=== PATIENT | female | born 1995 | race Caucasian/White ===

== ENCOUNTER 2018-04-15 16:10 | Inpatient (IN) | payer OTHER ==
[2018-04-15] MEDS ORDERED: PROMETHAZINE 25 MG/ML VIAL IV PRN (16:47)
[2018-04-15] MEDS ORDERED: Ringers Lactate 1,000 ML IV PRN (16:47)
[2018-04-15] MEDS ORDERED: METHYLERGONOVINE 0.2MG/ML AMP IM PRN (16:47)
[2018-04-15] MEDS ORDERED: CARBOPROST TROME 250 MCG/ML IM PRN (16:47)
[2018-04-15] MEDS ORDERED: miSOPROStol 100 MCG TAB ONE (16:50)
[2018-04-15] MEDS ORDERED: BUTORPHANOL 1 MG/ML INJ IV ONE (16:51)
[2018-04-15] MEDS ORDERED: Ringers Lactate 1,000 ML IV SCH (17:00)
[2018-04-15] MEDS ORDERED: OXYTOCIN/LR 20 UNIT/1,000 ML BAG IV SCH (17:00)
[2018-04-15] MEDS ORDERED: miSOPROStol 100 MCG TAB VAG SCH (17:00)
[2018-04-15] MEDS ORDERED: NA CIT/CITRIC AC 30 ML ORAL UDC PO ONE (17:20)
[2018-04-15] MEDS ORDERED: hydrOXYzine HCl 25 MG TAB PO ONE (17:21)
[2018-04-15 17:22] LABS: RPR Titer ND
[2018-04-15 17:35] LABS: Absolute Lymphocytes (CBC) 1.6 K/uL (0.7-4.9); Absolute Monocytes 0.7 K/uL (0.1-1.3); Basophils % 0.4 % (0-1.3); Eosinophils % 0.7 % (0-4.4); Hematocrit 24.7 % (36.0-45.0); Lymphocytes % 15.4 % (15.3-44.8); MCH 29.9 pg (27.0-35.0); MPV 7.5 fL (7.6-11.3); Monocytes % 6.4 % (3.3-12.3); RBC Red Blood Cell Count 2.87 M/uL (3.86-4.86); Urine Appearance CLEAR; Urine Bilirubin NEGATIVE (NEG); Urine Blood NEGATIVE (NEG); Urine Color YELLOW; Urine Glucose NEGATIVE (NEG); Urine Protein NEGATIVE (NEG); Urine Urobilinogen 0.2 mg/dL (0.2-1.0)
[2018-04-15 17:41] LABS: Urine Microscopic Reflex ORDER UMIC
[2018-04-15 17:55] VITALS: BMI 36.0
[2018-04-15 17:57] LABS: Urine Bacteria <20 /HPF (<20); Urine Culture Reflex Order REFLEXED; Urine Mucus 1+ /HPF (NONE SEEN); Urine RBC <5 /HPF (NONE SEEN)
[2018-04-15] MEDS ORDERED: RANITIDINE 150 MG TABLET PO SCH (21:00)
[2018-04-15] MEDS ORDERED: INFLUENZA VACCINE (for 3y+) 0.5 ML DOSE IMVAC ONE (21:00)
--- NOTE | 2018-04-15 22:46 | PREOPHP ---
Date of Admission: 04/15/2018 History: Ms. Quiles is a 22-year-old single female, 1, para 0 , now at 41+ weeks gestation. She is admitted for medically indicated induction of labor secondary to prolonged . She has been followed by me during this without complications other than an anemia and Rh negative blood type. Past Medical History: Please see record. Family History: Please see record. Review of Systems: She reports no recent cough, cold, fever, or chills. No recent nausea or vomiting. She denies any breast lumps or breast knots. The has been very active. She denies any bladder or bowel issues or any significant vaginal bleeding. Physical Examination: General: Reveals female in no apparent distress. Neck: Supple without adenopathy or thyromegaly. Lungs: Clear. Cardiac: Regular rate and rhythm without murmurs. Breasts: Not examined. Abdomen: She has a 39 cm fundal height and estimated weight of 8+ to 9 pounds. Pelvic: Cervix noted to be fingertip to closed, 50% effaced, vertex at -1 to - 2 station. Extremities: Trace lower extremity edema. Impression: A 41+ week . Plan: The patient will be induced this evening by prostaglandin induction. She has signed an operative permit in my presence. JEFRY/ARLYN Voice ID: [id number] MTDD
[2018-04-15 23:27] LABS: RPR (Rapid Plasma Reagin) NON-REACT (NON-REACT)
--- NOTE | 2018-04-16 07:44 | P.PN ---
Date of Service: 04/16/18 Cx 1 cm 50%, vtx, minus 2 station. FSE applied with AROM, will begin low dose pitocin augmentation. Reactive fht's with no periodic decellerations.
[2018-04-16] MEDS ORDERED: FENTANYL CITR 100 MCG/2 ML IV ONE (10:32)
[2018-04-16] MEDS ORDERED: ROPIVACAINE HCL 100 ML IV PRN (10:32)
[2018-04-16] MEDS ORDERED: ROPIVACAINE HCL 0.2% 20ML AMP IV ONE (10:33)
[2018-04-16] MEDS ORDERED: NA CIT/CITRIC AC 30 ML ORAL UDC PO ONE (17:07)
--- NOTE | 2018-04-16 17:13 | P.PN ---
Vtx still above pelvic brim, cx same, 1+cm over 5 hours. Will proceed with c- section for FTP 2 to CPD
[2018-04-16] MEDS ORDERED: CEFAZOLIN/SWI 2gm 2 GM/20 ML SYR IVP SCH (17:15)
[2018-04-16] MEDS ORDERED: CARBOPROST TROME 250 MCG/ML IM ONE (17:23)
[2018-04-16] MEDS ORDERED: METHYLERGONOVINE 0.2MG/ML AMP IM ONE (17:23)
[2018-04-16] MEDS ORDERED: LIDOCAINE 1% MPF 5 ML VIAL ONE (17:35)
[2018-04-16] MEDS ORDERED: LIDOCAINE 2% W/EPI 1:200,000 MPF 20 ML VIAL IM ONE (17:36)
[2018-04-16] MEDS ORDERED: OXYTOCIN 10 UNIT/ML ML IV ONE (17:55)
[2018-04-16] MEDS ORDERED: FAMOTIDINE 20 MG/2 ML VIAL IV SCH (18:00)
[2018-04-16] MEDS ORDERED: METOCLOPRAMIDE 10 MG/2mL INJ IV SCH (18:00)
[2018-04-16] MEDS ORDERED: ONDANSETRON HCL 40 MG/20 ML VIAL ONE (18:01)
[2018-04-16] MEDS ORDERED: Phenylephrine HCl 10 MG/ML 1 ML VIAL ONE (18:02)
[2018-04-16] MEDS ORDERED: MORPHINE SULFATE/PF 1 MG/ML (10 ML AMP) ONE (18:10)
[2018-04-16] MEDS ORDERED: METHYLERGONOVINE 0.2MG/ML AMP IM PRN (18:51)
[2018-04-16] MEDS ORDERED: ONDANSETRON 4 MG (ODT) TAB PO PRN (18:51)
[2018-04-16] MEDS ORDERED: METHYLERGONOVINE 0.2 MG TAB PO PRN (18:51)
[2018-04-16] MEDS ORDERED: CARBOPROST TROME 250 MCG/ML IM PRN (18:51)
[2018-04-16] MEDS ORDERED: Rho(D) IG (HUMAN) 300 MCG SYR IM PRN (18:51)
--- NOTE | 2018-04-16 18:55 | P.BOP ---
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
[2018-04-16] MEDS ORDERED: OXYTOCIN/LR 20 UNIT/1,000 ML BAG IV SCH (19:00)
[2018-04-17] MEDS: KETOROLAC 30 MG/ML INJ IV PRN ×2 (01:45→09:35)
[2018-04-17 05:50] LABS: Absolute Lymphocytes (CBC) 1.9 K/uL (0.7-4.9); Absolute Monocytes 0.8 K/uL (0.1-1.3); Absolute Neutrophil 8.5 K/uL (1.8-8.0); Basophils % 0.7 % (0-1.3); Eosinophils % 0.2 % (0-4.4); Hematocrit 25.8 % (36.0-45.0); Lymphocytes % 16.7 % (15.3-44.8); MCH 29.1 pg (27.0-35.0); MCV 85.5 fL (80-100); MPV 7.7 fL (7.6-11.3); Monocytes % 7.4 % (3.3-12.3); RBC Red Blood Cell Count 3.02 M/uL (3.86-4.86)
[2018-04-17] MEDS ORDERED: FAMOTIDINE 20 MG/2 ML VIAL IV SCH (09:00)
[2018-04-17] MEDS: Oxycodone HCl/Acetaminophen 1 TAB TAB PO PRN ×3 (16:43→23:17)
[2018-04-18] MEDS: Oxycodone HCl/Acetaminophen 1 TAB TAB PO PRN ×3 (07:13→15:01)
--- NOTE | 2018-04-18 07:53 | P.PN ---
S-No complaints, ambulating O-Afeb, vs stable, anemic on admission, stable post op, pt. admits not being good about taking iron and vitamins A-Satisfactory, anemia P-Probably home in am
[2018-04-18] MEDS ORDERED: Tdap (Diph,Pertuss(Acell),Tet Vac) 0.5 ML SYR IMVAC ONE (08:21)
[2018-04-18] MEDS ORDERED: INFLUENZA VACCINE (for 3y+) 0.5 ML DOSE IMVAC ONE (09:40)
[2018-04-18 11:01] VITALS: BP 106/52; TEMP 98.6
[2018-04-19 03:50] LABS: HBsAG Nonreactive (Nonreactive)
--- NOTE | 2018-04-22 10:30 | OP ---
Surgeon: Philip Decker MD Anesthesiologist: Dr. Conrad Rodriguez. Preoperative Diagnoses: A 41+ week , failure to progress in labor secondary to cephalopelvi c disproportion. Procedure: section, delivery of viable male infant. Description Of Procedure: After satisfactory level of epidural anesthesia was obtained, the patient was prepped and draped in the usual fashion for abdominal surgery. She had received 2 g of Ancef for antibiotic prophylaxis and a Quevedo catheter in place. A low transverse abdominal incision was made, carried down to the fascia. The fascia incised with a combination of sharp and blunt dissection. T his was from the underlying rectus muscles. These were divided in the midline. The perito neum identified and incised. Vesicouterine peritoneum incised. The lower segment was extremely thin . A low-transverse incision was made. An 8 pounds 15 ounce male infant was delivered. The umbilica l cord was milked. Cord clamped, cut, and the placed in a warmer. Apgars were 8 and 9. The uterus was then exteriorized. Ring clamp was passed through the cervix and then off the table. The uterine incision was closed in 2 layers utilizing 0 Vicryl suture in a running nonlocking fashion, se cond layer used to imbricate the first. The vesicouterine peritoneum was reapproximated with running suture of 3-0 Vicryl. The uterus was returned to the peritoneal cavity, which was cleaned of amniot ic fluid, debris, and blood clot. The peritoneal cavity was closed by approximating the rectus muscl es with simple sutures of 0 Vicryl. The fascia closed with a running suture of #1 Vicryl for either margin to the middle. The skin was closed with subcutaneous sutures of 3-0 Vicryl, running suture of 3-0 Vicryl in the subdermal location, and subcuticular suture of 4-0 Monocryl. Estimated total bloo d loss was less than [address] Judge Surgeon: Dr. Morse. JEFRY/ARLYN Voice ID: [id number] Report ID: [id number]
== END 2018-04-18 16:45 | disposition home or self-care (01) | DRG 788 ==
LOC: 2ND-WC 16:10
PROVIDERS: ADMIT Specialist; ATTEND Specialist
PROC: 3E033VJ Introduction of Other Hormone into Peripheral Vein, Percutaneous Approach (ICD-10-PCS; 2018-04-16)
PROC: 10D00Z1 Extraction of Products of Conception, Low, Open Approach (ICD-10-PCS; principal; 2018-04-16 17:52)
DX: O48.0 Post-term pregnancy (principal); O65.4 Obstructed labor due to fetopelvic disproportion, unspecified; O99.02 Anemia complicating childbirth; D64.9 Anemia, unspecified; Z3A.41 41 weeks gestation of pregnancy; Z37.0 Single live birth
CPT/HCPCS: 36415; 81003; 81015; 85025; 85461; 86592; 86850; 86870; 86900; 86901; 87086; 87088; 87340; 88307; 90715; 99218; J0690; J2210; J2370; J2405; J2590; J2765; J2790; J2795; J3010; Q2035

== ENCOUNTER 2018-07-26 11:34 | Emergency (ER) | payer OTHER, SELFPAY ==
--- NOTE | 2018-07-26 13:08 | ER ---
Nurse's Notes [facility] Name: Nette Quiles Age: 23 yrs Sex: Female : 1995 Arrival Date: 07/26/2018 Time: 11:37 Bed 11 Private MD: Diagnosis: Dental caries Presentation: 07/26 11:52 Presenting complaint: Patient states: right upper tooth pain x 3 days. Transition of sv care: patient was not received from another setting of care. Onset of symptoms was July 23, 2018. Care prior to arrival: Medication(s) given: ASA, Oragel. 11:52 Method Of Arrival: Ambulatory sv 11:52 Acuity: ALEK 4 sv 12:00 Risk Assessment: Do you want to hurt yourself or someone else? Patient reports no iw desire to harm self or others. Initial Sepsis Screen: Does the patient meet any 2 criteria? No. Patient's initial sepsis screen is negative. Does the patient have a suspected source of infection? No. Patient's initial sepsis screen is negative. Triage Assessment: 13:00 EENT: Reports pain in right jaw and right cheek. iw 13:28 General: Appears in no apparent distress. Behavior is calm, cooperative. 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 - Social history:: Smoking status: Patient uses tobacco products, smokes one-half pack cigarettes per day. - Ebola Screening: : No symptoms or risks identified at this time. Screenin:00 Abuse screen: Denies threats or abuse. Denies injuries from another. Nutritional iw screening: No deficits noted. Tuberculosis screening: No symptoms or risk factors identified. Fall Risk None identified. Assessment: 12:50 General: Appears in no apparent distress. Behavior is calm, cooperative. Pain: iw Complains of pain in mouth. Neuro: Level of Consciousness is awake, alert, obeys commands. Cardiovascular: Patient's skin is warm and dry. Respiratory: Respiratory effort is even, unlabored, Respiratory pattern is regular. EENT: Reports pain in right cheek and right jaw. Derm: Skin is intact, is healthy with good turgor. Vital Signs: 11:54 BP 113 / 67; Pulse 69; Resp 16; Temp 98.3; Pulse Ox 98% ; Weight 81.65 kg; Height 5 ft. sv 4 in. (162.56 cm); Pain 7/10; 11:54 Body Mass Index 30.90 (81.65 kg, 162.56 cm) sv ED Course: 11:37 Patient arrived in ED. rg4 11:53 Triage completed. sv 11:54 Arm band placed on Patient placed in waiting room, Patient notified of wait time. sv 12:00 Patient has correct armband on for positive identification. iw 12:47 Nelida Davis, RN is Primary Nurse. iw 12:51 Rodney Keller PA is PHCP. [facility] 12:51 Otis Hallman MD is Attending Physician. [facility] 13:28 No provider procedures requiring assistance completed. Patient did not have IV access iw during this emergency room visit. Administered Medications: No medications were administered Outcome: 13:07 Discharge ordered by MD. [facility] 13:28 Discharged to home ambulatory, with family. iw 13:28 Condition: good 13:28 Discharge instructions given to patient, family, Instructed on discharge instructions, follow up and referral plans. medication usage, Demonstrated understanding of instructions, follow-up care, medications, Prescriptions given X 1. 13:29 Patient left the ED. iw Signatures: Luda Valverde, RN JAMEL Rodney Keller PA PA jmm Williams, Irene, RN Lexus Nieves rg4
--- NOTE | 2018-07-26 13:08 | EDPHYS ---
Physician Documentation [facility] Name: Nette Quiles Age: 23 yrs Sex: Female : 1995 Arrival Date: 07/26/2018 Time: 11:37 Bed 11 Private MD: ED Physician Otis Hallman HPI: 07/26 13:04 This 23 yrs old Female presents to ER via Ambulatory with complaints of jmm Toothache. 13:04 The patient presents with pain, swelling. Onset: The symptoms/episode began/occurred jmm gradually. Duration: The symptoms are continuous. Modifying factors: The symptoms are alleviated by nothing, the symptoms are aggravated by nothing. Associated signs and symptoms: Pertinent positives: swelling, Pertinent negatives: fever. This is a 23 year old female with a history of post depression that presents to the ED with right sided dental pain that has progressively worsened over the past 2 to 3 days according to the patient. Patient denies fever. . 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 - Social history:: Smoking status: Patient uses tobacco products, smokes one-half pack cigarettes per day. - Ebola Screening: : No symptoms or risks identified at this time. ROS: 13:04 Constitutional: Negative for fever, chills, and weight loss. jmm 13:04 ENT: Positive for dental pain. 13:04 All other systems are negative. Exam: 13:04 Constitutional: This is a well developed, well nourished patient who is awake, alert, jmm and in no acute distress. Head/Face: atraumatic. 13:04 Neck: Trachea midline, Supple Chest/axilla: Normal chest wall appearance and motion. Cardiovascular: Regular rate and rhythm. No edema appreciated Respiratory: Normal respirations, no respiratory distress appreciated Abdomen/GI: Non distended, soft Back: Normal ROM Skin: General appearance color normal MS/ Extremity: Moves all extremities, no obvious deformities appreciated, no edema noted to the lower extremities Neuro: Awake and alert, normal gait Psych: Behavior is normal, Mood is normal, Patient is cooperative and pleasant 13:04 ENT: Dental exam: dental caries, that is moderate, specifically in the upper right first molar (#3), upper right second bicuspid (#4), lower right second bicuspid (#29), lower right first molar (#30) and lower right second molar (#31). Vital Signs: 11:54 BP 113 / 67; Pulse 69; Resp 16; Temp 98.3; Pulse Ox 98% ; Weight 81.65 kg; Height 5 ft. sv 4 in. (162.56 cm); Pain 7/10; 11:54 Body Mass Index 30.90 (81.65 kg, 162.56 cm) sv MDM: 13:03 Patient medically screened. [facility] 13:04 Data reviewed: vital signs, nurses notes. Counseling: I had a detailed discussion with abbie the patient and/or guardian regarding: the historical points, exam findings, and any diagnostic results supporting the discharge/admit diagnosis, the need for outpatient follow up, to return to the emergency department if symptoms worsen or persist or if there are any questions or concerns that arise at home. ED course: No swelling appreicated, no fluctuant abscess appreciated. Patient is prescribed oral antibioptics and given s/s for return. Patient understood and agrees with the plan of care. . Administered Medications: No medications were administered Disposition: 14:32 Co-signature as Attending Physician, Otis Hallman MD. rn Disposition: 07/26/18 13:07 Discharged to Home. Impression: Dental caries. - Condition is Stable. - Discharge Instructions: Dental Pain. - Prescriptions for penicillin V potassium 500 mg Oral tablet - take 1 tablet by ORAL route every 6 hours; 40 tablet. Ultracet 37.5- 325 mg Oral Tablet - take 1 tablet by ORAL route every 6 hours - for up to 5 days; do not exceed 8 tablets per day.; 9 tablet. - Medication Reconciliation Form, Thank You Letter, Antibiotic Education, Prescription Opioid Use, Work release form, Family Work Release form. - Follow up: Private Physician; When: 2 - 3 days; Reason: Recheck today's complaints, Continuance of care, Re-evaluation by your physician. Signatures: Luda Valverde RN RN sv Mickail, Joel, PA PA jmm Williams, Irene, RN RN iw Nieto, Roman, MD MD learning and development intern: (The following items were deleted from the chart) 13:29 13:07 07/26/2018 13:07 Discharged to Home. Impression: Dental caries. Condition is iw Stable. Forms are Medication Reconciliation Form, Thank You Letter, Antibiotic Education, Prescription Opioid Use. Follow up: Private Physician; When: 2 - 3 days; Reason: Recheck today's complaints, Continuance of care, Re-evaluation by your physician. abbie
[2018-07-26 13:34] VITALS: BP 113/67; TEMP 98.3; O2SAT 98
== END 2018-07-26 13:29 | disposition home or self-care (01) ==
LOC: ER 11:34
DX: K02.9 Dental caries, unspecified (principal); F17.210 Nicotine dependence, cigarettes, uncomplicated

== ENCOUNTER 2018-09-29 12:55 | Emergency (ER) | payer SELFPAY ==
--- NOTE | 2018-09-29 14:15 | EDPHYS ---
Physician Documentation [facility] Name: Nette Quiles Age: 23 yrs Sex: Female : 1995 Arrival Date: 09/29/2018 Time: 12:58 Bed 27 Private MD: David Lowe T ED Physician Chalo Du HPI: 09/29 14:14 This 23 yrs old Female presents to ER via Ambulatory with complaints of kb Cough, Congestion. 14:14 The patient or guardian reports cough, that is intermittent, described as moderate, kb with no sputum, flu symptoms, low-grade fever, myalgias. Onset: The symptoms/episode began/occurred this morning. Severity of symptoms: At their worst the symptoms were moderate, in the emergency department the symptoms are unchanged. Modifying factors: The symptoms are alleviated by nothing, the symptoms are aggravated by nothing. Associated signs and symptoms: Pertinent positives: sore throat, Pertinent negatives: chest pain, diarrhea, ear ache, fever, nausea, rhinorrhea, vomiting. The patient has not experienced similar symptoms in the past. The patient has not recently seen a physician. 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 - Social history:: Smoking status: Patient uses tobacco products, Patient/guardian denies using alcohol. - Ebola Screening: : Patient negative for fever greater than or equal to 101.5 degrees Fahrenheit, and additional compatible Ebola Virus Disease symptoms Patient denies exposure to infectious person Patient denies travel to an Ebola-affected area in the 21 days before illness onset. ROS: 14:13 Neck: Negative for injury, pain, and swelling, Cardiovascular: Negative for chest pain, kb palpitations, and edema, Abdomen/GI: Negative for abdominal pain, nausea, vomiting, diarrhea, and constipation, Back: Negative for injury and pain, MS/Extremity: Negative for injury and deformity, Skin: Negative for injury, rash, and discoloration, Neuro: Negative for headache, weakness, numbness, tingling, and seizure. 14:13 Constitutional: Positive for fatigue, malaise. 14:13 Respiratory: Positive for cough. 14:13 ENT: Positive for sore throat. kb Exam: 14:12 Constitutional: This is a well developed, well nourished patient who is awake, alert, kb and in no acute distress. Head/Face: Normocephalic, atraumatic. Chest/axilla: Normal chest wall appearance and motion. Nontender with no deformity. No lesions are appreciated. Cardiovascular: Regular rate and rhythm with a normal S1 and S2. No gallops, murmurs, or rubs. Normal PMI, no JVD. No pulse deficits. Abdomen/GI: Soft, non-tender, with normal bowel sounds. No distension or tympany. No guarding or rebound. No evidence of tenderness throughout. Skin: Warm, dry with normal turgor. Normal color with no rashes, no lesions, and no evidence of cellulitis. MS/ Extremity: Pulses equal, no cyanosis. Neurovascular intact. Full, normal range of motion. Neuro: Awake and alert, GCS 15, oriented to person, place, time, and situation. Cranial nerves II-XII grossly intact. Motor strength 5/5 in all extremities. Sensory grossly intact. Cerebellar exam normal. Normal gait. 14:12 Respiratory: the patient does not display signs of respiratory distress, Respirations: normal, Breath sounds: wheezing: expiratory that is mild, is heard in the right posterior upper lobe, clears after cough. Vital Signs: 13:03 BP 123 / 68; Pulse 120; Resp 18; Temp 99.9(O); Pulse Ox 98% on R/A; Weight 77.11 kg; hj Height 5 ft. 4 in. (162.56 cm); Pain 3/10; 13:40 BP 127 / 70; Pulse 102; Resp 19; Pulse Ox 99% ; ca1 14:27 BP 113 / 66; Pulse 104; Resp 19; Pulse Ox 100% on R/A; ca1 13:03 Body Mass Index 29.18 (77.11 kg, 162.56 cm) MDM: 13:29 Patient medically screened. kb 14:12 Data reviewed: vital signs, nurses notes. Data interpreted: Pulse oximetry: on room air kb is 99 %. Interpretation: normal. Counseling: I had a detailed discussion with the patient and/or guardian regarding: the historical points, exam findings, and any diagnostic results supporting the discharge/admit diagnosis, lab results, the need for outpatient follow up, a family practitioner, to return to the emergency department if symptoms worsen or persist or if there are any questions or concerns that arise at home. 09/29 13:08 Order name: Flu; Complete Time: 14:03 kb 09/29 13:08 Order name: Strep; Complete Time: 13:41 kb 09/29 13:34 Order name: Throat Culture EDMS Administered Medications: No medications were administered Disposition: 09/30 07:35 Co-signature as Attending Physician, Chalo Du MD I agree with the assessment and [facility] plan of care. Disposition: 09/29/18 14:15 Discharged to Home. Impression: Bronchitis, not specified as acute or chronic. - Condition is Stable. - Discharge Instructions: Acute Bronchitis, [id number]. - Prescriptions for Zithromax Z- Guido 250 mg Oral Tablet - take 1 tablet by ORAL route as directed for 5 days Day 1 - take two (2) tablets one time. Day 2, 3, 4 , 5 take one (1) tablet once daily.; 6 tablet. Albuterol Sulfate 90 mcg/actuation - inhale 1-2 puff by INHALATION route every 4-6 hours; 1 Inhaler. - Medication Reconciliation Form, Thank You Letter, Antibiotic Education, Prescription Opioid Use form. - Follow up: Emergency Department; When: As needed; Reason: Worsening of condition. Follow up: Private Physician; When: 2 - 3 days; Reason: Recheck today's complaints, Continuance of care, Re-evaluation by your physician. Signatures: Dispatcher [employer] EDMS Inna Edge, CLAUDIO ABREU-Chalo Rand MD MD cha Attema, Lee RN RN la1 Elbert Wilder RN RN hj Corrections: (The following items were deleted from the chart) 09/29 14:14 14:13 ENT: Negative for injury, pain, and discharge, Neck: Negative for injury, pain, kb and swelling, Cardiovascular: Negative for chest pain, palpitations, and edema, Abdomen/GI: Negative for abdominal pain, nausea, vomiting, diarrhea, and constipation, Back: Negative for injury and pain, MS/Extremity: Negative for injury and deformity, Skin: Negative for injury, rash, and discoloration, Neuro: Negative for headache, weakness, numbness, tingling, and seizure, kb 14:39 14:15 09/29/2018 14:15 Discharged to Home. Impression: Bronchitis, not specified as la1 acute or chronic. Condition is Stable. Forms are Medication Reconciliation Form, Thank You Letter, Antibiotic Education, Prescription Opioid Use. Follow up: Emergency Department; When: As needed; Reason: Worsening of condition. Follow up: Private Physician; When: 2 - 3 days; Reason: Recheck today's complaints, Continuance of care, Re-evaluation by your physician. kb
--- NOTE | 2018-09-29 14:15 | ER ---
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 Transition of care: patient was not received from another setting of care. Resp Distress? No respiratory distress is noted at this time. Onset of symptoms was September 29, 2018. Risk Assessment: Do you want to hurt yourself or someone else? Patient reports no desire to harm self or others. Initial Sepsis Screen: Does the patient meet any 2 criteria? No. Patient's initial sepsis screen is negative. Does the patient have a suspected source of infection? No. Patient's initial sepsis screen is negative. Care prior to arrival: None. 13:00 Method Of Arrival: Ambulatory 13:00 Acuity: ALEK 4 hj Triage Assessment: 13:02 General: Appears in no apparent distress. uncomfortable, Behavior is calm, cooperative, hj appropriate for age. Pain: Complains of pain in throat Pain currently is 3 out of 10 on a pain scale. 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 - Social history:: Smoking status: Patient uses tobacco products, Patient/guardian denies using alcohol. - Ebola Screening: : Patient negative for fever greater than or equal to 101.5 degrees Fahrenheit, and additional compatible Ebola Virus Disease symptoms Patient denies exposure to infectious person Patient denies travel to an Ebola-affected area in the 21 days before illness onset. Screenin:02 Abuse screen: Denies threats or abuse. Denies injuries from another. Nutritional hj screening: No deficits noted. Tuberculosis screening: No symptoms or risk factors identified. Fall Risk None identified. Assessment: 13:02 Cardiovascular: Capillary refill Patient's skin is warm and dry. hj 13:40 General: Appears in no apparent distress. comfortable, Behavior is calm, cooperative, ca1 appropriate for age. Pain: Denies pain. Neuro: Level of Consciousness is awake, alert, obeys commands, Oriented to person, place, time, situation. Cardiovascular: Heart tones S1 S2 present Capillary refill < 3 seconds Patient's skin is warm and dry. Respiratory: Reports cough that is productive, Airway is patent Respiratory effort is even, unlabored, Respiratory pattern is regular, symmetrical, Breath sounds are clear bilaterally. Onset: The symptoms/episode began/occurred today. GI: No deficits noted. No signs and/or symptoms were reported involving the gastrointestinal system. : No deficits noted. No signs and/or symptoms were reported regarding the genitourinary system. EENT: No deficits noted. No signs and/or symptoms were reported regarding the EENT system. Derm: Skin is intact, is healthy with good turgor, Skin is pink, warm \T\ dry. Musculoskeletal: Circulation, motion, and sensation intact. Capillary refill < 3 seconds. 14:27 Reassessment: Patient appears in no apparent distress at this time. Patient is alert, ca1 oriented x 3, equal unlabored respirations, skin warm/dry/pink. Vital Signs: 13:03 BP 123 / 68; Pulse 120; Resp 18; Temp 99.9(O); Pulse Ox 98% on R/A; Weight 77.11 kg; hj Height 5 ft. 4 in. (162.56 cm); Pain 3/10; 13:40 BP 127 / 70; Pulse 102; Resp 19; Pulse Ox 99% ; ca1 14:27 BP 113 / 66; Pulse 104; Resp 19; Pulse Ox 100% on R/A; ca1 13:03 Body Mass Index 29.18 (77.11 kg, 162.56 cm) ED Course: 12:58 Patient arrived in ED. mr 12:58 David Lowe MD is Private Physician. mr 13:01 Triage completed. hj 13:02 Arm band placed on left wrist. hj 13:02 Patient has correct armband on for positive identification. Bed in low position. Call light in reach. Side rails up X 1. 13:08 Inna Edge FNP-C is PHCP. kb 13:08 Chalo Du MD is Attending Physician. kb 13:40 Pulse ox on. NIBP on. ca1 13:48 Lindsey Garcia, RN is Primary Nurse. ca1 14:28 No provider procedures requiring assistance completed. Patient did not have IV access ca1 during this emergency room visit. Administered Medications: No medications were administered Outcome: 14:15 Discharge ordered by . kb 14:29 Discharged to home ambulatory, with family. ca1 14:29 Condition: stable 14:29 Discharge instructions given to patient, Instructed on discharge instructions, follow up and referral plans. medication usage, Demonstrated understanding of instructions, follow-up care, medications, Prescriptions given X 2. 14:39 Patient left the ED. la1 Signatures: Inna Edge, CLAUDIO ABREU-Kandi BarnesKimberly Lee RN RN la1 Elbert Wilder, RN JAMEL Lindsey Garcia, JAMEL RN ca1 Corrections: (The following items were deleted from the chart) 13:05 13:03 Pulse 120bpm; Resp 18bpm; Pulse Ox 98% RA; Temp 99.9F Oral; 77.11 kg; Height 5 hj ft. 4 in.; BMI: 29.1; Pain 3/10; hj 13:59 13:40 BP 127 / 70; Pulse 102bpm; Resp 19bpm; Pulse Ox 99%; ca1 ca1
[2018-09-29 14:43] VITALS: TEMP 99.9
[2018-09-29 14:46] VITALS: BP 113/66; O2SAT 100
== END 2018-09-29 14:39 | disposition home or self-care (01) ==
LOC: ER 12:55
DX: J40 Bronchitis, not specified as acute or chronic (principal)
CPT/HCPCS: 87070; 87081; 87804; 99283

== ENCOUNTER 2018-11-17 12:45 | Emergency (ER) | payer SELFPAY ==
[2018-11-17 13:51] LABS: Absolute Lymphocytes (CBC) 1.5 K/uL (0.7-4.9); Absolute Monocytes 0.4 K/uL (0.1-1.3); Absolute Neutrophil 1.9 K/uL (1.8-8.0); Basophils % 0.9 % (0-1.3); Eosinophils % 3.3 % (0-4.4); Hematocrit 36.3 % (36.0-45.0); Lymphocytes % 38.4 % (15.3-44.8); MPV 8.3 fL (7.6-11.3); Monocytes % 9.6 % (3.3-12.3); RBC Red Blood Cell Count 4.69 M/uL (3.86-4.86)
[2018-11-17 14:16] LABS: Urine Blood TRACE (NEG); Urine Glucose NEGATIVE (NEG); Urine Protein NEGATIVE (NEG)
--- NOTE | 2018-11-17 14:24 | RAD REPORT ---
EXAM DESCRIPTION: US - Abdomen Exam Limited - 11/17/2018 2:07 pm CLINICAL HISTORY: Abdominal pain. COMPARISON: None. FINDINGS: The gallbladder wall is not thickened. A gallstone is not seen. The biliary tree is normal caliber. IMPRESSION: Unremarkable gallbladder ultrasound.
[2018-11-17 14:36] LABS: ALT/SGPT 14 U/L (12-78); AST/SGOT 9 U/L (15-37); Albumin 3.8 g/dL (3.4-5.0); Alkaline Phosphatase 72 U/L (45-117); BUN Blood Urea Nitrogen 13 mg/dL (7-18); Bicarbonate 26 mmol/L (21-32); Bilirubin Direct < 0.1 mg/dL (0-0.2); Bilirubin Total 0.3 mg/dL (0.2-1.0); Glucose Level 81 mg/dL (74-106); Lipase 217 U/L (73-393); Potassium 4.2 mmol/L (3.5-5.1); Protein, Total 6.7 g/dL (6.4-8.2); Sodium Level 142 mmol/L (136-145)
--- NOTE | 2018-11-17 14:43 | ER ---
Nurse's Notes [facility] Name: Nette Quiles Age: 23 yrs Sex: Female : 1995 Arrival Date: 11/17/2018 Time: 12:46 Bed 5 Private MD: David Lowe T Diagnosis: Generalized abdominal pain Presentation: 11/17 12:49 Presenting complaint: Patient states: Reports RUQ abdominal pain for 1 month that is aj worse at night with movement. Denies N/V. Transition of care: patient was not received from another setting of care. Onset of symptoms was October 18, 2018. Risk Assessment: Do you want to hurt yourself or someone else? Patient reports no desire to harm self or others. Initial Sepsis Screen: Does the patient meet any 2 criteria? No. Patient's initial sepsis screen is negative. Does the patient have a suspected source of infection? No. Patient's initial sepsis screen is negative. Care prior to arrival: None. 12:49 Method Of Arrival: Ambulatory 12:49 Acuity: ALEK 4 aj Triage Assessment: 12:50 General: Appears in no apparent distress. comfortable, Behavior is calm, cooperative, aj appropriate for age. Pain: Complains of pain in right upper quadrant. Neuro: Level of Consciousness is awake, alert, obeys commands, Oriented to person, place, time, situation, Appropriate for age. Respiratory: Airway is patent Respiratory effort is even, unlabored, Respiratory pattern is regular, symmetrical. GI: Reports upper abdominal pain. Derm: Skin is intact, is healthy with good turgor, Skin is pink, warm \T\ dry. normal. 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 - Social history:: Smoking status: Patient/guardian denies using tobacco. - Ebola Screening: : Patient negative for fever greater than or equal to 101.5 degrees Fahrenheit, and additional compatible Ebola Virus Disease symptoms Patient denies exposure to infectious person Patient denies travel to an Ebola-affected area in the 21 days before illness onset No symptoms or risks identified at this time. Screenin:27 Abuse screen: Denies threats or abuse. Denies injuries from another. Nutritional bp screening: No deficits noted. Tuberculosis screening: No symptoms or risk factors identified. Fall Risk None identified. Assessment: 13:00 General: Appears in no apparent distress. uncomfortable, Behavior is cooperative, bp appropriate for age, anxious. Pain: Complains of pain in right upper quadrant. Neuro: Level of Consciousness is awake, alert, obeys commands, Oriented to person, place, time, situation, Appropriate for age. Cardiovascular: No deficits noted. Respiratory: Airway is patent Respiratory effort is even, unlabored, Respiratory pattern is regular, symmetrical. GI: Bowel sounds present X 4 quads. Abd is soft X 4 quads Abdomen is tender to palpation in right upper quadrant. : No signs and/or symptoms were reported regarding the genitourinary system. EENT: No deficits noted. Derm: No deficits noted. Musculoskeletal: Circulation, motion, and sensation intact. Range of motion: intact in all extremities. 14:18 Reassessment: Patient and/or family updated on plan of care and expected duration. Pain hj level reassessed. Patient is alert, oriented x 3, equal unlabored respirations, skin warm/dry/pink. awaiting results and POC; and son in room;. Vital Signs: 12:50 BP 137 / 70; Pulse 98; Resp 20; Temp 98.4; Pulse Ox 97% on R/A; Weight 74.84 kg; Height aj 5 ft. 4 in. (162.56 cm); 13:27 BP 110 / 66; Pulse 94; Resp 16; Pulse Ox 99% ; bp 14:20 BP 105 / 68; Pulse 88; Resp 18; Pulse Ox 98% on R/A; hj 12:50 Body Mass Index 28.32 (74.84 kg, 162.56 cm) aj ED Course: 12:46 Patient arrived in ED. as 12:47 David Lowe MD is Private Physician. as 12:50 Triage completed. aj 12:50 Arm band placed on left wrist. Patient placed in an exam room. aj 12:52 Sabi Woodard FNP is PHCP. nh 12:52 Chalo Du MD is Attending Physician. nh 13:14 Elbert Wilder, JAMEL is Primary Nurse. hj 13:14 Primary Nurse role handed off by Elbert Wilder, RN bp 13:14 Tiago Alcantara, RN is Primary Nurse. bp 13:23 Urine collected: clean catch specimen, clear, dionne colored. jb1 13:27 Patient has correct armband on for positive identification. Bed in low position. Call bp light in reach. Side rails up X2. 13:30 Initial lab(s) drawn, by me, sent to lab. Inserted saline lock: 20 gauge in right hj antecubital area, using aseptic technique. Blood collected. 14:06 Ultrasound completed. Patient tolerated well. sg3 14:08 US Abdomen Limited In Process Unspecified. EDMS 14:50 No provider procedures requiring assistance completed. IV discontinued, intact, hj bleeding controlled, No redness/swelling at site. Pressure dressing applied. Administered Medications: No medications were administered Outcome: 14:43 Discharge ordered by MD. fl 14:50 Discharged to home ambulatory, with family. 14:50 Condition: stable 14:50 Discharge instructions given to patient, family, Instructed on discharge instructions, follow up and referral plans. Demonstrated understanding of instructions, follow-up care. 14:51 Patient left the ED. Signatures: Dispatcher [employer] EDMS Anjel Mullen jb1 Gail Nunez RN RN aj Cronk, Niki, REHEATER HELPER REHEATER HELPER Elham Goldberg as Elbert Wilder, RN RN Tiago Quintanilla, RN RN Meggan Chang sg3
--- NOTE | 2018-11-17 14:43 | EDPHYS ---
Physician Documentation [facility] Name: Nette Quiles Age: 23 yrs Sex: Female : 1995 Arrival Date: 11/17/2018 Time: 12:46 Bed 5 Private MD: David Lowe T ED Physician Chalo Du HPI: 11/17 14:41 This 23 yrs old Female presents to ER via Ambulatory with complaints of nh Abdominal Pain. 14:41 The patient presents with abdominal pain in the epigastric area. Onset: The nh symptoms/episode began/occurred 1 month(s) ago. The symptoms do not radiate. Associated signs and symptoms: none. The symptoms are described as crampy. Modifying factors: The symptoms are alleviated by nothing, the symptoms are aggravated by movement. Severity of pain: At its worst the pain was moderate just prior to arrival, in the emergency department the pain is unchanged. The patient has not experienced similar symptoms in the past. The patient has not recently seen a physician. 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 - Social history:: Smoking status: Patient/guardian denies using tobacco. - Ebola Screening: : Patient negative for fever greater than or equal to 101.5 degrees Fahrenheit, and additional compatible Ebola Virus Disease symptoms Patient denies exposure to infectious person Patient denies travel to an Ebola-affected area in the 21 days before illness onset No symptoms or risks identified at this time. ROS: 14:41 Constitutional: Negative for fever, chills, and weight loss, Eyes: Negative for injury, nh pain, redness, and discharge, ENT: Negative for injury, pain, and discharge, Neck: Negative for injury, pain, and swelling, Cardiovascular: Negative for chest pain, palpitations, and edema, Respiratory: Negative for shortness of breath, cough, wheezing, and pleuritic chest pain, Back: Negative for injury and pain, : Negative for injury, bleeding, discharge, and swelling, MS/Extremity: Negative for injury and deformity, Skin: Negative for injury, rash, and discoloration, Neuro: Negative for headache, weakness, numbness, tingling, and seizure, Psych: Negative for depression, anxiety, suicide ideation, homicidal ideation, and hallucinations, Allergy/Immunology: Negative for hives, rash, and allergies, Endocrine: Negative for neck swelling, polydipsia, polyuria, polyphagia, and marked weight changes, Hematologic/Lymphatic: Negative for swollen nodes, abnormal bleeding, and unusual bruising. 14:41 Abdomen/GI: Positive for abdominal pain. Exam: 14:41 Constitutional: This is a well developed, well nourished patient who is awake, alert, nh and in no acute distress. Head/Face: Normocephalic, atraumatic. Eyes: Pupils equal round and reactive to light, extra-ocular motions intact. Lids and lashes normal. Conjunctiva and sclera are non-icteric and not injected. Cornea within normal limits. Periorbital areas with no swelling, redness, or edema. ENT: Nares patent. No nasal discharge, no septal abnormalities noted. Tympanic membranes are normal and external auditory canals are clear. Oropharynx with no redness, swelling, or masses, exudates, or evidence of obstruction, uvula midline. Mucous membranes moist. Neck: Trachea midline, no thyromegaly or masses palpated, and no cervical lymphadenopathy. Supple, full range of motion without nuchal rigidity, or vertebral point tenderness. No Meningismus. Chest/axilla: Normal chest wall appearance and motion. Nontender with no deformity. No lesions are appreciated. Cardiovascular: Regular rate and rhythm with a normal S1 and S2. No gallops, murmurs, or rubs. Normal PMI, no JVD. No pulse deficits. Respiratory: Lungs have equal breath sounds bilaterally, clear to auscultation and percussion. No rales, rhonchi or wheezes noted. No increased work of breathing, no retractions or nasal flaring. Abdomen/GI: Soft, non-tender, with normal bowel sounds. No distension or tympany. No guarding or rebound. No evidence of tenderness throughout. Back: No spinal tenderness. No costovertebral tenderness. Full range of motion. Skin: Warm, dry with normal turgor. Normal color with no rashes, no lesions, and no evidence of cellulitis. MS/ Extremity: Pulses equal, no cyanosis. Neurovascular intact. Full, normal range of motion. Neuro: Awake and alert, GCS 15, oriented to person, place, time, and situation. Cranial nerves II-XII grossly intact. Motor strength 5/5 in all extremities. Sensory grossly intact. Cerebellar exam normal. Normal gait. Psych: Awake, alert, with orientation to person, place and time. Behavior, mood, and affect are within normal limits. Vital Signs: 12:50 BP 137 / 70; Pulse 98; Resp 20; Temp 98.4; Pulse Ox 97% on R/A; Weight 74.84 kg; Height aj 5 ft. 4 in. (162.56 cm); 13:27 BP 110 / 66; Pulse 94; Resp 16; Pulse Ox 99% ; bp 14:20 BP 105 / 68; Pulse 88; Resp 18; Pulse Ox 98% on R/A; hj 12:50 Body Mass Index 28.32 (74.84 kg, 162.56 cm) MDM: 12:52 Patient medically screened. wa 14:41 Data reviewed: vital signs, nurses notes, lab test result(s), radiologic studies, I nh have discussed the patient's presentation/case with the attending Emergency Department Physician; and as a result, I will discharge patient. Counseling: I had a detailed discussion with the patient and/or guardian regarding: the historical points, exam findings, and any diagnostic results supporting the discharge/admit diagnosis, lab results, radiology results, the need for outpatient follow up, to return to the emergency department if symptoms worsen or persist or if there are any questions or concerns that arise at home. 11/17 13:03 Order name: Basic Metabolic Panel wa 11/17 13:03 Order name: CBC with Diff; Complete Time: 14:25 wa 11/17 13:03 Order name: Creatinine for Radiology wa 11/17 13:03 Order name: Hepatic Function wa 11/17 13:03 Order name: Lipase wa 11/17 13:03 Order name: Test, Serum; Complete Time: 14:25 wa 11/17 13:03 Order name: IV Saline Lock; Complete Time: 13:43 wa 11/17 13:03 Order name: Labs collected and sent; Complete Time: 13:43 wa 11/17 13:03 Order name: Urine Dipstick-Ancillary (obtain specimen); Complete Time: 13:23 wa 11/17 13:03 Order name: US Abdomen Limited; Complete Time: 14:25 wa 11/17 13:24 Order name: Urine Dipstick--Ancillary (enter results) em1 11/17 13:24 Order name: Urine --Ancillary (enter results); Complete Time: 14:25 em1 11/17 13:25 Order name: Urine Dipstick-Ancillary; Complete Time: 14:25 EDMS Administered Medications: No medications were administered Disposition: 11/18 09:08 Co-signature as Attending Physician, Chalo Du MD I agree with the assessment and [facility] plan of care. Disposition: 11/17/18 14:43 Discharged to Home. Impression: Generalized abdominal pain. - Condition is Stable. - Discharge Instructions: Abdominal Pain, Adult. - Medication Reconciliation Form, Thank You Letter, Antibiotic Education, Prescription Opioid Use form. - Follow up: Private Physician; When: 2 - 3 days; Reason: Recheck today's complaints. - Problem is new. - Symptoms are unchanged. Signatures: Dispatcher [employer] EDGail Nichols, RN RN Chalo Molina MD MD cha Cronk, Niki, DAIRY FEED SALES CONSULTANT DAIRY FEED SALES CONSULTANT wa Elbert Wilder RN RN hj Corrections: (The following items were deleted from the chart) 11/17 14:51 14:43 11/17/2018 14:43 Discharged to Home. Impression: Generalized abdominal pain. hj Condition is Stable. Forms are Medication Reconciliation Form, Thank You Letter, Antibiotic Education, Prescription Opioid Use. Follow up: Private Physician; When: 2 - 3 days; Reason: Recheck today's complaints. Problem is new. Symptoms are unchanged. wa
[2018-11-17 15:00] VITALS: TEMP 98.4
[2018-11-17 15:03] VITALS: BP 105/68; O2SAT 98
== END 2018-11-17 14:51 | disposition home or self-care (01) ==
LOC: ER 12:45
DX: R10.84 Generalized abdominal pain (principal); F32.9 Major depressive disorder, single episode, unspecified
CPT/HCPCS: 36415; 76705; 80048; 80076; 81003; 81025; 83690; 84703; 85025; 99283

== ENCOUNTER 2019-05-20 10:03 | Emergency (ER) | payer OTHER, SELFPAY ==
--- NOTE | 2019-05-20 11:42 | ER ---
Nurse's Notes [facility] Name: Nette Quiles Age: 23 yrs Sex: Female : 1995 Arrival Date: 05/20/2019 Time: 10:06 Bed 11 Private MD: David Lowe T Diagnosis: Streptococcal pharyngitis Presentation: 05/20 10:40 Presenting complaint: Patient states: about 2 days ago pain in my throat when i tw2 swallow, yesterday i stared coughing, and i feel it down in my chest when i cough, i am having mucous but i swallow it it wont come out my nose though. Transition of care: patient was not received from another setting of care. Onset of symptoms was May 20, 2019. Risk Assessment: Do you want to hurt yourself or someone else? Patient reports no desire to harm self or others. Initial Sepsis Screen: Does the patient meet any 2 criteria? No. Patient's initial sepsis screen is negative. Does the patient have a suspected source of infection? No. Patient's initial sepsis screen is negative. Care prior to arrival: None. 10:40 Method Of Arrival: Ambulatory tw2 10:40 Acuity: ALEK 4 tw2 Triage Assessment: 10:42 General: Appears in no apparent distress. Behavior is calm, cooperative, appropriate tw2 for age. Pain: Complains of pain in uvula, left aspect of posterior pharynx and right aspect of posterior pharynx. EENT: Reports nasal congestion. 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 - Social history:: Smoking status: Patient uses tobacco products, smokes one pack cigarettes per day. - Ebola Screening: : Patient denies travel to an Ebola-affected area in the 21 days before illness onset. Screenin:50 Abuse screen: Denies threats or abuse. Nutritional screening: No deficits noted. tw2 Tuberculosis screening: No symptoms or risk factors identified. Fall Risk None identified. Assessment: 10:48 General: Appears in no apparent distress. Behavior is calm, cooperative, appropriate tw2 for age. Pain: Complains of pain in right aspect of posterior pharynx and left aspect of posterior pharynx and uvula. Cardiovascular: Patient's skin is warm and dry. Respiratory: Reports cough that is non-productive, Airway is patent Respiratory effort is even, unlabored, Respiratory pattern is regular, symmetrical, Breath sounds are clear bilaterally. GI: No signs and/or symptoms were reported involving the gastrointestinal system. : No signs and/or symptoms were reported regarding the genitourinary system. EENT: Throat is reddened. Derm: No signs and/or symptoms reported regarding the dermatologic system. Musculoskeletal: Range of motion: intact in all extremities. 11:48 Reassessment: Patient appears in no apparent distress at this time. No changes from tw2 previously documented assessment. Patient and/or family updated on plan of care and expected duration. Pain level reassessed. Patient is alert, oriented x 3, equal unlabored respirations, skin warm/dry/pink. Vital Signs: 10:41 BP 104 / 64; Pulse 104; Resp 18; Temp 98.5(TE); Pulse Ox 99% on R/A; Weight 63.5 kg; tw2 Height 5 ft. 4 in. (162.56 cm); Pain 8/10; 10:41 Body Mass Index 24.03 (63.50 kg, 162.56 cm) tw2 ED Course: 10:06 Patient arrived in ED. ag5 10:07 David Lowe MD is Private Physician. ag5 10:33 Inna Edge FNP-C is [facility]. kb 10:33 Otis Hallman MD is Attending Physician. kb 10:41 Triage completed. tw2 10:41 Arm band placed on. tw2 10:44 Smitha Gutierrez, JAMEL is Primary Nurse. tw2 10:44 Call light in reach. Adult w/ patient. tw2 11:03 Strep Sent. tw2 11:03 Flu Sent. tw2 11:48 No provider procedures requiring assistance completed. Patient did not have IV access tw2 during this emergency room visit. Administered Medications: 11:42 Drug: Tussionex Pennkinetic ER 5 ml Route: PO; tw2 11:49 Follow up: Response: No adverse reaction tw2 11:42 Drug: GI Cocktail without - (Maalox Suspension 30 ml, Lidocaine Liquid 2 % 15 tw2 ml) Route: PO; 11:49 Follow up: Response: No adverse reaction tw2 Outcome: 11:42 Discharge ordered by MD. guadarrama 11:48 Discharged to home ambulatory, with family. tw2 11:48 Condition: stable 11:48 Discharge instructions given to patient, family, Instructed on discharge instructions, follow up and referral plans. medication usage, Demonstrated understanding of instructions, follow-up care, medications, Prescriptions given X 1. 11:49 Patient left the ED. tw2 Signatures: Inna Edge, SUPERVISOR RIDE ASSEMBLY-C SUPERVISOR RIDE ASSEMBLY-Smitha Rodriguez, RN RN tw2 Tobias Robles ag5
--- NOTE | 2019-05-20 11:42 | EDPHYS ---
Physician Documentation [facility] Name: Nette Quiles Age: 23 yrs Sex: Female : 1995 Arrival Date: 05/20/2019 Time: 10:06 Bed 11 Private MD: David Lowe T ED Physician Otis Hallman HPI: 05/20 11:40 This 23 yrs old Female presents to ER via Ambulatory with complaints of kb Cough, Sore Throat. 11:40 The patient or guardian reports cough, that is intermittent, described as mild, with no kb sputum. Onset: The symptoms/episode began/occurred 2 day(s) ago. Severity of symptoms: At their worst the symptoms were moderate, in the emergency department the symptoms are unchanged. Modifying factors: The symptoms are alleviated by nothing, the symptoms are aggravated by nothing. Associated signs and symptoms: Pertinent positives: sore throat. The patient has not experienced similar symptoms in the past. The patient has not recently seen a physician. 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 - Social history:: Smoking status: Patient uses tobacco products, smokes one pack cigarettes per day. - Ebola Screening: : Patient denies travel to an Ebola-affected area in the 21 days before illness onset. ROS: 11:38 Constitutional: Negative for fever, chills, and weight loss, Neck: Negative for injury, kb pain, and swelling, Cardiovascular: Negative for chest pain, palpitations, and edema, Abdomen/GI: Negative for abdominal pain, nausea, vomiting, diarrhea, and constipation, Back: Negative for injury and pain, MS/Extremity: Negative for injury and deformity, Skin: Negative for injury, rash, and discoloration, Neuro: Negative for headache, weakness, numbness, tingling, and seizure. 11:38 ENT: Positive for sore throat, Negative for 11:38 Respiratory: Positive for cough, Negative for dyspnea on exertion, hemoptysis, orthopnea, pleurisy, shortness of breath, sputum production, wheezing. Exam: 11:39 Constitutional: This is a well developed, well nourished patient who is awake, alert, kb and in no acute distress. Head/Face: Normocephalic, atraumatic. Neck: Trachea midline, no thyromegaly or masses palpated, and no cervical lymphadenopathy. Supple, full range of motion without nuchal rigidity, or vertebral point tenderness. No Meningismus. Chest/axilla: Normal chest wall appearance and motion. Nontender with no deformity. No lesions are appreciated. Cardiovascular: Regular rate and rhythm with a normal S1 and S2. No gallops, murmurs, or rubs. Normal PMI, no JVD. No pulse deficits. Respiratory: Lungs have equal breath sounds bilaterally, clear to auscultation and percussion. No rales, rhonchi or wheezes noted. No increased work of breathing, no retractions or nasal flaring. Abdomen/GI: Soft, non-tender, with normal bowel sounds. No distension or tympany. No guarding or rebound. No evidence of tenderness throughout. Back: No spinal tenderness. No costovertebral tenderness. Full range of motion. Skin: Warm, dry with normal turgor. Normal color with no rashes, no lesions, and no evidence of cellulitis. MS/ Extremity: Pulses equal, no cyanosis. Neurovascular intact. Full, normal range of motion. Neuro: Awake and alert, GCS 15, oriented to person, place, time, and situation. Cranial nerves II-XII grossly intact. Motor strength 5/5 in all extremities. Sensory grossly intact. Cerebellar exam normal. Normal gait. 11:39 ENT: Nose: is normal, Mouth: is normal, Posterior pharynx: is normal, Airway: normal, Tonsils: bilaterally enlarged, with erythema, with exudate, Uvula: normal, midline, swelling, that is moderate, erythema, that is moderate, exudate, that is mild. Vital Signs: 10:41 BP 104 / 64; Pulse 104; Resp 18; Temp 98.5(TE); Pulse Ox 99% on R/A; Weight 63.5 kg; tw2 Height 5 ft. 4 in. (162.56 cm); Pain 8/10; 10:41 Body Mass Index 24.03 (63.50 kg, 162.56 cm) tw2 MDM: 10:46 Patient medically screened. kb 11:37 Data reviewed: vital signs, nurses notes. Data interpreted: Pulse oximetry: on room air kb is 99 %. Interpretation: normal. Counseling: I had a detailed discussion with the patient and/or guardian regarding: the historical points, exam findings, and any diagnostic results supporting the discharge/admit diagnosis, lab results, the need for outpatient follow up, a family practitioner, to return to the emergency department if symptoms worsen or persist or if there are any questions or concerns that arise at home. 05/20 10:33 Order name: Flu; Complete Time: 11:37 kb 11 10:33 Order name: Strep; Complete Time: 11:37 kb Administered Medications: 11:42 Drug: Tussionex Pennkinetic ER 5 ml Route: PO; tw2 11:49 Follow up: Response: No adverse reaction tw2 11:42 Drug: GI Cocktail without - (Maalox Suspension 30 ml, Lidocaine Liquid 2 % 15 tw2 ml) Route: PO; 11:49 Follow up: Response: No adverse reaction tw2 Disposition: 11:54 Co-signature as Attending Physician, Otis Hallman MD. rn Disposition: 05/20/19 11:42 Discharged to Home. Impression: Streptococcal pharyngitis. - Condition is Stable. - Discharge Instructions: Strep Throat, Bwaf-my-Twho. - Prescriptions for Augmentin 875- 125 mg Oral Tablet - take 1 tablet by ORAL route every 12 hours for 10 days; 20 tablet. - Medication Reconciliation Form, Thank You Letter, Antibiotic Education, Prescription Opioid Use form. - Follow up: Emergency Department; When: As needed; Reason: Worsening of condition. Follow up: Private Physician; When: 2 - 3 days; Reason: Recheck today's complaints, Continuance of care, Re-evaluation by your physician. Signatures: Dispatcher [employer] EDInna Dasilva, LOIS-C PAYROLL SUPERVISOR-Chuckb Otis Hallman MD MD rn Wise, Tara, RN RN tw2 Corrections: (The following items were deleted from the chart) 11:49 11:42 05/20/2019 11:42 Discharged to Home. Impression: Streptococcal pharyngitis. tw2 Condition is Stable. Forms are Medication Reconciliation Form, Thank You Letter, Antibiotic Education, Prescription Opioid Use. Follow up: Emergency Department; When: As needed; Reason: Worsening of condition. Follow up: Private Physician; When: 2 - 3 days; Reason: Recheck today's complaints, Continuance of care, Re-evaluation by your physician. kb
[2019-05-20] MEDS ORDERED: MAGNE/ALUM HYDROXD 30 ML UCUP ONE (11:43)
[2019-05-20] MEDS ORDERED: LIDOCAINE VISCOUS 2% SOLN 15 ML UDC ONE (11:44)
[2019-05-20] MEDS ORDERED: HYDROCODONE/CHLORPHEN 5 ML/OSYR ONE (11:44)
[2019-05-20 12:10] VITALS: BP 104/64; TEMP 98.5; O2SAT 99
== END 2019-05-20 11:49 | disposition home or self-care (01) ==
LOC: ER 10:03
DX: J02.0 Streptococcal pharyngitis (principal); F17.210 Nicotine dependence, cigarettes, uncomplicated
CPT/HCPCS: 87081; 87804; 99283

== ENCOUNTER 2020-05-26 11:57 | Observation (INO) | payer OTHER ==
--- OUTSIDE RECORDS SUMMARY | 2020-05-26 12:08 | XMS REPORT | Summary of Care ---
:1995 Author Organization [facility] - Health Address [address] [place] [address] Care Team Providers Name Role Phone Mynor Trevor Primary Care Provider Encounter Details Date Type Department Care Team Description 02/27/2020 Orders Only [facility] Doctor Unassigned, No [address] [facility] Name [place] [phone] [place] [address] Allergies Active Allergy Reactions Severity Noted Date Comments Citric Acid Other - See comments 01/09/2020 Headach es documented as of this encounter (statuses as of 02/27/2020) Medications Medication Sig Dispensed Refills Start Date End Date Status ibuprofen 600 mg Take 1 tablet by 30 tablet 0 08/22/2019 Active tabletIndications: mouth every 6 Dental abscess (six) hours as needed for Pain (scale 4-6). ibuprofen 800 mg Take 1 tablet by 40 tablet 0 01/09/2020 Active tabletIndications: mouth every 8 Right foot sprain, (eight) hours as initial encounter, needed for Pain Sprain of other (scale 4-6). ligament of right ankle, initial encounter documented as of this encounter (statuses as of 02/27/2020) Active Problems No known active problemsdocumented as of this encounter (statuses as of 02/27/2020) Social History Tobacco Use Types Packs/Day Years Used Date Never Assessed Sex Assigned at Date Recorded Not on file COVID-19 Exposure Response Date Recorded In the last month, have you been in contact with No / Unsure 02/27/2020 10:56 AM CDT someone who was confirmed or suspected to have Coronavirus / COVID-19? documented as of this encounter Last Filed Vital Signs Not on filedocumented in this encounter Plan of Treatment Health Maintenance Due Date Last Done Comments VARICELLA VACCINES (1 of 2 - 2-dose 1998 childhood series) MENINGOCOCCAL B VACCINES (1 of 2 - 2007 Risk Bexsero 2-dose series) HPV VACCINES (1 - 2-dose series) 2008 Depression Screening 2009 CHLAMYDIA SCREENING 2013 DTaP,Tdap,and Td Vaccines (1 - 2016 Tdap) PAP SMEAR 2018 INFLUENZA VACCINE (#1) 2020 MENINGOCOCCAL VACCINE Aged Out No longer eligible based on patient's age to complete this topic PNEUMOCOCCAL 0-64 YEARS COMBINED Aged Out No longer eligible based on SERIES patient's age to complete this topic documented as of this encounter Procedures Procedure Name Priority Date/Time Associated Diagnosis Comme nts ASSIGNMENT OF BENEFITS Routine 02/27/2020 10:57 AM CDT documented in this encounter Results Not on filedocumented in this encounter Insurance Payer Benefit Plan / Subscriber ID Effective Dates Phone Addre ss Type Group [facility] [id number] 2020-Present Medicaid COMM PLAN - MANAGED MEDICAID documented as of this encounter
--- OUTSIDE RECORDS SUMMARY | 2020-05-26 12:08 | XMS REPORT | Continuity of Care Document ---
:1995 Author Organization [facility] t Address [address] [place] [address] Care Team Providers Name Role Phone Cristi ABREU Attending Clinician Provider, Urgent Care Attending Clinician Unavailable Cabrera ARAGON, Santos Attending Clinician Problems This patient has no known problems. Allergies, Adverse Reactions, Alerts This patient has no known allergies or adverse reactions. Medications This patient has no known medications. Procedures This patient has no known procedures. Encounters Start End Encounter Admission Attending Care Care Encounter Source Date/Time Date/Time Type Type Clinicians Facility Department ID 2020-05-08 2020-05-08 [facility] [id number] 00:00:00 00:00:00 [facility] [id number] [place] [id number] Professio [phone] nal [facility] Office Building One 2020-05-08 2020-05-08 [facility] [id number] 00:00:00 00:00:00 [facility] [id number] [place] [id number] Professio [phone] nal [facility] Building 2020-05-04 2020-05-04 Urgent Provider, [facility] [id number] 17:45:31 18:05:31 Care [facility] [id number] Care [place] [id number] Professio [phone] nal 044 Office Building One 2020-03-05 2020-03-05 Office Eileen Rees [facility] [id number] 10:38:44 11:39:54 Visit Santos Moore [id number] [place] [id number] [place] [phone] [place] [address] Building Results This patient has no known results.
--- OUTSIDE RECORDS SUMMARY | 2020-05-26 12:08 | XMS REPORT | Summary of Care ---
:1995 Author Organization [facility] Address [address] [place] [id number] Care Team Providers Name Role Phone Mynor David Pop[place] Primary Care Provider Reason for Visit Reason Comments Procedure nexplanon insertion Encounter Details Date Type Department Care Team Description 03/05/2020 Office Visit [facility] Women's Rees, Eileen karimi MD Nexplanon insertion (Primary Dx); Healthcare- [address] place; [address] [place] [address] [address] female [address], [address] [place], [place] [phone] Allergies Active Allergy Reactions Severity Noted Date Comments Citric Acid Other - See comments 01/09/2020 Headach es documented as of this encounter (statuses as of 03/05/2020) Medications Medication Sig Dispensed Refills Start Date End Date Status QUEtiapine Take 400 mg 0 Active (SEROQUEL XR) by mouth 400 mg 24 hr daily. tablet ibuprofen 600 mg Take 1 30 tablet 0 08/22/2019 03/05/2020 D iscontinued tabletIndication tablet by (Manuel bird Reported) s: Dental mouth every abscess 6 (six) hours as needed for Pain (scale 4-6). ibuprofen 800 mg Take 1 40 tablet 0 01/09/2020 03/05/2020 D iscontinued tabletIndication tablet by (Manuel bird Reported) s: Right foot mouth every sprain, initial 8 (eight) encounter, hours as Sprain of other needed for ligament of Pain (scale right ankle, 4-6). initial encounter Hospital, Clinic, or Other Ordered Dose Route Frequency Start Date End Date Status Facility Administered Medication etonogestreL (NEXPLANON) 68 mg Sdrm ONCE NOW 03/05/202002/07 Ended implant 68 mg documented as of this encounter (statuses as of 03/05/2020) Active Problems Problem Noted Date Nexplanon in place 03/05/2020 documented as of this encounter (statuses as of 03/05/2020) Social History Tobacco Use Types Packs/Day Years Used Date Current Every Day Smoker Cigarettes Smokeless Tobacco: Never Used Alcohol Use Drinks/Week oz/Week Comments Not Currently Sex Assigned at Date Recorded Not on file COVID-19 Exposure Response Date Recorded In the last month, have you been in contact with No / Unsure 03/05/2020 11:23 AM CDT someone who was confirmed or suspected to have Coronavirus / COVID-19? documented as of this encounter Last Filed Vital Signs Vital Sign Reading Time Taken Comments Blood Pressure 114/69 03/05/2020 11:24 AM CDT Pulse 80 03/05/2020 11:24 AM CDT Temperature 36.9 C (98.5 F) 03/05/2020 11:24 AM CDT Respiratory Rate 18 03/05/2020 11:24 AM CDT Oxygen Saturation - - Inhaled Oxygen Concentration - - Weight 75.7 kg (166 lb 12.8 oz) 03/05/2020 11:24 AM CDT Height 162.6 cm (5' 4") 03/05/2020 11:24 AM CDT Body Mass Index 28.63 03/05/2020 11:24 AM CDT documented in this encounter Patient Instructions Patient InstructionsLeslie Mejía MA - 03/05/2020 10:45 AM CDT Patient Education Etonogestrel implant What is this medicine? ETONOGESTREL (et oh alexandre LIBAN trel) is a contraceptive ( control) device. It is used to prevent . It can be used for up to 3 years. How should I use this medicine? This device is inserted just under the skin on the inner side of your upper arm by a health long term care administrator. Talk to your fruit dumper regarding the use of this medicine in children. Special care may be needed. What side effects may I notice from receiving this medicine? Side effects that you should report to your doctor or health long term care administrator as soon as possible: allergic reactions like skin rash, itching or hives, swelling of the face, lips, or tongue breast lumps changes in emotions or moods depressed mood heavy or prolonged menstrual bleeding pain, irritation, swelling, or bruising at the insertion site scar at site of insertion signs of infection at the insertion site such as fever, and skin redness, pain or discharge signs of signs and symptoms of a blood clot such as breathing problems; changes in vision; chest pain; severe, sudden headache; pain, swelling, warmth in the leg; trouble speaking; sudden numbness or weakness of the face, arm or leg signs and symptoms of liver injury like dark yellow or brown urine; general ill feeling or flu-like symptoms; light-colored stools; loss of appetite; nausea; right upper belly pain; unusually weak or tired; yellowing of the eyes or skin unusual vaginal bleeding, discharge signs and symptoms of a stroke like changes in vision; confusion; trouble speaking or understanding; severe headaches; sudden numbness or weakness of the face, arm or leg; trouble walking; dizziness; loss of balance or coordination Side effects that usually do not require medical attention (report to your doctor or health long term care administrator if they continue or are bothersome): acne back pain breast pain changes in weight dizziness general ill feeling or flu-like symptoms headache irregular menstrual bleeding nausea sore throat vaginal irritation or inflammation What may interact with this medicine? Do not take this medicine with any of the following medications: amprenavir bosentan fosamprenavir This medicine may also interact with the following medications: barbiturate medicines for inducing sleep or treating seizures certain medicines for fungal infections like ketoconazole and itraconazole grapefruit juice griseofulvin medicines to treat seizures like carbamazepine, felbamate, oxcarbazepine, phenytoin, topiramate modafinil phenylbutazone rifampin rufinamide some medicines to treat HIV infection like atazanavir, indinavir, lopinavir, nelfinavir, tipranavir, ritonavir [place]'s wort What if I miss a dose? This does not apply. Where should I keep my medicine? This drug is given in a hospital or clinic and will not be stored at home. What should I tell my health care provider before I take this medicine? They need to know if you have any of these conditions: abnormal vaginal bleeding blood vessel disease or blood clots cancer of the breast, cervix, or liver depression diabetes gallbladder disease headaches heart disease or recent heart attack high blood pressure high cholesterol kidney disease liver disease renal disease seizures tobacco smoker an unusual or allergic reaction to etonogestrel, other hormones, anesthetics or antiseptics, medicines, foods, dyes, or preservatives or trying to get breast-feeding What should I watch for while using this medicine? This product does not protect you against HIV infection (AIDS) or other sexually transmitted diseases. You should be able to feel the implant by pressing your fingertips over the skin where it was inserted. Contact your doctor if you cannot feel the implant, and use a non-hormonal control method (such as condoms) until your doctor confirms that the implant is in place. If you feel that the implant may have broken or become bent while in your arm, contact your healthcare provider. NOTE:This sheet is a summary. It may not cover all possible information. If you have questions aboutthis medicine, talk to your doctor, pharmacist, or health care provider. Copyright 2018 Elsevier documented in this encounter Progress Notes Eileen Rees MD - 03/05/2020 10:45 AM CDTNexplanon PLACEMENT PROCEDURE NOTE Preoperative Diagnoses: Desires LARC The risks, benefits and alternatives were discussed. The patient voiced her understanding. She wished to proceed and an informed consent was obtained. Patient has been identified by name and and will be undergoing Nexplanon placement. Patient is right handed. Patient, procedure and site have been confirmed by the following clinicians: Dr. Rees. Timeout performed by Dr. Rees at 11:48 AM Procedure: The patient is placed on the exam table in a supine position. Her non-dominant arm is flexed at the elbow and externally rotated so her wrist is parallel to her ear and her hand is positioned next to her head. The inner aspect of the upper arm is marked at 8cm and 12cm superior to the medial epicondyle, in the mid-portion of the upper arm, parallel with the humerus. The surface was cleaned with alcohol swab x 2. The insertion area is injected subcutaneously with 5 ccs of lidocaine 1%without epinephrine along the planned insertion tunnel. The surface of the inner arm is then prepped with betadine x 3. The Nexplanon insertion needle is then inserted at 8cm superior to the medial epicondyle, using counter traction and lifting the skin to keep the needle in the subdermal connective tissue. The needle is advanced to 12 cm above the medial epicondyle. The cannula is then retracted and needle is removed. There is minimal bleeding from the insertion site. The Nexplanon capsule is easily palpable by myself and the patient. Sterile gauze and a pressure dressing is placed over the removal site. The patient tolerated the procedure well and there were no complications. Post-procedure instructions given. Patient verbalized understanding. Findings Successful placement of Nexplanon Assessment Successful placement of Nexplanon Plan Nexplanon insertion (primary encounter diagnosis) Comment: Reviewed counseling as below: I counseled the patient about Nexplanon. It is the most effective form of contraception. After insertion, there is a chance the patient may experience amenorrhea or infrequent, frequent, or prolongedbleeding. There is a >10% chance of having bleeding or spotting between menstrual cycles. Otherpossible side effects include GI issues, headache, acne, breast pain, vaginitis, and weight gain. Complications related to implant insertion occur in about 1% of patients and 1.7% of patients have complications associated with removal. Insertion complications include pain, slight bleeding, hematoma formation, infection, difficult insertion, migration of the implant (implants have been found within the vasculature or chest and need surgery for removal), and unrecognized insertion. Removal may be complicated by breakage of the implant and unable to palpate or locate the implant because of deep insertion requiring additional imaging and even surgery. Fertility returns rapidly after discontinuation of the implants. Patient expressed understanding of risks and desires to proceed. Negative UPT and no unprotected intercourse. Consents signed. Nexplanon inserted as above. Back up method of control recommended for 7 days. Wound care reviewed. Plan: POCT TEST, Etonogestrel (NEXPLANON) implant [address] Comment: as above Plan: Etonogestrel (NEXPLANON) implant 68 mg Encounter for female control Comment: as above Plan: Etonogestrel (NEXPLANON) implant 68 mg Return to clinic PRN problem or 1 year wwe. Discussed treatment options. Medications as ordered. Reviewed patient instructions and provided printed copy. nexplanon Lot #: [id number] Year removal date: 2022 Patient palpated implant: Yes Eileen Rees MD #[id number] 03/05/2020 11:48 AM documented in this encounter Plan of Treatment Date Type Specialty Care Team Description 04/09/2020 Office Visit Obstetrics & Gynecology Annabella Caban PA-C [address] [place] [address] [phone] Health Maintenance Due Date Last Done Comments VARICELLA VACCINES (1 of 2 - 2-dose 1998 childhood series) PNEUMOCOCCAL 0-64 YEARS COMBINED 2003 SERIES (1 of 1 - PPSV23) MENINGOCOCCAL B VACCINES (1 of 2 - 2007 Risk Bexsero 2-dose series) HPV VACCINES (1 - 2-dose series) 2008 Depression Screening 2009 CHLAMYDIA SCREENING 2013 DTaP,Tdap,and Td Vaccines (1 - 2016 Tdap) PAP SMEAR 2018 INFLUENZA VACCINE (#1) 2020 MENINGOCOCCAL VACCINE Aged Out No longer eligible based on patient's age to complete this topic documented as of this encounter Procedures Procedure Name Priority Date/Time Associated Diagnosis Comme nts POCT TEST Routine 03/05/2020 11:11 AM Nexplanon inse rtion Results for this CDT procedure are i n the results section. documented in this encounter Results POCT TEST (03/05/2020 11:11 AM CDT) Pathologist Sig nature POCT PREG Negative On board controls acceptable Yes with C Line POCT PREG LOT # POCT PREG TEST DATE Specimen Urine - URINE, CLEAN CATCH documented in this encounter Visit Diagnoses Diagnosis Nexplanon insertion - Primary Insertion of implantable subdermal contr aceptive Nexplanon in place Presence of subdermal contraceptive scott ce Encounter for female control Other specified contraceptive management documented in this encounter Administered Medications Medication Order MAR Action Action Date Dose Rate Site etonogestreL (NEXPLANON) Given 03/05/2020 11:49 AM CDT 68 mg Left Arm implant 68 mg 68 mg, Subdermal, ONCE NOW, 1 dose, Sun03/05/20 at 1300, Routine, Use approved by: PAPERHANGER AND PAINTER documented in this encounter Insurance Payer Benefit Plan / Subscriber ID Effective Dates Phone Addre ss Type Group [facility] [id number] 2020-Present Medicaid COMM PLAN - MANAGED MEDICAID documented as of this encounter
--- OUTSIDE RECORDS SUMMARY | 2020-05-26 12:08 | XMS REPORT | Summary of Care ---
:1995 Author Organization [facility] Address [address] [place] [id number] Care Team Providers Name Role Phone David Lowe Primary Care Provider Reason for Visit Reason Comments CONTROL Encounter Details Date Type Department Care Team Description 02/27/2020 Office Visit [facility] Women's Annabella Caban [facility] [place] [facility] counseling ([address], [address] [place] [id number] [place], [place] [phone] Allergies Active Allergy Reactions Severity Noted Date [...] Sign Reading Time Taken Comments Blood Pressure 108/69 02/27/2020 11:20 AM CDT Pulse 102 02/27/2020 11:20 AM CDT Temperature 37.1 C (98.8 F) 02/27/2020 11:20 AM CDT Respiratory Rate 18 02/27/2020 11:20 AM CDT Oxygen Saturation - - Inhaled Oxygen Concentration - - Weight 73 kg (161 lb) 02/27/2020 11:20 AM CDT Height 162.6 cm (5' 4") 02/27/2020 11:20 AM CDT Body Mass Index 27.64 02/27/2020 11:20 AM CDT documented in this encounter Progress Notes Annabella Caban PA-C - 02/27/2020 10:45 AM CDT Chief complaint: Chief Complaint Patient presents with CONTROL HPI Nette Quiles is a 24 year old female coming in wanting to discuss BC options. Patient reportsmenses is regular-monthly. Not too heavy. Patient reports no pain and has minimal cramps. Patient reports does not want to have any children at this time. Patient states has had depo before and gaineda lot of weight. Patient reports does not want ocps because cannot remember. Patient is interested in nexplanon or iud. Histories OB History Para Term AB Living 1 SAB TAB Ectopic Multiple Live Births # Outcome Date GA Lbr Ky/2nd Weight Sex Delivery Anes PTL Lv 1 , C Past Medical History: Diagnosis Date Insomnia Family History Problem Relation Age of Onset Liver Cancer Maternal Grandmother Family Status Relation Name Status Mo Alive Fa Alive MGMo (Not Specified) Past Surgical History: Procedure Laterality Date SECTION Social History Socioeconomic History Marital status: Single Spouse name: Not on file Number of children: Not on file Years of education: Not on file Highest education level: Not on file Occupational History Not on file Social Needs Financial resource strain: Not on file Food insecurity Worry: Not on file Inability: Not on file Transportation needs Medical: Not on file Non-medical: Not on file Tobacco Use Smoking status: Current Every Day Smoker Types: Cigarettes Smokeless tobacco: Never Used Substance and Sexual Activity Alcohol use: Not Currently Drug use: Never Sexual activity: Yes Partners: Male control/protection: Condom Lifestyle Physical activity Days per week: Not on file Minutes per session: Not on file Stress: Not on file Relationships Social connections Talks on phone: Not on file Gets together: Not on file Attends quaker service: Not on file Active member of club or organization: Not on file Attends meetings of clubs or organizations: Not on file Relationship status: Not on file Intimate partner violence Fear of current or ex partner: Not on file Emotionally abused: Not on file Physically abused: Not on file Forced sexual activity: Not on file Other Topics Concern Not on file Social History Narrative Patient feels safe at home, denies abuse. Mandaen preference: none Pets at home. Social History Substance and Sexual Activity Sexual Activity Yes Partners: Male control/protection: Condom Labs none Radiology none Allergies Nette is allergic to citric acid. Medications Nette has a current medication list which includes the following prescription(s): ibuprofen and ibuprofen. Review of Systems Constitutional: Negative for appetite change, fatigue and fever. HENT: Negative for rhinorrhea and sore throat. Eyes: Negative for pain and itching. Respiratory: Negative for cough, chest tightness and shortness of breath. Breasts: Negative for discharge, mass and pain. Cardiovascular: Negative for chest pain, palpitations and leg swelling. Gastrointestinal: Negative for abdominal pain, constipation, diarrhea and nausea. Genitourinary: Negative for bladder incontinence, dysuria, vaginal discharge, difficulty urinating, vaginal pain and pelvic pain. Musculoskeletal: Negative for gait problem and myalgias. Skin: Negative for rash. Neurological: Negative for dizziness and headaches. Psychiatric/Behavioral: Negative for suicidal ideas. The patient is not nervous/anxious. Endocrine: Negative for hair loss. BP 108/69 (BP Location: Left arm, Patient Position: Sitting, BP CUFF SIZE: Adult Medium) | Pulse 102 | Temp 37.1 C (98.8 F) (Oral) | Resp 18 | Ht 5' 4" (1.626 m) | Wt 161 lb (73 kg) | LMP 01/28/2020 (Within Days) | BMI 27.64 kg/m Pregravid BMI: Could not be calculated Physical Exam Vitals reviewed. Constitutional: She is oriented to person, place, and time. She appears well- developed and well-nourished. Neck: No mass. No thyromegaly palpated. No neck adenopathy. Cardiovascular: Regular rate and rhythm. Pulmonary/Chest: Normal inspiratory effort. Abdominal: Abdomen is soft. No tenderness present. No hernia palpated or inspected. Neuro/Psychiatric: She has a normal mood and affect. She is oriented to person, place, and time. Skin: Skin normal. Lymphadenopathy: No neck adenopathy present. No axillary adenopathy present. No inguinal adenopathy present. Assessment/Plan control counseling (primary encounter diagnosis) Also counseled the patient about her options for control. We discussed risks and benefits of condoms, diaphragms along with control pills, the control patch and the Nuva ring. I then discussed risks and benefits of the Depo Provera injection, the various IUDs (Татьяна, Mirena, Paraguard) and the Nexplanon implant. After counseling, the patient is most interested in nexplanon. Proper use was discussed and reviewed. I stressed the importance of using condoms regardless of her contraceptive method to assist in prevention of sexually transmitted infections. I discussed that no control method is 100% in preventing except abstinence. The patient expressed understanding. Return to clinic in wan WWE 1 wk for nexplanon insertion. Discussed treatment options. Reviewed patient instructions and provided printed copy. This visit did not involve counseling and coordination that comprised more than 50% of the visit time. Annabella Caban PA-C 02/27/2020 11:51 AM documented in this encounter Plan of Treatment Date Type Specialty Care Team Description 03/05/2020 Office Visit Obstetrics & Gynecology Félix Rees MD [address] [place] [address] [place] [address] [phone] 04/09/2020 Office Visit Obstetrics & Gynecology Annabella Caban PA-C [address] [place], [place] [phone] Health Maintenance Due Date Last Done [...] this topic documented as of this encounter Results Not on filedocumented in this encounter Visit Diagnoses Diagnosis control counseling - Primary General counseling for initiation of oth er contraceptive measures documented in this encounter Insurance Payer Benefit Plan / Subscriber ID Effective Dates Phone Addre ss Type Group [facility] [id number] 2020-Present Medicaid COMM PLAN - MANAGED MEDICAID (Home) [place] [address] documented as of this encounter
--- OUTSIDE RECORDS SUMMARY | 2020-05-26 12:08 | XMS REPORT | Summary of Care ---
:1995 Author Organization [facility] Address [address] [place] [address] Care Team Providers Name Role Phone David Lowe Primary Care Provider Reason for Visit Reason Comments Results Encounter Details Date Type Department Care Team Description 05/08/2020 Telephone [facility] Pediatric and Josefina Colin FNP Results Adult Primary Care- [place] [address] [facility] [address] [facility], [address] [place] [address] [place] [address] [phone] Allergies Active Allergy Reactions Severity Noted Date Comments Citric Acid Other - See comments 01/09/2020 Headach es documented as of this encounter (statuses as of 05/12/2020) Medications Medication Sig Dispensed Refills Start Date End Date Status QUEtiapine (SEROQUEL Take 400 mg by 0 Active XR) 400 mg 24 hr tablet mouth daily. metroNIDAZOLE 500 mg Take 1 tablet 14 tablet 0 05/08/202001/2020 Active tabletIndications: BV by mouth 2 (bacterial vaginosis) (two) times daily for 7 days. documented as of this encounter (statuses as of 05/12/2020) Active Problems Problem Noted Date Nexplanon in place 03/05/2020 documented as of this encounter (statuses as of 05/12/2020) Social History Tobacco Use Types Packs/Day Years Used Date Current Every Day Smoker Cigarettes Smokeless Tobacco: Never Used Alcohol Use Drinks/Week oz/Week Comments Not Currently Sex Assigned at Date Recorded Not on file documented as of this encounter Last Filed Vital Signs Not on filedocumented in this encounter Miscellaneous Notes Telephone Encounter - Cathi Davis, RN - 05/12/2020 12:13 PM CSTPt calling to reschedule wellness exam but issue has been taken care of. elephone Encounter - David Do - 05/08/2020 8:14 AM CDTCbenjamin Quiles is a 24 year old female Patient is returning missed call. Please call at [phone] (home) documented in this encounter Plan of Treatment Date Type Specialty Care Team Description 06/02/2020 Office Visit Obstetrics & Gynecology Annabella Caban PA-C [address] [place] [address] [phone] Health Maintenance Due Date Last Done Comments VARICELLA VACCINES (1 of 2 - 1998 2-dose childhood series) PNEUMOCOCCAL 0-64 YEARS COMBINED 2003 SERIES (1 of 1 - PPSV23) MENINGOCOCCAL B VACCINES (1 of 2 - 2007 Risk Bexsero 2-dose series) HPV VACCINES (1 - 2-dose series) 2008 Depression Screening 2009 DTaP,Tdap,and Td Vaccines (1 - 2016 Tdap) PAP SMEAR 2018 INFLUENZA VACCINE (#1) 2020 CHLAMYDIA SCREENING 05/04/2021 05/04/2020 MENINGOCOCCAL VACCINE Aged Out No longer eligible based on patient's age to complete this topic documented as of this encounter Results Not on filedocumented in this encounter Insurance Payer Benefit Plan / Subscriber ID Effective Dates Phone Addre ss Type Group [facility] [id number] 2020-Pres Medicaid COMM PLAN - t MANAGED MEDICAID documented as of this encounter
--- OUTSIDE RECORDS SUMMARY | 2020-05-26 12:08 | XMS REPORT | Summary of Care ---
:1995 Author Organization [facility] Address [address] [place] [id number] Care Team Providers Name Role Phone David Lowe Primary Care Provider Reason for Visit Reason Comments UTI 0 symptoms fould odor Encounter Details Date Type Department Care Team Description 05/04/2020 Urgent Care [facility] Josefina Ren FNP [address] [facility] [address] [place], [place] [address] Abnormal urine odor Medicine - [place] Provider [facility] (Primary Dx) [address] [place] [address] Allergies Active Allergy Reactions Severity Noted Date Comments Citric Acid Other - See comments 01/09/2020 Headach es documented as of this encounter (statuses as of 05/04/2020) Medications Medication Sig Dispensed Refills Start Date End Date Status QUEtiapine (SEROQUEL Take 400 mg by 0 Active XR) 400 mg 24 hr tablet mouth daily. documented as of this encounter (statuses as of 05/04/2020) Active Problems Problem Noted Date Nexplanon in place 03/05/2020 documented as of this encounter (statuses as of 05/04/2020) Social History Tobacco Use Types Packs/Day Years Used Date Current Every Day Smoker Cigarettes Smokeless Tobacco: Never Used Alcohol Use Drinks/Week oz/Week Comments Not Currently Sex Assigned at Date Recorded Not on file documented as of this encounter Last Filed Vital Signs Vital Sign Reading Time Taken Comments Blood Pressure 115/69 05/04/2020 5:56 PM CDT Pulse 108 05/04/2020 5:56 PM CDT Temperature 36.7 C (98.1 F) 05/04/2020 5:56 PM CDT Respiratory Rate 18 05/04/2020 5:56 PM CDT Oxygen Saturation 98% 05/04/2020 5:56 PM CDT Inhaled Oxygen Concentration - - Weight 77.1 kg (170 lb) 05/04/2020 5:56 PM CDT Height 162.6 cm (5' 4") 05/04/2020 5:56 PM CDT Body Mass Index 29.18 05/04/2020 5:56 PM CDT documented in this encounter Patient Instructions Patient InstructionsJosefina Colin FNP - 05/04/2020 7:20 PM CDT1. Abnormal urine odor - POCT URINALYSIS W SPECIFIC GRAVITY - no evidence of urinary infection; will send for micro ua. - GALV ONLY - VAGINAL PATHOGENS BY NUCLEIC ACID TESTING; Future - GC & CHLAMYDIA AMPLIFIED ASSAY; Future - URINALYSIS MICROSCOPIC - increase water intake. - Follow up with PCP, urgent care or ER in 2-3 days or sooner if symptoms do now improve or worsens.Patient/parent verbalized understanding and agreed with plan of care. Plan of care, desired health behaviors, goals, and medication discussed with patient. Education resources provided and reviewed with AVS. Patient/guardian/family verbalized understanding & agrees to plan of care. Urgent Care precautions and follow up : 1. Return to clinic if your symptoms should worsen or fail to improve within 72 hours. 2. The care provided in the urgent care was for acute problems only. 3. You should follow up with your primary care provider within 72 hours. 4. Make sure you are staying adequately hydrated. MAY FOLLOW-UP WITH A PROVIDER OF YOUR CHOICE, SUCH : 1. A PHYSICIAN OF YOUR CHOICE OR, IF YOU WISH TO FOLLOW-UP WITHIN THE [facility], MAY TRY THESE OPTIONS (CLINIC APPOINTMENTS AVAILABLE ON [id number] BASIS): 1. SCHEDULE AN APPOINTMENT ONLINE AT [facility] 2. OR CALL THE [facility] AT OR 3. OR CALL YOUR [facility] PHYSICIAN'S OFFICE DIRECTLY IF YOU ARE ALREADY AN ESTABLISHED [facility] PATIENT. After [facility] care nurse access center available by calling [phone] 24 hours 7 days per week. Josefina ABREU [facility] Patient Education Gonorrhea Gonorrhea is a bacterial infection that is transmitted sexually. Many women and some men who have gonorrhea don't have any signs or symptoms. If not treated,gonorrhea can cause a painful penile, vaginal, or rectal discharge. It can sometimes lead to swollen and painful joints or lifelong (permanent)damage to your reproductive organs. And in some cases it can make a man or woman unable to have children (infertile). If a woman has gonorrhea,she can infect her baby during childbirth. Gonorrhea is also called the clap or the drip. Symptoms In men: Pain or burning when urinating Watery,milky,or yellow discharge from the penis or anus In women: Yellow or white discharge from the vagina or anus Bleeding between periods Treatment Gonorrhea can be cured quickly with antibiotics. If you are being treated,your partner should alsobe checked by a healthcare provider. Dont have sex while you are being treated and for a week after. Prevention As with all sexually transmitted infections (STIs),knowing your partners sexual history is important. It's a love step in preventing gonorrhea. Also know the signs and symptoms of the infection. And use latex condoms to reduce your risk. Resources [place] [employer] STD Hotline, , www.[employer].org CDC, , www.cdc.gov/std [employer] last reviewed this educational content on 12/07/201819998350-4517 [employer]. All rights reserved. This information is not intended as a substitute for professional medical care. Always follow your healthcare professional's instructions. Patient Education Chlamydia Chlamydia is a very common sexually transmitted infection (STI). An STI is also called a sexually transmitted disease (STD). Most people don't have symptoms. Because of this, chlamydia may not be noticed until it's passed to someone else or it causes severe problems. Left untreated,this infection may make it hard or impossible for women and men to have children. Symptoms Many people with chlamydia have no symptoms. Women are more likely than men not to have symptoms. If symptoms show up in women, they include: Abnormal vaginal discharge Bleeding between periods Pain or burning during urination If symptoms show up in men, they include: Clear discharge (drip) from the penis Pain or burning during urination Rectal pain, discharge, or bleeding, especially in men who have sex with men These symptoms usually disappear after a few weeks, with or without treatment. But if you are not treated, the chlamydia will still be present. It can cause long-term problems. Potential problems If the infection is not treated, it can lead to more serious health problems. In women, this can be pelvic inflammatory disease (PID). PID can make it hard or even impossible for a women to have a baby. It can also cause an ectopic (tubal) . This type of can't be carried to term. Symptoms of PID include fever, pain during sex, and pain in the belly. In men, an untreated chlamydia infection can damage the testes. This can cause pain and scarring. This can possibly affect the ability to have children. Chlamydia of the rectal area can cause serious damage. This includes infection and holes (fistulas). Sexually active women and men should get checked for chlamydia regularly. This can help prevent PID. Treatment Chlamydia can be treated when found early. It can be cured with antibiotics. If you have it, tell your partner right away. Because people often dont have symptoms, those diagnosed with chlamydia should ask their partners to get tested. Prevention Know your partners history. Protect yourself by using a latex condom whenever you have sex. If you are ,take extra care to get correct treatment. women with untreated chlamydia can pass the infection on to the baby. This can cause eye,ear,or lung problems in the baby. There is also the risk of a premature delivery. Resources [place] [employer] 055-626-7530 www.ashasexualhealth.org/ CDC 813-428-3423 www.cdc.gov/std [employer] last reviewed this educational content on 06/08/201819994773-4921 [employer]. All rights reserved. This information is not intended as a substitute for professional medical care. Always follow your healthcare professional's instructions. Patient Education Bacterial Vaginosis You have a vaginal infection called bacterial vaginosis (BV). Both good and bad bacteria are presentin a healthy vagina. BV occurs when these bacteria get out of balance. The number of bad bacteria increase. And the number of good bacteria decrease. BV is linked with sexual activity, but it's not a sexually transmitted infection (STI). BV may or may not cause symptoms. If symptoms do occur, they can include: Thin, seth, milky-white, or sometimes green discharge Unpleasant odor or fishy smell Itching, burning, or pain in or around the vagina It is not known what causes BV, but certain factors can make the problem more likely. These can include: Douching Spermicides Use of antibiotics Change in hormone levels with , , or menopause Having sex with a new partner Having sex with more than one partner BV will sometimes go away on its own. But treatment is often advised. This is because untreated BV can raise the risk of more serious health problems such as: Pelvic inflammatory disease (PID) delivery (giving to a baby early if youre ) HIV and some other sexually transmitted infections (STIs) Infection after surgery on the reproductive organs Home care General care BV is most often treated with medicines called antibiotics. These may be given as pills or as a vaginal cream.If antibiotics are prescribed, be sure to use them exactly as directed. And complete all of the medicine, even if your symptoms go away. Don't douche or having sex during treatment. If you have sex with a female partner, ask your healthcare provider if she should also be treated. Prevention Don't douche. Don't have sex. If you do have sex, then take steps to lower your risk: ? Use condoms when having sex. ? Limit the number of sex partners you have. Follow-up care Follow up with your healthcare provider, or as advised. When to get medical advice Call your healthcare provider right away if: You have a fever of100.4F (38C)or higher, or as directed by your provider. Your symptoms get worse, or they dont go away within a few days of starting treatment. You have new pain in the lower bellyor pelvic region. You have side effects that bother you or a reaction to the pills or cream youre prescribed. You or any of your sex partners have new symptoms, such as a rash, joint pain, or sores. [employer] last reviewed this educational content on 12/08/201919997260-5247 [employer]. All rights reserved. This information is not intended as a substitute for professional medical care. Always follow your healthcare professional's instructions. Patient Education Trichomonas Vaginal Infection (Trichomoniasis) Trichomonasvaginal infection is often called trich. It is caused by a parasite that is passed during sex. This makes trich a sexually transmitted infection (STI). Both men and women can get trich, but it is more common in women. Most people who have trich dont have any symptoms at first. If symptoms do occur, they may take weeks or months to develop. Symptoms in women can include: Thin discharge from the vaginathat may smell bad and be clear, white, seth, green, or yellow incolor Itching,burning, redness, or soreness in or around the vagina Pain in the lower belly Frequent urination or pain and burning during urination Pain during sex Symptoms in men are not very common.Men may have trich and pass it to women during sex without knowing they were ever infected. Trich is most often treated with antibiotics. Without treatment, trich can increase the risk of moreserious health problems such as: Pelvic inflammatory disease (PID) delivery (giving to a baby early if youre ) HIV and certain other STIs Home care Take the antibiotics youre prescribed exactly as directed. Finish all of the medicine, even if your symptoms go away. Don't drink alcohol until youre done with your treatment. Tell any partners you have sex with that you have trich.They will need to be tested for trich and possibly treated as well. Don't have sex until 7 to 10 days after you and any partners you have sex with are confirmed to have been treated. Prevention The only way to prevent getting trich or any other STI is to not have sex. If you choose to have sex, then take steps to lower your health risks: Use condoms when having sex. Limit the number of partners you have sex with. Get tested regularly for STIs. Ask any partner you have sex with to do the same. Dont have sex with anyone who has symptoms that may be due to an STI. Follow-up care Follow up with your healthcare provider, or as advised.Testing will likely be done to ensure that the infection has cleared. When to get medical advice Call your healthcare provider right away if: You have a fever of100.4F (38C)or higher, or as directed by your provider. Your symptoms get worse, or they dont go away even after completing your treatment. You have new pain in the lower bellyor pelvic region. You have side effects that bother you or a reaction to the medicine youre taking. You or any partners you have sex with have new symptoms, such as jennifer, joint pain, or sores. [employer] last reviewed this educational content on 12/08/201919990415-0025 [employer]. All rights reserved. This information is not intended as a substitute for professional medical care. Always follow your healthcare professional's instructions. documented in this encounter Progress Notes Josefina Colin FNP - 05/04/2020 7:20 PM CDT Cc: Chief Complaint Patient presents with UTI 0 symptoms fould odor HPI Nette Quiles is a 24 year old female presents with concern for urine odor for about 3 days. She's in new relationship for about 3 weeks. She has nexplanon. Does not use condoms all the time. Denies any dysuria, flank pain, abdomen pain, nausea, fever, chills or body aches. Denies any vaginal discharge/pain or pelvic pain. Eating/drinking good. Allergies Nette is allergic to citric acid. Medications Outpatient Medications Prior to Visit Medication Sig Dispense Refill QUEtiapine (SEROQUEL XR) 400 mg 24 hr tablet Take 400 mg by mouth daily. No facility-administered medications prior to visit. Histories Past Medical History: Diagnosis Date Insomnia Past Surgical History: Procedure Laterality Date SECTION [...] file Gets together: Not on file Attends synagogue service: Not on file Active member of [...] Patient feels safe at home, denies abuse. Yarsani preference: none Pets at home. Family History Problem Relation Age of Onset Liver Cancer Maternal Grandmother Review of Systems Constitutional: Negative for activity change, appetite change, chills, fatigue and fever. HENT: Negative for sore throat. Respiratory: Negative for shortness of breath, wheezing and stridor. Gastrointestinal: Negative for abdominal pain, diarrhea, nausea and vomiting. Genitourinary: Negative for bladder incontinence, dysuria, urgency, frequency, hematuria, flank pain, decreased urine volume, vaginal bleeding, vaginal discharge, difficulty urinating, genital sores, vaginal pain, menstrual problem, pelvic pain and nocturia. Odorous urine Musculoskeletal: Negative for myalgias. Skin: Negative for rash. Neurological: Negative for dizziness, weakness and headaches. All other systems reviewed and are negative. Vital Signs BP 115/69 | Pulse 108 | Temp 36.7 C (98.1 F) (Oral) | Resp 18 | Ht 5' 4" (1.626 m) | Wt 170lb (77.1 kg) | SpO2 98% | BMI 29.18 kg/m Physical Exam Vitals signs and nursing note reviewed. Exam conducted with a travel agent present. Constitutional: Appearance: She is well-developed. HENT: Head: Normocephalic and atraumatic. Right Ear: External ear normal. Left Ear: External ear normal. Nose: Nose normal. Mouth/Throat: Lips: Evant. Mouth: Mucous membranes are moist. Pharynx: Oropharynx is clear. Eyes: Conjunctiva/sclera: Conjunctivae normal. Neck: Musculoskeletal: Normal range of motion and neck supple. Cardiovascular: Rate and Rhythm: Normal rate and regular rhythm. Heart sounds: Normal heart sounds. No murmur. No friction rub. No gallop. Pulmonary: Effort: Pulmonary effort is normal. No respiratory distress. Breath sounds: Normal breath sounds. No wheezing, rhonchi or rales. Abdominal: General: Bowel sounds are normal. There is no distension. Palpations: Abdomen is soft. Tenderness: There is no abdominal tenderness. There is no right CVA tenderness, left CVA tenderness, guarding or rebound. Negative signs include Buchanan's sign. Genitourinary: Exam position: Lithotomy position. Pubic Area: No rash. Labia: Right: No rash, tenderness, lesion or injury. Left: No rash, tenderness, lesion or injury. Vagina: No signs of injury. No vaginal discharge, erythema, tenderness or lesions. Musculoskeletal: Normal range of motion. Skin: General: Skin is warm and dry. Findings: No rash. Neurological: Mental Status: She is alert and oriented to person, place, and time. Psychiatric: Behavior: Behavior normal. Assessment/Plan Nette Quiles is a 24 year old female presents with concern for urine odor for about 3 days. 1. Abnormal urine odor - POCT URINALYSIS W SPECIFIC GRAVITY - no evidence of urinary infection; will send for micro ua. - GALV ONLY - VAGINAL PATHOGENS BY NUCLEIC ACID TESTING; Future - GC & CHLAMYDIA AMPLIFIED ASSAY; Future - URINALYSIS MICROSCOPIC - increase water intake. - Follow up with PCP, urgent care or ER in 2-3 days or sooner if symptoms do now improve or worsens.Patient/parent verbalized understanding and agreed with plan of care. Plan of care, desired health behaviors, goals, and medication discussed with patient. Education resources provided and reviewed with AVS. Patient/guardian/family verbalized understanding & agrees to plan of care. Urgent Care precautions and follow up : 1. Return to clinic if your symptoms should worsen or fail to improve within 72 hours. 2. The care provided in the urgent care was for acute problems only. 3. You should follow up with your primary care provider within 72 hours. 4. Make sure you are staying adequately hydrated. MAY FOLLOW-UP WITH A PROVIDER OF YOUR CHOICE, SUCH : 1. A PHYSICIAN OF YOUR CHOICE OR, IF YOU WISH TO FOLLOW-UP WITHIN THE [facility], MAY TRY THESE OPTIONS (CLINIC APPOINTMENTS AVAILABLE ON [id number] BASIS): 1. SCHEDULE AN APPOINTMENT ONLINE AT [facility] 2. OR CALL THE [facility] AT OR 3. OR CALL YOUR [facility] PHYSICIAN'S OFFICE DIRECTLY IF YOU ARE ALREADY AN ESTABLISHED [facility] PATIENT. After hours care nurse access center available by calling [phone] 24 hours 7 days per week. Josefina ABREU [facility] Theodora Rodriguez, MA - 05/04/2020 7:20 PM CDTPatient states " I don't like have any symptoms or anything there is just like a foul odor, and likemy mom just got over one last week I know it's not contagious or anything but like she didn't have any symptoms either." documented in this encounter Plan of Treatment Date Type Specialty Care Team Description 05/11/2020 Office Visit Obstetrics & Gynecology Annabella Caban PA-C [address] [place] [phone] Name Type Priority Associated Diagnoses Order S chedule GALV ONLY - VAGINAL LAB Routine Abnormal urine odor E xpected: 05/04/2020, PATHOGENS BY NUCLEIC ACID Ex darline: 05/04/2021 TESTING GC & CHLAMYDIA AMPLIFIED LAB Routine Abnormal urine o salvador Expected: 05/04/2020, ASSAY Expires: 2020 URINALYSIS MICROSCOPIC LAB Routine Abnormal urine odo r Ordered: 05/04/2020 Health Maintenance Due Date Last Done Comments [...] Priority Date/Time Associated Diagnosis Comme nts POCT URINALYSIS STAT 05/04/2020 6:02 PM Abnormal urine odo r Results for this CDT procedure are i n the results section. documented in this encounter Results POCT URINALYSIS W SPECIFIC GRAVITY (05/04/2020 6:02 PM CDT) Pathologist Sig nature POCT U SP GRAV 1.010 1.005 - 1.025 mg/dl POCT PH U 7 5 - 8 mg/dl POCT U LEUK EST NEG Negative - Negative POCT U NIT NEG Negative - Negative POCT U PROT NEG Negative - Negative POCT U GLU NEG Negative - Negative POCT U KETONE NEG Negative - Negative POCT U UROBILI NORM 0.2 - 1 mg/dl POCT U BILI NEG Negative - Negative POCT U BLD NEG Negative - Negative POCT U COLOR Pale Yellow POCT U APPEAR clear Specimen Urine - URINE, CLEAN CATCH documented in this encounter Visit Diagnoses Diagnosis Abnormal urine odor - Primary Other nonspecific finding on examination of urine documented in this encounter Insurance Payer Benefit Plan / Subscriber ID Effective Dates Phone Addre ss Type Group [facility] [place] [place] [id number] 2020-[place] Medicaid COMM PLAN - t MANAGED MEDICAID documented as of this encounter
--- OUTSIDE RECORDS SUMMARY | 2020-05-26 12:08 | XMS REPORT | Summary of Care ---
:1995 Author Organization [facility] Address [address] [place] [id number] Care Team Providers Name Role Phone David Lowe Primary Care Provider Reason for Visit Reason Comments Results Encounter Details Date Type Department Care Team Description 05/08/2020 Telephone [facility] Family Medicine Josefina Stephenson FNP Results - [place] [address] [place] [address] [place] [address] [phone] Allergies Active Allergy Reactions Severity Noted Date Comments Citric Acid Other - See comments 01/09/2020 Headach es documented as of this encounter (statuses as of 05/08/2020) Medications Medication Sig Dispensed Refills Start Date End Date Status QUEtiapine (SEROQUEL Take 400 mg by 0 Active XR) 400 mg 24 hr tablet mouth daily. metroNIDAZOLE 500 mg Take 1 tablet 14 tablet 0 05/08/2020 11/0 01/2020 Active tabletIndications: BV by mouth 2 (bacterial vaginosis) (two) times daily for 7 days. fluconazole (DIFLUCAN) Take 1 tablet 1 tablet 0 05/08/2020 Active 200 mg by mouth once tabletIndications: now for 1 dose. Vaginal tim documented as of this encounter (statuses as of 05/08/2020) Active Problems Problem Noted Date Nexplanon in place 03/05/2020 documented as of this encounter (statuses as of 05/08/2020) Social History Tobacco Use Types Packs/Day Years Used Date Current Every Day Smoker Cigarettes Smokeless Tobacco: Never Used Alcohol Use Drinks/Week oz/Week Comments Not Currently Sex Assigned at Date Recorded Not on file documented as of this encounter Last Filed Vital Signs Not on filedocumented in this encounter Plan of Treatment Date Type Specialty Care Team Description 05/11/2020 Office Visit Obstetrics & Gynecology Annabella Caban PA-C [address] [place] [address] [phone] Health Maintenance Due Date Last Done [...] filedocumented in this encounter Visit Diagnoses Diagnosis BV (bacterial vaginosis) - Primary Vaginitis and vulvovaginitis, unspecifie d Vaginal tim Candidiasis of vulva and vagina documented in this encounter Insurance Payer Benefit Plan / Subscriber ID Effective Dates Phone Addre ss Type Group [facility] [id number] 2020-[place] Medicaid COMM PLAN - t MANAGED MEDICAID documented as of this encounter
--- OUTSIDE RECORDS SUMMARY | 2020-05-26 12:08 | XMS REPORT | Summary of Care ---
:1995 Author Organization [facility] Address [address] [place] [address] Care Team Providers Name Role Phone David Lowe Primary Care Provider Reason for Visit Reason Comments CONTROL Encounter Details Date Type Department Care Team Description 02/27/2020 Office Visit [facility]'s Annabella Caban [facility]- [address] PAPatriciaC counseling ([address], [address] [place] [address] [place], [place] [phone] Allergies Active Allergy Reactions Severity Noted [...] file Gets together: Not on file Attends orthodox service: Not on file Active member of [...] Patient feels safe at home, denies abuse. Gnosticist preference: none Pets at home. Social History [...] patient expressed understanding. Return to clinic in men WWE 1 wk for nexplanon insertion. Discussed treatment options. Reviewed patient instructions and provided printed copy. This visit did not involve counseling and coordination that comprised more than 50% of the visit time. Annabella Caban PA-C 02/27/2020 11:51 AM documented in this encounter Plan of Treatment Date Type Specialty Care Team Description 03/05/2020 Office Visit Obstetrics & Gynecology Félix Rees MD [address] [place] [address] [place] [address] [phone] 04/09/2020 Office Visit Obstetrics & Gynecology Annabella Caban PA-C [address] [place], [place] [phone] Health Maintenance Due Date Last Done [...] Effective Dates Phone Addre ss Type Group [facility] [id number] 2020-Present Medicaid COMM PLAN - MANAGED MEDICAID (Home) [place] [address] documented as of this encounter
--- OUTSIDE RECORDS SUMMARY | 2020-05-26 12:08 | XMS REPORT | Summary of Care ---
:1995 Author Organization [facility] Address [address] [place] [address] Care Team Providers Name Role Phone Mynor David Popeton Primary Care Provider Reason for Visit Reason Comments Procedure nexplanon insertion Encounter Details Date Type Department Care Team Description 03/05/2020 Office Visit [facility] Women's Rees, Eileen karimi MD Nexplanon insertion (Primary Dx); Healthcare- [address] in place; [address] [place] [address] [address] female [address], [address] [place], [place] [phone] Allergies Active Allergy Reactions Severity Noted Date [...] of your upper arm by a health director of critical care. Talk to your heater engineer helper regarding the use of this medicine in children. Special care may be needed. What side effects may I notice from receiving this medicine? Side effects that you should report to your doctor or health director of critical care as soon as possible: allergic reactions like [...] attention (report to your doctor or health director of critical care if they continue or are bothersome): acne [...] like atazanavir, indinavir, lopinavir, nelfinavir, tipranavir, ritonavir [place]'s wort What if I miss a dose? [...] and provided printed copy. nexplanon Lot #: [id number] Year removal date: 2022 Patient palpated implant: Yes Eileen Rees MD #[id number] 03/05/2020 11:48 AM documented in this encounter Plan of Treatment Date Type Specialty Care Team Description 04/09/2020 Office Visit Obstetrics & Gynecology Annabella Caban PA-C [address] [place] [address] [phone] Health Maintenance Due Date Last Done [...] Sun03/05/20 at 1300, Routine, Use approved by: BREAD WRAPPER documented in this encounter Insurance Payer Benefit Plan / Subscriber ID Effective Dates Phone Addre ss Type Group [facility] [id number] 2020-Present Medicaid COMM PLAN - MANAGED MEDICAID documented as of this encounter
[2020-05-26] MEDS ORDERED: ONDANSETRON 4 MG/2 ML VIAL ONE (13:06)
[2020-05-26] MEDS ORDERED: NA CHLORIDE 0.9% 1,000 ML ONE ×2 (13:06→14:16)
--- NOTE | 2020-05-26 13:18 | RAD REPORT ---
EXAM DESCRIPTION: CT - Head Brain Wo Cont - 05/26/2020 12:56 pm CLINICAL HISTORY: Syncope COMPARISON: None. TECHNIQUE: Computed axial tomography of the head was obtained. IV contrast was not requested. All CT scans are performed using dose optimization technique as appropriate and may include automated exposure control or mA/KV adjustment according to patient size. FINDINGS: An intracranial bleed is not seen . The ventricles are normal in caliber. No extra-axial fluid collection is noted. Fluid within the sinuses/ mastoids is not seen. IMPRESSION: No acute intracranial abnormality is seen. If patient's symptoms persist MRI of the bra in would be recommended.
[2020-05-26 13:30] LABS: Absolute Lymphocytes (CBC) 0.7 K/uL (0.7-4.9); Basophils % 0.4 % (0-1.3); Hematocrit 43.3 % (36.0-45.0); MPV 7.6 fL (7.6-11.3); RBC Red Blood Cell Count 4.88 M/uL (3.86-4.86)
[2020-05-26 13:46] LABS: Potassium 3.7 mmol/L (3.5-5.1)
[2020-05-26 14:04] LABS: Urine Blood 2+ (NEG); Urine Glucose NEGATIVE (NEG); Urine Protein 2+ (NEG); Urine Specific Gravity >1.030 (1.005-1.030)
[2020-05-26 14:05] LABS: Blood Morphology Comment NOT SEEN (NOT SEEN); Platelet Estimate ADEQ; White Blood Cell Scan OK (OK)
[2020-05-26 14:38] LABS: Barbiturates NEGATIVE (NEGATIVE); Benzodiazepines NEGATIVE (NEGATIVE); Cocaine NEGATIVE (NEGATIVE); METHAMPHETAM NEGATIVE (NEGATIVE); Methadone NEGATIVE (NEGATIVE); Opiates NEGATIVE (NEGATIVE); Phencyclidine NEGATIVE (NEGATIVE); THC Cannibis POSITIVE (NEGATIVE)
--- NOTE | 2020-05-26 15:05 | ER ---
Nurse's Notes [facility] Name: Nette Quiles Age: 24 yrs Sex: Female : 1995 Arrival Date: 05/26/2020 Time: 12:01 Bed 20 Private MD: Diagnosis: Seizure - new onset Presentation: 05/26 12:01 Chief complaint: EMS states: "the pt went to visit her mom at work when her mom noticed jd3 her not acting right. the mother reports that she had a syncope episode with possible seizure activity that only last for a couple of seconds. the pt was initially a little confused with use, but the only complaint is her headache and confusion and they syncope.". Coronavirus screen: At this time, the client does not indicate any symptoms associated with coronavirus-19. Ebola Screen: Patient negative for fever greater than or equal to 101.5 degrees Fahrenheit, and additional compatible Ebola Virus Disease symptoms. Initial Sepsis Screen: Does the patient meet any 2 criteria? No. Patient's initial sepsis screen is negative. Does the patient have a suspected source of infection? No. Patient's initial sepsis screen is negative. Risk Assessment: Do you want to hurt yourself or someone else? Patient reports no desire to harm self or others. Onset of symptoms was May 26, 2020. 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 - Social history:: Smoking status: Patient denies any tobacco usage or history of. Screenin:08 Abuse screen: Denies threats or abuse. Nutritional screening: No deficits noted. jd3 Tuberculosis screening: No symptoms or risk factors identified. Fall Risk Fall in past 12 months (25 points). IV access (20 points). Ambulatory Aid- None/Bed Rest/Nurse Assist (0 pts). Gait- Normal/Bed Rest/Wheelchair (0 pts) Mental Status- Oriented to own ability (0 pts). Total Loaiza Fall Scale indicates High Risk Score (45 or more points). Fall prevention measures have been instituted. Side Rails Up X 2 Placed Close to Nursing Station Frequent Obs/Assessments Occuring. Assessment: 12:07 General: Appears in no apparent distress. uncomfortable, Behavior is calm, cooperative, jd3 appropriate for age. Pain: Complains of pain in head Quality of pain is described as aching, pressure. Neuro: Level of Consciousness is awake, alert, obeys commands, confused, Oriented to person, place, situation. Cardiovascular: Denies chest pain, Capillary refill < 3 seconds Patient's skin is warm and dry. Respiratory: Airway is patent Respiratory effort is even, unlabored, Respiratory pattern is regular, symmetrical, Denies cough, shortness of breath. GI: No signs and/or symptoms were reported involving the gastrointestinal system. Patient currently denies diarrhea, nausea, vomiting. : No signs and/or symptoms were reported regarding the genitourinary system. EENT: No signs and/or symptoms were reported regarding the EENT system. Derm: Skin is intact, Skin is dry, Skin is normal, Skin temperature is warm. Musculoskeletal: Circulation, motion, and sensation intact. Range of motion: intact in all extremities. 13:00 Reassessment: Patient appears in no apparent distress at this time. Patient and/or ca1 family updated on plan of care and expected duration. Pain level reassessed. Patient is alert, oriented x 3, equal unlabored respirations, skin warm/dry/pink. 14:00 Reassessment: Patient appears in no apparent distress at this time. Patient and/or ca1 family updated on plan of care and expected duration. Pain level reassessed. Patient is alert, oriented x 3, equal unlabored respirations, skin warm/dry/pink. 15:00 Reassessment: Patient appears in no apparent distress at this time. Patient and/or ca1 family updated on plan of care and expected duration. Pain level reassessed. Patient is alert, oriented x 3, equal unlabored respirations, skin warm/dry/pink. 16:00 Reassessment: Patient appears in no apparent distress at this time. Patient and/or ca1 family updated on plan of care and expected duration. Pain level reassessed. Patient is alert, oriented x 3, equal unlabored respirations, skin warm/dry/pink. 17:10 Reassessment: Patient appears in no apparent distress at this time. Patient and/or ca1 family updated on plan of care and expected duration. Pain level reassessed. Patient is alert, oriented x 3, equal unlabored respirations, skin warm/dry/pink. 18:10 Reassessment: Patient appears in no apparent distress at this time. Patient and/or ca1 family updated on plan of care and expected duration. Pain level reassessed. Patient is alert, oriented x 3, equal unlabored respirations, skin warm/dry/pink. 19:15 Reassessment: Patient appears in no apparent distress at this time. Patient and/or ca1 family updated on plan of care and expected duration. Pain level reassessed. Patient is alert, oriented x 3, equal unlabored respirations, skin warm/dry/pink. 20:11 Reassessment: Patient appears in no apparent distress at this time. awaiting a call sg back from Anahy MCCULLOUGH at this time for pt report for bed 406, pt updated on delay, stated understanding. 20:46 Reassessment: Patient appears in no apparent distress at this time. Patient and/or ca1 family updated on plan of care and expected duration. Pain level reassessed. Patient is alert, oriented x 3, equal unlabored respirations, skin warm/dry/pink. Vital Signs: 12:06 BP 110 / 70; Pulse 98; Resp 17 S; Temp 97.8(TE); Pulse Ox 97% on R/A; Weight 81.65 kg jd3 (R); Height 5 ft. 5 in. (165.10 cm) (R); Pain 8/10; 13:40 BP 98 / 53 Supine; Pulse 85; ca1 13:43 BP 114 / 74 Sitting; Pulse 81; ca1 13:46 BP 110 / 74 Standing; Pulse 78; ca1 14:45 BP 106 / 70; Pulse 81; Resp 18 S; Pulse Ox 97% on R/A; ca1 15:45 BP 101 / 58; Pulse 81; Resp 16 S; Pulse Ox 97% on R/A; ca1 16:45 BP 99 / 79; Pulse 66; Resp 18 S; Pulse Ox 100% on R/A; ca1 17:45 BP 98 / 59; Pulse 64; Resp 16 S; Pulse Ox 100% on R/A; ca1 18:45 BP 125 / 61; Pulse 62; Resp 15 S; Pulse Ox 100% on R/A; ca1 19:30 BP 104 / 56; Pulse 62; Resp 15 S; Pulse Ox 100% on R/A; ca1 20:30 BP 115 / 76; Pulse 61; Resp 16 S; Pulse Ox 99% on R/A; ca1 12:06 Body Mass Index 29.95 (81.65 kg, 165.10 cm) jd3 ED Course: 12:01 Patient arrived in ED. jd3 12:04 Triage completed. jd3 12:07 Arm band placed on. jd3 12:08 Patient has correct armband on for positive identification. Bed in low position. Call jd3 light in reach. Side rails up X2. Pulse ox on. NIBP on. 12:09 Gigi Flowers, RN is Primary Nurse. jd3 12:16 Inna Edge FNP-C is PHCP. kb 12:16 Otis Hallman MD is Attending Physician. kb 12:56 CT Head Brain wo Cont In Process Unspecified. EDMS 13:31 Maintain EMS IV. Dressing intact. Good blood return noted. Site clean \\T\\ dry. Gauge \\T\\ alberto 3 site: 20 G left AC. 15:03 Can Le is Hospitalizing Provider. kb 19:15 Lindsey Garcia, RN is Primary Nurse. ca1 20:47 No provider procedures requiring assistance completed. Patient admitted, IV remains in ca1 place. Administered Medications: 13:15 Drug: NS 0.9% 1000 ml Route: IV; Rate: 1000 ml; Site: left antecubital; ca1 14:05 Follow up: Response: No adverse reaction; IV Status: Completed infusion; IV Intake: ca1 1000ml 13:17 Drug: Zofran (Ondansetron) 4 mg Route: IVP; Site: left antecubital; ca1 14:00 Follow up: Response: No adverse reaction; Nausea is increased ca1 14:05 Drug: NS 0.9% 1000 ml Route: IV; Rate: 1000 ml; Site: left antecubital; ca1 15:10 Follow up: Response: No adverse reaction; IV Status: Completed infusion; IV Intake: ca1 1000ml Intake: 14:05 IV: 1000ml; Total: 1000ml. ca1 15:10 IV: 1000ml; Total: 2000ml. ca1 Outcome: 15:03 Decision to Hospitalize by Provider. kb 20:22 Admitted to [facility]/surg accompanied by tech, via wheelchair, room 406, with chart, Report sg called to Kaley MCCULLOUGH 20:22 Condition: stable 20:22 Instructed on the need for admit, safety practices, Demonstrated understanding of instructions, follow-up care. 20:47 Patient left the ED. ca1 Signatures: Dispatcher [employer] EDInna Dasilva, COOLER SERVICER-Bridgett ABREU-Homer Ward RN RN Gigi Foss RN RN jd3 Lindsey Garcia RN RN ca1
--- NOTE | 2020-05-26 15:05 | EDPHYS ---
Physician Documentation [facility] Name: Nette Quiles Age: 24 yrs Sex: Female : 1995 Arrival Date: 05/26/2020 Time: 12:01 Bed 20 Private MD: ED Physician Otis Hallman HPI: 05/26 15:05 This 24 yrs old Female presents to ER via EMS with complaints of seizure. kb 15:05 The patient has not experienced similar symptoms in the past. The patient has not kb recently seen a physician. 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 - Social history:: Smoking status: Patient denies any tobacco usage or history of. ROS: 14:52 Constitutional: Negative for fever, chills, and weight loss, Cardiovascular: Negative kb for chest pain, palpitations, and edema, Respiratory: Negative for shortness of breath, cough, wheezing, and pleuritic chest pain, Back: Negative for injury and pain, MS/Extremity: Negative for injury and deformity, Skin: Negative for injury, rash, and discoloration. 14:52 Abdomen/GI: Positive for nausea and vomiting, Negative for abdominal pain. 14:52 Neuro: Positive for headache, seizure activity. Exam: 14:01 Constitutional: This is a well developed, well nourished patient who is awake, alert, kb and in no acute distress. Head/Face: Normocephalic, atraumatic. Chest/axilla: Normal chest wall appearance and motion. Nontender with no deformity. No lesions are appreciated. Cardiovascular: Regular rate and rhythm with a normal S1 and S2. No gallops, murmurs, or rubs. Normal PMI, no JVD. No pulse deficits. Respiratory: Lungs have equal breath sounds bilaterally, clear to auscultation and percussion. No rales, rhonchi or wheezes noted. No increased work of breathing, no retractions or nasal flaring. Abdomen/GI: Soft, non-tender, with normal bowel sounds. No distension or tympany. No guarding or rebound. No evidence of tenderness throughout. Skin: Warm, dry with normal turgor. Normal color with no rashes, no lesions, and no evidence of cellulitis. MS/ Extremity: Pulses equal, no cyanosis. Neurovascular intact. Full, normal range of motion. Neuro: Awake and alert, GCS 15, oriented to person, place, time, and situation. Cranial nerves II-XII grossly intact. Motor strength 5/5 in all extremities. Sensory grossly intact. Cerebellar exam normal. Normal gait. 14:01 ECG was reviewed by the Attending Physician. Vital Signs: 12:06 BP 110 / 70; Pulse 98; Resp 17 S; Temp 97.8(TE); Pulse Ox 97% on R/A; Weight 81.65 kg jd3 (R); Height 5 ft. 5 in. (165.10 cm) (R); Pain 8/10; 13:40 BP 98 / 53 Supine; Pulse 85; ca1 13:43 BP 114 / 74 Sitting; Pulse 81; ca1 13:46 BP 110 / 74 Standing; Pulse 78; ca1 14:45 BP 106 / 70; Pulse 81; Resp 18 S; Pulse Ox 97% on R/A; ca1 15:45 BP 101 / 58; Pulse 81; Resp 16 S; Pulse Ox 97% on R/A; ca1 16:45 BP 99 / 79; Pulse 66; Resp 18 S; Pulse Ox 100% on R/A; ca1 17:45 BP 98 / 59; Pulse 64; Resp 16 S; Pulse Ox 100% on R/A; ca1 18:45 BP 125 / 61; Pulse 62; Resp 15 S; Pulse Ox 100% on R/A; ca1 19:30 BP 104 / 56; Pulse 62; Resp 15 S; Pulse Ox 100% on R/A; ca1 20:30 BP 115 / 76; Pulse 61; Resp 16 S; Pulse Ox 99% on R/A; ca1 12:06 Body Mass Index 29.95 (81.65 kg, 165.10 cm) jd3 MDM: 12:17 Patient medically screened. kb 14:30 Data reviewed: vital signs, nurses notes. Data interpreted: Pulse oximetry: on room air kb is 97 %. Interpretation: normal. Counseling: I had a detailed discussion with the patient and/or guardian regarding: the historical points, exam findings, and any diagnostic results supporting the discharge/admit diagnosis, lab results, radiology results, the need for further work-up and treatment in the hospital. Physician consultation: Jorden Bello MD was called at 14:15, regarding consult, patient's condition, awaiting callback. 14:54 Physician consultation: Jorden Bello MD was contacted at 14:54, regarding consult, kb patient's condition, and will see patient in inpatient room, would like further tests performed, MRI and EEG. 05/26 12:41 Order name: CBC with Diff; Complete Time: 14:06 kb 05/26 12:41 Order name: Basic Metabolic Panel; Complete Time: 13:52 kb 05/26 12:46 Order name: UDS; Complete Time: 15:08 kb 05/26 13:11 Order name: Urine Dipstick--Ancillary (enter results); Complete Time: 14:05 bd 05/26 13:11 Order name: Urine --Ancillary (enter results); Complete Time: 14:05 bd 05/26 14:06 Order name: CBC Smear Scan; Complete Time: 14:06 EDMS 05/26 12:41 Order name: CT Head Brain wo Cont; Complete Time: 13:21 kb 05/26 12:41 Order name: IV Start; Complete Time: 13:20 kb 05/26 12:41 Order name: EKG; Complete Time: 12:41 kb 05/26 12:41 Order name: EKG - Nurse/Tech; Complete Time: 13:56 kb 05/26 15:11 Order name: COVID-19 kb 05/26 12:41 Order name: Orthostatics; Complete Time: 13:20 kb 05/26 12:41 Order name: Urine Dipstick-Ancillary (obtain specimen); Complete Time: 13:20 kb EC:01 Rate is 61 beats/min. Rhythm is regular. QRS [place] is Normal. [place] interval is normal at kb 124 msec. QRS interval is normal at 76 msec. QT interval is normal at 408 msec. Administered Medications: 13:15 Drug: NS 0.9% 1000 ml Route: IV; Rate: 1000 ml; Site: left antecubital; ca1 14:05 Follow up: Response: No adverse reaction; IV Status: Completed infusion; IV Intake: ca1 1000ml 13:17 Drug: Zofran (Ondansetron) 4 mg Route: IVP; Site: left antecubital; ca1 14:00 Follow up: Response: No adverse reaction; Nausea is increased ca1 14:05 Drug: NS 0.9% 1000 ml Route: IV; Rate: 1000 ml; Site: left antecubital; ca1 15:10 Follow up: Response: No adverse reaction; IV Status: Completed infusion; IV Intake: ca1 1000ml Disposition: 05/26/20 15:03 Hospitalization ordered by Can Le for Observation. Preliminary diagnosis is Seizure - new onset. - Bed requested for Telemetry/MedSurg (observation). - Status is Observation. ca1 - Condition is Stable. - Problem is new. - Symptoms are unchanged. Addendum: 05/28/2020 07:15 Co-signature as Attending Physician, Otis Hallman MD. r n Signatures: Dispatcher [employer] EDMS Inna Edge, BELT MAKER HELPER-C BELT MAKER HELPER-Ckb Otis Hallman MD MD rn Lasagna, Tonya, RN RN tl1 Gigi Flowers RN RN jd3 Lindsey Garcia, RN RN ca1 Corrections: (The following items were deleted from the chart) 05/26 15:05 15:03 Hospitalization Ordered by Can Le for Observation. Preliminary diagnosis kb is Epilepsy and recurrent seizures. Bed requested for Telemetry/MedSurg (observation). Status is Observation. Condition is Stable. Problem is new. Symptoms are unchanged. kb 20:05 15:05 05/26/2020 15:03 Hospitalization Ordered by Can Le for Observation. tl1 Preliminary diagnosis is Seizure - new onset. Bed requested for Telemetry/MedSurg (observation). Status is Observation. Condition is Stable. Problem is new. Symptoms are unchanged. kb 20:47 20:05 05/26/2020 15:03 Hospitalization Ordered by Can Le for Observation. ca1 Preliminary diagnosis is Seizure - new onset. Bed requested for Telemetry/MedSurg (observation). Status is Observation. Condition is Stable. Problem is new. Symptoms are unchanged. tl1
--- NOTE | 2020-05-26 16:36 | P.HP ---
Certification for Inpatient Patient admitted to: Observation With expected LOS: <2 Midnights Practitioner: I am a practitioner with admitting privileges, knowledge of patient current condition, hospital course, and medical plan of care. Services: Services provided to patient in accordance with Admission requirements found in Title 42 Section 412.3 of the Code of Federal Regulations Patient History Date of Service: 05/26/20 Reason for admission: Nausea and vomiting and seizures History of Present Illness: 24-year-old woman with no known past medical history was brought to the emergency department after she had a seizure episode this afternoon. Patient for episodes of nausea and vomiting of about 3 days duration. She denied any abdominal pain or fever. She mentioned she is having her menses. She denied any dysuria or increased urinary frequency. She denied any cough or chest pain or shortness of breath. She stated her mother witnessed the tonic clonic seizure associated with brief loss of consciousness. The patient is not complaining of headache. UA does not suggest the presence of UTI. Head CT done in the ED is negative for acute disease. No chest x-ray done. CBC and BMP are unremarkable. Dr. Bello was contacted who recommended hospitalization for monitoring, and for MRI and EEG. Allergies No Known Drug Allergies Allergy (Verified 04/15/18 19:16) Unknown Home Medications: Quetiapine Fumarate [Seroquel] 400 mg PO BEDTIME PRN 04/15/18 Codeine/APAP [Tylenol W/Codeine #3 tab] 1 tab PO Q6HP PRN #15 tab 04/18/18 - Past Medical/Surgical History -: Anemia -: Acid Reflux -: Caesarean section - Family History Family History: Reviewed- Non-Contributory (No significant medical problem in any first-degree family member.) - Social History Smoking Status: Current some day smoker Alcohol use: No CD- Drugs: No Caffeine use: Yes Review of Systems Other: Except as documented, all other systems reviewed and negative. Physical Examination - Physical Exam General: Alert, In no apparent distress HEENT: Atraumatic, PERRLA, Mucous membr. moist/pink, EOMI, Sclerae nonicteric Neck: Supple, JVD not distended Respiratory: Clear to auscultation bilaterally, Normal air movement Cardiovascular: No edema, Regular rate/rhythm, Normal S1 S2, No murmurs Capillary refill: <2 Seconds Gastrointestinal: Normal bowel sounds, Soft and benign, Non-distended, No tenderness Musculoskeletal: No swelling, No tenderness Integumentary: No rashes, No erythema Neurological: Normal speech, Normal strength at 5/5 x4 extr, Cranial nerves 3-12 intact - Studies Laboratory Data (last 24 hrs) 05/26/20 13:16: Sodium 143, Potassium 3.7, BUN 11, Creatinine 1.06, Glucose 120 H 05/26/20 13:16: WBC 11.9 H, Hgb 14.9, Hct 43.3, Plt Count 364 Assessment and Plan - Problems (Diagnosis) (1) Seizures Current Visit: Yes Status: Acute (2) Intractable nausea and vomiting Current Visit: Yes Status: Acute - Plan Place patient under observation. Supportive measures with IV fluids-D5 normal saline, IV antiemetics. Trial of IV protonix. Ativan IV p.r.n. for seizures. Consult to neurology. MRI the of the brain and EEG ordered. Neurochecks. - Advance Directives Does patient have a Living Will: No Does patient have a Durable POA for Healthcare: No
[2020-05-26] MEDS ORDERED: LORazepam 2 MG/ML VIAL IV PRN (21:04)
[2020-05-26] MEDS ORDERED: ACETAMINOPHEN 500 MG TAB PO PRN (21:04)
[2020-05-26] MEDS ORDERED: ONDANSETRON 4 MG/2 ML VIAL IV PRN (21:04)
[2020-05-26] MEDS: D5 0.9 NS 1,000 ML IV SCH (21:04)
[2020-05-26] MEDS ORDERED: SODIUM CHLORIDE 0.9% 10ML INJ IV PRN (21:04)
[2020-05-26 21:22] VITALS: BMI 29.5
[2020-05-26] MEDS: PANTOPRAZOLE 40 MG INJ IVP SCH (22:46)
[2020-05-27 04:10] LABS: Absolute Lymphocytes (CBC) 2.3 K/uL (0.7-4.9); Basophils % 0.6 % (0-1.3); Hematocrit 35.2 % (36.0-45.0); Lymphocytes % 24.8 % (15.3-44.8); MPV 7.4 fL (7.6-11.3); RBC Red Blood Cell Count 3.96 M/uL (3.86-4.86)
[2020-05-27 04:35] LABS: ALT/SGPT 15 U/L (12-78); AST/SGOT 16 U/L (15-37); Albumin 3.4 g/dL (3.4-5.0); Alkaline Phosphatase 68 U/L (45-117); BUN Blood Urea Nitrogen 10 mg/dL (7-18); Bicarbonate 23 mmol/L (21-32); Bilirubin Total 0.6 mg/dL (0.2-1.0); Glucose Level 104 mg/dL (74-106); Magnesium 2.2 mg/dL (1.8-2.4); Phosphorus 2.8 mg/dL (2.5-4.9); Potassium 3.4 mmol/L (3.5-5.1); Protein, Total 6.1 g/dL (6.4-8.2); Sodium Level 145 mmol/L (136-145)
--- NOTE | 2020-05-27 06:05 | EKG ---
Test Date: 2020-05-26 Test Time: 13:54:13 Chairman President And Chief Executive Officer: EMERY MEASUREMENT RESULTS: Intervals: Rate: 61 NJ: 124 QRSD: 76 QT: 408 QTc: 410 Corinne: P: 64 NJ: 124 QRS: 70 T: 54 INTERPRETIVE STATEMENTS: Sinus rhythm with marked sinus arrhythmia Otherwise normal ECG Compared to ECG 02/18/2015 09:34:18 No significant changes Electronically Signed On 05-27-20 06:03:[address] [employer] by Ramesh Moss
[2020-05-27] MEDS ORDERED: POTASSIUM CL SA 10 MEQ TAB PO ONE (06:32)
[2020-05-27] MEDS: D5 0.9 NS 1,000 ML IV SCH (06:57)
[2020-05-27] MEDS: PANTOPRAZOLE 40 MG INJ IVP SCH (08:19)
[2020-05-27] MEDS ORDERED: ENOXAPARIN 40 MG/0.4 ML SQ SCH (09:00)
[2020-05-27 09:49] VITALS: O2SAT 98
--- NOTE | 2020-05-27 11:31 | P.DS ---
Admission Date: 05/26/20 Discharge Date: 05/27/20 Disposition: ROUTINE DISCHARGE Discharge Condition: FAIR Reason for Admission: Nausea and vomiting and seizures - Problems (1) Seizures Current Visit: Yes Status: Acute (2) Intractable nausea and vomiting Current Visit: Yes Status: Acute Brief History of Present Illness: 24-year-old woman with no known past medical history was brought to the emergency department after she had a seizure episode this afternoon. Patient for episodes of nausea and vomiting of about 3 days duration. She denied any abdominal pain or fever. She mentioned she is having her menses. She denied any dysuria or increased urinary frequency. She denied any cough or chest pain or shortness of breath. She stated her mother witnessed the tonic clonic seizure associated with brief loss of consciousness. The patient is not complaining of headache. UA does not suggest the presence of UTI. Head CT done in the ED is negative for acute disease. No chest x-ray done. CBC and BMP are unremarkable. Dr. Bello was contacted who recommended hospitalization for monitoring, and for MRI and EEG. Hospital Course: Patient placed under observation. She had no seizures during the hospital stay. Her nausea and vomiting resolved and she tolerated diet advancement. MRI of the brain on did not show any acute disease. EEG was performed, results to be reviewed by Dr. Bello. Patient is asymptomatic. She is deemed clinically stable for discharge per Dr. Bello. She will have follow-up with Dr. Bello next week. Vital Signs/Physical Exam: Temp Pulse Resp BP Pulse Ox 98.9 F 87 16 127/62 98 05/27/20 08:00 05/27/20 08:00 05/27/20 08:00 05/27/20 08:00 05/27/20 08:00 General: Alert, In no apparent distress, Oriented x3 HEENT: Mucous membr. moist/pink Neck: JVD not distended Respiratory: Clear to auscultation bilaterally, Normal air movement Cardiovascular: No edema, Regular rate/rhythm, Normal S1 S2 Gastrointestinal: Normal bowel sounds, Soft and benign, No tenderness Musculoskeletal: No swelling, No tenderness Integumentary: No rashes, No erythema Neurological: Normal speech, Normal strength at 5/5 x4 extr Laboratory Data at Discharge: WBC 9.5 K/uL (4.3-10.9) D 05/27/20 03:43 Hgb 12.5 g/dL (12.0-15.0) 05/27/20 03:43 Hct 35.2 % (36.0-45.0) L D 05/27/20 03:43 Plt Count 294 K/uL (152-406) 05/27/20 03:43 Sodium 145 mmol/L (136-145) 05/27/20 03:43 Potassium 3.4 mmol/L (3.5-5.1) L 05/27/20 03:43 BUN 10 mg/dL (7-18) 05/27/20 03:43 Creatinine 0.77 mg/dL (0.55-1.3) 05/27/20 03:43 Glucose 104 mg/dL (74-106) 05/27/20 03:43 Phosphorus 2.8 mg/dL (2.5-4.9) 05/27/20 03:43 Magnesium 2.2 mg/dL (1.8-2.4) 05/27/20 03:43 Total Bilirubin 0.6 mg/dL (0.2-1.0) 05/27/20 03:43 AST 16 U/L (15-37) 05/27/20 03:43 ALT 15 U/L (12-78) 05/27/20 03:43 Alkaline Phosphatase 68 U/L (45-117) 05/27/20 03:43 Home Medications: Quetiapine Fumarate [Seroquel] 400 mg PO BEDTIME PRN 04/15/18 Diet: Regular Activity: Ad nawaf Followup: Jorden Bello MD [ASSOCIATE-ACTIVE - CAN ADMIT] - (Please call Dr. Bello's office on Sunday05/31/2020 to schedule an appointment.) David Lowe MD [ACTIVE - CAN ADMIT] - 1-2 Weeks (Call for appointment. ) Unknown,U [Primary Care Provider] -
--- NOTE | 2020-05-27 13:49 | RAD REPORT ---
EXAM DESCRIPTION: MRI - Brain Wo Cont - 05/27/2020 1:31 pm CLINICAL HISTORY: New onset seizures Headache, drowsiness, new onset seizure. COMPARISON: Head Brain Wo Cont dated 05/26/2020 TECHNIQUE: Multi-sequence, multiplanar MR imaging of the brain was performed without contrast. FINDINGS: No intracranial hemorrhage, hydrocephalus or extra-axial fluid collections. No edema or sh ift of midline structures. No findings to suspect brain mass. DWI is negative for acute CVA. Midline structures are normally formed. Mastoid air cells and paranasal sinuses are clear. IMPRESSION: No acute or concerning intracranial abnormalities.
[2020-05-27 16:06] VITALS: BP 113/72; TEMP 98.8
== END 2020-05-27 16:31 | disposition home or self-care (01) ==
LOC: ER 11:57 → ERHOLD 16:20 → 4TH 20:19
PROVIDERS: ADMIT Internal Medicine; ATTEND Internal Medicine
DX: R56.9 Unspecified convulsions (principal); R11.2 Nausea with vomiting, unspecified; K21.9 Gastro-esophageal reflux disease without esophagitis; F17.200 Nicotine dependence, unspecified, uncomplicated; Z20.828 Contact with and (suspected) exposure to other viral communicable diseases
CPT/HCPCS: 96361; 95816; 93005; 85025 ×2; 80048; 36415; 83735; 81025; 84100; 80307 ×8; 84443; 81003; 80053; 70450; 70551; 96374; 99285; U0002; C9113 ×2; J1650; J7042 ×2; J7030 ×2; J2405 ×2

== ENCOUNTER 2022-06-15 17:18 | Emergency (ER) | payer OTHER ==
--- OUTSIDE RECORDS SUMMARY | 2022-06-15 17:22 | XMS REPORT | Continuity of Care Document ---
:1995 Author Organization [facility] t Address [address] [place] [address] Care Team Providers Name Role Phone SELMA SPRINGERURSTON Primary Care Physician Unavailable ANNABELLA NIELSEN Attending Clinician Unavailable Doctor Unassigned, [place] Attending Clinician Unavailable RUBY MCCULLOUGH Attending Clinician Unavailable Ruby Mccullough MD Attending Clinician Annabella Nielsen PA-C Attending Clinician Jarod Martin MD Attending Clinician JAROD MARTIN Attending Clinician Unavailable JAROD MARTIN Attending Clinician Unavailable Brenda Johnosn MD Attending Clinician BRENDA JOHNSON Attending Clinician Unavailable Only, Adc Test Attending Clinician Unavailable Yoli Anna NP Attending Clinician ED CONTRERAS Attending Clinician Unavailable Lab, Adc Fam Pob I Attending Clinician Unavailable Kesha Georges Attending Clinician KESHA ASHER Attending Clinician Unavailable Kaley Kimball RN Attending Clinician Unavailable Vikram Rios MD Attending Clinician Ebjame INSPECTOR BALANCE TRUINGNguyễn Attending Clinician NGUYỄN DAVID Attending Clinician Unavailable Green INSPECTOR BALANCE TRUING, Josefina Attending Clinician Provider, [facility] Attending Clinician Unavailable Taylor Chen Attending Clinician TAYLOR L[address] Attending Clinician Unavailable Jefferson Farley Attending Clinician Brenda Johnson MD Admitting Clinician NGUYỄN DAVID Admitting Clinician Unavailable Payers Payer Name Policy Type Policy Number Effective Date Expiration Date Lisa riec [facility] [id number] 2020 00:00:00 Problems Condition Condition Condition Status Onset Resolution Last Treating Co mments Source Name Details Category Date Date Treatment Clinician Date Seizure Seizure Disease Active Univers 9-20 ity of 00:00: [facility] Spells of Spells of Disease Active Uni vers decreased decreased 9-20 [place] [facility] Obesity Obesity Disease Active Univers (BMI (BMI 4-28 ity of 30-39.9) 30-39.9) 00:00: [facility] Branch Nexplanon Nexplanon Disease Active Uni vers in place in place 8-28 ity of 00:00: [facility] Allergies, Adverse Reactions, Alerts Allergy Allergy Status Severity Reaction(s) Onset Inactive Treating Comm ents Source Name Type Date Date Clinician CITRIC DRUG Active Other-Cmnt Univer s ACID INGREDI 7-03 ity of 00:00: [facility] Citric Propensi Active Other - See Headaches Univers Acid ty to comments 7-03 ity of adverse 00:00: [place] reaction [facility] [place] Social History Social Habit Start Date Stop Date Quantity Comments Source History of tobacco Cigarette Smoker University of use [facility] Exposure to 2021-12-23 2022-01-02 Not sure [facility] SARS-CoV-2 (event) 00:00:00 10:38:00 [facility] Alcohol intake 2022-01-02 2022-01-02 Ex-drinker [facility] 00:00:00 00:00:00 (finding) [facility] Cigarettes smoked 2021-03-07 2021-03-07 Univers ity of current (pack per 00:00:00 00:00:00 ) - Reported Branch Tobacco use and 2021-03-07 2021-03-07 Smokeless Universit y of exposure 00:00:00 00:00:00 tobacco non-user [facility] Sex Assigned At [birth year] Universit y of 00:00:00 00:00:00 [facility] Smoking Status Start Date Stop Date Source Smokes tobacco daily 2021-03-07 00:00:00 Univers ity of [facility] Medications Ordered Filled Start Stop Current Ordering Indication Dosage Frequency Signature Comments Components Source Medication Medication Date Date Medication? Clinician (SIG) Name Name etonogestre 2021- No [id number] 68mg Univers L 01-02 ity of (NEXPLANON) 18:45: 17:40 [place] implant 68 00 :00 [facility] etonogestre 2021- No [id number] 68mg 68 mg, Univers L 01-02 Subdermal, ity of (NEXPLANON) 18:45: 17:40 ONCE NOW, [place] implant 68 00 :00 1 dose, On Med ical mg Mon [place] 01/02/22 at 1345, Routine
Use approved by: FIELD SUPPORT SPECIALIST metroNIDAZO Yes [id number] 500mg Take 1 Univers LE 500 mg 6-17 tablet by ity o f tablet 00:00: mouth [place] 00 every 12 Medical (twelve) Branch hours. fluconazole Yes [id number] 150mg Take 1 Univers (DIFLUCAN) 6-17 tablet by ity of 150 mg 00:00: mouth [place] tablet 00 every 72 Medical (seventy-t Branch wo) hours. metroNIDAZO Yes [id number] 500mg Take 1 Univers LE 500 mg 6-17 tablet by ity o f tablet 00:00: mouth [place] 00 every 12 Medical (twelve) Branch hours. fluconazole Yes [id number] 150mg Take 1 Univers (DIFLUCAN) 6-17 tablet by ity of 150 mg 00:00: mouth [place] tablet 00 every 72 Medical (seventy-t Branch wo) hours. metroNIDAZO Yes [id number] 500mg Take 1 Univers LE 500 mg 6-17 tablet by ity o f tablet 00:00: mouth [place] 00 every 12 Medical (twelve) Branch hours. fluconazole 2021-0 Yes [id number] 150mg Take 1 Univers (DIFLUCAN) 6-17 tablet by ity of 150 mg 00:00: mouth [place] tablet 00 every 72 Medical (seventy-t Branch wo) hours. NORTRIPTYLI 2021-0 Yes [id number] TAKE TWO Univers NE 25 mg 3-31 CAPSULES ity of capsule 00:00: BY MOUTH [place] 00 DAILY Medical Branch NORTRIPTYLI 2021-0 Yes [id number] TAKE TWO Univers NE 25 mg 3-31 CAPSULES ity of capsule 00:00: BY MOUTH [place] 00 DAILY Medical Branch NORTRIPTYLI 2021-0 Yes [id number] TAKE TWO Univers NE 25 mg 3-31 CAPSULES ity of capsule 00:00: BY MOUTH [place] 00 DAILY Medical Branch QUEtiapine 0 Yes 400mg Take 400 Un jonathan (SEROQUEL 9-20 mg by ity of XR) 400 mg 21:07: mouth [place] 24 hr 23 daily. Medical tablet Branch QUEtiapine 0 Yes 400mg Take 400 Un jonathan (SEROQUEL 9-20 mg by ity of XR) 400 mg 21:07: mouth [place] 24 hr 23 daily. Medical tablet Branch QUEtiapine 0 Yes 400mg Take 400 Un jonathan (SEROQUEL 9-20 mg by ity of XR) 400 mg 21:07: mouth [place] 24 hr 23 daily. Medical tablet Branch Immunizations Ordered Immunization Filled Immunization Date Status Commen ts Source Name Name Influenza Virus 2017-07-06 Completed Universit y of Vaccine Quad IM, 00:00:00 [facility] dical Preserv and ABX Free Bran ch 6 MO-64 YRS Influenza Virus 2017-07-06 Completed Universit y of Vaccine Quad IM, 00:00:00 [place] Me dical Preserv and ABX Free Bran ch 6 MO-64 YRS Influenza Virus 2017-07-06 Completed Universit y of Vaccine Quad IM, 00:00:00 [place] Me dical Preserv and ABX Free Bran ch 6 MO-64 YRS Influenza Virus 2012-07-25 Completed Universit y of Vaccine Quad IM, 00:00:00 [place] Me dical Preserv and ABX Free Bran ch 6 MO-64 YRS Influenza Virus 2012-07-25 Completed Universit y of Vaccine Quad IM, 00:00:00 [facility] dical Preserv and ABX Free Bran ch 6 MO-64 YRS Influenza Virus 2012-07-25 Completed Universit y of Vaccine Quad IM, 00:00:00 [facility] dical Preserv and ABX Free Bran 6 MO-64 YRS HEPATITIS A 2010-02-22 Completed University of 00:00:00 [facility] Meningococcal 2010-02-22 Completed University of Polysaccharide 00:00:00 [place] Medi sarah (groups A, C, Y and Branc h W-135) conjugate vaccine (MCV4P) Varicella 2010-02-22 Completed University of (varivax)(chicken 00:00:00 [place] M edical pox) Branch HEPATITIS A 2010-02-22 Completed University of 00:00:00 [facility] Meningococcal 2010-02-22 Completed University of Polysaccharide 00:00:00 [place] Med[facility] sarah (groups A, C, Y and Branc h W-135) conjugate vaccine (MCV4P) Varicella 2010-02-22 Completed University of (varivax)(chicken 00:00:00 [place] M edical pox) Branch HEPATITIS A 2010-02-22 Completed University of 00:00:00 [facility] Meningococcal 2010-02-22 Completed University of Polysaccharide 00:00:00 [facility] sarah (groups A, C, Y and Branc h W-135) conjugate vaccine (MCV4P) Varicella 2010-02-22 Completed University of (varivax)(chicken 00:00:00 [place] M edical pox) Branch HIB 4 Dose Schedule 1995 Completed Unive rsity of 00:00:00 [facility] Pediarix (dtap/hep 1995 Completed Univer sity of B/ipv) 00:00:00 [facility] Polio (IPV/OPV) 1995 Completed Universit y of 00:00:00 [facility] HIB 4 Dose Schedule 1997 Completed Unive rsity of 00:00:00 [facility] Pediarix (dtap/hep 1995 Completed Univer sity of B/ipv) 00:00:00 [facility] Polio (IPV/OPV) 1995 Completed Universit y of 00:00:00 [facility] HIB 4 Dose Schedule 1995 Completed Unive rsity of 00:00:00 [facility] Pediarix (dtap/hep 1995 Completed Univer sity of B/ipv) 00:00:00 [facility] Branch Polio (IPV/OPV) 1995 Completed Universit y of 00:00:00 [facility] Branch HIB 4 Dose Schedule 1995 Completed Unive rsity of 00:00:00 [place] [facility] Pediarix (dtap/hep 1997 Completed Univer sity of B/ipv) 00:00:00 [facility] Polio (IPV/OPV) 1995 Completed Universit y of 00:00:00 [facility] HIB 4 Dose Schedule 1995 Completed Unive rsity of 00:00:00 [place] [facility] Pediarix (dtap/hep 1997 Completed Univer sity of B/ipv) 00:00:00 [facility] Polio (IPV/OPV) 1995 Completed Universit y of 00:00:00 [facility] HIB 4 Dose Schedule 1995 Completed Unive rsity of 00:00:00 [place] [facility] Pediarix (dtap/hep 1997 Completed Univer sity of B/ipv) 00:00:00 [facility] Branch Polio (IPV/OPV) 1995 Completed Universit y of 00:00:00 [facility] Hep B, Adol or Pedi 1995 Completed Unive rsity of Dosage 00:00:00 [facility] Hep B, Adol or Pedi 1995 Completed Unive rsity of Dosage 00:00:00 [facility] Hep B, Adol or Pedi 1995 Completed Unive rsity of Dosage 00:00:00 [facility] Vital Signs Vital Name Observation Time Observation Value Comments Source Systolic blood 2022-01-02 16:02:00 118 mm[Hg] Univer sity of pressure [facility] Diastolic blood 2022-01-02 16:02:00 74 mm[Hg] Unive rsity of pressure [facility] Heart rate 2022-01-02 16:02:00 102 /min [facility] Body temperature 2022-01-02 16:02:00 36.72 Ashly Univ ersity [facility] [place] [place] Body height 2022-01-02 16:02:00 160 cm [facility] Body weight 2022-01-02 16:02:00 100.971 kg [facility] BMI 2022-01-02 16:02:00 39.43 kg/m2 [facility] Procedures Procedure Date / Time Performing Clinician Source Performed VACCINATIONS - CONSENTS, 2022-02-13 05:01:00 Doctor Bonniessfrederic, No [facility] ELIGIBILITY, HISTORY Name [facility] CONSENT FOR 2022-01-02 05:01:00 Doctor Unassigned, No [facility] CONTRACEPTION Name [facility] POCT TEST 2022-01-02 00:00:00 Ruby Mccullough [facility] Encounters Start End Encounter Admission Attending Care Care Encounter Source Date/Time Date/Time Type Type Clinicians Facility Department ID 2021-05-09 Emergency [facility] [id number] Univers 18:08:[address] [facility] [place] [place] 2021-05-08 Emergency [facility] [id number] Univers 18:31:[address] [facility] [place] 2022-02-13 2022-02-13 Orders Doctor JONES [id number] Univers 00:00:00 00:00:00 Only Unassigned, [place] [id number] ity [facility] [id number] Armin as [phone] [address] 2022-01-02 2022-01-02 Outpatient R RUBY MCCULLOUGH [facility] [id number] Univers 10:45:00 11:23:[address] [facility] [place] 2022-01-02 2022-01-02 Office Ruby Mccullough [facility] [id number] Univers 10:45:00 11:23:09 Visit Santos MARQUEZ [id number] i ty [facility] [id number] [phone] Ri dical [address] 2022-01-02 2022-01-02 Outpatient R RUBY MCCULLOUGH [facility] [id number] Univers 10:45:00 10:45:[address] [facility] [place] 2022-01-02 2022-01-02 Orders Doctor JONES [id number] Univers 00:00:00 00:00:00 Only Unassigned, [place] [id number] ity of [place] [facility] 4.2.7.2.[phone] [facility] 009 Branch 2021-12-26 2021-12-26 Telephone PACO Nielsen [id number] Univers 00:00:00 00:00:00 Annabella MARQUEZ [id number] i ty of [place] [id number] [phone] Ri dical NAL 134 [facility] 2021-12-26 2021-12-26 Telephone Gia [facility] [id number] Univers 00:00:00 00:00:00 Annabella MARQUEZ [id number] i ty of [place] [id number] [place] [phone] Ri dical NAL 134 [facility] 2021-12-24 2021-12-24 Telephone Gia [facility] [id number] Univers 00:00:00 00:00:00 Annabella MARQUEZ [id number] i ty [place] [id number] [place] [phone] Ri dical NAL 044 [facility] 2021-12-23 2021-12-23 Case SIRISHA Nielsen [id number] Univers 00:00:00 00:00:00 Management Annabella PEDIATRIC [id number] ity of [id number] [address] [phone] [facility] PRIMARY 370 Branch CARE CLINIC 2021-12-22 2021-12-22 Case PACO Nielsen [id number] Univers 00:00:00 00:00:00 Management Annabella MARQUEZ [id number] ity [facility] [id number] [phone] Ri dical NAL 134 [facility] 2021-12-21 2021-12-21 Office PACO Nielsen [id number] Univers 15:00:00 15:37:44 Visit Annabella JIMMY [id number] i ty of [place] 4.2.7.2.686 [place] [phone] [address] 2021-12-21 2021-12-21 Outpatient R GIA [facility] [id number] Univers 15:00:00 15:37:44 ANNABELLA [facility] 2021-12-21 2021-12-21 Outpatient R GIA [facility] [id number] Univers 15:00:00 15:00:00 [facility] 2021-12-21 2021-12-21 Outpatient R GIA [facility] [id number] Univers 15:00:00 15:00:00 [facility] 2021-10-26 2021-10-26 Outpatient R RUBY MCCULLOUGH [facility] [id number] Univers 13:30:00 13:30:[address] [facility] [place] 2021-10-26 2021-10-26 Office [facility] [id number] Univers 13:30:00 13:30:09 Visit Santos MARQUEZ [id number] i ty [place] 4.2.7.2.[place] [phone] [address] 2021-10-26 2021-10-26 Orders Doctor JONES 1.2.840.114 [id number] Univers 00:00:00 00:00:00 Only Unassigned, [place] [id number] ity of [place] [facility] 4.2.7.2.686 Armin as [phone] [address] 2021-10-06 2021-10-06 Milagros Martin [facility] 1.2.840.114 [id number] Univers 00:00:00 00:00:00 [facility] [id number] ity of [place] 4.2.7.2.686 Armin as NEGRITO?BLEA [phone] [address] OFFICE [facility] 2021-05-23 2021-05-23 Outpatient R RUBY MCCULLOUGH [facility] [id number] Univers 15:00:00 15:00:00 ity of [facility] 2021-04-18 2021-04-18 Telephone Veronica [facility] 1.2.840.114 [id number] Univers 00:00:00 00:00:00 [facility] [id number] ity of [place] [id number] Armin as Negrito?Blea [phone] [address] Office [facility] 2021-04-12 2021-04-12 Office Veronica [facility] 1.2.840.114 [id number] Univers 10:45:35 11:35:[address] [facility] [id number] ity of [place] [id number] Arm[place] as Negrito?Blea [phone] [address] Office [facility] 2021-04-12 2021-04-12 Outpatient R JAROD MARTIN [facility] [id number] Univers 11:00:00 11:00:00 [facility] [place] [facility] 2021-03-28 2021-03-28 Hospital Brenda Johnson 1.2.840.114 [id number] Univers 08:03:00 20:45:00 Encounter S Harper [id number] ity of [facility] 4.2.7.2.[phone] [facility] [address] [place] 2021-03-28 2021-03-28 Outpatient R BRENDA JOHNSON [facility] [id number] Univers 08:30:00 08:30:00 ity of [facility] 2021-03-25 2021-03-25 Laboratory Only, Adc Test [facility] 1.2.840. 114 [id number] Univers 15:17:12 15:32:12 Only Brenda Johnson [id number] ity of [place].2.[place] [phone] [facility] [address] [place] 2021-03-25 2021-03-25 Outpatient R BRENDA JOHNSON [facility] [id number] Univers 14:30:00 14:30:00 ity of [facility] 2021-03-16 2021-03-16 Telephone Veronica [facility] 1.2.840.114 [id number] Univers 00:00:00 00:00:[address] [facility] [id number] ity of [place] 4.2.7.2.686 Armin as Negrito?Blea [phone] [address] Medical Office Building 2021-03-07 2021-03-07 [facility] 1.2.840.114 [id number] Univers 15:13:45 16:24:[address] [facility] [id number] ity of [place] 4.2.7.2.686 Armin as Negrito?Blea [phone] [address] Office [facility] 2021-03-07 2021-03-07 Outpatient R JAROD MARTIN [facility] [id number] Univers 15:00:00 15:00:00 JAROD MARTIN darnell [facility] [place] 2021-03-02 2021-03-02 Emergency [facility] 1.2.128.113 [id number] Univers 16:45:00 20:11:00 Yoli [place] 350.1.13.10 ity of [place] 4[place]2.7.2.[place] [id number] [address] 2021-03-02 2021-03-02 Emergency [facility] 1.2.413.792 [id number] Univers 16:45:00 20:11:00 Yoli G [place] 350.1.13.10 ity of [place] 4.2.7.2.[place] [phone] [address] 2021-03-01 2021-03-01 Outpatient R DIANE [facility] [id number] Univers 15:00:00 15:00:00 ED [facility] 2021-02-17 2021-02-17 Outpatient R [facility] [id number] Univers 13:40:00 13:40:00 ity of [place] [facility] 2021-02-16 2021-02-16 Laboratory Lab, Adc Fam Pob I [facility] 1.2. [id number] [id number] Univers 19:40:52 20:00:52 Only Kesha Asher 350.1.13.10 ity of [place] 4.2.7.2.686 Armin as Professio [phone] Ri dical [facility] [address] [place] Office Building One 2021-02-16 2021-02-16 Outpatient R [facility] [id number] Univers 20:00:00 20:00:00 KESHA itdarnell o f [facility] 2021-02-08 2021-02-08 Outpatient R [facility] [id number] Univers 14:30:00 14:30:[address] [facility] [place] 2021-02-08 2021-02-08 Case [facility] [id number] Univers 00:00:00 00:00:00 Management Annabella Marquez [id number] ity of [place] [id number] Profess[place] [phone] Ri dical nal [address] [place] [address] 2021-02-04 2021-02-04 Outpatient R [facility] [id number] Univers 10:30:00 10:30:[address] [facility] [place] 2021-01-06 2021-01-06 Telephone Rehana Mckeon 1.2.840.114 [id number] Univers 00:00:00 00:00:00 , Kaley Rowell 350.1.13.10 ity of [place] 4.2.7.2.686 [place] [id number] [address] 2020-12-13 2020-12-13 Telephone [facility] 1.2.840.114 [id number] Univers 00:00:00 00:00:00 Annabella Marquez 350.1.13.10 i ty of [place] [id number] [phone] Ri dical nal [facility] 2020-11-17 2020-11-17 Office [facility] [id number] Univers 15:24:29 16:11:59 Visit Annabella Jimmy 350.1.13.10 i ty of [place] 4.2.7.2.[place] Profess[place] [phone] Ri dical nal [address] [place] [address] 2020-11-17 2020-11-17 Outpatient [facility] [id number] Univers 15:30:00 15:30:[address] [facility] [place] 2020-11-16 2020-11-16 Emergency [facility] [id number] Univers 18:36:00 20:44:00 Vikram Jimmy 350.1.13.10 i ty of [place] 4.2.7.2.[place] [phone] [address] 2020-11-08 2020-11-08 Case [facility] [id number] Univers 00:00:00 00:00:00 Management Annabella [place] 350.1.13.10 ity of [place] [id number] Profess[place] [phone] Ri dical nal [address] [place] [address] 2020-11-04 2020-11-04 Case [facility] [id number] Univers 00:00:00 00:00:00 Management Annabella [place] 350.1.13.10 ity of [place] 4.2.7.2.[place] Profess[place] [phone] Ri dical nal [address] [place] [address] 2020-11-03 2020-11-03 Office [facility] [id number] Univers 13:56:31 14:26:31 Visit Annabella Jimmy 350.1.13.10 i ty of [place] 4.2.7.2.[place] Profess[place] [phone] Ri dical nal [address] [place] [address] 2020-11-03 2020-11-03 Outpatient [facility] [id number] Univers 14:00:00 14:00:00 [facility] 2020-07-20 2020-07-20 [facility] 1.2.840.114 [id number] Univers 12:55:00 16:20:00 Nguyễn Marquez 350.1.13.10 i ty of [place] 4.2.7.2.686 [facility] [phone] [place] [address] Branch 2020-07-20 2020-07-20 Emergency X JOANN, [facility] ERT [id number] Univers 12:55:00 16:20:00 NGUYỄN [facility] 2020-06-02 2020-06-02 Outpatient [facility] [id number] Univers 14:45:00 14:45:00 [facility] 2020-05-11 2020-05-11 Outpatient [facility] [id number] Univers 09:00:00 09:00:00 [facility] 2020-05-08 2020-05-08 [facility] [id number] 00:00:00 00:00:00 [facility] 350.1.13.10 [place] 4.2.7.2.686 Professio [phone] [address] 2020-05-08 2020-05-08 [facility] [id number] 00:00:00 00:00:00 Josefina [place] 350.1.13.10 [place] 4.2.7.2.686 Professio [phone] [address] 2020-05-08 2020-05-08 [facility] [id number] Univers 00:00:00 00:00:00 Josefina Health 350.1.13.10 it y of [place] 4.2.7.2.686 Armin Professio [phone] [address] 2020-05-08 2020-05-08 [place] [facility] [id number] Univers 00:00:00 00:00:00 Josefina [place] 350.1.13.10 i ty of [place] 4[place]2.7.2.[place] Profess[place] [phone] Ri dical [address] 2020-05-04 2020-05-04 Outpatient R [facility] [id number] Univers 19:20:00 19:20:00 [facility] [place] [facility] 2020-05-04 2020-05-04 Urgent Provider, [facility] [id number] 17:45:31 18:05:31 Care [facility] 350.1.13.10 Care [place] 4.2.7.2.686 Professio [phone] [address] One 2020-05-04 2020-05-04 Urgent Provider, [facility] 1.2.840.114 [id number] Univers 17:45:31 18:05:31 Care [place] 350.1.13.10 ity of [place] 4.2.7.2.686 Armin as Professio [phone] [address] 2020-04-19 2020-04-19 Outpatient R GIA [facility] [id number] Univers 14:00:00 14:00:00 [facility] 2020-04-09 2020-04-09 Outpatient R GIA [facility] [id number] Univers 10:00:00 10:00:00 [facility] 2020-03-12 2020-03-12 Outpatient R JAMLE RUBY [facility] [id number] Univers 14:00:00 14:00:00 [facility] 2020-03-05 2020-03-05 Office Ruby Mccullough [facility] [id number] 10:38:44 11:39:54 Visit [place] [id number] [place] [id number] Professio [phone] [address] 2020-03-05 2020-03-05 Office Jamel Ruby [facility] [id number] Univers 10:38:44 11:39:54 Visit [place] [id number] i [id number] [phone] Ri [address] 2020-03-05 2020-03-05 Outpatient R RUBY MCCULLOUGH [facility] [id number] Univers 10:45:00 10:45:00 ity of [facility] 2020-03-05 2020-03-05 Outpatient R RBUY MCCULLOUGH [facility] [id number] Univers 10:00:00 10:00:00 ity of [facility] 2020-02-27 2020-02-27 Office [facility] [id number] Univers 10:58:54 11:48:44 Visit Annabella Marquez [id number] i [place] of [id number] Prof[place] [phone] [address] 2020-02-27 2020-02-27 Outpatient R CHEKOGLORIABLANCA [facility] [id number] Univers 10:45:00 10:45:[address] [facility] [place] [place] 2020-02-27 2020-02-27 Orders Doctor ROBERT [id number] Univers 00:00:00 00:00:00 Only Unassigned, HARPER [id number] ity of [place] [facility] [phone] [facility] [address] 2020-01-09 2020-01-09 Emergency [facility] [id number] Univers 18:56:10 20:39:00 Taylor Marquez [id number] i [id number] [phone] [address] 2020-01-09 2020-01-09 Emergency X [facility] ERT [id number] Univers 18:56:10 18:56:[address] [facility] [place] [place] 2019-08-22 2019-08-22 Emergency Jefferson Lynch [facility] [id number] Univers 13:59:27 15:30:00 Kendra Marquez [id number] i ty [id number] [phone] Medi sarah 084 Branch Results Test Description Test Time Test Comments Results Result Comments Source POCT TEST 2022-01-02 16:05:00 Test Item Value Reference Range Interpretation Comme nts POCT PREG (test code = 1605) Negative On board controls acceptable with C Line (test code = 3574) Yes POCT PREG LOT # (test code = 3575) POCT PREG TEST DATE (test code = 3576) [facility]
[2022-06-15] MEDS ORDERED: NA CHLORIDE 0.9% 1,000 ML ONE (17:51)
[2022-06-15 17:57] LABS: Absolute Lymphocytes (CBC) 1.3 K/uL (0.7-4.9); Hematocrit 42.6 % (36.0-45.0); Lymphocytes % 12.9 % (15.3-44.8); MCV 89.4 fL (80-100); MPV 6.9 fL (7.6-11.3); RBC Red Blood Cell Count 4.77 M/uL (3.86-4.86)
[2022-06-15] MEDS ORDERED: ONDANSETRON 4 MG/2 ML VIAL ONE (17:59)
[2022-06-15 18:13] LABS: Potassium 3.8 mmol/L (3.5-5.1)
[2022-06-15 18:36] LABS: Urine Blood Trace-intact (Negative); Urine Glucose Negative (Negative); Urine Protein 1+ (Negative); Urine Specific Gravity >=1.030 (1.005-1.030)
--- NOTE | 2022-06-15 18:40 | ER ---
Nurse's Notes [facility] Name: Nette Quiles Age: 26 yrs Sex: Female : 1995 Arrival Date: 06/15/2022 Time: 17:19 Bed 5 Private MD: Diagnosis: Epileptic seizures related to external causes, not intractable, without status epilepticus;Dehydration Presentation: 06/15 17:19 Chief complaint: EMS states: Mother called 911 for witnessed seizure. Hx of seizures, hb not medicated. VS WNL. 20g L hand. Coronavirus screen: At this time, the client does not indicate any symptoms associated with coronavirus-19. Ebola Screen: No symptoms or risks identified at this time. Initial Sepsis Screen: Does the patient meet any 2 criteria? No. Patient's initial sepsis screen is negative. Does the patient have a suspected source of infection? No. Patient's initial sepsis screen is negative. Risk Assessment: Do you want to hurt yourself or someone else? Patient reports no desire to harm self or others. Onset of symptoms was June 15, 2022. 17:19 Method Of Arrival: EMS: [facility] hb 17:19 Acuity: ALEK 3 hb Historical: - Allergies: 17:59 No Known Drug Allergies; hb - Home Meds: 17:59 Seroquel Oral [Active]; hb - PMHx: 17:59 Bronchitis; Depression; Seizure; hb - Immunization history:: Adult Immunizations up to date. - Social history:: Smoking status: Patient/guardian denies using tobacco. - Family history:: not pertinent. - Hospitalizations: : No recent hospitalization is reported. Screenin:00 Abuse screen: Denies threats or abuse. Denies injuries from another. Nutritional hb screening: No deficits noted. Tuberculosis screening: No symptoms or risk factors identified. Fall Risk Total Loaiza Fall Scale indicates Low Risk Score (25-44 pts). Fall prevention measures have been instituted. Side Rails Up X 2 Frequent Obs/Assesments occuring As available Patient and Family Educated on Fall Prevention Program and strategies. Assessment: 18:02 General: Appears in no apparent distress. Behavior is calm, cooperative. Pain: Pain jl7 currently is 2 out of 10 on a pain scale. Neuro: Level of Consciousness is awake, alert, obeys commands, Oriented to person, place, time, situation. Cardiovascular: Patient's skin is warm and dry. Respiratory: Respiratory effort is even, unlabored, Respiratory pattern is regular, symmetrical. GI: No signs and/or symptoms were reported involving the gastrointestinal system. : No signs and/or symptoms were reported regarding the genitourinary system. EENT: No signs and/or symptoms were reported regarding the EENT system. Derm: Skin is pink, warm \T\ dry. Musculoskeletal: No signs and/or symptoms reported regarding the musculoskeletal system. Vital Signs: 17:19 BP 94 / 54; Pulse 109; Resp 16; Temp 98.1; Pulse Ox 100% on R/A; Weight 91.17 kg; hb Height 5 ft. 7 in. (170.18 cm); Pain 2/10; 18:02 BP 106 / 79; Pulse 89; Resp 16; Pulse Ox 99% on R/A; Pain 0/10; jl7 18:40 BP 107 / 64; rn 17:19 Body Mass Index 31.48 (91.17 kg, 170.18 cm) hb ED Course: 17:19 Patient arrived in ED. hb 17:20 Otis Hallman MD is Attending Physician. rn 17:23 Triage completed. hb 17:45 Maintain EMS IV. Dressing intact. Good blood return noted. Site clean \T\ dry. Gauge \T\ hb site: 20g LEFT HAND. 17:59 Arm band placed on. hb 18:00 Patient has correct armband on for positive identification. hb 18:02 Kayy Peralta, RN is Primary Nurse. hb 18:02 Patient has correct armband on for positive identification. jl7 18:40 Jorden Bello MD is Referral Physician. rn 19:18 No provider procedures requiring assistance completed. IV discontinued, intact, hb bleeding controlled, No redness/swelling at site. Administered Medications: 18:02 Drug: NS 0.9% 1000 ml Route: IV; Rate: 1000 ml; Site: left hand; hb 18:04 Drug: Zofran (Ondansetron) 4 mg Route: IVP; Site: left hand; hb 19:18 Drug: Keppra (levETIRAcetam) 500 mg Route: PO; hb Medication: 18:02 VIS not applicable for this client. jl7 Outcome: 18:40 Discharge ordered by . rn 19:18 Discharged to home ambulatory. hb 19:18 Condition: stable 19:18 Discharge instructions given to patient, Instructed on discharge instructions, follow up and referral plans. medication usage, Demonstrated understanding of instructions, follow-up care, medications, Prescriptions given X 1. 19:18 Patient left the ED. Signatures: Otis Hallman MD MD rn Baxter, Heather, RN RN hb Leal, Jahala, RN RN jl7
--- NOTE | 2022-06-15 18:41 | EDPHYS ---
Physician Documentation [facility] Name: Nette Quiles Age: 26 yrs Sex: Female : 1995 Arrival Date: 06/15/2022 Time: 17:19 Bed 5 Private MD: ED Physician Otis Hallman HPI: 06/15 17:23 This 26 yrs old Female presents to ER via EMS with complaints of Seizure. rn 17:23 The patient presents after having a single isolated seizure. Seizure onset: just prior rn to arrival. Seizure Hx: Original onset: 4 year(s) ago. Associated injury: The patient did not suffer any apparent associated injury. Current symptoms: headache. The patient has experienced similar episodes in the past. The patient has not recently seen a physician. EMS reports seizure, single seizure, has hx of seizures, does not take medication for seizures. Seizures are about 1 year apart. NO injury. Lasted approx 3 min. No recent illness. No fever. No cough/chest pain/sob/abd pain/vomiting/diarrhea. . Historical: - Allergies: 17:59 No Known Drug Allergies; hb - Home Meds: 17:59 Seroquel Oral [Active]; hb - PMHx: 17:59 Bronchitis; Depression; Seizure; hb - Immunization history:: Adult Immunizations up to date. - Social history:: Smoking status: Patient/guardian denies using tobacco. - Family history:: not pertinent. - Hospitalizations: : No recent hospitalization is reported. ROS: 17:23 Constitutional: Negative for fever, chills, and weight loss, Eyes: Negative for injury, rn pain, redness, and discharge, Neck: Negative for injury, pain, and swelling, Cardiovascular: Negative for chest pain, palpitations, and edema, Respiratory: Negative for shortness of breath, cough, wheezing, and pleuritic chest pain, Abdomen/GI: Negative for abdominal pain, nausea, vomiting, diarrhea, and constipation, Back: Negative for injury and pain, : Negative for injury, bleeding, discharge, and swelling, MS/Extremity: Negative for injury and deformity, Skin: Negative for injury, rash, and discoloration, Neuro: Negative for weakness, numbness, tingling Exam: 17:23 Constitutional: This is a well developed, well nourished patient who is awake, alert, rn and in no acute distress. Head/Face: Normocephalic, atraumatic. Eyes: Periorbital areas with no swelling, redness, or edema. ENT: No oral trauma, dry MM Neck: Trachea midline, no thyromegaly or masses palpated, and no cervical lymphadenopathy. Supple, full range of motion without nuchal rigidity, or vertebral point tenderness. No Meningismus. Cardiovascular: Tachycardic, regular. No pulse deficits. Respiratory: No increased work of breathing, no retractions or nasal flaring. Abdomen/GI: Soft, non-tender Skin: Warm, dry MS/ Extremity: Pulses equal, no cyanosis. Neuro: Awake and alert, GCS 15, oriented to person, place, time, and situation. Cranial nerves II-XII grossly intact. Motor strength 5/5 in all extremities. Sensory grossly intact. 18:13 ECG was reviewed by the Attending Physician. rn Vital Signs: 17:19 BP 94 / 54; Pulse 109; Resp 16; Temp 98.1; Pulse Ox 100% on R/A; Weight 91.17 kg; hb Height 5 ft. 7 in. (170.18 cm); Pain 2/10; 18:02 BP 106 / 79; Pulse 89; Resp 16; Pulse Ox 99% on R/A; Pain 0/10; jl7 18:40 BP 107 / 64; rn 17:19 Body Mass Index 31.48 (91.17 kg, 170.18 cm) hb MDM: 17:20 Patient medically screened. rn 18:39 Differential diagnosis: cardiac arrhythmia, seizure. Data reviewed: vital signs, nurses rn notes, old medical records, lab test result(s), EKG, and as a result, I will discharge patient. Counseling: I had a detailed discussion with the patient and/or guardian regarding: the historical points, exam findings, and any diagnostic results supporting the discharge/admit diagnosis, lab results, radiology results, the need for further work-up and treatment in the hospital. Response to treatment: the patient's symptoms have resolved after treatment, the patient's condition has returned to base line, the patient is now symptom free, and as a result, I will discharge patient. Special discussion: I discussed with the patient/guardian in detail that at this point there is no indication for admission to the hospital. It is understood, however, that if the symptoms persist or worsen the patient needs to return immediately for re-evaluation. Based on the history and exam findings, there is no indication for further emergent testing or inpatient evaluation. I discussed with the patient/guardian the need to see the neurologist for further evaluation of the symptoms. 06/15 17:22 Order name: CBC with Diff; Complete Time: 18:31 rn 06/15 17:22 Order name: Basic Metabolic Panel; Complete Time: 18:31 rn 06/15 17:22 Order name: Urine Drug Screen rn 06/15 17:22 Order name: Urine Microscopic Only rn 06/15 18:36 Order name: Urine Dipstick-Ancillary; Complete Time: 18:39 EDMS 06/15 18:40 Order name: Urine --Ancillary (enter results) kj1 06/15 17:22 Order name: IV Start; Complete Time: 18:03 rn 06/15 17:22 Order name: Urine Dipstick-Ancillary (obtain specimen); Complete Time: 18:40 rn 06/15 17:22 Order name: Urine Test (obtain specimen); Complete Time: 18:40 rn 06/15 17:22 Order name: Cardiac monitoring; Complete Time: 18:03 rn 06/15 17:22 Order name: EKG; Complete Time: 17:23 rn 06/15 17:22 Order name: O2 Sat Monitoring; Complete Time: 18:03 rn 06/15 17:22 Order name: EKG - Nurse/Tech; Complete Time: 18:02 rn EC:13 Rate is 65 beats/min. Rhythm is regular. QRS Prim is Normal. IA interval is normal. QRS rn interval is normal. QT interval is normal. No Q waves. T waves are Normal. No ST changes noted. Clinical impression: NSR w/ Non-specific ST/T Changes. Interpreted by me. Reviewed by me. Administered Medications: 18:02 Drug: NS 0.9% 1000 ml Route: IV; Rate: 1000 ml; Site: left hand; hb 18:04 Drug: Zofran (Ondansetron) 4 mg Route: IVP; Site: left hand; hb 19:18 Drug: Keppra (levETIRAcetam) 500 mg Route: PO; hb Disposition Summary: 06/15/22 18:40 Discharge Ordered Location: Home rn Problem: an ongoing problem rn Symptoms: have improved rn Condition: Stable rn Diagnosis - Epileptic seizures related to external causes, not intractable, without status rn epilepticus - Dehydration rn Followup: rn - With: Jorden Bello MD - When: As needed - Reason: Recheck today's complaints, Re-evaluation by your physician Discharge Instructions: - Discharge Summary Sheet rn - Epilepsy rn - Seizure, Adult rn Forms: - Medication Reconciliation Form rn - Thank You Letter rn - Antibiotic promotions intern - Prescription Opioid Use rn Prescriptions: - Keppra 500 mg Oral Tablet - take 1 tablet by ORAL route every 12 hours; 60 tablet; Refills: 0, Product rn Selection Permitted Signatures: Dispatcher [employer] EDOtis Carson MD MD rn Baxter, Heather, RN RN hb
[2022-06-15 18:42] LABS: Urine Specific Gravity/Preg >1.030 (1.005-1.030)
[2022-06-15 18:49] LABS: Urine Bacteria <20 /HPF (<20); Urine Mucus 1+ /HPF (None Seen); Urine RBC <5 /HPF (None Seen)
[2022-06-15 18:56] LABS: Barbiturates NEGATIVE (NEGATIVE); Benzodiazepines POSITIVE (NEGATIVE); Cocaine NEGATIVE (NEGATIVE); METHAMPHETAM NEGATIVE (NEGATIVE); Methadone NEGATIVE (NEGATIVE); Opiates NEGATIVE (NEGATIVE); Phencyclidine NEGATIVE (NEGATIVE); THC Cannibis POSITIVE (NEGATIVE)
[2022-06-15] MEDS ORDERED: levETIRAcetam 500 MG TAB ONE (19:15)
[2022-06-15 20:28] VITALS: TEMP 98.1
[2022-06-15 20:31] VITALS: O2SAT 99
[2022-06-15 20:32] VITALS: BP 107/64
--- NOTE | 2022-06-16 17:38 | EKG ---
Test Date: 2022-06-15 Test Time: 17:53:54 [place] [employer] Professor: HB MEASUREMENT RESULTS: Intervals: Rate: 65 NV: 118 QRSD: 90 QT: 388 QTc: 403 [place]: P: 11 NV: 118 QRS: -3 T: 13 INTERPRETIVE STATEMENTS: Sinus rhythm with marked sinus arrhythmia Moderate voltage criteria for LVH, may be normal variant Borderline ECG Compared to ECG 05/26/2020 13:54:13 Left ventricular hypertrophy now present Electronically Signed On 06-16-22 17:37:13 FEATHER WASHER by Oz Dye
== END 2022-06-15 19:18 | disposition home or self-care (01) ==
LOC: ER 17:18
DX: G40.509 Epileptic seizures related to external causes, not intractable, without status epilepticus (principal); E86.0 Dehydration
CPT/HCPCS: 93005; 85025; 80048; 36415; 81025; 80307; 96374; 99283; J7030; J2405; 81003; 81015

== ENCOUNTER 2022-12-09 19:11 | Emergency (ER) | payer OTHER, SELFPAY ==
--- OUTSIDE RECORDS SUMMARY | 2022-12-09 19:16 | XMS REPORT | Continuity of Care Document ---
:1995 Author Organization [facility] t Address [address] [place] [place] [address] Care Team Providers Name Role Phone SELMA SPRINGER Primary Care Physician Unavailable RUBY MCCULLOUGH Attending Clinician Unavailable ANNABELLA NIELSEN Attending Clinician Unavailable Ruby Mccullough MD Attending Clinician Doctor Unassigned, [place] Attending Clinician Unavailable Annabella Nielsen PA-C Attending Clinician Jarod Martin MD Attending Clinician JAROD MARTIN Attending Clinician Unavailable JAROD MARTIN Attending Clinician Unavailable Brenda Johnson MD Attending Clinician BRENDA JOHNSON Attending Clinician Unavailable Only, Adc Test Attending Clinician Unavailable Yoli Anna NP Attending Clinician ED CONTRERAS Attending Clinician Unavailable Lab, Adc Fam Pob I Attending Clinician Unavailable Kesha Georges Attending Clinician KESHA ASHER Attending Clinician Unavailable Kaley Kimball RN Attending Clinician Unavailable Vikram Rios MD Attending Clinician EbNguyễn Valdovinos Attending Clinician NGUYỄN DAVID Attending Clinician Unavailable Green ASSOCIATE JUVENILE [employer] JUDGEJosefina Muller Attending Clinician Provider, [facility] Attending Clinician Unavailable Taylor Chen Attending Clinician TAYLOR L[address] Attending Clinician Unavailable Jefferson Farley Attending Clinician Brenda Johnson MD Admitting Clinician NGUYỄN DAVID Admitting Clinician Unavailable Payers Payer Name Policy Type Policy Number Effective Date Expiration Date Lisa rice [facility] [id number] 2020 00:00:00 Problems Condition Condition Condition Status Onset Resolution Last Treating Co mments Source Name Details Category Date Date Treatment Clinician Date Seizure Seizure Disease Active Univers 9-20 ity of 00:00: [facility] Spells of Spells of Disease Active Uni vers decreased decreased 9-20 ity [place] [facility] Obesity Obesity Disease Active Univers (BMI (BMI 4-28 ity of 30-39.9) 30-39.9) 00:00: [facility] Nexplanon Nexplanon Disease Active Uni vers in place in place 8-28 ity of 00:00: [facility] Allergies, Adverse Reactions, Alerts Allergy Allergy Status Severity Reaction(s) Onset Inactive Treating Comm ents Source Name Type Date Date Clinician CITRIC DRUG Active Other-Cmnt Univer s ACID INGREDI 7-03 ity of 00:00: [facility] Citric Propensi Active Other - See Headaches Univers Acid ty to comments 7 ity of adverse 00:00: [place] reaction [facility] Social History Social Habit Start Date Stop Date Quantity Comments Source History of tobacco Cigarette Smoker University of use [facility] Exposure to 2022-11-06 2022-11-16 Not sure [facility] SARS-CoV-2 (event) 00:00:00 10:19:00 [facility] Alcohol intake 2022-11-16 2022-11-16 Ex-drinker [facility] 00:00:00 00:00:00 (finding) [facility] Cigarettes smoked 2021-03-07 2021-03-07 Univers ity of current (pack per 00:00:00 00:00:00 ) - Reported Branch Tobacco use and 2021-03-07 2021-03-07 Smokeless Universit y of exposure 00:00:00 00:00:00 tobacco non-user [facility] Sex Assigned At [birth year] Universit y of 00:00:00 00:00:00 [facility] Smoking Status Start Date Stop Date Source Smokes tobacco daily 2021-03-07 00:00:00 Univers ity of [facility] Medications Ordered Filled Start Stop Current Ordering Indication Dosage Frequency Signature Comments Components Source Medication Medication Date Date Medication? Clinician (SIG) Name Name etonogestre 2022- No [id number] 68mg Univers L 08-30 ity of (NEXPLANON) 15:45: 15:28 [place] implant 68 00 :00 Medical mg [place] etonogestre 2022- No [id number] 68mg 68 mg, Univers L 08-30 Subdermal, ity of (NEXPLANON) 15:45: 15:28 ONCE NOW, [place] implant 68 00 :00 1 dose, On Med ical mg [facility] 08/30/22 at 0945, Routine
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 fluconazole Yes [id number] 150mg Take 1 Univers (DIFLUCAN) 6-17 tablet by ity of 150 mg 00:00: mouth [place] tablet 00 every 72 Medical (seventy-t Branch wo) hours. metroNIDAZO Yes [id number] 500mg Take 1 Univers LE 500 mg 6-17 tablet by ity o f tablet 00:00: mouth [place] 00 every 12 Medical (twelve) Branch hours. fluconazole Yes [id number] 150mg Take 1 Univers (DIFLUCAN) 6-17 tablet by ity of 150 mg 00:00: mouth [place] tablet 00 every 72 Medical (seventy-t Branch wo) hours. metroNIDAZO Yes [id number] 500mg Take 1 Univers LE 500 mg 6-17 tablet by ity o f tablet 00:00: mouth [place] 00 every 12 Medical (twelve) Branch hours. fluconazole 0 Yes [id number] 150mg Take 1 Univers (DIFLUCAN) 6-17 tablet by ity of 150 mg 00:00: mouth [place] tablet 00 every 72 Medical (seventy-t Branch wo) hours. metroNIDAZO Yes [id number] 500mg Take 1 Univers LE 500 mg 6-17 tablet by ity o f tablet 00:00: mouth [place] 00 every 12 Medical (twelve) Branch hours. fluconazole Yes [id number] 150mg Take 1 Univers (DIFLUCAN) 6-17 tablet by ity of 150 mg 00:00: mouth [place] tablet 00 every 72 Medical (seventy-t Branch wo) hours. metroNIDAZO 2021- No [id number] 500mg Take 1 Univers LE 500 mg 6-17 12-15 tablet by ity of tablet 00:00: 00:00 mouth [place] 00 :00 every 12 Medical (twelve) Branch hours. fluconazole 2021-0 2021- No [id number] 150mg Take 1 Univers (DIFLUCAN) 6-17 12-15 tablet by ity of 150 mg 00:00: 00:00 mouth [place] tablet 00 :00 every 72 Medical (seventy-t Branch wo) hours. metroNIDAZO 2021- No [id number] 500mg Take 1 Univers LE 500 mg 6-17 12-15 tablet by ity of tablet 00:00: 00:00 mouth [place] 00 :00 every 12 Medical (twelve) Branch hours. fluconazole 2021- No [id number] 150mg Take 1 Univers (DIFLUCAN) 6-17 12-15 tablet by ity of 150 mg 00:00: 00:00 mouth [place] tablet 00 :00 every 72 Medical (seventy-t Branch wo) hours. NORTRIPTYLI Yes [id number] TAKE TWO Univers NE 25 mg 3-31 CAPSULES ity of capsule 00:00: BY MOUTH [place] DAILY Medical Branch NORTRIPTYLI Yes [id number] TAKE TWO Univers NE 25 mg 3-31 CAPSULES ity of capsule 00:00: BY MOUTH [place] DAILY Medical Branch NORTRIPTYLI Yes [id number] TAKE TWO Univers NE 25 mg 3-31 CAPSULES ity of capsule 00:00: BY MOUTH [place] DAILY Medical Branch NORTRIPTYLI Yes [id number] TAKE TWO Univers NE 25 mg 3-31 CAPSULES ity of capsule 00:00: BY MOUTH [place] DAILY Medical Branch NORTRIPTYLI Yes [id number] TAKE TWO Univers NE 25 mg 3-31 CAPSULES ity of capsule 00:00: BY [facility] DAILY Medical Branch NORTRIPTYLI Yes [id number] TAKE TWO Univers NE 25 mg 3-31 CAPSULES ity of capsule 00:00: BY MOUTH [place] DAILY Medical Branch NORTRIPTYLI Yes [id number] TAKE TWO Univers NE 25 mg 3-31 CAPSULES ity of capsule 00:00: BY MOUTH [place] DAILY Medical Branch NORTRIPTYLI 2021- Yes [id number] TAKE TWO Univers NE 25 mg 3-31 CAPSULES ity of capsule 00:00: BY MOUTH [place] DAILY Medical Branch NORTRIPTYLI Yes [id number] TAKE TWO Univers NE 25 mg 3-31 CAPSULES ity of capsule 00:00: BY MOUTH [place] DAILY Medical Branch NORTRIPTYLI 2022-0 Yes [id number] TAKE TWO Univers NE 25 mg 3-31 CAPSULES ity of capsule 00:00: BY MOUTH [place] 00 DAILY Medical Branch NORTRIPTYLI 2021-0 Yes [id number] TAKE TWO Univers NE 25 mg 3-31 CAPSULES ity of capsule 00:00: BY MOUTH [place] 00 DAILY Medical Branch NORTRIPTYLI 2021-0 Yes [id number] TAKE TWO Univers NE 25 mg 3-31 CAPSULES ity of capsule 00:00: BY MOUTH [place] 00 DAILY Medical Branch NORTRIPTYLI 2021-0 Yes [id number] TAKE TWO Univers NE 25 mg 3-31 CAPSULES ity of capsule 00:00: BY MOUTH [place] 00 DAILY Medical Branch NORTRIPTYLI 2-0 Yes [id number] TAKE TWO Univers NE 25 mg 3-31 CAPSULES ity of capsule 00:00: BY MOUTH [place] 00 DAILY Medical Branch QUEtiapine 2020-0 Yes 400mg Take 400 Un jonathan (SEROQUEL 9-20 mg by ity of XR) 400 mg 21:07: mouth [place] 24 hr 23 daily. Medical tablet Branch QUEtiapine 2020-0 Yes 400mg Take 400 Un jonathan (SEROQUEL 9-20 mg by ity of XR) 400 mg 21:07: mouth [place] 24 hr 23 daily. Medical tablet Branch QUEtiapine 2020-0 Yes 400mg Take 400 Un jonathan (SEROQUEL 9-20 mg by ity of XR) 400 mg 21:07: mouth [place] 24 hr 23 daily. Medical tablet Branch QUEtiapine 2020-0 Yes 400mg Take 400 Un jonathan (SEROQUEL 9-20 mg by ity of XR) 400 mg 21:07: mouth [place] 24 hr 23 daily. Medical tablet Branch QUEtiapine 2020-0 Yes 400mg Take 400 Un jonathan (SEROQUEL 9-20 mg by ity of XR) 400 mg 21:07: mouth [place] 24 hr 23 daily. Medical tablet Branch QUEtiapine 2020-0 Yes 400mg Take 400 Un jonathan (SEROQUEL 9-20 mg by ity of XR) 400 mg 21:07: mouth [place] 24 hr 23 daily. Medical tablet Branch QUEtiapine 2020-0 Yes 400mg Take 400 Un jonathan (SEROQUEL 9-20 mg by ity of XR) 400 mg 21:07: mouth [place] 24 hr 23 daily. Medical tablet Branch QUEtiapine 1-0 Yes 400mg Take 400 Un jonathan (SEROQUEL 9-20 mg by ity of XR) 400 mg 21:07: mouth [place] 24 hr 23 daily. Medical tablet Branch QUEtiapine 2020-0 Yes 400mg Take 400 Un jonathan (SEROQUEL 9-20 mg by ity of XR) 400 mg 21:07: mouth [place] 24 hr 23 daily. Medical tablet Branch QUEtiapine 2020-0 Yes 400mg Take 400 Un jonathan (SEROQUEL 9-20 mg by ity of XR) 400 mg 21:07: mouth [place] 24 hr 23 daily. Medical tablet Branch QUEtiapine 2020-0 Yes 400mg Take 400 Un jonathan (SEROQUEL 9-20 mg by ity of XR) 400 mg 21:07: mouth [place] 24 hr 23 daily. Medical tablet Branch QUEtiapine 2020-0 Yes 400mg Take 400 Un jonathan (SEROQUEL 9-20 mg by ity of XR) 400 mg 21:07: mouth [place] 24 hr 23 daily. Medical tablet Branch QUEtiapine 2020-0 Yes 400mg Take 400 Un jonathan (SEROQUEL 9-20 mg by ity of XR) 400 mg 21:07: mouth [place] 24 hr 23 daily. Medical tablet Branch QUEtiapine 1-0 Yes 400mg Take 400 Un jonathan (SEROQUEL 9-20 mg by ity of XR) 400 mg 21:07: mouth [place] 24 hr 23 daily. Medical tablet Branch Immunizations Ordered Immunization Filled Immunization Date Status Commen ts Source Name Name Influenza Virus 2017-07-06 Completed Universit y of Vaccine Quad IM, 00:00:00 [place] Me dical Preserv and ABX Free Bran ch 6 MO-64 YRS Influenza Virus 2017-07-06 Completed Universit y of Vaccine [facility] IM, 00:00:00 [place] Me dical Preserv and ABX Free Bran ch 6 MO-64 YRS Influenza Virus 2017-07-06 Completed Universit y of Vaccine Quad IM, 00:00:00 [place] Me dical Preserv and ABX Free Bran ch 6 MO-64 YRS Influenza Virus 2017-07-06 Completed Universit y of Vaccine Quad IM, 00:00:00 [facility] dical Preserv and ABX Free Bran ch 6 MO-64 YRS Influenza Virus 2017-07-06 Completed Universit y of Vaccine Quad IM, 00:00:00 [place] Me dical Preserv and ABX Free Bran ch 6 MO-64 YRS Influenza Virus 2017-07-06 Completed Universit y of Vaccine Quad IM, 00:00:00 [place] Me dical Preserv and ABX Free Bran ch 6 MO-64 YRS Influenza Virus 2017-07-06 Completed Universit y of Vaccine Quad IM, 00:00:00 [place] Me dical Preserv and ABX Free Bran ch 6 MO-64 YRS Influenza Virus 2017-07-06 Completed Universit y of Vaccine Quad IM, 00:00:00 [place] Me dical Preserv and ABX Free Bran ch 6 MO-64 YRS Influenza Virus 2017-07-06 Completed Universit y of Vaccine Quad IM, 00:00:00 [place] Me dical Preserv and ABX Free Bran ch 6 MO-64 YRS Influenza Virus 2017-07-06 Completed Universit y of Vaccine Quad IM, 00:00:00 [place] Me dical Preserv and ABX Free Bran ch 6 MO-64 YRS Influenza Virus 2017-07-06 Completed Universit y of Vaccine Quad IM, 00:00:00 [place] Me dical Preserv and ABX Free Bran ch 6 MO-64 YRS Influenza Virus 2017-07-06 Completed Universit y of Vaccine Quad IM, 00:00:00 [place] Me dical Preserv and ABX Free Bran ch 6 MO-64 YRS Influenza Virus 2017-07-06 Completed Universit y of Vaccine Quad IM, 00:00:00 [place] Me dical Preserv and ABX Free Bran ch 6 MO-64 YRS Influenza Virus 2017-07-06 Completed Universit y of Vaccine Quad IM, 00:00:00 [place] Me dical Preserv and ABX Free Bran ch 6 MO-64 YRS Influenza Virus 2012-07-25 Completed Universit y of Vaccine Quad IM, 00:00:00 [place] Me dical Preserv and ABX Free Bran ch 6 MO-64 YRS Influenza Virus 2012-07-25 Completed Universit y of Vaccine Quad IM, 00:00:00 [place] Me dical Preserv and ABX Free Bran ch 6 MO-64 YRS Influenza Virus 2012-07-25 Completed Universit y of Vaccine Quad IM, 00:00:00 [place] Me dical Preserv and ABX Free Bran ch 6 MO-64 YRS Influenza Virus 2012-07-25 Completed Universit y of Vaccine Quad IM, 00:00:00 [place] Me dical Preserv and ABX Free Bran ch 6 MO-64 YRS Influenza Virus 2012-07-25 Completed Universit y of Vaccine Quad IM, 00:00:00 [place] Me dical Preserv and ABX Free Bran ch 6 MO-64 YRS Influenza Virus 2012-07-25 Completed Universit y of Vaccine Quad IM, 00:00:00 [place] Me dical Preserv and ABX Free Bran ch 6 MO-64 YRS Influenza Virus 2012-07-25 Completed Universit y of Vaccine Quad IM, 00:00:00 [place] Me dical Preserv and ABX Free Bran ch 6 MO-64 YRS Influenza Virus 2012-07-25 Completed Universit y of Vaccine Quad IM, 00:00:00 [place] Me dical Preserv and ABX Free Bran ch 6 MO-64 YRS Influenza Virus 2012-07-25 Completed Universit y of Vaccine Quad IM, 00:00:00 [place] Me dical Preserv and ABX Free Bran ch 6 MO-64 YRS Influenza Virus 2012-07-25 Completed Universit y of Vaccine Quad IM, 00:00:00 [place] Me dical Preserv and ABX Free Bran ch 6 MO-64 YRS Influenza Virus 2012-07-25 Completed Universit y of Vaccine Quad IM, 00:00:00 [place] Me dical Preserv and ABX Free Bran ch 6 MO-64 YRS Influenza Virus 2012-07-25 Completed Universit y of Vaccine Quad IM, 00:00:00 [place] Me dical Preserv and ABX Free Bran ch 6 MO-64 YRS Influenza Virus 2012-07-25 Completed Universit y of Vaccine Quad IM, 00:00:00 [place] Me dical Preserv and ABX Free Bran ch 6 MO-64 YRS Influenza Virus 2012-07-25 Completed Universit y of Vaccine Quad IM, 00:00:00 [place] Me dical Preserv and ABX Free Bran ch 6 MO-64 YRS HEPATITIS A 2010-02-22 Completed University of 00:00:00 [facility] Meningococcal 2010-02-22 Completed University Polysaccharide 00:00:00 [facility] sarah (groups A, C, Y and Branc h W-135) conjugate vaccine (MCV4P) Varicella 2010-02-22 Completed University (varivax)(chicken 00:00:00 [place] M [facility] pox) Branch HEPATITIS A 2010-02-22 Completed University of 00:00:00 [facility] Meningococcal 2010-02-22 Completed University of Polysaccharide 00:00:00 [place] Medi sarah (groups A, C, Y and Branc h W-135) conjugate vaccine (MCV4P) Varicella 2010-02-22 Completed University of (varivax)(chicken 00:00:00 [place] M edical pox) Branch HEPATITIS A 2010-02-22 Completed University of 00:00:00 [facility] Meningococcal 2010-02-22 Completed University of Polysaccharide 00:00:00 [place] Medi sarah (groups A, C, Y and Branc h W-135) conjugate vaccine (MCV4P) Varicella 2010-02-22 Completed University of (varivax)(chicken 00:00:00 [place] M edical pox) Branch HEPATITIS A 2010-02-22 Completed University of 00:00:00 [facility] Meningococcal 2010-02-22 Completed University of Polysaccharide 00:00:00 [place] Medi sarah (groups A, C, Y and Branc h W-135) conjugate vaccine (MCV4P) Varicella 2010-02-22 Completed University of (varivax)(chicken 00:00:00 [place] M edical pox) Branch HEPATITIS A 2010-02-22 Completed University of 00:00:00 [facility] Meningococcal 2010-02-22 Completed University of Polysaccharide 00:00:00 [place] Medi sarah (groups A, C, Y and Branc h W-135) conjugate vaccine (MCV4P) Varicella 2010-02-22 Completed University of (varivax)(chicken 00:00:00 [place] M edical pox) Branch HEPATITIS A 2010-02-22 Completed University of 00:00:00 [facility] Meningococcal 2010-02-22 Completed University of Polysaccharide 00:00:00 [place] Medi sarah (groups A, C, Y and Branc h W-135) conjugate vaccine (MCV4P) Varicella 2010-02-22 Completed University of (varivax)(chicken 00:00:00 [place] M edical pox) Branch HEPATITIS A 2010-02-22 Completed University of 00:00:00 [facility] Meningococcal 2010-02-22 Completed University of Polysaccharide 00:00:00 [place] Medi sarah (groups A, C, Y and Branc h W-135) conjugate vaccine (MCV4P) Varicella 2010-02-22 Completed University of (varivax)(chicken 00:00:00 [place] M edical pox) Branch HEPATITIS A 2010-02-22 Completed University of 00:00:00 [facility] Meningococcal 2010-02-22 Completed University of Polysaccharide 00:00:00 [place] Medi sarah (groups A, C, Y and Branc h W-135) conjugate vaccine (MCV4P) Varicella 2010-02-22 Completed University of (varivax)(chicken 00:00:00 [place] M edical pox) Branch HEPATITIS A 2010-02-22 Completed University of 00:00:00 [facility] Meningococcal 2010-02-22 Completed University of Polysaccharide 00:00:00 [place] Medi sarah (groups A, C, Y and Branc h W-135) conjugate vaccine (MCV4P) Varicella 2010-02-22 Completed University of (varivax)(chicken 00:00:00 [place] M edical pox) Branch HEPATITIS A 2010-02-22 Completed University of 00:00:00 [facility] Meningococcal 2010-02-22 Completed University of Polysaccharide 00:00:00 [place] Medi sarah (groups A, C, Y and Branc h W-135) conjugate vaccine (MCV4P) Varicella 2010-02-22 Completed University of (varivax)(chicken 00:00:00 [place] M edical pox) Branch HEPATITIS A 2010-02-22 Completed University of 00:00:00 [facility] Meningococcal 2010-02-22 Completed University of Polysaccharide 00:00:00 [place] Medi sarah (groups A, C, Y and Branc h W-135) conjugate vaccine (MCV4P) Varicella 2010-02-22 Completed University of (varivax)(chicken 00:00:00 [place] M edical pox) Branch HEPATITIS A 2010-02-22 Completed University of 00:00:00 [facility] Meningococcal 2010-02-22 Completed University of Polysaccharide 00:00:00 [place] Medi sarah (groups A, C, Y and Branc h W-135) conjugate vaccine (MCV4P) Varicella 2010-02-22 Completed University of (varivax)(chicken 00:00:00 [place] M edical pox) Branch HEPATITIS A 2010-02-22 Completed University of 00:00:00 [facility] Meningococcal 2010-02-22 Completed University of Polysaccharide 00:00:00 [place] Medi sarah (groups A, C, Y and Branc h W-135) conjugate vaccine (MCV4P) Varicella 2010-02-22 Completed University of (varivax)(chicken 00:00:00 [place] M edical pox) Branch HEPATITIS A 2010-02-22 Completed University of 00:00:00 [facility] Meningococcal 2010-02-22 Completed University of Polysaccharide 00:00:00 [facility] sarah (groups A, C, Y and Branc h W-135) conjugate vaccine (MCV4P) Varicella 2010-02-22 Completed University of (varivax)(chicken 00:00:00 [place] M ed[facility] pox) Branch HIB 4 Dose Schedule 1997 Completed Unive rsity of 00:00:00 [facility] Pediarix (dtap/hep 1997 Completed Univer sity of B/ipv) 00:00:00 [facility] Polio (IPV/OPV) 1995 Completed Universit y of 00:00:00 [facility] HIB 4 Dose Schedule 1997 Completed Unive rsity of 00:00:00 [facility] Pediarix (dtap/hep 1997 Completed Univer sity of B/ipv) 00:00:00 [facility] Polio (IPV/OPV) 1997 Completed Universit y of 00:00:00 [facility] HIB 4 Dose Schedule 1997 Completed Unive rsity of 00:00:00 [facility] Pediarix (dtap/hep 1997 Completed Univer sity of B/ipv) 00:00:00 [facility] Polio (IPV/OPV) 1997 Completed Universit y of 00:00:00 [facility] HIB 4 Dose Schedule 1997 Completed Unive rsity of 00:00:00 [facility] Pediarix (dtap/hep 1997 Completed Univer sity of B/ipv) 00:00:00 [facility] Polio (IPV/OPV) 1997 Completed Universit y of 00:00:00 [facility] HIB 4 Dose Schedule 1997 Completed Unive rsity of 00:00:00 [facility] Pediarix (dtap/hep 1997 Completed Univer sity of B/ipv) 00:00:00 [facility] Polio (IPV/OPV) 1997 Completed Universit y of 00:00:00 [place] [facility] HIB 4 Dose Schedule 1997 Completed Unive rsity of 00:00:00 [place] [facility] Pediarix (dtap/hep 1997 Completed Univer sity of B/ipv) 00:00:00 [place] [facility] Polio (IPV/OPV) 1997 Completed Universit y of 00:00:00 [facility] [place] [facility] Branch HIB 4 Dose Schedule 1997 Completed Unive rsity of 00:00:00 [place] [facility] Pediarix (dtap/hep 1997 Completed Univer sity of B/ipv) 00:00:00 [facility] [place] [facility] Branch Polio (IPV/OPV) 1997 Completed Universit y of 00:00:00 [facility] [place] [facility] Branch HIB 4 Dose Schedule 1997 Completed Unive rsity of 00:00:00 [place] [facility] Pediarix (dtap/hep 1997 Completed Univer sity of B/ipv) 00:00:00 [facility] [place] [facility] Branch Polio (IPV/OPV) 1997 Completed Universit y of 00:00:00 [facility] [place] [facility] Branch HIB 4 Dose Schedule 1997 Completed Unive rsity of 00:00:00 [place] [facility] Pediarix (dtap/hep 1997 Completed Univer sity of B/ipv) 00:00:00 [facility] [place] [facility] Branch Polio (IPV/OPV) 1997 Completed Universit y of 00:00:00 [facility] [place] [facility] HIB 4 Dose Schedule 1997 Completed Unive rsity of 00:00:00 [place] [facility] Pediarix (dtap/hep 1997 Completed Univer sity of B/ipv) 00:00:00 [facility] [place] [facility] Polio (IPV/OPV) 1997 Completed Universit y of 00:00:00 [place] [facility] HIB 4 Dose Schedule 1997 Completed Unive rsity of 00:00:00 [place] [facility] Pediarix (dtap/hep 1997 Completed Univer sity of B/ipv) 00:00:00 [facility] [place] [facility] Branch Polio (IPV/OPV) 1997 Completed Universit y of 00:00:00 [place] [facility] HIB 4 Dose Schedule 1997 Completed Unive rsity of 00:00:00 [place] [facility] Pediarix (dtap/hep 1997 Completed Univer sity of B/ipv) 00:00:00 [place] [facility] Polio (IPV/OPV) 1997 Completed Universit y of 00:00:00 [place] [facility] HIB 4 Dose Schedule 1997 Completed Unive rsity of 00:00:00 [place] [facility] Pediarix (dtap/hep 1997 Completed Univer sity of B/ipv) 00:00:00 [place] [facility] Polio (IPV/OPV) 1997 Completed Universit y of 00:00:00 [place] [facility] HIB 4 Dose Schedule 1997 Completed Unive rsity of 00:00:00 [place] [facility] Pediarix (dtap/hep 1997 Completed Univer sity of B/ipv) 00:00:00 [place] [facility] Polio (IPV/OPV) 1997 Completed Universit y of 00:00:00 [place] [facility] HIB 4 Dose Schedule 1997 Completed Unive rsity of 00:00:00 [place] [facility] Pediarix (dtap/hep 1997 Completed Univer sity of B/ipv) 00:00:00 [place] [facility] Polio (IPV/OPV) 1997 Completed Universit y of 00:00:00 [place] [facility] HIB 4 Dose Schedule 1997 Completed Unive rsity of 00:00:00 [place] [facility] Pediarix (dtap/hep 1997 Completed Univer sity of B/ipv) 00:00:00 [place] [facility] Polio (IPV/OPV) 1997 Completed Universit y of 00:00:00 [place] [facility] HIB 4 Dose Schedule 1997 Completed Unive rsity of 00:00:00 [place] [facility] Pediarix (dtap/hep 1997 Completed Univer sity of B/ipv) 00:00:00 [place] [facility] Polio (IPV/OPV) 1997 Completed Universit y of 00:00:00 [place] [facility] HIB 4 Dose Schedule 1997 Completed Unive rsity of 00:00:00 [place] [facility] Pediarix (dtap/hep 1997 Completed Univer sity of B/ipv) 00:00:00 [place] [facility] Polio (IPV/OPV) 1997 Completed Universit y of 00:00:00 [place] [facility] HIB 4 Dose Schedule 1997 Completed Unive rsity of 00:00:00 [place] [facility] Pediarix (dtap/hep 1997 Completed Univer sity of B/ipv) 00:00:00 [facility] Polio (IPV/OPV) 1997 Completed Univers[facility] of 00:00:00 [facility] HIB 4 Dose Schedule 1997 Completed Unive rsity of 00:00:00 [facility] Pediarix (dtap/hep 1997 Completed Univer sity of B/ipv) 00:00:00 [facility] Polio (IPV/OPV) 1997 Completed Universit y of 00:00:00 [facility] HIB 4 Dose Schedule 1997 Completed Unive rsity of 00:00:00 [facility] Pediarix (dtap/hep 1997 Completed Univer sity of B/ipv) 00:00:00 [facility] Polio (IPV/OPV) 1997 Completed Universit y of 00:00:00 [facility] HIB 4 Dose Schedule 1997 Completed Unive rsity of 00:00:00 [facility] Pediarix (dtap/hep 1997 Completed Univer sity of B/ipv) 00:00:00 [facility] Polio (IPV/OPV) 1997 Completed Universit y of 00:00:00 [facility] HIB 4 Dose Schedule 1997 Completed Unive rsity of 00:00:00 [facility] Pediarix (dtap/hep 1997 Completed Univer sity of B/ipv) 00:00:00 [facility] Polio (IPV/OPV) 1997 Completed Universit y of 00:00:00 [facility] HIB 4 Dose Schedule 1997 Completed Unive rsity of 00:00:00 [facility] Pediarix (dtap/hep 1997 Completed Univer sity of B/ipv) 00:00:00 [facility] Polio (IPV/OPV) 1997 Completed Universit y of 00:00:00 [facility] HIB 4 Dose Schedule 1997 Completed Unive rsity of 00:00:00 [facility] Pediarix (dtap/hep 1997 Completed Univer sity of B/ipv) 00:00:00 [facility] Polio (IPV/OPV) 1997 Completed Universit y of 00:00:00 [facility] HIB 4 Dose Schedule 1997 Completed Unive rsity of 00:00:00 [facility] Pediarix (dtap/hep 1997 Completed Univer sity of B/ipv) 00:00:00 [facility] Polio (IPV/OPV) 1997 Completed Universit y of 00:00:00 [facility] HIB 4 Dose Schedule 1997 Completed Unive rsity of 00:00:00 [facility] Pediarix (dtap/hep 1997 Completed Univer sity of B/ipv) 00:00:00 [facility] Polio (IPV/OPV) 1997 Completed Universit y of 00:00:00 [facility] HIB 4 Dose Schedule 1997 Completed Unive rsity of 00:00:00 [facility] Pediarix (dtap/hep 1997 Completed Univer sity of B/ipv) 00:00:00 [facility] Polio (IPV/OPV) 1997 Completed Universit y of 00:00:00 [facility] Hep B, Adol or Pedi 1997 Completed Unive rsity of Dosage 00:00:00 [facility] Hep B, Adol or Pedi 1997 Completed Unive rsity of Dosage 00:00:00 [facility] Hep B, Adol or Pedi 1997 Completed Unive rsity of Dosage 00:00:00 [facility] Hep B, Adol or Pedi 1997 Completed Unive rsity of Dosage 00:00:00 [facility] Hep B, Adol or Pedi 1997 Completed Unive rsity of Dosage 00:00:00 [facility] Hep B, Adol or Pedi 1997 Completed Unive rsity of Dosage 00:00:00 [facility] Hep B, Adol or Pedi 1997 Completed Unive rsity of Dosage 00:00:00 [facility] Hep B, Adol or Pedi 1997 Completed Unive rsity of Dosage 00:00:00 [facility] Hep B, Adol or Pedi 1997 Completed Unive rsity of Dosage 00:00:00 [facility] Hep B, Adol or Pedi 1997 Completed Unive rsity of Dosage 00:00:00 [facility] Hep B, Adol or Pedi 1997 Completed Unive rsity of Dosage 00:00:00 [facility] Hep B, Adol or Pedi 1997 Completed Unive rsity of Dosage 00:00:00 [facility] Hep B, Adol or Pedi 1997 Completed Unive rsity of Dosage 00:00:00 [facility] Hep B, Adol or Pedi 1997 Completed Unive rsity of Dosage 00:00:00 [facility] Vital Signs Vital Name Observation Time Observation Value Comments Source Systolic blood 2022-11-16 15:46:00 135 mm[Hg] Univer sity of pressure [facility] Diastolic blood 2022-11-16 15:46:00 87 mm[Hg] Unive rsity of pressure [facility] Heart rate 2022-11-16 15:46:00 98 /min [facility] Body temperature 2022-11-16 15:46:00 36.89 Ashly [facility] Respiratory rate 2022-11-16 15:46:00 18 /min [facility] Body height 2022-11-16 15:46:00 160 cm [facility] Body weight 2022-11-16 15:46:00 102.059 kg [facility] BMI 2022-11-16 15:46:00 39.86 kg/m2 [facility] Systolic blood 2022-08-30 15:08:00 108 mm[Hg] Univer sity of pressure [facility] Diastolic blood 2022-08-30 15:08:00 70 mm[Hg] Unive rsity of pressure [facility] Heart rate 2022-08-30 15:08:00 106 /min Universi ty of [facility] Body temperature 2022-08-30 15:08:00 36.67 Ashly Univ ersity of [facility] Body height 2022-08-30 15:08:00 160 cm Universi ty of [facility] Body weight 2022-08-30 15:08:00 97.614 kg Universi ty of [facility] BMI 2022-08-30 15:08:00 38.12 kg/m2 Universi ty of [facility] Systolic blood 2022-06-22 14:43:00 128 mm[Hg] Univer sity of pressure [facility] Diastolic blood 2022-06-22 14:43:00 83 mm[Hg] Unive rsity of pressure [facility] Heart rate 2022-06-22 14:43:00 72 /min Universi ty of [facility] Body temperature 2022-06-22 14:43:00 36.78 Ashly Univ ersity of [facility] Body height 2022-06-22 14:43:00 160 cm Universi ty of [facility] Body weight 2022-06-22 14:43:00 94.076 kg [facility] BMI 2022-06-22 14:43:00 36.74 kg/m2 Universi ty of [facility] Systolic blood 2022-01-02 16:02:00 118 mm[Hg] Univer sity of pressure [facility] Diastolic blood 2022-01-02 16:02:00 74 mm[Hg] Unive rsity of pressure [facility] Heart rate 2022-01-02 16:02:00 102 /min Universi ty of [facility] Body temperature 2022-01-02 16:02:00 36.72 Ashly Univ ersity of [facility] Body height 2022-01-02 16:02:00 160 cm [facility]i ty of [facility] Body weight 2022-01-02 16:02:00 100.971 kg Universi ty of [facility] BMI 2022-01-02 16:02:00 39.43 kg/m2 Universi ty of [facility] Procedures Procedure Date / Time Performing Clinician Source Performed [facility] PATIENT FINANCIAL 2022-11-16 15:21:31 Doctor Unassigned, No University [facility] POLICY Name Medical Branch POCT TEST 2022-11-16 00:00:00 Ruby Mccullough [facility] CONSENT FOR 2022-08-30 06:01:00 Doctor Unassigned, [facility] POCT TEST 2022-08-30 00:00:00 Ruby Mccullough [facility] ASSIGNMENT OF BENEFITS 2022-06-22 13:52:27 Doctor Unassigned, No [facility] VACCINATIONS - CONSENTS, 2022-02-13 05:01:00 Doctor Unassigned, No [facility] ELIGIBILITY, HISTORY Name [facility] CONSENT FOR 2022-01-02 05:01:00 Doctor Unassigned, No Univer sity [facility] CONTRACEPTION [facility] POCT TEST 2022-01-02 00:00:00 Ruby Mccullough [facility] Encounters Start End Encounter Admission Attending Care Care Encounter Source Date/Time Date/Time Type Type Clinicians Facility Department ID 2021-05-09 Emergency [facility] [id number] Univers 18:08:31 [facility] 2021-05-08 Emergency [facility] [id number] Univers 18:31:57 ity [facility] 2022-11-16 2022-11-16 Outpatient R RUBY MCCULLOUGH [facility] [id number] Univers 10:30:00 [facility] 2022-11-16 2022-11-16 Office Ruby Mccullough [facility] [id number] Univers 10:30:00 11:48:37 Visit Santos MARQUEZ 350.1.13.10 i ty of [place] [phone] Mi dical [facility] [address] BUILDING 2022-11-16 2022-11-16 Orders Doctor JONES 1.2.840.114 [id number] Univers 00:00:00 00:00:00 Only Unassigned, [place] 350.1.13.[address] [facility] 4.2.7.2.686 Arm[place] as [phone] [address] 2022-11-14 2022-11-14 Telephone Ruby Mccullough [place] 1.2.840.114 [id number] Univers 00:00:00 00:00:00 Cam [place] 350.1.13.10 i ty [place] [id number] [address] 2022-08-30 2022-08-30 Outpatient R RUBY MCCULLOUGH [facility] [id number] Univers 09:00:00 09:28:13 ity of [facility] 2022-08-30 2022-08-30 Office Ruby Mccullough [facility] 1.2.008.894 [id number] Univers 09:00:00 09:28:13 Visit Santos MARQUEZ 350.1.13.10 i ty [place] [id number] [address] 2022-08-30 2022-08-30 Orders Doctor ROBERT 1.2.840.114 [id number] Univers 00:00:00 00:00:00 Only Unassigned, [place] 350.1.13.10 ity of [place] [facility] 4.2.7.2.686 Armin as [phone] [address] 2022-07-05 2022-07-05 Outpatient R GIA [facility] [id number] Univers 16:00:00 16:00:00 ANNABELLA ity [facility] 2022-06-28 2022-06-28 Telephone Ruby Mccullough [facility] 1.2.840.114 [id number] Univers 00:00:00 00:00:00 Santos [place] 350.1.13.10 i ty [place] [id number] [address] 2022-06-22 2022-06-22 Outpatient R RUBY MCCULLOUGH [facility] [id number] Univers 08:00:00 08:55:01 ity [facility] 2022-06-22 2022-06-22 Office Ruby Mccullough [facility] [id number] Univers 08:00:00 08:55:01 Visit Santos MARQUEZ 350.1.13.10 i ty [place] [phone] Mi dic[address] 2022-06-22 2022-06-22 Orders Doctor ROBERT 1.2.840.114 [id number] Univers 00:00:00 00:00:00 Only Unassigned, [place] 350.1.13.10 ity of [place] [facility] 4.2.7.2.686 Armin as [phone] [address] 2022-02-13 2022-02-13 Orders Doctor ROBERT 1.2.840.114 [id number] Univers 00:00:00 00:00:00 Only Unassigned, [place] 350.1.13.10 ity of [place] [facility] 4.2.7.2.686 Armin as [id number] [address] 2022-01-02 2022-01-02 Outpatient R RUBY MCCULLOUGH [facility] [id number] Univers 10:45:00 11:23:09 ity of [facility] 2022-01-02 2022-01-02 Office [facility] [id number] Univers 10:45:00 11:23:09 Visit Santos MARQUEZ 350.1.13.10 i ty [place] [phone] [address] 2022-01-02 2022-01-02 Outpatient R RUBY MCCULLOUGH [facility] [id number] Univers 10:45:00 10:45:00 ity of [facility] 2022-01-02 2022-01-02 Orders Doctor ROBERT 1.2.840.114 [id number] Univers 00:00:00 00:00:00 Only Unassigned, [place] 350.1.13.10 ity of [place] [facility] 4.2.7.2.686 Armin as [phone] [address] 2021-12-26 2021-12-26 Telephone [facility] 1.2.840.114 [id number] Univers 00:00:00 00:00:00 Annabella MARQUEZ 350.1.13.10 i ty of [place] [phone] Mi dical NAL [address] [facility] 2021-12-26 2021-12-26 Telephone Gia [place] 1.2.840.114 [id number] Univers 00:00:00 00:00:00 Annabella MARQUEZ 350.1.13.10 i ty of [place].2.[place] [phone] Mi dical NAL 134 [facility] 2021-12-24 2021-12-24 Telephone Gia [facility] 1.2.840.114 [id number] Univers 00:00:00 00:00:00 Annabella MARQUEZ 350.1.13.10 i ty [place] [phone] Mi dical NAL 044 [facility] 2021-12-23 2021-12-23 Case SIRISHA Nielsen 1.2.156.968 [id number] Univers 00:00:00 00:00:00 Management Annabella PEDIATRIC 350.1.13.10 [place].2.[place] [phone] [place] [address] Branch [facility] 2021-12-22 2021-12-22 Case Gia [facility] 1.2.590.008 [id number] Univers 00:00:00 00:00:00 Management Annabella MARQUEZ 350.1.13.10 ity of [place] [phone] Mi dical NAL 134 [facility] 2021-12-21 2021-12-21 Office Gia [place] 1.2.707.163 [id number] Univers 15:00:00 15:37:44 Visit Annabella MARQUEZ 350.1.13.10 i ty of [place] 4.2.[place].2.[place] [phone] Mi dical NAL [address] [place] [address] 2021-12-21 2021-12-21 Outpatient R GIA [facility] [id number] Univers 15:00:00 15:37:44 ANNABELLA [facility] 2021-12-21 2021-12-21 Outpatient R GIA [facility] [id number] Univers 15:00:00 15:00:00 ANNABELLA [facility] 2021-12-21 2021-12-21 Outpatient R GIA [facility] [id number] Univers 15:00:00 15:00:00 ANNABELLA [facility] 2021-10-26 2021-10-26 Outpatient R RUBY MCCULLOUGH [facility] [id number] Univers 13:30:00 13:30:09 ity of [facility] 2021-10-26 2021-10-26 Office Jamel Ruby [facility] 1.2.597.513 [id number] Univers 13:30:00 13:30:09 Visit Cam JIMMY 350.1.13.10 i ty of [place] [phone] Mi dical NAL [address] Branch [facility] 2021-10-26 2021-10-26 Orders Doctor ROBERT 1.2.840.114 [id number] Univers 00:00:00 00:00:00 Only Unassigned, [place] 350.1.13.10 ity of [place] [facility] 4.2.7.2.686 Armin as [phone] [address] 2021-10-06 2021-10-06 Refill [facility] 1.2.840.114 [id number] Univers 00:00:00 00:00:00 [facility] 350.1.13.10 ity of [place] 4.2.7.2.686 Armin as NEGRITO?BLEA [phone] Mi dical KNEY [address] MEDICAL OFFICE BUILDING 2021-05-23 2021-05-23 Outpatient R RUBY MCCULLOUGH [facility] [id number] Univers 15:00:00 15:00:00 ity of [facility] 2021-04-18 2021-04-18 [facility] 1.2.840.114 [id number] Univers 00:00:00 00:00:00 [facility] 350.1.13.10 ity of [place] 4.2.7.2.686 Armin as Negrito?Blea [phone] [address] Medical Office [facility] 2021-04-12 2021-04-12 Office Veronica, [facility] 1.2.840.114 [id number] Univers 10:45:35 11:35:06 Visit [facility] 350.1.13.10 ity of [place] 4.2.7.2.686 Armin as Negrito?Blea [phone] [address] Medical Office [facility] 2021-04-12 2021-04-12 Outpatient R JAROD MARTIN [facility] [id number] Univers 11:00:00 11:00:00 JAROD MARTIN it[facility] 2021-03-28 2021-03-28 [facility] Brenda Johnson 1.2.840.114 [id number] Univers 08:03:00 20:45:00 Encounter [place] 350.1.13.10 ity [facility] 4.2.7.2.686 Armin as [phone] [facility] [address] 2021-03-28 2021-03-28 Outpatient R BRENDA JOHNSON [facility] [id number] Univers 08:30:00 08:30:00 ity of [facility] 2021-03-25 2021-03-25 Laboratory Only, [facility] Test [facility] 1.2.840. 114 [id number] Univers 15:17:12 15:32:12 Only Brenda Johnson [place] 350.1.13.10 ity of [place]2.7.2.686 [place] [facility] [id number] [facility] [address] 2021-03-25 2021-03-25 Outpatient R BRENDA JOHNSON [facility] [id number] Univers 14:30:00 14:30:00 ity of [facility] 2021-03-16 2021-03-16 Telephone Veronica [facility] 1.2.840.114 [id number] Univers 00:00:00 00:00:00 [facility] 350.1.13.10 ity of [place] 4.2.7.2.686 Armin as Negrito?Blea [phone] Mi dicted lamas [address] Medical Office Building 2021-03-07 2021-03-07 Office Veronica [facility] 1.2.840.114 [id number] Univers 15:13:45 16:24:38 Visit Jarod [facility] 350.1.13.10 ity of [place] 4.2.7.2.686 Armin as Negrito?Blea [phone] Mi dicted lamas [address] Medical Office Building 2021-03-07 2021-03-07 Outpatient R JAROD MARTIN [facility] [id number] Univers 15:00:00 15:00:00 [facility] 2021-03-02 2021-03-02 Emergency [facility] 1.2.064.681 [id number] Univers 16:45:00 20:11:00 Yoli Marquez 350.1.13.10 ity of [place] 4.2.7.2.686 [facility] [phone] [address] 2021-03-02 2021-03-02 Emergency [facility] 1.2.573.464 [id number] Univers 16:45:00 20:11:00 Yoli Marquez 350.1.13.10 ity of [place] 4.2.7.2.686 [facility] [phone] [address] 2021-03-01 2021-03-01 Outpatient R DIANE, [facility] [id number] Univers 15:00:00 15:00:00 ED ity of [facility] 2021-02-17 2021-02-17 Outpatient R [facility] [id number] Univers 13:40:00 13:40:00 ity [facility] 2021-02-16 2021-02-16 Laboratory Lab, Adc Fam Pob I [facility] 1.2. 840.114 [id number] Univers 19:40:52 20:00:52 Only [place], [facility] 350.1.13.10 ity of [place] 4.2.7.2.686 Armin as Professio [phone] Mi [address] Office Building [facility] 2021-02-16 2021-02-16 Outpatient [facility] [id number] Univers 20:00:00 20:00:00 KESHA pacheco o f [facility] 2021-02-08 2021-02-08 Outpatient R [facility] [id number] Univers 14:30:00 14:30:00 ity of [facility] 2021-02-08 2021-02-08 Case [facility] 1.2.436.295 [id number] Univers 00:00:00 00:00:00 Management Annabella Marquez 350.1.13.10 ity of [place] [phone] Mi dic[address] 2021-02-04 2021-02-04 Outpatient R [facility] [id number] Univers 10:30:00 10:30:00 ity of [facility] 2021-01-06 2021-01-06 Telephone Rehana Mckeon 1.2.840.114 [id number] Univers 00:00:00 00:00:00 , Kaley Rowell 350.1.13.10 ity of [place]2.7.2.686 [place] [phone] [address] 2020-12-13 2020-12-13 Telephone [facility] 1.2.840.114 [id number] Univers 00:00:00 00:00:00 Annabella Marquez 350.1.13.10 i ty of [place]2.[place] [phone] Mi dical [address] 2020-11-17 2020-11-17 Office [facility]anca[facility] 1.2.992.383 [id number] Univers 15:24:29 16:11:59 Visit Annabella Marquez 350.1.13.10 i ty of [place].2.[place] [phone] [address] 2020-11-17 2020-11-17 Outpatient R [facility] [id number] Univers 15:30:00 15:30:00 ANNABELLA gut[facility]rezdarnell [facility] 2020-11-16 2020-11-16 Emergency [facility]UN[facility] 1.2.200.751 [id number] Univers 18:36:00 20:44:00 Vikram Jimmy 350.1.13.10 i ty of [place]2.7.2.686 [place] [phone] [address] 2020-11-08 2020-11-08 Case [facility] 1.2.554.786 [id number] Univers 00:00:00 00:00:00 Management Annabella Marquez 350.1.13.10 it[place] [phone] Mi dical nal [address] [place] [address] 2020-11-04 2020-11-04 Case [facility] 1.2.466.104 [id number] Univers 00:00:00 00:00:00 Management Annabella [place] 350.1.13.10 ity of [place] [phone] Mi dical nal [address] [place] [address] 2020-11-03 2020-11-03 Office Gia [facility] 1.2.320.235 [id number] Univers 13:56:31 14:26:31 Visit Annabella ال[place] 350.1.13.10 i ty of [place] 4[place]2.7.2.[place] [id number] Mi dical nal [address] [place] [address] 2020-11-03 2020-11-03 Outpatient R GIA [facility] [id number] Univers 14:00:00 14:00:00 ANNABELLA pacheco [facility] 2020-07-20 2020-07-20 Emergency MiguelUNIV[facility] 1.2.840.114 [id number] Univers 12:55:00 16:20:00 Jaketorrey Jimmy 350.1.13.10 i ty of [place] 4[place]2.7.2.686 [place] [phone] [address] 2020-07-20 2020-07-20 Emergency X MIGUEL, [facility] ERT [id number] Univers 12:55:00 16:20:00 NGUYỄN [facility] 2020-06-02 2020-06-02 Outpatient R [facility]UN[facility] [id number] Univers 14:45:00 14:45:00 ANNABELLA [facility] 2020-05-11 2020-05-11 Outpatient R LEODANBLANCAUNIV[facility] [id number] Univers 09:00:00 09:00:00 ANNABELLA [facility] 2020-05-08 2020-05-08 Telephone [facility]UN[facility] 1.2.323.425 [id number] 00:00:00 00:00:00 [facility] 350.1.13.10 [place] 4.2.7.2.686 Professio [phone] [address] 2020-05-08 2020-05-08 Telephone Crist[facility]UN[facility] 1.2.557.901 [id number] 00:00:00 00:00:00 Josefina [place] 350.1.13.10 [place] 4.2.7.2.686 Professio [phone] [address] 2020-05-08 2020-05-08 Telephone [facility]UN[facility] 1.2.152.445 [id number] Univers 00:00:00 00:00:00 [facility] 350.1.13.10 it y of [place] 4.2.7.2.686 Armin as Professio [phone] [address] Office [facility] 2020-05-08 2020-05-08 Telephone [facility]UN[facility] 1.2.242.219 [id number] Univers 00:00:00 00:00:00 Josefina [place] 350.1.13.10 i ty of [place] [phone] [address] 2020-05-04 2020-05-04 Outpatient R [facility] [id number] Univers 19:20:00 19:20:00 [facility] 2020-05-04 2020-05-04 Urgent Provider, [facility] [id number] [id number] 17:45:31 18:05:31 Care [facility] 350.1.13.10 Care [place] 4.2.7.2.686 Professio [phone] [address] 2020-05-04 2020-05-04 Urgent Provider, [facility] 1.2.840.114 [id number] Univers 17:45:31 18:05:31 Care Green Josefina [facility] 350.1.13.10 ity [facility] 4.2.7.2.686 Armin as Professio [id number] [address] 2020-04-19 2020-04-19 Outpatient R GIA [facility] [id number] Univers 14:00:00 14:00:00 [facility] 2020-04-09 2020-04-09 Outpatient R GIA [facility] [id number] Univers 10:00:00 10:00:00 [facility] 2020-03-12 2020-03-12 Outpatient R RUBY MCCULLOUGH [facility] [id number] Univers 14:00:00 14:00:00 [facility] 2020-03-05 2020-03-05 Office [facility] 1.2.235.372 [id number] 10:38:44 11:39:54 Visit Cam [place] 350.1.13.10 [place] 4.2.7.2.686 Professio [id number] [address] 2020-03-05 2020-03-05 Office [facility] 1.2.376.255 [id number] Univers 10:38:44 11:39:54 Visit Cam [place] 350.1.13.10 i ty [place]2.[place].2.[place] [phone] Mi dical [address] 2020-03-05 2020-03-05 Outpatient R [facility] [id number] Univers 10:45:00 [facility] 2020-03-05 Outpatient R [facility] [id number] Univers 10:00:00 10:00:00 [facility] 2020-02-27 2020-02-27 [facility] [id number] [id number] Univers 10:58:54 11:48:44 Visit Annabella Marquez [id number] i ty [place] [id number] [place] [facility] [phone] Mi dical [address] 2020-02-27 2020-02-27 [facility] [id number] Univers 10:45:00 10:45:00 ANNABELLA [facility] 2020-02-27 2020-02-27 Orders Doctor ROBERT [id number] Univers 00:00:00 00:00:00 Only Unassigned, HARPER [id number] [facility] [id number] Arm[place] [id number] [address] 2020-01-09 2020-01-09 Emergency [facility] [id number] Univers 18:56:10 20:39:00 Taylor Marquez [id number] [id number] [id number] [address] 2020-01-09 2020-01-09 Emergency X [facility] ERT [id number] Univers 18:56:10 18:56:10 TAYLOR [facility] 2019-08-22 2019-08-22 Emergency Cris, K [facility] [id number] Univers 13:59:27 15:30:00 Kendra Marquez [id number] [id number] [id number] [address] Results Test Description Test Time Test Comments Results Result Comments Source POCT TEST 2022-11-16 18:39:00 Test Item Value Reference Range Interpretation Comme nts POCT PREG (test code = 1605) Negative On board controls acceptable with C Line (test code = 3574) Yes POCT PREG LOT # (test code = 3575) POCT PREG TEST DATE (test code = 3576) [id number] 18:39:00 Test Item Value Reference Range Interpretation Comments POCT PREG (test code = 1605) Negative On board controls acceptable with C Yes Line (test code = 3574) POCT PREG LOT # (test code = 3575) POCT PREG TEST DATE (test code = 3576) [facility] [id number] 15:15:00 Test Item Value Reference Range Interpretation Comments POCT PREG (test code = 1605) Negative On board controls acceptable with C Yes Line (test code = 3574) POCT PREG LOT # (test code = 3575) POCT PREG TEST DATE (test code = 3576) [facility] [id number] 15:15:00 Test Item Value Reference Range Interpretation Comments POCT PREG (test code = 1605) Negative On board controls acceptable with C Yes Line (test code = 3574) POCT PREG LOT # (test code = 3575) POCT PREG TEST DATE (test code = 3576) [facility] [id number] 16:05:00 Test Item Value Reference Range Interpretation Comments POCT PREG (test code = 1605) Negative On board controls acceptable with C Yes Line (test code = 3574) POCT PREG LOT # (test code = 3575) POCT PREG TEST DATE (test code = 3576) [facility]
[2022-12-09 21:10] LABS: Potassium 4.2 mEq/L (3.5-5.1); Troponin High Sensitivity 3.2 pg/mL (<58.9)
[2022-12-09 21:14] LABS: Hematocrit 45.3 % (36.0-45.0); Lymphocytes % 18.8 % (15.3-44.8); MCV 82.9 fL (80-100); RBC Red Blood Cell Count 5.46 M/uL (3.86-4.86)
[2022-12-09 21:16] LABS: SARS-CoV-2 Antigen Rapid Res Negative (Negative)
[2022-12-09] MEDS ORDERED: WATER FOR INJ,STERILE 10 ML ONE (21:27)
[2022-12-09] MEDS ORDERED: LEVALBUTEROL 1.25 MG/3 ML NEB ONE (21:27)
--- NOTE | 2022-12-09 21:39 | RAD REPORT ---
EXAM DESCRIPTION: RAD - Chest Single View - 12/09/2022 9:28 pm CLINICAL HISTORY: SOB COMPARISON: CHEST PA AND LAT 2 VIEW dated 03/20/2014 FINDINGS: Lines: None. Lungs: No evidence of edema or pneumonia. Pleural: No significant pleural effusions or pneumothorax. Cardiac: The heart size is within normal limits. Mediastinum: Within normal limits. Bones: No acute fractures. Other: None IMPRESSION: No acute cardiopulmonary disease.
[2022-12-09] MEDS ORDERED: dexAMETHasone 10 MG/ML VIAL ONE (23:06)
[2022-12-09] MEDS ORDERED: HYDROCODONE/CHLORPHEN 5 ML/OSYR ONE (23:06)
[2022-12-09] MEDS ORDERED: KETOROLAC 30 MG/ML INJ ONE (23:06)
--- NOTE | 2022-12-09 23:09 | ER ---
Nurse's Notes [facility] Name: Nette Quiles Age: 27 yrs Sex: Female : 1995 Arrival Date: 12/09/2022 Time: 19:11 Bed 12 Private MD: Diagnosis: Cough Presentation: 12/09 19:34 Chief complaint: Patient states: for the past two days I have been having SOB, chest ha1 pain and vomiting. Coronavirus screen: Vaccine status: Patient reports being unvaccinated. Ebola Screen: No symptoms or risks identified at this time. Initial Sepsis Screen: Does the patient meet any 2 criteria? No. Patient's initial sepsis screen is negative. Does the patient have a suspected source of infection? No. Patient's initial sepsis screen is negative. Risk Assessment: Do you want to hurt yourself or someone else? Patient reports no desire to harm self or others. Onset of symptoms was December 07, 2022. 19:34 Method Of Arrival: Ambulatory ha1 19:34 Acuity: ALEK 3 ha1 Triage Assessment: 19:38 General: Appears uncomfortable, Behavior is calm, cooperative. Pain: Complains of pain ha1 in chest. Neuro: Level of Consciousness is awake, alert, obeys commands. Cardiovascular: Reports chest pain, Patient's skin is warm and dry. Respiratory: Reports shortness of breath Airway is patent Respiratory effort is even, unlabored, Respiratory pattern is regular, symmetrical. Musculoskeletal: Circulation, motion, and sensation intact. Range of motion: intact in all extremities. Historical: - Allergies: 19:38 No Known Allergies; ha1 - Home Meds: 19:38 Seroquel Oral [Active]; levetiracetam oral [Active]; ha1 - PMHx: 19:38 Bronchitis; Depression; Seizure; ha1 - PSHx: 19:38 None; ha1 - Immunization history:: Adult Immunizations up to date. - Social history:: Smoking status: Patient reports the use of cigarette tobacco products, denies chronic smoking, but will smoke occasionally. Screenin:04 [facility] ED Fall Risk Assessment (Adult) History of falling in the last 3 months, kd3 including since admission No falls in past 3 months (0 pts) Confusion or Disorientation No (0 pts) Intoxicated or Sedated No (0 pts) Impaired Gait No (0 pts) Mobility Assist Device Used No (0 pt) Altered Elimination No (0 pt) Score/Fall Risk Level 0 - 2 = Low Risk Maintained a safe environment. Abuse screen: Denies threats or abuse. Denies injuries from another. Nutritional screening: No deficits noted. Tuberculosis screening: No symptoms or risk factors identified. Assessment: 21:26 Pain: Complains of pain in chest Pain does not radiate. Pain began gradually. Neuro: kd3 Level of Consciousness is awake, alert, obeys commands, Oriented to person, place, time, situation. Respiratory: Airway is patent Trachea midline Respiratory effort is even, unlabored, Respiratory pattern is regular, symmetrical. 23:28 Reassessment: Patient and/or family updated on plan of care and expected duration. Pain ha1 level reassessed. Patient is alert, oriented x 3, equal unlabored respirations, skin warm/dry/pink. Patient states feeling better. Patient states symptoms have improved. Vital Signs: 19:34 BP 131 / 82; Pulse 114; Resp 21; Temp 98.2; Pulse Ox 94% on R/A; Weight 104.33 kg; ha1 Height 5 ft. 4 in. ; Pain 8/10; 21:26 BP 111 / 69; Pulse 97; Resp 19; Pulse Ox 94% on R/A; kd3 23:03 BP 126 / 62; Pulse 92; Resp 12; Pulse Ox 94% on R/A; kd3 19:34 Body Mass Index 39.48 (104.33 kg, 162.56 cm) ha1 19:34 Pain Scale: Adult ha1 ED Course: 19:13 Patient arrived in ED. ja2 19:38 Triage completed. ha1 19:59 Rodney Keller PA is PHCP. [facility] 19:59 Heriberto Duarte MD is Attending Physician. jmm 21:18 Influenza Screen (a \T\ B) Sent. kd3 21:26 Bianka Minor, JAMEL is Primary Nurse. kd3 21:29 XRAY Chest (1 view) In Process Unspecified. EDMS 22:00 Patient has correct armband on for positive identification. Placed in gown. Bed in low ha1 position. Call light in reach. Side rails up X 1. Side rails up X2. 22:00 Client placed on continuous cardiac and pulse oximetry monitoring. NIBP monitoring ha1 applied. 23:04 No provider procedures requiring assistance completed. Patient maintains SpO2 kd3 saturation greater than 95% on room air. 23:04 Arm band placed on right wrist. kd3 23:29 IV discontinued, intact, bleeding controlled, No redness/swelling at site. Pressure ha1 dressing applied. Administered Medications: 20:07 CANCELLED (Duplicate Order): Levalbuterol Inhalation 1.25 mg Inhalation once melissa 21:26 Drug: Levalbuterol Inhalation 1.25 mg Route: Inhalation; kd3 23:03 Drug: Ketorolac IVP 30 mg Route: IVP; Site: right hand; kd3 23:03 Drug: Decadron - Dexamethasone IVP 10 mg Route: IVP; Site: right hand; kd3 23:03 Drug: Tussionex Pennkinetic ER PO Suspension 5 ml Route: PO; kd3 Medication: 23:29 VIS not applicable for this client. ha1 Outcome: 23:08 Discharge ordered by . abbie 23:28 Discharged to home ambulatory, with family. ha1 23:28 Condition: stable 23:28 Discharge instructions given to patient, family, Instructed on discharge instructions, follow up and referral plans. medication usage, Demonstrated understanding of instructions, follow-up care, medications, Prescriptions given X 4. 23:30 Patient left the ED. ha1 Signatures: Dispatcher [employer] EDMS Rodney Keller PA PA jmm Alexander, Jessica ja2 Doucette, Kyli, RN RN kd3 Lindy Foy RN RN ha1
--- NOTE | 2022-12-09 23:09 | EDPHYS ---
Physician Documentation [facility] Name: Nette Quiles Age: 27 yrs Sex: Female : 1995 Arrival Date: 12/09/2022 Time: 19:11 Bed 12 Private MD: ED Physician Heriberto Duarte HPI: 12/09 20:00 This 27 yrs old Female presents to ER via Ambulatory with complaints of Chest Pain, jmm Shortness Of Breath. 20:00 The patient has shortness of breath at rest. Onset: The symptoms/episode began/occurred jmm gradually, 1 week(s) ago. Is a 27-year-old female with history of epilepsy, depression the presents emerged part with complaints of cough, shortness of breath and chest pain beginning approximately a week ago. Patient states having difficulty sleeping due to her shortness of breath. Denies fever.. Historical: - Allergies: 19:38 No Known Allergies; ha1 - Home Meds: 19:38 Seroquel Oral [Active]; levetiracetam oral [Active]; ha1 - PMHx: 19:38 Bronchitis; Depression; Seizure; ha1 - PSHx: 19:38 None; ha1 - Immunization history:: Adult Immunizations up to date. - Social history:: Smoking status: Patient reports the use of cigarette tobacco products, denies chronic smoking, but will smoke occasionally. ROS: 20:00 Constitutional: Positive for body aches. jmm 20:00 Cardiovascular: Positive for chest pain. 20:00 Respiratory: Positive for cough, wheezing. 20:00 All other systems are negative. Exam: 20:00 Constitutional: This is a well developed, well nourished patient who is awake, alert, jmm and in no acute distress. Head/Face: atraumatic. Eyes: EOMI, no conjunctival erythema appreciated ENT: Moist Mucus Membranes Neck: Trachea midline, Supple Chest/axilla: Normal chest wall appearance and motion. Cardiovascular: Regular rate and rhythm. No edema appreciated 20:00 Respiratory: Normal respirations, no respiratory distress appreciated Abdomen/GI: Non distended Skin: General appearance color normal MS/ Extremity: Moves all extremities, no obvious deformities appreciated, no edema noted to the lower extremities Neuro: Awake and alert Psych: Behavior is normal, Mood is normal, Patient is cooperative and pleasant 20:00 Respiratory: mild respiratory distress is noted, Respirations: labored breathing, that is mild, Breath sounds: wheezing: that is moderate, is heard diffusely. Vital Signs: 19:34 BP 131 / 82; Pulse 114; Resp 21; Temp 98.2; Pulse Ox 94% on R/A; Weight 104.33 kg; ha1 Height 5 ft. 4 in. ; Pain 8/10; 21:26 BP 111 / 69; Pulse 97; Resp 19; Pulse Ox 94% on R/A; kd3 23:03 BP 126 / 62; Pulse 92; Resp 12; Pulse Ox 94% on R/A; kd3 19:34 Body Mass Index 39.48 (104.33 kg, 162.56 cm) ha1 19:34 Pain Scale: Adult ha1 MDM: 20:02 Patient medically screened. [facility] 12/10 00:36 Differential diagnosis: asthma, pneumonia, reactive airway disease. Data reviewed: [facility] vital signs, nurses notes, lab test result(s), EKG, radiologic studies, plain films. I considered the following discharge prescriptions or medication management in the emergency department Medications were administered in the Emergency Department. See MAR. Counseling: I had a detailed discussion with the patient and/or guardian regarding: the historical points, exam findings, and any diagnostic results supporting the discharge/admit diagnosis, lab results, radiology results, the need for outpatient follow up, to return to the emergency department if symptoms worsen or persist or if there are any questions or concerns that arise at home, smoking cessation. Response to treatment: the patient's symptoms have markedly improved after treatment, and as a result, I will discharge patient. 12/09 20:03 Order name: Basic Metabolic Panel; Complete Time: 21:14 [facility] 12/09 20:03 Order name: CBC with Diff; Complete Time: 21:22 [facility] 12/09 20:03 Order name: Troponin HS; Complete Time: 21:14 [facility] 12/09 20:03 Order name: D-Dimer; Complete Time: 21:07 [facility] 12/09 20:07 Order name: Influenza Screen (a \T\ B); Complete Time: 21:27 [facility] 12/09 20:07 Order name: SARS RAPID; Complete Time: 21:22 [facility] 12/09 20:03 Order name: XRAY Chest (1 view); Complete Time: 21:51 [facility] 12/09 20:03 Order name: EKG; Complete Time: 20:04 [facility] 12/09 20:00 Order name: EKG - Nurse/Tech; Complete Time: 20:00 ha 12/09 20:03 Order name: Cardiac monitoring; Complete Time: 21:26 [facility] 12/09 20:03 Order name: EKG - Nurse/Tech; Complete Time: 20:28 [facility] 12/09 20:03 Order name: IV Saline Lock; Complete Time: 20:48 [facility] 12/09 20:03 Order name: Labs collected and sent; Complete Time: 20:48 [facility] 12/09 20:03 Order name: O2 Per Protocol; Complete Time: 20:48 [facility] 12/09 20:03 Order name: O2 Sat Monitoring; Complete Time: 21:26 [facility] Administered Medications: 12/09 20:07 CANCELLED (Duplicate Order): Levalbuterol Inhalation 1.25 mg Inhalation once [facility] 21:26 Drug: Levalbuterol Inhalation 1.25 mg Route: Inhalation; kd3 23:03 Drug: Ketorolac IVP 30 mg Route: IVP; Site: right hand; kd3 23:03 Drug: Decadron - Dexamethasone IVP 10 mg Route: IVP; Site: right hand; kd3 23:03 Drug: Tussionex Pennkinetic ER PO Suspension 5 ml Route: PO; kd3 Disposition: 12/10 04:45 Co-signature as Attending Physician, Heriberto Duarte MD I agree with the assessment and kdr plan of care. Disposition Summary: 12/09/22 23:08 Discharge Ordered Location: Home [facility] Condition: Stable [facility] Diagnosis - Cough [facility] Followup: [facility] - With: Private Physician - When: 2 - 3 days - Reason: Recheck today's complaints, Continuance of care, Re-evaluation by your physician Discharge Instructions: - Discharge Summary Sheet [facility] - Cough, Adult [facility] Forms: - Medication Reconciliation Form [facility] - Thank You Letter [facility] - Antibiotic Education [facility] - Prescription Opioid Use [facility] Prescriptions: - albuterol sulfate 90 mcg/actuation Inhalation HFA Aerosol Inhaler - inhale 1 inhalation by INHALATION route every 4 hours As needed administer via [facility] ventilator; 1 unit; Refills: 0, Product Selection Permitted - promethazine-DM 6.25-15 mg/5 mL Oral syrup - administer 10 milliliter by ORAL route every 6 hours As needed as needed for jmm cough; 200 milliliter; Refills: 0, Product Selection Permitted - Prednisone 20 mg Oral Tablet - take 3 tablets by ORAL route once daily for 5 days; 15 tablet; Refills: 0, jmm Product Selection Permitted - Zithromax Z-Guido 250 mg Oral Tablet - take 1 tablet by ORAL route as directed for 5 days Day 1 - take two (2) tablets jmm one time. Day 2, 3, 4 , 5 take one (1) tablet once daily.; 6 tablet; Refills: 0, Product Selection Permitted Signatures: Dispatcher [employer] EDMS Heriberto Duarte MD MD kdr Mickail, Joel, PA PA jmm Doucette, Kyli, RN RN kd3 Lindy Foy RN RN ha1 Corrections: (The following items were deleted from the chart) 12/09 20:07 20:03 Levalbuterol Inhalation 1.25 mg Inhalation once ordered. abbie leiva
[2022-12-10 01:39] VITALS: TEMP 98.2; O2SAT 94
[2022-12-10 01:42] VITALS: BP 126/62
--- NOTE | 2022-12-10 14:17 | EKG ---
Test Date: 2022-12-09 Test Time: 19:49:00 [employer] Driver: ROSALIND MEASUREMENT RESULTS: Intervals: Rate: 102 VA: 116 QRSD: 72 QT: 306 QTc: 398 [place]: P: 73 VA: 116 QRS: 83 T: 56 INTERPRETIVE STATEMENTS: Sinus tachycardia Otherwise normal ECG Compared to ECG 06/15/2022 17:53:54 Sinus rhythm no longer present Sinus arrhythmia no longer present Left ventricular hypertrophy no longer present Electronically Signed On 12-10-22 14:16:38 CDT by Oz Dye
== END 2022-12-09 23:30 | disposition home or self-care (01) ==
LOC: ER 19:11
DX: R05.9 Cough, unspecified (principal)
CPT/HCPCS: 36415; 71045; 80048; 84484; 85025; 85379; 87804; 87811; 93005; 96374; 96375; 99285; J1100; J7614

== ENCOUNTER 2023-05-18 23:32 | Emergency (ER) | payer SELFPAY ==
--- OUTSIDE RECORDS SUMMARY | 2023-05-18 23:43 | XMS REPORT | Continuity of Care Document ---
:1995 Author Organization [facility] [place] t Address [address] [place] [address] Care Team Providers Name Role Phone Mynor David Murray Primary Care Physician RUBY MCCULLOUGH Attending Clinician Unavailable ANNABELLA NIELSEN Attending Clinician Unavailable Ruby Mccullough MD Attending Clinician Doctor Unassigned, [place] Attending Clinician Unavailable Annabella Nielsen PA-C Attending Clinician Jarod Martin MD Attending Clinician JAROD MARTIN Attending Clinician Unavailable JAROD MARTIN Attending Clinician Unavailable Brenda Johnson MD Attending Clinician BRENDA JOHNSON Attending Clinician Unavailable Only, Adc Test Attending Clinician Unavailable Shoshana LEMUS, Yoli Brown Attending Clinician ED CONTRERAS Attending Clinician Unavailable Lab, Adc Fam Pob I Attending Clinician Unavailable Kesha Georges Attending Clinician KESHA ASHER Attending Clinician Unavailable Rehana MCCULLOUGH, Kaley Cooney Attending Clinician Unavailable Vikram Rios MD Attending Clinician Nguyễn Lowry Attending Clinician NGUYỄN DAVID Attending Clinician Unavailable Josefina Mejía Attending Clinician Provider, [facility] Attending Clinician Unavailable Taylor Chen Attending Clinician TAYLOR LANE Attending Clinician Unavailable Jefferson Farley Attending Clinician Brenda Johnson MD Admitting Clinician NGUYỄN DAVID Admitting Clinician Unavailable Payers Payer Name Policy Type Policy Number Effective Date Expiration Date Lisa rice [facility] [id number] 2020 00:00:00 Problems Condition Condition Condition Status Onset Resolution Last Treating Co mments Source Name Details Category Date Date Treatment Clinician Date Seizure Seizure Disease Active Univers 9-20 ity of 00:00: [place] [facility] Spells of Spells of Disease Active Uni vers decreased decreased 9-20 [place] [facility] Obesity Obesity Disease Active Univers (BMI (BMI 4-28 ity of 30-39.9) 30-39.9) 00:00: [place] [facility] Nexplanon Nexplanon Disease Active Uni vers in place in place 8-28 ity of 00:00: [place] [facility] Allergies, Adverse Reactions, Alerts Allergy Allergy Status Severity Reaction(s) Onset Inactive Treating Comm ents Source Name Type Date Date Clinician CITRIC DRUG Active Other-Cmnt Univer s ACID INGREDI 7- ity of 00:00: [address] Citric Propensi Active Other - See Headaches Univers Acid ty to comments 7 ity of adverse 00:00: [place] reaction [facility] [place] Social History Social Habit Start Date Stop Date Quantity Comments Source Sexual orientation Univer sity of [facility] History of tobacco Cigarette Smoker University of use [facility] Exposure to 2022-11-06 2022-11-16 Not sure University SARS-CoV-2 (event) 00:00:00 10:19:00 [facility] History of Social 2022-11-16 2022-11-16 Univers ity of function 00:00:00 00:00:00 [facility] Alcohol intake 2021-12-21 2021-12-21 Ex-drinker [facility] 00:00:00 00:00:00 (finding) [facility] Cigarettes smoked 2021-03-07 2021-03-07 Univers ity of current (pack per 00:00:00 00:00:00 ) - Reported Branch Tobacco use and 2021-03-07 2021-03-07 Smokeless Universit y of exposure 00:00:00 00:00:[address] tobacco non-user [facility] Sex Assigned At [birth year] Universit y of 00:00:00 00:00:00 [facility] Smoking Status Start Date Stop Date Source Smokes tobacco daily 2021-03-07 00:00:00 Univers ity of [facility] Medications Ordered Filled Start Stop Current Ordering Indication Dosage Frequency Signature Comments Components Source Medication Medication Date Date Medication? Clinician (SIG) Name Name etonogestre 2022- No [id number] 68mg Univers L 08-30 ity of (NEXPLANON) 15:45: 15:28 [place] implant 68 00 :00 Medical mg Branch etonogestre 2022- No [id number] 68mg 68 mg, Univers L 08-30 Subdermal, ity of (NEXPLANON) 15:45: 15:28 ONCE NOW, [place] implant 68 00 :00 1 dose, On Med ical mg [facility] 08/30/22 at 0945, Routine
Use approved by: [employer] etonogestre 2022- No [id number] 68mg Univers L 08-30 ity of (NEXPLANON) 15:45: 15:28 [place] implant 68 00 :00 Medical mg Branch etonogestre 2022- No [id number] 68mg 68 mg, Univers L 08-30 Subdermal, ity of (NEXPLANON) 15:45: 15:28 ONCE NOW, [place] implant 68 00 :00 1 dose, On Med ical mg [facility] 08/30/22 at 0945, Routine
Use approved by: [employer] etonogestre 2021- No [id number] 68mg Univers L 01-02- ity of (NEXPLANON) 18:45: 17:40 [place] implant 68 00 :00 Medical mg Branch etonogestre 2021- No [id number] 68mg 68 mg, Univers L 01-02 Subdermal, ity of (NEXPLANON) 18:45: 17:40 ONCE NOW, [place] implant 68 00 :00 1 dose, On Med ical mg Mon Branch 01/02/22 at 1345, Routine
Use approved by: [employer] metroNIDAZO Yes [id number] 500mg Take 1 Univers LE 500 mg 6-17 tablet by ity o f tablet 00:00: mouth [place] 00 every 12 Medical (twelve) Branch hours. fluconazole Yes [id number] 150mg Take 1 Univers (DIFLUCAN) 6-17 tablet by ity of 150 mg 00:00: mouth [place] tablet 00 every 72 Medical (seventy-t Branch wo) hours. metroNIDAZO Yes [id number] 500mg Take 1 Univers LE 500 mg 6-17 tablet by ity o f tablet 00:00: mouth [place] 00 every 12 Medical (twelve) Branch hours. fluconazole Yes [id number] 150mg Take 1 Univers (DIFLUCAN) 6-17 tablet by ity of 150 mg 00:00: mouth [place] tablet 00 every 72 Medical (seventy-t Branch wo) hours. metroNIDAZO Yes [id number] 500mg Take 1 Univers LE 500 mg 6-17 tablet by ity o f tablet 00:00: mouth [place] 00 every 12 Medical (twelve) Branch hours. fluconazole Yes [id number] 150mg Take 1 Univers (DIFLUCAN) 6-17 tablet by ity of 150 mg 00:00: mouth [place] tablet 00 every 72 Medical (seventy-t Branch wo) hours. metroNIDAZO Yes [id number] 500mg Take 1 Univers LE 500 mg 6-17 tablet by ity o f tablet 00:00: mouth [place] 00 every 12 Medical (twelve) Branch hours. fluconazole Yes [id number] 150mg Take 1 Univers (DIFLUCAN) 6-17 tablet by ity of 150 mg 00:00: mouth [place] tablet 00 every 72 Medical (seventy-t Branch wo) hours. metroNIDAZO 2021- No [id number] 500mg Take 1 Univers LE 500 mg 6-17 12-15 tablet by ity of tablet 00:00: 00:00 mouth [place] 00 :00 every 12 Medical (twelve) Branch hours. fluconazole 2021- No [id number] 150mg Take 1 Univers (DIFLUCAN) 6-17 12-15 tablet by ity of 150 mg 00:00: 00:00 mouth [place] tablet 00 :00 every 72 Medical (seventy-t Branch wo) hours. metroNIDAZO 2021- No [id number] 500mg Take 1 Univers LE 500 mg 6-17 12-15 tablet by ity of tablet 00:00: 00:00 mouth [place] 00 :00 every 12 Medical (twelve) Branch hours. fluconazole 2021- No [id number] 150mg Take 1 Univers (DIFLUCAN) 6-17 12-15 tablet by ity of 150 mg 00:00: 00:00 mouth [place] tablet 00 :00 every 72 Medical (seventy-t Branch wo) hours. NORTRIPTYLI Yes [id number] TAKE TWO Univers NE 25 mg 3-31 CAPSULES ity of capsule 00:00: BY MOUTH [place] DAILY Medical Branch NORTRIPTYLI 0 Yes [id number] TAKE TWO Univers NE 25 mg 3-31 CAPSULES ity of capsule 00:00: BY [facility] DAILY Medical Branch NORTRIPTYLI 2021-0 Yes [id number] TAKE TWO Univers NE 25 mg 3-31 CAPSULES ity of capsule 00:00: BY [facility] DAILY Medical Branch NORTRIPTYLI 2021-0 Yes [id number] TAKE TWO Univers NE 25 mg 3-31 CAPSULES ity of capsule 00:00: BY [facility] DAILY Medical Branch NORTRIPTYLI 2021-0 Yes [id number] TAKE TWO Univers NE 25 mg 3-31 CAPSULES ity of capsule 00:00: BY [facility] DAILY Medical Branch NORTRIPTYLI 2021-0 Yes [id number] TAKE TWO Univers NE 25 mg 3-31 CAPSULES ity of capsule 00:00: BY [facility] DAILY Medical Branch NORTRIPTYLI 2021-0 Yes [id number] TAKE TWO Univers NE 25 mg 3-31 CAPSULES ity of capsule 00:00: BY [facility] DAILY Medical Branch NORTRIPTYLI 2021-0 Yes [id number] TAKE TWO Univers NE 25 mg 3-31 CAPSULES ity of capsule 00:00: BY [facility] 00 DAILY Medical Branch NORTRIPTYLI 2021-0 Yes [id number] TAKE TWO Univers NE 25 mg 3-31 CAPSULES ity of capsule 00:00: BY MOUTH [place] DAILY Medical Branch NORTRIPTYLI 2021-0 Yes [id number] TAKE TWO Univers NE 25 mg 3-31 CAPSULES ity of capsule 00:00: BY MOUTH [place] DAILY Medical Branch NORTRIPTYLI 2021-0 Yes [id number] TAKE TWO Univers NE 25 mg 3-31 CAPSULES ity of capsule 00:00: BY MOUTH [place] DAILY Medical Branch NORTRIPTYLI 2021-0 Yes [id number] TAKE TWO Univers NE 25 mg 3-31 CAPSULES ity of capsule 00:00: BY MOUTH [place] DAILY Medical Branch NORTRIPTYLI 2021-0 Yes [id number] TAKE TWO Univers NE 25 mg 3-31 CAPSULES ity of capsule 00:00: BY MOUTH [place] DAILY Medical Branch NORTRIPTYLI 2021-0 Yes [id number] TAKE TWO Univers NE 25 mg 3-31 CAPSULES ity of capsule 00:00: BY MOUTH [place] DAILY Medical Branch NORTRIPTYLI 2021-0 Yes [id number] TAKE TWO Univers NE 25 mg 3-31 CAPSULES ity of capsule 00:00: BY MOUTH [place] DAILY Medical Branch QUEtiapine 2020-0 Yes 400mg [...] Medical tablet Branch Immunizations Ordered Immunization Filled Date Status Comments Sour ce Name Immunization Name Influenza Virus 2017-07-06 Completed Universit y [...] Universit y of Vaccine Quad IM, 00:00:00 [facility] dical Preserv and ABX Free Bran ch 6 MO-64 YRS HEPATITIS A 2010-02-22 Completed University of 00:00:00 [facility] Meningococcal 2010-02-22 Completed University of Polysaccharide 00:00:00 [place] Medi sarah (groups A, C, Y and Branc h W-135) conjugate vaccine (MCV4P) Varicella 2010-02-22 Completed University of (varivax)(chicken 00:00:00 [place] M edical pox) Branch HEPATITIS A 2010-02-22 Completed University of 00:00:00 [facility] Meningococcal 2010-02-22 Completed University of Polysaccharide 00:00:00 [place] Med[facility] sarah (groups A, C, Y and Branc h W-135) conjugate vaccine (MCV4P) Varicella 2010-02-22 Completed University of (varivax)(chicken 00:00:00 [place] M edical pox) Branch HEPATITIS A 2010-02-22 Completed University of 00:00:00 [facility] Meningococcal 2010-02-22 Completed University of Polysaccharide 00:00:00 [place] Medi sarah (groups A, C, Y and Branc h W-135) conjugate vaccine (MCV4P) Varicella 2010-02-22 Completed University of (varivax)(chicken 00:00:00 [place] M edical pox) Branch HEPATITIS A 2010-02-22 Completed University of 00:00:00 [facility] Meningococcal 2010-02-22 Completed University of Polysaccharide 00:00:00 [place] Med[facility] sarah (groups A, C, Y and Branc h W-135) conjugate vaccine (MCV4P) Varicella 2010-02-22 Completed University of (varivax)(chicken 00:00:00 [place] M edical pox) Branch HEPATITIS A 2010-02-22 Completed University of 00:00:00 [facility] Meningococcal 2010-02-22 Completed University of Polysaccharide 00:00:00 [place] [facility] sarah (groups A, C, Y and Branc h W-135) conjugate vaccine (MCV4P) Varicella 2010-02-22 Completed University of (varivax)(chicken 00:00:00 [place] M edical pox) Branch HEPATITIS A 2010-02-22 Completed University of 00:00:00 [facility] Meningococcal 2010-02-22 Completed University of Polysaccharide 00:00:00 [place] Medi sarah (groups A, C, Y and Branc h W-135) conjugate vaccine (MCV4P) Varicella 2010-02-22 Completed University of (varivax)(chicken 00:00:00 [place] M edical pox) Branch HEPATITIS A 2010-02-22 Completed University of 00:00:00 [facility] Meningococcal 2010-02-22 Completed University of Polysaccharide 00:00:00 [place] [facility] sarah (groups A, C, Y and Branc h W-135) conjugate vaccine (MCV4P) Varicella 2010-02-22 Completed University of (varivax)(chicken 00:00:00 [place] M edical pox) Branch HEPATITIS A 2010-02-22 Completed University of 00:00:00 [facility] Meningococcal 2010-02-22 Completed University of Polysaccharide 00:00:00 [place] Medi sarah (groups A, C, Y and Branc h W-135) conjugate vaccine (MCV4P) Varicella 2010-02-22 Completed University of (varivax)(chicken 00:00:00 [place] M edical pox) Branch HEPATITIS A 2010-02-22 Completed University of 00:00:00 [facility] Meningococcal 2010-02-22 Completed University of Polysaccharide 00:00:00 [facility] sarah (groups A, C, Y and Branc h W-135) conjugate vaccine (MCV4P) Varicella 2010-02-22 Completed University of (varivax)(chicken 00:00:00 [place] M edical pox) Branch HEPATITIS A 2010-02-22 Completed University of 00:00:00 [facility] Meningococcal 2010-02-22 Completed University of Polysaccharide 00:00:00 [place] [facility] sarah (groups A, C, Y and Branc h W-135) conjugate vaccine (MCV4P) Varicella 2010-02-22 Completed University of (varivax)(chicken 00:00:00 [place] M edical pox) Branch HEPATITIS A 2010-02-22 Completed University of 00:00:00 [facility] Meningococcal 2010-02-22 Completed University of Polysaccharide 00:00:00 [place] [facility] sarah (groups A, C, Y and Branc h W-135) conjugate vaccine (MCV4P) Varicella 2010-02-22 Completed University of (varivax)(chicken 00:00:00 [place] M edical pox) Branch HEPATITIS A 2010-02-22 Completed University of 00:00:00 [facility] Meningococcal 2010-02-22 Completed University of Polysaccharide 00:00:00 [place] [facility] sar[facility] (groups A, C, Y and Branc h W-135) conjugate vaccine (MCV4P) Varicella 2010-02-22 Completed University of (varivax)(chicken 00:00:00 [place] M edical pox) Branch HEPATITIS A 2010-02-22 Completed University of 00:00:00 [facility] Meningococcal 2010-02-22 Completed University of Polysaccharide 00:00:00 [place] [facility] sarah (groups A, C, Y and Branc h W-135) conjugate vaccine (MCV4P) Varicella 2010-02-22 Completed University of (varivax)(chicken 00:00:00 [place] M edical pox) Branch HEPATITIS A 2010-02-22 Completed University of 00:00:00 [facility] Meningococcal 2010-02-22 Completed University of Polysaccharide 00:00:00 [place] Med[facility] sarah (groups A, C, Y and Branc h W-135) conjugate vaccine (MCV4P) Varicella 2010-02-22 Completed University of (varivax)(chicken 00:00:00 [place] M edical pox) Branch HIB 4 Dose Schedule 1997 Completed Unive rsity of 00:00:00 [facility] Pediarix (dtap/hep 1997 Completed Univer sity of B/ipv) 00:00:00 [facility] Polio (IPV/OPV) 1997 Completed Universit y of 00:00:00 [facility] HIB 4 Dose Schedule 1997 Completed Unive rsity of 00:00:00 [facility] Pediarix (dtap/hep 1997 Completed Univer sity of B/ipv) 00:00:00 [facility] Polio (IPV/OPV) 1997 Completed Universit y of 00:00:00 [facility] HIB 4 Dose Schedule 1997 Completed Unive rsity of 00:00:00 [facility] Pediarix (dtap/hep 1997 Completed Univer sity of B/ipv) 00:00:00 [facility] Polio (IPV/OPV) 1997 Completed Universit y of 00:00:00 [facility] HIB 4 Dose Schedule 1997 Completed Unive rsity of 00:00:00 [place] [facility] Pediarix (dtap/hep 1997 Completed Univer sity of B/ipv) 00:00:00 [place] [facility] Polio (IPV/OPV) 1997 Completed Universit y of 00:00:00 [place] [facility] HIB 4 Dose Schedule 1997 Completed Unive rsity of 00:00:00 [place] [facility] Pediarix (dtap/hep 1997 Completed Univer sity of B/ipv) 00:00:00 [place] [facility] Polio (IPV/OPV) 1997 Completed Universit y of 00:00:00 [place] [facility] HIB 4 Dose Schedule 1997 Completed Unive rsity of 00:00:00 [place] [facility] Pediarix (dtap/hep 1997 Completed Univer sity of B/ipv) 00:00:00 [facility] Polio (IPV/OPV) 1997 Completed Universit y of 00:00:00 [facility] HIB 4 Dose Schedule 1997 Completed Unive rsity of 00:00:00 [place] [facility] Pediarix (dtap/hep 1997 Completed Univer sity of B/ipv) 00:00:00 [facility] Polio (IPV/OPV) 1997 Completed Universit y of 00:00:00 [place] [facility] HIB 4 Dose Schedule 1997 Completed Unive rsity of 00:00:00 [place] [facility] Pediarix (dtap/hep 1997 Completed Univer sity of B/ipv) 00:00:00 [facility] Polio (IPV/OPV) 1997 Completed Universit y of 00:00:00 [place] [facility] HIB 4 Dose Schedule 1997 Completed Unive rsity of 00:00:00 [place] [facility] Pediarix (dtap/hep 1997 Completed Univer sity of B/ipv) 00:00:00 [place] [facility] Polio (IPV/OPV) 1997 Completed Universit y of 00:00:00 [place] [facility] HIB 4 Dose Schedule 1997 Completed Unive rsity of 00:00:00 [place] [facility] Pediarix (dtap/hep 1997 Completed Univer sity of B/ipv) 00:00:00 [place] [facility] Polio (IPV/OPV) 1997 Completed Universit y of 00:00:00 [place] [facility] HIB 4 Dose Schedule 1997 Completed Unive rsity of 00:00:00 [place] [facility] Pediarix (dtap/hep 1997 Completed Univer sity of B/ipv) 00:00:00 [place] [facility] Polio (IPV/OPV) 1997 Completed Universit y of 00:00:00 [place] [facility] HIB 4 Dose Schedule 1997 Completed Unive rsity of 00:00:00 [place] [facility] Pediarix (dtap/hep 1997 Completed Univer sity of B/ipv) 00:00:00 [place] [facility] Polio (IPV/OPV) 1997 Completed Universit y of 00:00:00 [facility] HIB 4 Dose Schedule 1997 Completed Unive rsity of 00:00:00 [place] [facility] Pediarix (dtap/hep 1997 Completed Univer sity of B/ipv) 00:00:00 [place] [facility] Polio (IPV/OPV) 1997 Completed Universit y of 00:00:00 [place] [facility] HIB 4 Dose Schedule 1997 Completed Unive rsity of 00:00:00 [place] [facility] Pediarix (dtap/hep 1997 Completed Univer sity of B/ipv) 00:00:00 [facility] Polio (IPV/OPV) 1997 Completed Universit y of 00:00:00 [place] [facility] HIB 4 Dose Schedule 1997 Completed Unive rsity of 00:00:00 [place] [facility] Pediarix (dtap/hep 1997 Completed Univer sity of B/ipv) 00:00:00 [place] [facility] Polio (IPV/OPV) 1997 Completed Universit y of 00:00:00 [place] [facility] HIB 4 Dose Schedule 1997 Completed Unive rsity of 00:00:00 [place] [facility] Pediarix (dtap/hep 1997 Completed Univer sity of B/ipv) 00:00:00 [place] [facility] Polio (IPV/OPV) 1997 Completed Universit y of 00:00:00 [place] [facility] HIB 4 Dose Schedule 1997 Completed Unive rsity of 00:00:00 [place] [facility] Pediarix (dtap/hep 1997 Completed Univer sity of B/ipv) 00:00:00 [place] [facility] Polio (IPV/OPV) 1997 Completed Universit y of 00:00:00 [place] [facility] HIB 4 Dose Schedule 1997 Completed Unive rsity of 00:00:00 [place] [facility] Pediarix (dtap/hep 1997 Completed Univer sity of B/ipv) 00:00:00 [place] [facility] Polio (IPV/OPV) 1997 Completed Universit y of 00:00:00 [place] [facility] HIB 4 Dose Schedule 1997 Completed Unive rsity of 00:00:00 [place] [facility] Pediarix (dtap/hep 1997 Completed Univer sity of B/ipv) 00:00:00 [place] [facility] Polio (IPV/OPV) 1997 Completed Universit y of 00:00:00 [place] [facility] HIB 4 Dose Schedule 1997 Completed Unive rsity of 00:00:00 [place] [facility] Pediarix (dtap/hep 1997 Completed Univer sity of B/ipv) 00:00:00 [place] [facility] Polio (IPV/OPV) 1997 Completed Universit y of 00:00:00 [place] [facility] HIB 4 Dose Schedule 1997 Completed Unive rsity of 00:00:00 [place] [facility] Pediarix (dtap/hep 1997 Completed Univer sity of B/ipv) 00:00:00 [place] [facility] Polio (IPV/OPV) 1997 Completed Universit y of 00:00:00 [place] [facility] HIB 4 Dose Schedule 1997 Completed Unive rsity of 00:00:00 [place] [facility] Pediarix (dtap/hep 1997 Completed Univer sity of B/ipv) 00:00:00 [place] [facility] Polio (IPV/OPV) 1997 Completed Universit y of 00:00:00 [place] [facility] HIB 4 Dose Schedule 1997 Completed Unive rsity of 00:00:00 [place] [facility] Pediarix (dtap/hep 1997 Completed Univer sity of B/ipv) 00:00:00 [place] [facility] Polio (IPV/OPV) 1997 Completed Universit y of 00:00:00 [place] [facility] HIB 4 Dose Schedule 1997 Completed Unive rsity of 00:00:00 [place] [facility] Pediarix (dtap/hep 1997 Completed Univer sity of B/ipv) 00:00:00 [place] [facility] Polio (IPV/OPV) 1997 Completed Universit y of 00:00:00 [place] [facility] HIB 4 Dose Schedule 1997 Completed Unive rsity of 00:00:00 [place] [facility] Pediarix (dtap/hep 1997 Completed Univer sity of B/ipv) 00:00:00 [facility] Polio (IPV/OPV) 1997 Completed Universit y of 00:00:00 [place] [facility] HIB 4 Dose Schedule 1997 Completed Unive rsity of 00:00:00 [place] [facility] Pediarix (dtap/hep 1997 Completed Univer sity of B/ipv) 00:00:00 [facility] Polio (IPV/OPV) 1997 Completed Universit y of 00:00:00 [facility] HIB 4 Dose Schedule 1997 Completed Unive rsity of 00:00:00 [place] [facility] Pediarix (dtap/hep 1997 Completed Univer sity of B/ipv) 00:00:00 [facility] Polio (IPV/OPV) 1997 Completed Universit y of 00:00:00 [place] [facility] HIB 4 Dose Schedule 1997 Completed Unive rsity of 00:00:00 [place] [facility] Pediarix (dtap/hep 1997 Completed Univer sity of B/ipv) 00:00:00 [facility] Polio (IPV/OPV) 1997 Completed Universit y of 00:00:00 [facility] Hep B, Adol or Pedi 1997 Completed Unive rsity of Dosage 00:00:00 [facility] Hep B, Adol or Pedi 1997 Completed Unive rsity of Dosage 00:00:00 [facility] Hep B, Adol or Pedi 1997 Completed Unive rsity of Dosage 00:00:00 [facility] Hep B, Adol or Pedi 1997 Completed Unive rsity of Dosage 00:00:00 [facility] Hep B, Adol or Pedi 1997 Completed Unive rsity of Dosage 00:00:00 [facility] Hep B, Adol or Pedi 1997 Completed Unive rsity of Dosage 00:00:00 [facility] Hep B, Adol or Pedi 1997 Completed Unive rsity of Dosage 00:00:00 [facility] Hep B, Adol or Pedi 1997 Completed Unive rsity of Dosage 00:00:00 [facility] Hep B, Adol or Pedi 1997 Completed Unive rsity of Dosage 00:00:00 [facility] Hep B, Adol or Pedi 1997 Completed Unive rsity of Dosage 00:00:00 [facility] Hep B, Adol or Pedi 1997 Completed Unive rsity of Dosage 00:00:00 [facility] Hep B, Adol or Pedi 1997 Completed Unive rsity of Dosage 00:00:00 [facility] Hep B, Adol or Pedi 1997 Completed Unive rsity of Dosage 00:00:00 [facility] Hep B, Adol or Pedi 1997 Completed Unive rsity of Dosage 00:00:00 [facility] HIB 4 Dose Schedule Unknown Completed Unive rsity of [facility] HIB 4 Dose Schedule Unknown Completed Unive rsity of [facility] HEPATITIS A Unknown Completed [facility] Hep B, Adol or Pedi Unknown Completed Unive rsity of Dosage [facility] Meningococcal Unknown Completed [facility] (groups A, C, Y and Branc h W-135) conjugate vaccine (MCV4P) [facility] (dtap/hep Unknown Completed Univer sity of B/ipv) [facility] Pediarix (dtap/hep Unknown Completed Univer sity of B/ipv) [facility] Influenza Virus Unknown Completed Universit y of Vaccine Quad IM, [facility] dical Preserv and ABX Free Bran ch 6 MO-64 YRS (FLUCELVAX) Influenza Virus Unknown Completed Universit y of Vaccine Quad IM, [facility] dical Preserv and ABX Free Bran ch 6 MO-64 YRS (FLUCELVAX) Polio (IPV/OPV) Unknown Completed [facility] Polio (IPV/OPV) Unknown Completed [facility] Varicella Unknown Completed University (varivax)(chicken [place] M edical pox) Branch Vital Signs Vital Name Observation Time Observation Value Comments Source Systolic blood 2022-11-16 15:46:00 135 mm[Hg] Univer sity of [facility] Diastolic blood 2022-11-16 15:46:00 [facility]22-11-16 15:46:00 98 /min Universi ty [facility] Body temperature 2022-11-16 15:46:00 36.89 Ashly [facility] Respiratory rate 2022-11-16 15:46:00 18 /min [facility] Body height 2022-11-16 15:46:00 160 cm Universi ty of [facility] Body weight 2022-11-16 15:46:00 102.059 kg Universi ty [facility] BMI 2022-11-16 15:46:00 39.86 kg/m2 Universi ty [facility] Systolic blood 2022-08-30 15:08:00 108 mm[Hg] Univer sity [facility] Diastolic blood 2022-08-30 15:08:00 70 mm[Hg] Unive rsity [facility] Heart rate 2022-08-30 15:08:00 106 /min Universi ty of [facility] Body temperature 2022-08-30 15:08:00 36.67 Ashly [facility] Body height 2022-08-30 15:08:00 160 cm Universi ty of [facility] Body weight 2022-08-30 15:08:00 97.614 kg Universi ty of [facility] BMI 2022-08-30 15:08:00 38.12 kg/m2 Universi ty [facility] Systolic blood 2022-06-22 14:43:00 128 mm[Hg] Univer sity of pressure [facility] Diastolic blood 2022-06-22 14:43:00 83 mm[Hg] Unive rsity of pressure [facility] Heart rate 2022-06-22 14:43:00 72 /min Universi ty of [facility] Body temperature 2022-06-22 14:43:00 36.78 Ashly Univ ersity of [facility] Body height 2022-06-22 14:43:00 160 cm Universi ty [facility] Body weight 2022-06-22 14:43:00 94.076 kg Universi ty of [facility] BMI 2022-06-22 14:43:00 36.74 kg/m2 Universi ty of [facility] Systolic blood 2022-01-02 16:02:00 118 mm[Hg] Univer sity of pressure [facility] Diastolic blood 2022-01-02 16:02:00 74 mm[Hg] Unive rsity of [facility] Heart rate 2022-01-02 16:02:00 102 /min Universi ty [facility] Body temperature 2022-01-02 16:02:00 36.72 Ashly Univ ersity of [facility] Body height 2022-01-02 16:02:00 160 cm [facility]i ty [facility] Body weight 2022-01-02 16:02:00 100.971 kg Universi ty of [facility] BMI 2022-01-02 16:02:00 39.43 kg/m2 Universi ty of [facility] Procedures Procedure Date / Time Performing Clinician Source Performed [facility] PATIENT FINANCIAL 2022-11-16 15:21:31 Doctor Unassigned, No [facility] POLICY [facility] POCT TEST 2022-11-16 00:00:00 Ruby Mccullough [facility] CONSENT FOR 2022-08-30 06:01:00 Doctor Unassigned, No [facility] POCT TEST 2022-08-30 00:00:00 Ruby Mccullough [facility] ASSIGNMENT OF BENEFITS 2022-06-22 13:52:27 Doctor Unassigned, No [facility] VACCINATIONS - CONSENTS, 2022-02-13 05:01:00 Doctor Unassigned, No [facility] ELIGIBILITY, HISTORY Name Medical [facility] CONSENT FOR 2022-01-02 05:01:00 Doctor Unassigned, No Maxine sosa [facility] CONTRACEPTION [facility] POCT TEST 2022-01-02 00:00:00 Ruby Mccullough [facility] ty of [facility] Encounters Start End Encounter Admission Attending Care Care Encounter Source Date/Time Date/Time Type Type Clinicians Facility Department ID 2021-05-09 Emergency [facility] [id number] Univers 18:08:31 ity of [facility] 2021-05-08 Emergency [facility] [id number] Univers 18:31:57 ity [facility] 2023-01-23 2023-01-23 Outpatient RUBY MONIQUE [facility] [id number] Univers 14:00:00 14:00:00 ity of [facility] 2022-11-16 2022-11-16 Outpatient R RUBY MCCULLOUGH [facility] [id number] Univers 10:30:00 11:48:37 ity of [facility] 2022-11-16 2022-11-16 Office Ruby Mccullough [facility] 1.2.276.207 [id number] Univers 10:30:00 11:48:37 Visit Santos MARQUEZ 350.1.13.10 i ty of [place] [phone] Pa dical NAL [address] [place] [address] 2022-11-16 2022-11-16 Orders Doctor JONES 1.2.840.114 [id number] Univers 00:00:00 00:00:00 Only Unassigned, HAR[place] 350.1.13.10 [facility] 4.2.7.2.686 Armin as [phone] [address] 2022-11-14 2022-11-14 Telephone Ruby Mccullough [place] 1.2.840.114 [id number] Univers 00:00:00 00:00:00 Santos MARQUEZ 350.1.13.10 i ty [place] [phone] [address] 2022-08-30 2022-08-30 Outpatient R RUBY MCCULLOUGH [facility] [id number] Univers 09:00:00 09:28:13 ity of [facility] 2022-08-30 2022-08-30 Office Ruby Mccullough [facility] [id number] Univers 09:00:00 09:28:13 Visit Santos MARQUEZ 350.1.13.10 i ty [place] [phone] [address] 2022-08-30 2022-08-30 Orders Doctor ROBRET 1.2.840.114 [id number] Univers 00:00:00 00:00:00 Only Unassigned, HAR[place] 350.1.13.10 [facility] 4.2.7.2.686 Armin as [phone] [address] 2022-07-05 2022-07-05 Outpatient R GIA [facility] [id number] Univers 16:00:00 16:00:00 ANNABELLA ity [facility] 2022-06-28 2022-06-28 Telephone Mccullough [facility] 1.2.840.114 [id number] Univers 00:00:00 00:00:00 Santos MARQUEZ 350.1.13.10 i ty [place] [phone] [address] 2022-06-22 2022-06-22 Outpatient R RUBY MCCULLOUGH [facility] [id number] Univers 08:00:00 08:55:01 ity of [facility] 2022-06-22 2022-06-22 Office Jamel [facility] 1.2.483.782 [id number] Univers 08:00:00 08:55:01 Visit Santos MARQUEZ 350.1.13.10 i ty [place] [phone] [address] 2022-06-22 2022-06-22 Orders Doctor JONES 1.2.840.114 [id number] Univers 00:00:00 00:00:00 Only Unassigned, HAR[place] 350.1.13.10 ity [facility] [place] [facility] 4.2.7.2.686 Armin as [phone] [address] 2022-02-13 2022-02-13 Orders Doctor ROBERT 1.2.840.114 [id number] Univers 00:00:00 00:00:00 Only Unassigned, HAR[place] 350.1.13.10 ity of [place] [facility] 4.2.7.2.686 Armin as [phone] [address] 2022-01-02 2022-01-02 Outpatient R JAMEL [facility] [id number] Univers 10:45:00 11:23:09 ity of [facility] 2022-01-02 2022-01-02 [facility] 1.2.072.260 [id number] Univers 10:45:00 11:23:09 Visit Santos MARQUEZ 350.1.13.10 i ty [place] [id number] [address] 2022-01-02 2022-01-02 Outpatient R JAMEL [facility] [id number] Univers 10:45:00 10:45:00 ity of [facility] 2022-01-02 2022-01-02 Orders Doctor ROBERT 1.2.840.114 [id number] Univers 00:00:00 00:00:00 Only Unassigned, [place] 350.1.13.10 ity of [place] [facility] 4.2.7.2.686 Armin as [phone] [address] 2021-12-26 2021-12-26 Telephone [facility] 1.2.840.114 [id number] Univers 00:00:00 00:00:00 Annabella MARQUEZ 350.1.13.10 i [place] [id number] [address] 2021-12-26 2021-12-26 Telephone [facility] 1.2.840.114 [id number] Univers 00:00:00 00:00:00 Annabella MARQUEZ 350.1.13.10 i ty of [place] [phone] Pa dical NAL 134 [facility] 2021-12-24 2021-12-24 Telephone PACO Nielsen 1.2.840.114 [id number] Univers 00:00:00 00:00:00 Annabella JIMMY 350.1.13.10 i ty [place] [phone] Pa dical NAL 044 [facility] 2021-12-23 2021-12-23 Case SIRISHA Nielsen 1.2.194.044 [id number] Univers 00:00:00 00:00:00 Management Annabella PEDIATRIC 350.1.13.10 [place] [phone] [place] [address] [address] [facility] 2021-12-22 2021-12-[address] [facility] 1.2.840.114 [id number] Univers 00:00:00 00:00:00 Secure Msg Unassigned, JIMMY 350.1.13.10 ity [place] [phone] Pa dical NAL 134 [facility] 2021-12-22 2021-12-22 Case PACO Nielsen 1.2.962.486 [id number] Univers 00:00:00 00:00:00 Management Annabella MARQUEZ 350.1.13.10 ity of [place] [phone] Pa dical NAL 134 [facility] 2021-12-21 2021-12-21 Office PACO Nielsen 1.2.015.043 [id number] Univers 15:00:00 15:37:44 Visit Annabella MARQUEZ 350.1.13.10 i ty of [place] 4.[place].2.[place] [phone] Pa dical NAL 134 [facility] 2021-12-21 2021-12-21 Outpatient R GIA [facility] [id number] Univers 15:00:00 [facility]:37:44 [facility] 2021-12-21 2021-12-21 Outpatient R IGA [facility] [id number] Univers 15:00:00 15:00:00 ANNABELLA darnell [facility] 2021-12-21 2021-12-21 Outpatient R GIA [facility] [id number] Univers 15:00:00 15:00:00 ANNABELLA darnell [facility] 2021-10-26 2021-10-26 Outpatient R RUBY MCCULLOUGH [facility] [id number] Univers 13:30:00 13:30:09 ity [facility] 2021-10-26 2021-10-26 Office Jaeml [facility] 1.2.763.291 [id number] Univers 13:30:00 13:30:09 Visit Cam [place] 350.1.13.10 i ty of [place] [phone] Pa dicted NAL [address] [facility] 2021-10-26 2021-10-26 Orders Doctor ROBERT 1.2.840.114 [id number] Univers 00:00:00 00:00:00 Only Unassigned, HAR[place] 350.1.13.10 ity of [place] [facility] 4.2.7.2.686 Armin as [phone] [address] 2021-10-06 2021-10-06 [facility] 1.2.840.114 [id number] Univers 00:00:00 00:00:00 [facility] 350.1.13.10 ity of [place] 4.2.7.2.686 Armin as NEGRITO?BLEA [phone] Pa dicted [address] [facility] 2021-05-23 2021-05-23 Outpatient R RUBY MCCULLOUGH [facility] [id number] Univers 15:00:00 15:00:00 ity [facility] 2021-04-18 2021-04-[address] [facility] 1.2.840.114 [id number] Univers 00:00:00 00:00:00 Jarod [facility] 350.1.13.10 ity of [place] 4.2.7.2.686 Armin as Negrito?Blea [phone] [address] Medical Office Building 2021-04-12 2021-04-[address] [facility] 1.2.840.114 [id number] Univers 10:45:35 11:35:06 Visit Jarod [facility] 350.1.13.10 ity of [place] 4.2.7.2.686 Armin as Negrito?Blea [phone] [address] Office [facility] 2021-04-12 2021-04-12 Outpatient R JAROD MARTIN [facility] [id number] Univers 11:00:00 11:00:00 JAROD MARTIN ity [facility] 2021-03-28 2021-03-28 Hospital Brenda Johnson .2.840.114 [id number] Univers 08:03:00 20:45:00 Encounter S [place] 350.1.13.10 ity [facility] 4.2.7.2.686 Armin as [phone] [place] [address] [place] 2021-03-28 2021-03-28 Outpatient R BRENDA JOHNSON [facility] [id number] Univers 08:30:00 08:30:00 ity of [facility] 2021-03-25 2021-03-25 Laboratory Only, Adc Test [facility] 1.2.840. 114 [id number] Univers 15:17:12 15:32:12 Only Brenda [place] 350.1.13.10 ity [facility] 4[place]2.7.2.[place] [phone] [address] 2021-03-25 2021-03-25 Outpatient R BRENDA JOHNSON [facility] [id number] Univers 14:30:00 14:30:00 ity of [facility] 2021-03-16 2021-03-[address] [facility] 1.2.840.114 [id number] Univers 00:00:00 00:00:00 Jarod [facility] 350.1.13.10 ity of [place] 4.2.7.2.686 Armin as Negrito?Blea [phone] [address] Medical Office Building 2021-03-07 2021-03-[address] [facility] 1.2.840.114 [id number] Univers 15:13:45 16:24:38 Visit Jarod [facility] 350.1.13.10 ity of [place] 4.2.7.2.686 Armin as Negrito?Blea [phone] [address] Medical Office Building 2021-03-07 2021-03-07 Outpatient R JAROD MARTIN [facility] [id number] Univers 15:00:00 15:00:00 JAROD MARTIN [facility] 2021-03-02 2021-03-02 Emergency [facility] 1.2.091.126 [id number] Univers 16:45:00 20:11:00 Yoli Brown [place] 350.1.13.10 ity of [place] 4.2.7.2.686 [facility] [phone] [address] 2021-03-02 2021-03-02 Emergency [facility] 1.2.047.260 [id number] Univers 16:45:00 20:11:00 Yoli Marquez 350.1.13.10 ity of [place] 4.2.7.2.686 [facility] [phone] [address] 2021-03-01 2021-03-01 Outpatient R DIANE [facility] [id number] Univers 15:00:00 15:00:00 ED ity [facility] 2021-02-17 2021-02-17 Outpatient R [facility] [id number] Univers 13:40:00 13:40:00 ity [facility] 2021-02-16 2021-02-16 Laboratory Lab, Adc Fam Pob I [facility] 1.2. 840.114 [id number] Univers 19:40:52 20:00:52 Only Kesha Asher [facility] 350.1.13.10 ity of [place] 4.2.7.2.686 Armin as Professio [phone] Pa dic[address] Office Building One 2021-02-16 2021-02-16 Outpatient R LAKESHIA [facility] [id number] Univers 20:00:00 20:00:00 KESHA pacheco o f [facility] 2021-02-08 2021-02-08 Outpatient R [facility] [id number] Univers 14:30:00 14:30:00 ity of [facility] 2021-02-08 2021-02-08 Case [facility] 1.2.082.476 [id number] Univers 00:00:00 00:00:00 Management Annabella Marquez 350.1.13.10 it[place] [phone] Pa dical nal [address] [place] [address] 2021-02-04 2021-02-04 Outpatient R [facility] [id number] Univers 10:30:00 10:30:00 ity of [facility] 2021-01-06 2021-01-06 Telephone Rehana Mckeon 1.2.840.114 [id number] Univers 00:00:00 00:00:00 , Kaley Rowell 350.1.13.10 ity of [place]2.7.2.[place] [phone] [address] 2020-12-13 2020-12-13 Telephone [facility] 1.2.840.114 [id number] Univers 00:00:00 00:00:00 Annabella Marquez 350.1.13.10 i ty of [place] [phone] Pa dical nal [address] [place] [address] 2020-11-17 2020-11-17 Office [facility] 1.2.869.641 [id number] Univers 15:24:29 16:11:59 Visit Annabella Marquez 350.1.13.10 i ty of [place].2.[place] [phone] Pa dical nal [address] [place] [address] 2020-11-17 2020-11-17 Outpatient R GIA, [facility] [id number] Univers 15:30:00 15:30:00 ANNABELLA pacheco [facility] 2020-11-16 2020-11-16 Emergency [facility] 1.2.465.233 [id number] Univers 18:36:00 20:44:00 Vikram العراقيton 350.1.13.10 i ty of [place].2.[place] [phone] [address] 2020-11-08 2020-11-08 Case [facility] 1.2.773.632 [id number] Univers 00:00:00 00:00:00 Management Annabella Jimmy 350.1.13.10 ity of [place] [phone] Pa dical nal [address] [place] [address] 2020-11-04 2020-11-04 Case [facility] 1.2.430.469 [id number] Univers 00:00:00 00:00:00 Management Annabella العرا[place] 350.1.13.10 ity of [place] [phone] Pa dic[address] 2020-11-03 2020-11-03 Office [facility] 1.2.871.126 [id number] Univers 13:56:31 14:26:31 Visit Annabella Marquez 350.1.13.10 i ty of [place] [phone] Pa dic[address] 2020-11-03 2020-11-03 Outpatient R GIA [facility] [id number] Univers 14:00:00 14:00:00 ANNABELLA pacheco [facility] 2020-07-20 2020-07-20 Emergency [facility] 1.2.840.114 [id number] Univers 12:55:00 16:20:00 Jaketorrey Jimmy 350.1.13.10 i ty of [place] 4[place]2.7.2.[place] [phone] [place] [address] [address] 2020-07-20 2020-07-20 Emergency X MIGUEL, [facility] ERT [id number] Univers 12:55:00 16:20:00 NGUYỄN [facility] 2020-06-02 2020-06-02 [facility] [id number] Univers 14:45:00 14:45:00 ANNABELLA [facility] 2020-05-11 2020-05-11 [facility] [id number] Univers 09:00:00 09:00:00 ANNABELLA [facility] 2020-05-08 2020-05-08 Telephone Green, [facility] 1.2.129.603 [id number] 00:00:00 00:00:00 [facility] 350.1.13.10 [place] 4.2.7.2.686 Professio [phone] [address] 2020-05-08 2020-05-08 [facility] 1.2.335.374 [id number] 00:00:00 00:00:00 Josefina [place] 350.1.13.10 [place] 4.2.7.2.686 Professio [phone] [address] 2020-05-08 2020-05-08 Telephone Green, [facility] 1.2.587.184 [id number] Univers 00:00:00 00:00:00 Josefina [facility] 350.1.13.10 it y of [place] 4.2.7.2.686 Armin as Professio [phone] [address] 2020-05-08 2020-05-08 Telephone [place], [facility] 1.2.917.882 [id number] Univers 00:00:00 00:00:00 Josefina [place] 350.1.13.10 i ty [place] [phone] [address] 2020-05-04 2020-05-04 Outpatient R [facility] [id number] Univers 19:20:00 19:20:00 [facility] 2020-05-04 2020-05-04 Urgent Provider, [facility] 1.2.970.981 [id number] 17:45:31 18:05:31 Care [facility] 350.1.13.10 Care [place] 4.2.7.2.686 Professio [phone] [address] 2020-05-04 2020-05-04 Urgent Provider, [facility] 1.2.840.114 [id number] Univers 17:45:31 18:05:31 Care Green, [facility] 350.1.13.10 ity of [place] 4.2.7.2.686 Armin as Professio [phone] Pa dical [address] 2020-04-19 2020-04-19 Outpatient R GIA [facility] [id number] Univers 14:00:00 14:00:00 [facility] 2020-04-09 2020-04-09 Outpatient R GIA [facility] [id number] Univers 10:00:00 10:00:00 [facility] 2020-03-12 2020-03-12 Outpatient R JAMEL [facility] [id number] Univers 14:00:00 14:00:00 [facility] 2020-03-05 2020-03-05 Office Jamel [facility] 1.2.658.128 [id number] 10:38:44 11:39:54 Visit Cam [place] 350.1.13.10 [place] 4.2.7.2.686 Professio [phone] [address] 2020-03-05 2020-03-05 Office [facility] 1.2.449.682 [id number] Univers 10:38:44 11:39:54 Visit Cam [place] 350.1.13.10 i ty [place]2.[place] [phone] Pa dical [address] 2020-03-05 2020-03-05 Outpatient R MCCULLOUGH [facility] [id number] Univers 10:45:00 10:45:00 [facility] 2020-03-05 2020-03-05 Outpatient R JAMEL [facility] [id number] Univers 10:00:00 10:00:00 ity of [facility] 2020-02-27 2020-02-27 Office [facility] 1.2.920.516 [id number] Univers 10:58:54 11:48:44 Visit Annabella Jimmy 350.1.13.10 i ty of [place] 4[place]2.[place].2.[place] [facility] [phone] Pa dical [address] 2020-02-27 2020-02-27 [facility] [id number] Univers 10:45:00 10:45:00 ANNABELLA pacheco [facility] 2020-02-27 2020-02-27 Orders Doctor ROBERT 1.2.840.114 [id number] Univers 00:00:00 00:00:00 Only Unassigned, [place] 350.1.13.10 ity of [place] [facility] 4.2.7.2.686 Armin as [phone] [address] 2020-01-09 2020-01-09 Emergency [facility] 1.2.887.353 [id number] Univers 18:56:10 20:39:00 Taylor Shaw Jimmy 350.1.13.10 i ty [place] [phone] [address] 2020-01-09 2020-01-09 Emergency X [facility] ERT [id number] Univers 18:56:10 18:56:10 TAYLOR [facility] 2019-08-22 2019-08-22 Emergency Jefferson Lynch [facility] 1.2.840.114 [id number] Univers 13:59:27 15:30:00 Kendra Marquez 350.1.13.10 i ty of [place] 4[place]2.[place].2.[place] [phone] [address] Results Test Description Test Time Test Comments Results Result Comments Source POCT TEST 2022-11-16 18:39:00 Test Item Value Reference Range Interpretation Comme nts POCT PREG (test code = 1605) Negative On board controls acceptable with C Line (test code = 3574) Yes POCT PREG LOT # (test code = 3575) POCT PREG TEST DATE (test code = 3576) [id number] 18:39:00 Test Item Value Reference Range Interpretation Comments POCT PREG (test code = 1605) Negative On board controls acceptable with C Yes Line (test code = 3574) POCT PREG LOT # (test code = 3575) POCT PREG TEST DATE (test code = 3576) [facility] [id number] 15:15:00 Test Item Value Reference Range Interpretation Comments POCT PREG (test code = 1605) Negative On board controls acceptable with C Yes Line (test code = 3574) POCT PREG LOT # (test code = 3575) POCT PREG TEST DATE (test code = 3576) [facility] [id number] 15:15:00 Test Item Value Reference Range Interpretation Comments POCT PREG (test code = 1605) Negative On board controls acceptable with C Yes Line (test code = 3574) POCT PREG LOT # (test code = 3575) POCT PREG TEST DATE (test code = 3576) [facility] [id number] 16:05:00 Test Item Value Reference Range Interpretation Comments POCT PREG (test code = 1605) Negative On board controls acceptable with C Yes Line (test code = 3574) POCT PREG LOT # (test code = 3575) POCT PREG TEST DATE (test code = 3576) [facility]
[2023-05-19 02:18] LABS: Absolute Lymphocytes (CBC) 2.5 K/uL (0.7-4.9); Hematocrit 38.4 % (36.0-45.0); Lymphocytes % 24.6 % (15.3-44.8); MCV 84.3 fL (80-100); MPV 6.5 fL (7.6-11.3); Platelets 306 thou/uL (152-406); RBC Red Blood Cell Count 4.56 M/uL (3.86-4.86)
[2023-05-19] MEDS ORDERED: NA CHLORIDE 0.9% 1,000 ML ONE (02:25)
[2023-05-19] MEDS ORDERED: LORAZEPAM 1 MG TABLET ONE (02:25)
[2023-05-19 02:37] LABS: Troponin High Sensitivity 4.2 pg/mL (<58.9)
[2023-05-19] MEDS ORDERED: ALBUTEROL 2.5 MG/3 ML NEB SOL ONE (04:32)
--- NOTE | 2023-05-19 04:54 | ER ---
Nurse's Notes [facility] Name: Nette Quiles Age: 27 yrs Sex: Female : 1995 Arrival Date: 05/18/2023 Time: 23:32 Bed 17 Private MD: David Lowe T Diagnosis: Chest pain, unspecified;Anxiety disorder, unspecified Presentation: 05/19 00:27 Chief complaint: Patient states: today I feel like I am going to pass out and have a vc1 seizure, my chest gets heavy and I get weak. Coronavirus screen: Vaccine status: Patient reports being unvaccinated. Client denies travel out of the [place] in the last 14 days. At this time, the client does not indicate any symptoms associated with coronavirus-19. Ebola Screen: Patient negative for fever greater than or equal to 101.5 degrees Fahrenheit, and additional compatible Ebola Virus Disease symptoms Patient denies exposure to infectious person. Patient denies travel to an Ebola-affected area in the 21 days before illness onset. No symptoms or risks identified at this time. Initial Sepsis Screen: Does the patient meet any 2 criteria? No. Patient's initial sepsis screen is negative. Does the patient have a suspected source of infection? No. Patient's initial sepsis screen is negative. Risk Assessment: Do you want to hurt yourself or someone else? Patient reports no desire to harm self or others. Onset of symptoms was May 18, 2023 at 12:00. 00:27 Method Of Arrival: Ambulatory vc1 00:27 Acuity: ALEK 3 vc1 Triage Assessment: 00:30 General: Appears in no apparent distress. uncomfortable, Behavior is calm, cooperative, vc1 appropriate for age. Pain: Denies pain. Neuro: Reports weakness. Cardiovascular: Rhythm is sinus tachycardia. Respiratory: Airway is patent Respiratory effort is even, unlabored, Respiratory pattern is regular, symmetrical. GI: No deficits noted. No signs and/or symptoms were reported involving the gastrointestinal system. : No deficits noted. No signs and/or symptoms were reported regarding the genitourinary system. Derm: No deficits noted. No signs and/or symptoms reported regarding the dermatologic system. Musculoskeletal: No deficits noted. No signs and/or symptoms reported regarding the musculoskeletal system. 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 - Social history:: Smoking status: Patient reports the use of cigarette tobacco products, smokes one pack cigarettes per day. Screenin:31 [facility] ED Fall Risk Assessment (Adult) History of falling in the last 3 months, ha1 including since admission No falls in past 3 months (0 pts) Confusion or Disorientation No (0 pts) Intoxicated or Sedated Yes (3 pts) Impaired Gait No (0 pts) Mobility Assist Device Used No (0 pt) Altered Elimination No (0 pt) Score/Fall Risk Level 0 - 2 = Low Risk Oriented to surroundings, Hourly rounding (assess needs \T\ fall precautionary measures) done. Abuse screen: Denies threats or abuse. Denies injuries from another. Nutritional screening: No deficits noted. Tuberculosis screening: No symptoms or risk factors identified. Assessment: 03:00 Reassessment: Patient and/or family updated on plan of care and expected duration. Pain ha1 level reassessed. Patient is alert, oriented x 3, equal unlabored respirations, skin warm/dry/pink. Vital Signs: 00:27 BP 145 / 78; Pulse 131; Resp 18; Temp 98.8; Pulse Ox 96% on R/A; Weight 95.25 kg; vc1 Height 5 ft. 4 in. ; Pain 0/10; 01:15 BP 127 / 72; Pulse 109; Resp 20 S; Pulse Ox 100% on R/A; ha1 02:19 BP 113 / 74; Pulse 112; Resp 20 S; Pulse Ox 100% on R/A; ha1 03:35 BP 132 / 92; Pulse 103; Resp 18 S; Pulse Ox 97% on R/A; ha1 04:30 BP 124 / 74; Pulse 100; Resp 18 S; Pulse Ox 100% on R/A; ha1 00:27 Body Mass Index 36.05 (95.25 kg, 162.56 cm) vc1 00:27 Pain Scale: Adult vc1 ED Course: 11/10 23:34 Patient arrived in ED. es 23:34 David Lwoe MD is Private Physician. es 11 00:29 Triage completed. vc1 00:30 Arm band placed on right wrist. vc1 00:31 Patient has correct armband on for positive identification. Bed in low position. Call ha1 light in reach. Side rails up X 1. Adult w/ patient. 00:32 Herminia Smith is Attending Physician. ci 00:50 Lindy Foy, JAMEL is Primary Nurse. ha1 01:00 Client placed on continuous cardiac and pulse oximetry monitoring. NIBP monitoring ha1 applied. 01:00 Patient maintains SpO2 saturation greater than 95% on room air. ha1 01:25 XRAY Chest (1 view) In Process Unspecified. EDMS 02:00 Inserted saline lock: 20 gauge in right forearm, using aseptic technique. ha1 04:52 David Lowe MD is Referral Physician. ci 05:00 IV discontinued, intact, bleeding controlled, No redness/swelling at site. Pressure ha1 dressing applied. 05:00 No provider procedures requiring assistance completed. ha1 Administered Medications: 01:15 Drug: LORazepam PO 1 mg PO once Route: PO; ha1 01:50 Drug: NS 0.9% IV 1000 ml IV at 1000 ml once Route: IV; Rate: 1000 ml; Site: right ha1 forearm; 04:19 Drug: Albuterol Inhalation 2.5 mg Inhalation once Route: Inhalation; ha1 Medication: 05:00 VIS not applicable for this client. ha1 Outcome: 04:53 Discharge ordered by MD. ci 05:00 Discharged to home ambulatory, ha1 05:00 Condition: stable 05:00 Discharge instructions given to patient, family, Instructed on discharge instructions, follow up and referral plans. medication usage, Demonstrated understanding of instructions, follow-up care, medications, Prescriptions given X 1, 05:13 Patient left the ED. ha1 Signatures: Dispatcher [employer] EDMT Brionna Zepeda Vanessa, RN RN vc1 Lindy Foy, JAMEL RN ha1 Herminia Smith ci Corrections: (The following items were deleted from the chart) 00:30 00:29 PSHx: None; vc1 vc1
--- NOTE | 2023-05-19 04:54 | EDPHYS ---
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 - Social history:: Smoking status: Patient reports the use of cigarette tobacco products, smokes one pack cigarettes per day. Vital Signs: 00:27 BP 145 / 78; Pulse 131; Resp 18; Temp 98.8; Pulse Ox 96% on R/A; Weight 95.25 kg; vc1 Height 5 ft. 4 in. ; Pain 0/10; 01:15 BP 127 / 72; Pulse 109; Resp 20 S; Pulse Ox 100% on R/A; ha1 02:19 BP 113 / 74; Pulse 112; Resp 20 S; Pulse Ox 100% on R/A; ha1 03:35 BP 132 / 92; Pulse 103; Resp 18 S; Pulse Ox 97% on R/A; ha1 04:30 BP 124 / 74; Pulse 100; Resp 18 S; Pulse Ox 100% on R/A; ha1 00:27 Body Mass Index 36.05 (95.25 kg, 162.56 cm) vc1 00:27 Pain Scale: Adult vc1 MDM: 00:32 Patient medically screened. ci 04:02 ED course: Tachycardia improved, blood work grossly unremarkable.. ci 04:50 Differential diagnosis: cardiac arrhythmia, hyperventilation, Pneumonia, asthma, panic ci attack. Counseling: I had a detailed discussion with the patient and/or guardian regarding lab results, radiology results, the need for outpatient follow up, to return to the emergency department if symptoms worsen or persist or if there are any questions or concerns that arise at home, smoking cessation. Medication response: albuterol nebulizer treatment(s) relieved the patient's symptoms. The patient is no longer wheezing. Response to treatment: the patient's symptoms have resolved after treatment, the patient's blood pressure is in an acceptable range, the patient is not short of breath, the patient is not tachycardic. Special discussion: I discussed with the patient/guardian in detail that at this point there is no indication for admission to the hospital. It is understood, however, that if the symptoms persist or worsen the patient needs to return immediately for re-evaluation. 05/19 00:48 Order name: Basic Metabolic Panel; Complete Time: 04:00 ci 05/19 00:48 Order name: CBC with Diff; Complete Time: 02:29 ci 05/19 00:48 Order name: D-Dimer; Complete Time: 02:29 ci 05/19 00:48 Order name: Troponin HS; Complete Time: 04:00 ci 05/19 00:48 Order name: XRAY Chest (1 view) ci 05/19 00:48 Order name: EKG; Complete Time: 00:49 ci 05/19 00:48 Order name: Cardiac monitoring; Complete Time: 03:13 ci 05/19 00:48 Order name: EKG - Nurse/Tech; Complete Time: 00:50 ci 05/19 00:48 Order name: IV Saline Lock; Complete Time: 03:13 ci 05/19 00:48 Order name: Labs collected and sent; Complete Time: 03:13 ci 05/19 00:48 Order name: O2 Per Protocol; Complete Time: 03:13 ci 05/19 00:48 Order name: O2 Sat Monitoring; Complete Time: 03:13 ci Administered Medications: 01:15 Drug: LORazepam PO 1 mg PO once Route: PO; ha1 01:50 Drug: NS 0.9% IV 1000 ml IV at 1000 ml once Route: IV; Rate: 1000 ml; Site: right ha1 forearm; 04:19 Drug: Albuterol Inhalation 2.5 mg Inhalation once Route: Inhalation; ha1 Disposition Summary: 05/19/23 04:53 Discharge Ordered Notes: Location: Home ci Condition: Stable ci Diagnosis - Chest pain, unspecified ci - Anxiety disorder, unspecified ci Followup: ci - With: David Lowe MD - When: 2 - 3 days - Reason: Re-evaluation by your physician Discharge Instructions: - Discharge Summary Sheet ci - Nonspecific Chest Pain, Adult, [id number] ci - Panic Attack, [id number] ci Forms: - Work release form ci - Medication Reconciliation Form ci - Thank You Letter ci - Antibiotic Education ci - Prescription Opioid Use ci - Patient Portal Instructions ci - Leadership Thank You Letter ci Prescriptions: - Vistaril 25 mg Oral capsule - take 2 capsule ORAL route every 8 hours; 20 capsule; Refills: 0, Product ci Selection Permitted Signatures: Dispatcher [employer] Teresa Stoddard RN RN vc1 Lindy Foy RN RN ha1 Herminia Smith ci Corrections: (The following items were deleted from the chart) 00:30 00:29 PSHx: None; 1 vc1
[2023-05-19 05:18] VITALS: TEMP 98.8
[2023-05-19 05:23] VITALS: BP 132/92; O2SAT 97
--- NOTE | 2023-05-19 14:06 | EKG ---
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
--- NOTE | 2023-05-19 17:08 | RAD REPORT ---
EXAM DESCRIPTION: RAD - Chest Single View - 05/19/2023 1:23 am CLINICAL HISTORY: 27 years Female, CHEST PAIN COMPARISON: Chest x-ray report from 12/09/2022. The image was not available for review. TECHNIQUE: Single portable x-ray view of the chest performed on 05/19/2023 at 1:19 AM FINDINGS: The lungs are well expanded and are clear. There is no evidence of a pneumothorax. The cardiac silhouette is normal in size and configuration. The mediastinal contours are normal. No acute osseous abnormality is identified. No focal soft tissue abnormalities are seen. Lines and tubes: None. IMPRESSION: No evidence of acute intrathoracic disease. Electronically signed by: Felisa Tinsley DO 05/19/2023 02:05 AM CONDUCTOR PULLMAN Due to temporary technical issues with the PACS/Fluency reporting system, reports are being signed by the in house radiologists without review as a courtesy to insure prompt reporting. The interpreting radiologist is fully responsible for the content of the report.
== END 2023-05-19 05:13 | disposition home or self-care (01) ==
LOC: ER 23:32
DX: R07.9 Chest pain, unspecified (principal); F41.9 Anxiety disorder, unspecified; Z72.0 Tobacco use
CPT/HCPCS: 36415; 71045; 80048; 84484; 85025; 85379; 93005; 99285; J7030; J7613

== ENCOUNTER 2023-05-20 06:11 | Emergency (ER) | payer SELFPAY ==
--- OUTSIDE RECORDS SUMMARY | 2023-05-20 06:16 | XMS REPORT | Continuity of Care Document ---
:1995 Author Organization [facility] t Address [address] [place] [address] Care Team Providers Name Role Phone Mynor David Murray Primary Care Physician RUBY MCCULLOUGH Attending Clinician Unavailable ANNABELLA NIELSEN Attending Clinician Unavailable Ruby Mccullough MD Attending Clinician Doctor Unassigned, [place] Attending Clinician Unavailable Annabella Nielsen PA-C Attending [...] Number Effective Date Expiration Date Lisa rice [facility] [id number] 2020 00:00:00 Problems Condition Condition Condition Status Onset Resolution Last Treating Co mments Source Name Details Category Date Date Treatment Clinician Date Seizure Seizure Disease Active Univers 9-20 ity of 00:00: [place] [facility] Spells of Spells of Disease Active Uni vers decreased decreased 9-20 ity [place] [facility] Obesity Obesity Disease Active Univers (BMI (BMI 4-28 ity of 30-39.9) 30-39.9) 00:00: [place] [facility] Nexplanon Nexplanon Disease Active Uni vers in place in place 8-28 ity of 00:00: [place] [facility] Allergies, Adverse Reactions, Alerts Allergy Allergy Status Severity Reaction(s) Onset Inactive Treating Comm ents Source Name Type Date Date Clinician CITRIC DRUG Active Other-Cmnt Univer s ACID INGREDI 7- ity of 00:00: [address] Citric Propensi Active Other - See Headaches Univers Acid ty to comments 7 ity of adverse 00:00: [place] reaction [facility] [place] Social History Social Habit Start Date Stop Date Quantity Comments Source Sexual orientation Univer sity of [facility] History of tobacco Cigarette Smoker University of use [facility] Exposure to 2022-11-06 2022-11-16 Not sure University SARS-CoV-2 (event) 00:00:00 10:19:00 [facility] History of Social 2022-11-16 2022-11-16 Univers ity of function 00:00:00 00:00:00 [facility] Alcohol intake 2021-12-21 2021-12-21 Ex-drinker [facility] 00:00:00 00:00:00 (finding) [facility] Cigarettes smoked 2021-03-07 2021-03-07 Univers ity of current (pack per 00:00:00 00:00:00 ) - Reported Branch Tobacco use and 2021-03-07 2021-03-07 Smokeless Universit y of exposure 00:00:00 00:00:00 tobacco non-user [facility] Sex Assigned At [birth year] Universit y of 00:00:00 00:00:00 [facility] Smoking Status Start Date Stop Date Source Smokes tobacco daily 2021-03-07 00:00:00 Univers ity of [facility] Medications Ordered Filled Start Stop Current Ordering Indication Dosage Frequency Signature Comments Components Source Medication Medication Date Date Medication? Clinician (SIG) Name Name etonogestre 2022- No [id number] 68mg Univers L 08-30 ity of (NEXPLANON) 15:45: 15:28 [place] implant 68 00 :00 Medical mg Branch etonogestre 2022- No [id number] 68mg 68 mg, Univers L 08-30 Subdermal, ity of (NEXPLANON) 15:45: 15:28 ONCE NOW, [place] implant 68 00 :00 1 dose, On Med ical mg [facility] 08/30/22 at 0945, Routine
Use approved by: PERFORMANCE REPORTER etonogestre 2022- No [id number] 68mg Univers L 08-30 ity of (NEXPLANON) 15:45: 15:28 [place] implant 68 00 :00 Medical mg Branch etonogestre 2022- No [id number] 68mg 68 mg, Univers L 08-30 Subdermal, ity of (NEXPLANON) 15:45: 15:28 ONCE NOW, [place] implant 68 00 :00 1 dose, On Med ical mg [facility] 08/30/22 at 0945, Routine
Use approved by: PERFORMANCE REPORTER etonogestre 2021- No [id number] 68mg Univers L 01-02- ity of (NEXPLANON) 18:45: 17:40 [place] implant 68 00 :00 Medical mg Branch etonogestre 2021- No [id number] 68mg 68 mg, Univers L 01-02 Subdermal, ity of (NEXPLANON) 18:45: 17:40 ONCE NOW, [place] implant 68 00 :00 1 dose, On Med ical mg Mon Branch 01/02/22 at 1345, Routine
Use approved by: PERFORMANCE REPORTER metroNIDAZO Yes [id number] 500mg Take 1 Univers LE 500 mg 6-17 tablet by ity o f tablet 00:00: mouth [place] 00 every 12 Medical (twelve) Branch hours. fluconazole Yes [id number] 150mg Take 1 Univers (DIFLUCAN) 6-17 tablet by ity of 150 mg 00:00: mouth [place] tablet 00 every 72 Medical (seventy-t Branch wo) hours. metroNIDAZO Yes [id number] 500mg Take 1 Univers LE 500 mg 6-17 tablet by ity o f tablet 00:00: mouth [place] 00 every 12 Medical (twelve) Branch hours. fluconazole Yes [id number] 150mg Take 1 Univers (DIFLUCAN) 6-17 tablet by ity of 150 mg 00:00: mouth [place] tablet 00 every 72 Medical (seventy-t Branch wo) hours. metroNIDAZO Yes [id number] 500mg Take 1 Univers LE 500 mg 6-17 tablet by ity o f tablet 00:00: mouth [place] 00 every 12 Medical (twelve) Branch hours. fluconazole Yes [id number] 150mg Take 1 Univers (DIFLUCAN) 6-17 tablet by ity of 150 mg 00:00: mouth [place] tablet 00 every 72 Medical (seventy-t Branch wo) hours. metroNIDAZO Yes [id number] 500mg Take 1 Univers LE 500 mg 6-17 tablet by ity o f tablet 00:00: mouth [place] 00 every 12 Medical (twelve) Branch hours. fluconazole Yes [id number] 150mg Take 1 Univers (DIFLUCAN) 6-17 tablet by ity of 150 mg 00:00: mouth [place] tablet 00 every 72 Medical (seventy-t Branch wo) hours. metroNIDAZO 2021- No [id number] 500mg Take 1 Univers LE 500 mg 6-17 12-15 tablet by ity of tablet 00:00: 00:00 mouth [place] 00 :00 every 12 Medical (twelve) Branch hours. fluconazole 2021- No [id number] 150mg Take 1 Univers (DIFLUCAN) 6-17 12-15 tablet by ity of 150 mg 00:00: 00:00 mouth [place] tablet 00 :00 every 72 Medical (seventy-t Branch wo) hours. metroNIDAZO 2021- No [id number] 500mg Take 1 Univers LE 500 mg 6-17 12-15 tablet by ity of tablet 00:00: 00:00 mouth [place] 00 :00 every 12 Medical (twelve) Branch hours. fluconazole 2021- No [id number] 150mg Take 1 Univers (DIFLUCAN) 6-17 12-15 tablet by ity of 150 mg 00:00: 00:00 mouth [place] tablet 00 :00 every 72 Medical (seventy-t Branch wo) hours. NORTRIPTYLI Yes [id number] TAKE TWO Univers NE 25 mg 3-31 CAPSULES ity of capsule 00:00: BY MOUTH [place] DAILY Medical Branch NORTRIPTYLI 0 Yes [id number] TAKE TWO Univers NE 25 mg 3-31 CAPSULES ity of capsule 00:00: BY [facility] DAILY Medical Branch NORTRIPTYLI 2021-0 Yes [id number] TAKE TWO Univers NE 25 mg 3-31 CAPSULES ity of capsule 00:00: BY [facility] DAILY Medical Branch NORTRIPTYLI 2021-0 Yes [id number] TAKE TWO Univers NE 25 mg 3-31 CAPSULES ity of capsule 00:00: BY [facility] DAILY Medical Branch NORTRIPTYLI 2021-0 Yes [id number] TAKE TWO Univers NE 25 mg 3-31 CAPSULES ity of capsule 00:00: BY [facility] DAILY Medical Branch NORTRIPTYLI 2021-0 Yes [id number] TAKE TWO Univers NE 25 mg 3-31 CAPSULES ity of capsule 00:00: BY [facility] DAILY Medical Branch NORTRIPTYLI 2021-0 Yes [id number] TAKE TWO Univers NE 25 mg 3-31 CAPSULES ity of capsule 00:00: BY [facility] DAILY Medical Branch NORTRIPTYLI 2021-0 Yes [id number] TAKE TWO Univers NE 25 mg 3-31 CAPSULES ity of capsule 00:00: BY [facility] 00 DAILY Medical Branch NORTRIPTYLI 2021-0 Yes [id number] TAKE TWO Univers NE 25 mg 3-31 CAPSULES ity of capsule 00:00: BY MOUTH [place] DAILY Medical Branch NORTRIPTYLI 2021-0 Yes [id number] TAKE TWO Univers NE 25 mg 3-31 CAPSULES ity of capsule 00:00: BY MOUTH [place] DAILY Medical Branch NORTRIPTYLI 2021-0 Yes [id number] TAKE TWO Univers NE 25 mg 3-31 CAPSULES ity of capsule 00:00: BY MOUTH [place] DAILY Medical Branch NORTRIPTYLI 2021-0 Yes [id number] TAKE TWO Univers NE 25 mg 3-31 CAPSULES ity of capsule 00:00: BY MOUTH [place] DAILY Medical Branch NORTRIPTYLI 2021-0 Yes [id number] TAKE TWO Univers NE 25 mg 3-31 CAPSULES ity of capsule 00:00: BY MOUTH [place] DAILY Medical Branch NORTRIPTYLI 2021-0 Yes [id number] TAKE TWO Univers NE 25 mg 3-31 CAPSULES ity of capsule 00:00: BY MOUTH [place] DAILY Medical Branch NORTRIPTYLI 2021-0 Yes [id number] TAKE TWO Univers NE 25 mg 3-31 CAPSULES ity of capsule 00:00: BY MOUTH [place] DAILY Medical Branch QUEtiapine 2020-0 Yes 400mg [...] Universit y of Vaccine Quad IM, 00:00:00 [facility] dical Preserv and ABX Free Bran ch 6 MO-64 YRS HEPATITIS A 2010-02-22 Completed University of 00:00:00 [facility] Meningococcal 2010-02-22 Completed University of Polysaccharide 00:00:00 [place] Medi sarah (groups A, C, Y and Branc h W-135) conjugate vaccine (MCV4P) Varicella 2010-02-22 Completed University of (varivax)(chicken 00:00:00 [place] M edical pox) Branch HEPATITIS A 2010-02-22 Completed University of 00:00:00 [facility] Meningococcal 2010-02-22 Completed University of Polysaccharide 00:00:00 [place] Medi sarah (groups A, C, Y and Branc h W-135) conjugate vaccine (MCV4P) Varicella 2010-02-22 Completed University of (varivax)(chicken 00:00:00 [place] M edical pox) Branch HEPATITIS A 2010-02-22 Completed University of 00:00:00 [facility] Meningococcal 2010-02-22 Completed University of Polysaccharide 00:00:00 [place] Medi sarah (groups A, C, Y and Branc h W-135) conjugate vaccine (MCV4P) Varicella 2010-02-22 Completed University of (varivax)(chicken 00:00:00 [place] M edical pox) Branch HEPATITIS A 2010-02-22 Completed University of 00:00:00 [facility] Meningococcal 2010-02-22 Completed University of Polysaccharide 00:00:00 [place] Medi sarah (groups A, C, Y and Branc h W-135) conjugate vaccine (MCV4P) Varicella 2010-02-22 Completed University of (varivax)(chicken 00:00:00 [place] M [facility]ical pox) Branch HEPATITIS A 2010-02-22 Completed University of 00:00:00 [facility] Meningococcal 2010-02-22 Completed University of Polysaccharide 00:00:00 [place] Medi sarah (groups A, C, Y and Branc h W-135) conjugate vaccine (MCV4P) Varicella 2010-02-22 Completed University of (varivax)(chicken 00:00:00 [place] M edical pox) Branch HEPATITIS A 2010-02-22 Completed University of 00:00:00 [facility] Meningococcal 2010-02-22 Completed University of Polysaccharide 00:00:00 [place] Medi sarah (groups A, C, Y and Branc h W-135) conjugate vaccine (MCV4P) Varicella 2010-02-22 Completed University of (varivax)(chicken 00:00:00 [place] M edical pox) Branch HEPATITIS A 2010-02-22 Completed University of 00:00:00 [facility] Meningococcal 2010-02-22 Completed University of Polysaccharide 00:00:00 [place] Medi sarah (groups A, C, Y and Branc h W-135) conjugate vaccine (MCV4P) Varicella 2010-02-22 Completed University of (varivax)(chicken 00:00:00 [place] M edical pox) Branch HEPATITIS A 2010-02-22 Completed University of 00:00:00 [facility] Meningococcal 2010-02-22 Completed University of Polysaccharide 00:00:00 [place] Med[facility] sarah (groups A, C, Y and Branc h W-135) conjugate vaccine (MCV4P) Varicella 2010-02-22 Completed University of (varivax)(chicken 00:00:00 [place] M edical pox) Branch HEPATITIS A 2010-02-22 Completed University of 00:00:00 [facility] Meningococcal 2010-02-22 Completed University of Polysaccharide 00:00:00 [facility] sarah (groups A, C, Y and Branc h W-135) conjugate vaccine (MCV4P) Varicella 2010-02-22 Completed University of (varivax)(chicken 00:00:00 [place] M edical pox) Branch HEPATITIS A 2010-02-22 Completed University of 00:00:00 [facility] Meningococcal 2010-02-22 Completed University of Polysaccharide 00:00:00 [place] Med[facility] sarah (groups A, C, Y and Branc h W-135) conjugate vaccine (MCV4P) Varicella 2010-02-22 Completed University of (varivax)(chicken 00:00:00 [place] M edical pox) Branch HEPATITIS A 2010-02-22 Completed University of 00:00:00 [facility] Meningococcal 2010-02-22 Completed University of Polysaccharide 00:00:00 [place] [facility] (groups A, C, Y and Branc h W-135) conjugate vaccine (MCV4P) Varicella 2010-02-22 Completed University of (varivax)(chicken 00:00:00 [place] M edical pox) Branch HEPATITIS A 2010-02-22 Completed University of 00:00:00 [facility] Meningococcal 2010-02-22 Completed University of Polysaccharide 00:00:00 [place] [facility] (groups A, C, Y and Branc h W-135) conjugate vaccine (MCV4P) Varicella 2010-02-22 Completed University of (varivax)(chicken 00:00:00 [place] M edical pox) Branch HEPATITIS A 2010-02-22 Completed University of 00:00:00 [facility] Meningococcal 2010-02-22 Completed University of Polysaccharide 00:00:00 [place] [facility] (groups A, C, Y and Branc h W-135) conjugate vaccine (MCV4P) Varicella 2010-02-22 Completed University of (varivax)(chicken 00:00:00 [place] M edical pox) Branch HEPATITIS A 2010-02-22 Completed University of 00:00:00 [facility] Meningococcal 2010-02-22 Completed University of Polysaccharide 00:00:00 [place] Med[facility] sarah (groups A, C, Y and Branc h W-135) conjugate vaccine (MCV4P) Varicella 2010-02-22 Completed University of (varivax)(chicken 00:00:00 [place] M edical pox) Branch HIB 4 Dose Schedule 1997 Completed Unive rsity of 00:00:00 [facility] Pediarix (dtap/hep 1997 Completed Univer sity of B/ipv) 00:00:00 [facility] Polio (IPV/OPV) 1997 Completed Universit y of 00:00:00 [facility] HIB 4 Dose Schedule 1997 Completed Unive rsity of 00:00:00 [facility] Pediarix (dtap/hep 1997 Completed Univer sity of B/ipv) 00:00:00 [facility] Polio (IPV/OPV) 1997 Completed Universit y of 00:00:00 [facility] HIB 4 Dose Schedule 1997 Completed Unive rsity of 00:00:00 [facility] Pediarix (dtap/hep 1997 Completed Univer sity of B/ipv) 00:00:00 [facility] Polio (IPV/OPV) 1997 Completed Universit y of 00:00:00 [facility] HIB 4 Dose Schedule 1997 Completed Unive rsity of 00:00:00 [place] [facility] Pediarix (dtap/hep 1997 Completed Univer sity of B/ipv) 00:00:00 [place] [facility] Polio (IPV/OPV) 1997 Completed Universit y of 00:00:00 [place] [facility] HIB 4 Dose Schedule 1997 Completed Unive rsity of 00:00:00 [place] [facility] Pediarix (dtap/hep 1997 Completed Univer sity of B/ipv) 00:00:00 [place] [facility] Polio (IPV/OPV) 1997 Completed Universit y of 00:00:00 [place] [facility] HIB 4 Dose Schedule 1997 Completed Unive rsity of 00:00:00 [place] [facility] Pediarix (dtap/hep 1997 Completed Univer sity of B/ipv) 00:00:00 [facility] [place] [facility] Polio (IPV/OPV) 1997 Completed Universit y of 00:00:00 [facility] HIB 4 Dose Schedule 1997 Completed Unive rsity of 00:00:00 [place] [facility] Pediarix (dtap/hep 1997 Completed Univer sity of B/ipv) 00:00:00 [facility] [place] [facility] Polio (IPV/OPV) 1997 Completed Universit y of 00:00:00 [place] [facility] HIB 4 Dose Schedule 1997 Completed Unive rsity of 00:00:00 [place] [facility] Pediarix (dtap/hep 1997 Completed Univer sity of B/ipv) 00:00:00 [facility] [place] [facility] Polio (IPV/OPV) 1997 Completed Universit y of 00:00:00 [place] [facility] HIB 4 Dose Schedule 1997 Completed Unive rsity of 00:00:00 [place] [facility] Pediarix (dtap/hep 1997 Completed Univer sity of B/ipv) 00:00:00 [place] [facility] Polio (IPV/OPV) 1997 Completed Universit y of 00:00:00 [place] [facility] HIB 4 Dose Schedule 1997 Completed Unive rsity of 00:00:00 [place] [facility] Pediarix (dtap/hep 1997 Completed Univer sity of B/ipv) 00:00:00 [place] [facility] Polio (IPV/OPV) 1997 Completed Universit y of 00:00:00 [place] [facility] HIB 4 Dose Schedule 1997 Completed Unive rsity of 00:00:00 [place] [facility] Pediarix (dtap/hep 1997 Completed Univer sity of B/ipv) 00:00:00 [place] [facility] Polio (IPV/OPV) 1997 Completed Universit y of 00:00:00 [place] [facility] HIB 4 Dose Schedule 1997 Completed Unive rsity of 00:00:00 [place] [facility] Pediarix (dtap/hep 1997 Completed Univer sity of B/ipv) 00:00:00 [place] [facility] Polio (IPV/OPV) 1997 Completed Universit y of 00:00:00 [facility] [place] [facility] HIB 4 Dose Schedule 1997 Completed Unive rsity of 00:00:00 [place] [facility] Pediarix (dtap/hep 1997 Completed Univer sity of B/ipv) 00:00:00 [place] [facility] Polio (IPV/OPV) 1997 Completed Universit y of 00:00:00 [place] [facility] HIB 4 Dose Schedule 1997 Completed Unive rsity of 00:00:00 [place] [facility] Pediarix (dtap/hep 1997 Completed Univer sity of B/ipv) 00:00:00 [facility] [place] [facility] Polio (IPV/OPV) 1997 Completed Universit y of 00:00:00 [place] [facility] HIB 4 Dose Schedule 1997 Completed Unive rsity of 00:00:00 [place] [facility] Pediarix (dtap/hep 1997 Completed Univer sity of B/ipv) 00:00:00 [place] [facility] Polio (IPV/OPV) 1997 Completed Universit y of 00:00:00 [place] [facility] HIB 4 Dose Schedule 1997 Completed Unive rsity of 00:00:00 [place] [facility] Pediarix (dtap/hep 1997 Completed Univer sity of B/ipv) 00:00:00 [place] [facility] Polio (IPV/OPV) 1997 Completed Universit y of 00:00:00 [place] [facility] HIB 4 Dose Schedule 1997 Completed Unive rsity of 00:00:00 [place] [facility] Pediarix (dtap/hep 1997 Completed Univer sity of B/ipv) 00:00:00 [place] [facility] Polio (IPV/OPV) 1997 Completed Universit y of 00:00:00 [place] [facility] HIB 4 Dose Schedule 1997 Completed Unive rsity of 00:00:00 [place] [facility] Pediarix (dtap/hep 1997 Completed Univer sity of B/ipv) 00:00:00 [place] [facility] Polio (IPV/OPV) 1997 Completed Universit y of 00:00:00 [place] [facility] HIB 4 Dose Schedule 1997 Completed Unive rsity of 00:00:00 [place] [facility] Pediarix (dtap/hep 1997 Completed Univer sity of B/ipv) 00:00:00 [place] [facility] Polio (IPV/OPV) 1997 Completed Universit y of 00:00:00 [place] [facility] HIB 4 Dose Schedule 1997 Completed Unive rsity of 00:00:00 [place] [facility] Pediarix (dtap/hep 1997 Completed Univer sity of B/ipv) 00:00:00 [place] [facility] Polio (IPV/OPV) 1997 Completed Universit y of 00:00:00 [place] [facility] HIB 4 Dose Schedule 1997 Completed Unive rsity of 00:00:00 [place] [facility] Pediarix (dtap/hep 1997 Completed Univer sity of B/ipv) 00:00:00 [place] [facility] Polio (IPV/OPV) 1997 Completed Universit y of 00:00:00 [place] [facility] HIB 4 Dose Schedule 1997 Completed Unive rsity of 00:00:00 [place] [facility] Pediarix (dtap/hep 1997 Completed Univer sity of B/ipv) 00:00:00 [place] [facility] Polio (IPV/OPV) 1997 Completed Universit y of 00:00:00 [place] [facility] HIB 4 Dose Schedule 1997 Completed Unive rsity of 00:00:00 [place] [facility] Pediarix (dtap/hep 1997 Completed Univer sity of B/ipv) 00:00:00 [place] [facility] Polio (IPV/OPV) 1997 Completed Universit y of 00:00:00 [place] [facility] HIB 4 Dose Schedule 1997 Completed Unive rsity of 00:00:00 [place] [facility] Pediarix (dtap/hep 1997 Completed Univer sity of B/ipv) 00:00:00 [place] [facility] Polio (IPV/OPV) 1997 Completed Universit y of 00:00:00 [place] [facility] HIB 4 Dose Schedule 1997 Completed Unive rsity of 00:00:00 [place] [facility] Pediarix (dtap/hep 1997 Completed Univer sity of B/ipv) 00:00:00 [facility] [place] [facility] Polio (IPV/OPV) 1997 Completed Universit y of 00:00:00 [place] [facility] HIB 4 Dose Schedule 1997 Completed Unive rsity of 00:00:00 [place] [facility] Pediarix (dtap/hep 1997 Completed Univer sity of B/ipv) 00:00:00 [facility] [place] [facility] Polio (IPV/OPV) 1997 Completed Universit y of 00:00:00 [facility] [place] [facility] HIB 4 Dose Schedule 1997 Completed Unive rsity of 00:00:00 [place] [facility] Pediarix (dtap/hep 1997 Completed Univer sity of B/ipv) 00:00:00 [facility] [place] [facility] Polio (IPV/OPV) 1997 Completed Universit y of 00:00:00 [place] [facility] HIB 4 Dose Schedule 1997 Completed Unive rsity of 00:00:00 [place] [facility] Pediarix (dtap/hep 1997 Completed Univer sity of B/ipv) 00:00:00 [facility] [place] [facility] Polio (IPV/OPV) 1997 Completed Universit y of 00:00:00 [facility] Hep B, Adol or Pedi 1997 Completed Unive rsity of Dosage 00:00:00 [facility] Hep B, Adol or Pedi 1997 Completed Unive rsity of Dosage 00:00:00 [facility] Hep B, Adol or Pedi 1997 Completed Unive rsity of Dosage 00:00:00 [facility] Hep B, Adol or Pedi 1997 Completed Unive rsity of Dosage 00:00:00 [facility] Hep B, Adol or Pedi 1997 Completed Unive rsity of Dosage 00:00:00 [facility] Hep B, Adol or Pedi 1997 Completed Unive rsity of Dosage 00:00:00 [facility] Hep B, Adol or Pedi 1997 Completed Unive rsity of Dosage 00:00:00 [facility] Hep B, Adol or Pedi 1997 Completed Unive rsity of Dosage 00:00:00 [facility] Hep B, Adol or Pedi 1997 Completed Unive rsity of Dosage 00:00:00 [facility] Hep B, Adol or Pedi 1997 Completed Unive rsity of Dosage 00:00:00 [facility] Hep B, Adol or Pedi 1997 Completed Unive rsity of Dosage 00:00:00 [facility] Hep B, Adol or Pedi 1997 Completed Unive rsity of Dosage 00:00:00 [facility] Hep B, Adol or Pedi 1997 Completed Unive rsity of Dosage 00:00:00 [facility] Hep B, Adol or Pedi 1997 Completed Unive rsity of Dosage 00:00:00 [facility] HIB 4 Dose Schedule Unknown Completed Unive rsity of [facility] HIB 4 Dose Schedule Unknown Completed Unive rsity of [facility] HEPATITIS A Unknown Completed [facility] Hep B, Adol or Pedi Unknown Completed Unive rsity of Dosage [facility] Meningococcal Unknown Completed [facility] (groups A, C, Y and Branc h W-135) conjugate vaccine (MCV4P) [facility] (dtap/hep Unknown Completed Univer sity of B/ipv) [facility] Pediarix (dtap/hep Unknown Completed Univer sity of B/ipv) [facility] Influenza Virus Unknown Completed Universit y of Vaccine Quad IM, [facility] [place] [facility] dical Preserv and ABX Free Bran ch 6 MO-64 YRS (FLUCELVAX) Influenza Virus Unknown Completed Universit y of Vaccine Quad IM, [facility] dical Preserv and ABX Free Bran ch 6 MO-64 YRS (FLUCELVAX) Polio (IPV/OPV) [facility] (IPV/OPV) [facility] Varicella Unknown Completed University (varivax)(chicken [place] [facility] pox) Branch Vital Signs Vital Name Observation Time Observation Value Comments Source Systolic blood 2022-11-16 15:46:00 135 mm[Hg] Univer sity of [facility] Diastolic blood 2022-11-16 15:46:00 87 mm[facility]Hg[facility] 2022-11-16 15:46:00 98 /min Universi ty [facility] Body temperature 2022-11-16 15:46:00 36.89 [facility] Respiratory rate 2022-11-16 15:46:00 18 /min [facility] Body height 2022-11-16 15:46:00 160 cm Universi ty of [facility] Body weight 2022-11-16 15:46:00 102.059 kg [facility] BMI 2022-11-16 15:46:00 39.86 kg/m2 [facility] Systolic blood 2022-08-30 15:08:00 108 mm[Hg] Univer sity [facility] Diastolic blood 2022-08-30 15:08:00 70 mm[Hg] Unive rsity [facility] Heart rate 2022-08-30 15:08:00 106 /min Universi ty of [facility] Body temperature 2022-08-30 15:08:00 36.67 Ashly [facility] Body height 2022-08-30 15:08:00 160 cm Universi ty of [facility] Body weight 2022-08-30 15:08:00 97.614 kg Universi ty of [facility] BMI 2022-08-30 15:08:00 38.12 kg/m2 Universi ty of [facility] Systolic blood 2022-06-22 14:43:00 128 mm[Hg] Univer sity of pressure [facility] Diastolic blood 2022-06-22 14:43:00 83 mm[Hg] Unive rsity of pressure [facility] Heart rate 2022-06-22 14:43:00 72 /min Universi ty of [facility] Body temperature 2022-06-22 14:43:00 36.78 Ashly Univ ersity of [facility] Body height 2022-06-22 14:43:00 160 cm [facility]i [facility] Body weight 2022-06-22 14:43:00 94.076 kg Universi ty of [facility] BMI 2022-06-22 14:43:00 36.74 kg/m2 Universi ty of [facility] Systolic blood 2022-01-02 16:02:00 118 mm[Hg] Univer sity of pressure [facility] Diastolic blood 2022-01-02 16:02:00 74 mm[Hg] Unive rsity of [facility] Heart rate 2022-01-02 16:02:00 102 /min [facility] Body temperature 2022-01-02 16:02:00 36.72 Ashly Univ ersity of [facility] Body height 2022-01-02 16:02:00 160 cm [facility] Body weight 2022-01-02 16:02:00 100.971 kg Universi ty of [facility] BMI 2022-01-02 16:02:00 39.43 kg/m2 Universi ty of [facility] Procedures Procedure Date / Time Performing Clinician Source Performed [facility] PATIENT FINANCIAL 2022-11-16 15:21:31 Doctor Unassigned, No [facility] POLICY [facility] POCT TEST 2022-11-16 00:00:00 Ruby Mccullough [facility] CONSENT FOR 2022-08-30 06:01:00 Doctor Unassigned, No [facility] POCT TEST 2022-08-30 00:00:00 [facility] ASSIGNMENT OF BENEFITS 2022-06-22 13:52:27 Doctor Unassigned, No [facility] VACCINATIONS - CONSENTS, 2022-02-13 05:01:00 Doctor Unassigned, No [facility] ELIGIBILITY, HISTORY Name Medical [facility] CONSENT FOR 2022-01-02 05:01:00 Doctor Unassigned, No Maxine sosa [facility] CONTRACEPTION [facility] POCT TEST 2022-01-02 00:00:00 Ruby Mccullough [facility] ty of [facility] Encounters Start End Encounter Admission Attending Care Care Encounter Source Date/Time Date/Time Type Type Clinicians Facility Department ID 2021-05-09 Emergency [facility] [id number] Univers 18:08:31 ity of [facility] 2021-05-08 Emergency [facility] [id number] Univers 18:31:57 ity [facility] 2023-01-23 2023-01-23 Outpatient RUBY MONIQUE [facility] [id number] Univers 14:00:00 14:00:00 ity of [facility] 2022-11-16 2022-11-16 Outpatient R RUBY MCCULLOUGH [facility] [id number] Univers 10:30:00 11:48:37 ity of [facility] 2022-11-16 2022-11-16 Office Ruby Mccullough [facility] 1.2.733.127 [id number] Univers 10:30:00 11:48:37 Visit Santos MARQUEZ 350.1.13.10 i ty of [place] [phone] Nv dical NAL [address] [place] [address] 2022-11-16 2022-11-16 Orders Doctor JONES 1.2.840.114 [id number] Univers 00:00:00 00:00:00 Only Unassigned, HARPER 350.1.13.10 [facility] 4.2.7.2.686 Armin as [phone] [address] 2022-11-14 2022-11-14 Telephone Ruby Mccullough [place] 1.2.840.114 [id number] Univers 00:00:00 00:00:00 Santos MARQUEZ 350.1.13.10 i ty of [place] [id number] [address] 2022-08-30 2022-08-30 Outpatient R RUBY MCCULLOUGH [facility] [id number] Univers 09:00:00 09:28:13 ity of [facility] 2022-08-30 2022-08-30 Office Ruby Mccullough [facility] 1.2.649.271 [id number] Univers 09:00:00 09:28:13 Visit Santos MARQUEZ 350.1.13.10 i ty of [place] 4.[place] [phone] [address] 2022-08-30 2022-08-30 Orders Doctor ROBERT 1.2.840.114 [id number] Univers 00:00:00 00:00:00 Only Unassigned, HAR[place] 350.1.13.10 [facility] 4.2.7.2.686 Armin as [phone] [address] 2022-07-05 2022-07-05 Outpatient R GIA [facility] [id number] Univers 16:00:00 16:00:00 ANNABELLA ity [facility] 2022-06-28 2022-06-28 Telephone Mccullough [facility] 1.2.840.114 [id number] Univers 00:00:00 00:00:00 Santos MARQUEZ 350.1.13.10 i ty of [place] 4[place] [id number] [address] 2022-06-22 2022-06-22 Outpatient R RUBY MCCULLOUGH [facility] [id number] Univers 08:00:00 08:55:01 ity of [facility] 2022-06-22 2022-06-22 Office Jamel [facility] 1.2.196.807 [id number] Univers 08:00:00 08:55:01 Visit Santos MARQUEZ 350.1.13.10 i ty of [place] [id number] [address] 2022-06-22 2022-06-22 Orders Doctor JONES 1.2.840.114 [id number] Univers 00:00:00 00:00:00 Only Unassigned, HARPER 350.1.13.10 ity of [place] [facility] 4.2.7.2.686 Armin as [id number] [address] 2022-02-13 2022-02-13 Orders Doctor ROBERT 1.2.840.114 [id number] Univers 00:00:00 00:00:00 Only Unassigned, HARPER 350.1.13.10 ity of [place] [facility] 4.2.7.2.686 Armin as [id number] [address] 2022-01-02 2022-01-02 Outpatient R JAMEL [facility] [id number] Univers 10:45:00 11:23:09 ity of [facility] 2022-01-02 2022-01-02 [facility] 1.2.208.011 [id number] Univers 10:45:00 11:23:09 Visit Santos MARQUEZ 350.1.13.10 i ty of [place] [id number] [address] 2022-01-02 2022-01-02 Outpatient R JAMEL [facility] [id number] Univers 10:45:00 10:45:00 ity of [facility] 2022-01-02 2022-01-02 Orders Doctor ROBERT 1.2.840.114 [id number] Univers 00:00:00 00:00:00 Only Unassigned, HARPER 350.1.13.10 ity of [place] [facility] 4.2.7.2.686 Armin as [phone] [address] 2021-12-26 2021-12-26 Telephone [facility] 1.2.840.114 [id number] Univers 00:00:00 00:00:00 Annabella MARQUEZ 350.1.13.10 i ty [place] [phone] [address] 2021-12-26 2021-12-26 Telephone [facility] 1.2.840.114 [id number] Univers 00:00:00 00:00:00 Annabella MARQUEZ 350.1.13.10 i ty [place] 4[place].2.[place] [phone] Nv dical NAL 134 [facility] 2021-12-24 2021-12-24 Telephone PACO Nielsen 1.2.840.114 [id number] Univers 00:00:00 00:00:00 Annabella JIMMY 350.1.13.10 i ty [place] [phone] Nv dical NAL 044 [facility] 2021-12-23 2021-12-23 Case SIRISHA Nielsen 1.2.856.697 [id number] Univers 00:00:00 00:00:00 Management Annabella PEDIATRIC 350.1.13.10 [place].2.[place] [id number] [place] [address] [address] [facility] 2021-12-22 2021-12-22 Patient Doctor [facility] 1.2.840.114 [id number] Univers 00:00:00 00:00:00 Secure Msg Unassigned, JIMMY 350.1.13.10 ity of [place] [phone] Nv dical NAL 134 [facility] 2021-12-22 2021-12-22 Case PACO Nielsen 1.2.944.743 [id number] Univers 00:00:00 00:00:00 Management Annabella MARQUEZ 350.1.13.10 ity of [place] [phone] Nv dical NAL 134 [facility] 2021-12-21 2021-12-21 Office PACO Nielsen 1.2.824.158 [id number] Univers 15:00:00 15:37:44 Visit Annabella MARQUEZ 350.1.13.10 i ty of [place] 4.2.7.2.686 [place] [phone] Nv dical NAL 134 [facility] 2021-12-21 2021-12-21 Outpatient R GIA [facility] [id number] Univers 15:00:00 15:37:44 [facility] 2021-12-21 2021-12-21 Outpatient R GIA [facility] [id number] Univers 15:00:00 15:00:00 ANNABELLA darnell [facility] 2021-12-21 2021-12-21 Outpatient R GIA [facility] [id number] Univers 15:00:00 15:00:00 ANNABELLA darnell [facility] 2021-10-26 2021-10-26 Outpatient R RUBY MCCULLOUGH [facility] [id number] Univers 13:30:00 13:30:09 ity [facility] 2021-10-26 2021-10-26 Office Jamel [facility] 1.2.154.773 [id number] Univers 13:30:00 13:30:09 Visit Cam [place] 350.1.13.10 i ty of [place] 4.[place].2.[place] [phone] Nv dicted NAL [address] [facility] 2021-10-26 2021-10-26 Orders Doctor ROBERT 1.2.840.114 [id number] Univers 00:00:00 00:00:00 Only Unassigned, HARPER 350.1.13.10 ity of [place] [facility] 4.2.7.2.686 Armin as [phone] [address] 2021-10-06 2021-10-06 [facility] 1.2.840.114 [id number] Univers 00:00:00 00:00:00 [facility] 350.1.13.10 ity of [place] 4.2.7.2.686 Armin as NEGRITO?BLEA [phone] Nv dicted [address] [facility] 2021-05-23 2021-05-23 Outpatient R RUBY MCCULLOUGH [facility] [id number] Univers 15:00:00 15:00:00 ity [facility] 2021-04-18 2021-04-18 Chapin Martin [facility] 1.2.840.114 [id number] Univers 00:00:00 00:00:00 Jarod [facility] 350.1.13.10 ity of [place] 4.2.7.2.686 Armin as Negrito?Blea [phone] [address] Medical Office Building 2021-04-12 2021-04-12 Office Veronica [facility] 1.2.840.114 [id number] Univers 10:45:35 11:35:06 Visit Jarod [facility] 350.1.13.10 ity of [place] 4.2.7.2.686 Armin as Negrito?Blea [id number] [address] Office [facility] 2021-04-12 2021-04-12 Outpatient R JAROD MARTIN [facility] [id number] Univers 11:00:00 11:00:00 JAROD MARTIN ity [facility] 2021-03-28 2021-03-28 Hospital Brenda Johnson .2.840.114 [id number] Univers 08:03:00 20:45:00 Encounter S Harper 350.1.13.10 ity [facility] 4.2.7.2.686 Armin as [phone] [place] [address] [place] 2021-03-28 2021-03-28 Outpatient R BRENDA JOHNSON [facility] [id number] Univers 08:30:00 08:30:00 ity of [facility] 2021-03-25 2021-03-25 Laboratory Only, Adc Test [facility] 1.2.840. 114 [id number] Univers 15:17:12 15:32:12 Only Brenda Johnson 350.1.13.10 ity [facility] 4.2.7.2.686 [place] [phone] [address] 2021-03-25 2021-03-25 Outpatient R BRENDA JOHNSON [facility] [id number] Univers 14:30:00 14:30:00 ity of [facility] 2021-03-16 2021-03-16 Telephone Veronica [facility] 1.2.840.114 [id number] Univers 00:00:00 00:00:00 Jarod [facility] 350.1.13.10 ity of [place] 4.2.7.2.686 Armin as Negrito?Blea [phone] [address] Medical Office Building 2021-03-07 2021-03-07 Office Veronica [facility] 1.2.840.114 [id number] Univers 15:13:45 16:24:38 Visit Jarod [facility] 350.1.13.10 ity of [place] 4.2.7.2.686 Armin as Engrito?Blea [phone] [address] Medical Office Building 2021-03-07 2021-03-07 Outpatient R JAROD MARTIN [facility] [id number] Univers 15:00:00 15:00:00 JAROD MARTIN [facility] 2021-03-02 2021-03-02 Emergency [facility] 1.2.133.777 [id number] Univers 16:45:00 20:11:00 Yoli Brown [place] 350.1.13.10 ity of [place] 4.2.7.2.686 [facility] [id number] [address] 2021-03-02 2021-03-02 Emergency [facility] 1.2.936.702 [id number] Univers 16:45:00 20:11:00 Yoli Marquez 350.1.13.10 ity of [place] 4.2.7.2.686 [facility] [phone] [address] 2021-03-01 2021-03-01 Outpatient R DIANE [facility] [id number] Univers 15:00:00 15:00:00 ED ity [facility] 2021-02-17 2021-02-17 Outpatient R [facility] [id number] Univers 13:40:00 13:40:00 ity [facility] 2021-02-16 2021-02-16 Laboratory Lab, Adc Fam Pob I [facility] 1.2. 840.114 [id number] Univers 19:40:52 20:00:52 Only Kesha Asher [facility] 350.1.13.10 ity of [place] 4.2.7.2.686 Armin as Professio [phone] Nv dic[address] Office Building [facility] 2021-02-16 2021-02-16 Outpatient R LAKESHIA [facility] [id number] Univers 20:00:00 20:00:00 KESHA pacheco o f [facility] 2021-02-08 2021-02-08 Outpatient R [facility] [id number] Univers 14:30:00 14:30:00 ity of [facility] 2021-02-08 2021-02-08 Case [facility] 1.2.149.467 [id number] Univers 00:00:00 00:00:00 Management Annabella Marquez 350.1.13.10 ity of [place] [phone] Nv dical nal [address] [place] [address] 2021-02-04 2021-02-04 Outpatient R [facility] [id number] Univers 10:30:00 10:30:00 ity of [facility] 2021-01-06 2021-01-06 Telephone Rehana Mckeon 1.2.840.114 [id number] Univers 00:00:00 00:00:00 , Kaley Rowell 350.1.13.10 ity of [place].7.2.[place] [id number] [address] 2020-12-13 2020-12-13 Telephone [facility] 1.2.840.114 [id number] Univers 00:00:00 00:00:00 Annabella Marquez 350.1.13.10 i ty of [place] [phone] Nv dical nal [address] [place] [address] 2020-11-17 2020-11-17 Office [facility] 1.2.013.407 [id number] Univers 15:24:29 16:11:59 Visit Annabella Marquez 350.1.13.10 i ty of [place] 4[place].2.[place] [phone] Nv dical nal [address] [place] [address] 2020-11-17 2020-11-17 Outpatient R GIA, [facility] [id number] Univers 15:30:00 15:30:00 ANNABELLA pacheco [facility] 2020-11-16 2020-11-16 Emergency [facility] 1.2.592.609 [id number] Univers 18:36:00 20:44:00 Vikram الع[place]يton 350.1.13.10 i ty of [place] 4[place]2.7.2.[place] [phone] [address] 2020-11-08 2020-11-08 Case [facility] 1.2.357.600 [id number] Univers 00:00:00 00:00:00 Management Annabella Jimmy 350.1.13.10 ity of [place] 4[place] [phone] Nv dical nal [address] [place] [address] 2020-11-04 2020-11-04 Case [facility] 1.2.379.445 [id number] Univers 00:00:00 00:00:00 Management Annabella ال[place] 350.1.13.10 ity of [place] 4[place] [phone] Nv dic[address] 2020-11-03 2020-11-03 Office [facility] 1.2.496.641 [id number] Univers 13:56:31 14:26:31 Visit Annabella Marquez 350.1.13.10 i ty of [place] 4[place]2.[place].2.[place] [phone] Nv dic[address] 2020-11-03 2020-11-03 Outpatient R GIA [facility] [id number] Univers 14:00:00 14:00:00 ANNABELLA pacheco [facility] 2020-07-20 2020-07-20 Emergency [facility] 1.2.840.114 [id number] Univers 12:55:00 16:20:00 Jaketorrey Jimmy 350.1.13.10 i ty of [place] 4.2.7.2.[place] [phone] [place] [address] [address] 2020-07-20 2020-07-20 Emergency X MIGUEL, [facility] ERT [id number] Univers 12:55:00 16:20:00 NGUYỄN [facility] 2020-06-02 2020-06-02 [facility] [id number] Univers 14:45:00 14:45:00 ANNABELLA [facility] 2020-05-11 2020-05-11 [facility] [id number] Univers 09:00:00 09:00:00 ANNABELLA [facility] 2020-05-08 2020-05-08 Telephone Green, [facility] 1.2.434.190 [id number] 00:00:00 00:00:00 Josef[facility] Health 350.1.13.10 [place] 4.2.7.2.686 Professio [id number] [address] 2020-05-08 2020-05-08 Telephone [facility] 1.2.901.214 [id number] 00:00:00 00:00:00 Josefina [place] 350.1.13.10 [place] 4.2.7.2.686 Professio [phone] [address] 2020-05-08 2020-05-08 Telephone [place], [facility] 1.2.091.475 [id number] Univers 00:00:00 00:00:00 Josefina Health 350.1.13.10 it y of [place] 4.2.7.2.686 Armin as Professio [phone] [address] 2020-05-08 2020-05-08 Telephone [place], [facility] 1.2.593.951 [id number] Univers 00:00:00 00:00:00 Josefina [place] 350.1.13.10 i ty of [place] 4[place] [phone] [address] 2020-05-04 2020-05-04 Outpatient R [facility] [id number] Univers 19:20:00 19:20:00 [facility] 2020-05-04 2020-05-04 Urgent Provider, [facility] 1.2.279.156 [id number] 17:45:31 18:05:31 Care [facility] 350.1.13.10 Care [place] 4.2.7.2.686 Professio [id number] [address] 2020-05-04 2020-05-04 Urgent Provider, [facility] 1.2.840.114 [id number] Univers 17:45:31 18:05:31 Care Green, [facility] 350.1.13.10 ity of [place] 4.2.7.2.686 Armin as Professio [phone] Nv dical [address] 2020-04-19 2020-04-19 Outpatient R GIA [facility] [id number] Univers 14:00:00 14:00:00 [facility] 2020-04-09 2020-04-09 Outpatient R GIA [facility] [id number] Univers 10:00:00 10:00:00 [facility] 2020-03-12 2020-03-12 Outpatient R JAMEL [facility] [id number] Univers 14:00:00 14:00:00 [facility] 2020-03-05 2020-03-05 Office Jamel [facility] 1.2.616.458 [id number] 10:38:44 11:39:54 Visit Cam [place] 350.1.13.10 [place] 4.2.7.2.686 Professio [phone] [address] 2020-03-05 2020-03-05 Office [facility] 1.2.433.556 [id number] Univers 10:38:44 11:39:54 Visit Cam [place] 350.1.13.10 i ty of [place] 4[place] [phone] Nv dical [address] 2020-03-05 2020-03-05 Outpatient R MCCULLOUGH [facility] [id number] Univers 10:45:00 10:45:00 [facility] 2020-03-05 2020-03-05 Outpatient R JAMEL [facility] [id number] Univers 10:00:00 10:00:00 ity of [facility] 2020-02-27 2020-02-27 Office [facility] 1.2.742.157 [id number] Univers 10:58:54 11:48:44 Visit Annabella Jimmy 350.1.13.10 i ty of [place] 4.2.7.2.[place] [facility] [phone] Nv dical [address] 2020-02-27 2020-02-27 [facility] [id number] Univers 10:45:00 10:45:00 ANNABELLA pacheco [facility] 2020-02-27 2020-02-27 Orders Doctor ROBERT 1.2.840.114 [id number] Univers 00:00:00 00:00:00 Only Unassigned, [place] 350.1.13.10 ity of [place] [facility] 4.2.7.2.686 Armin as [phone] [address] 2020-01-09 2020-01-09 Emergency [facility] 1.2.008.551 [id number] Univers 18:56:10 20:39:00 Taylor Shaw Jimmy 350.1.13.10 i ty of [place] [phone] [address] 2020-01-09 2020-01-09 Emergency X [facility] ERT [id number] Univers 18:56:10 18:56:10 TAYLOR [facility] 2019-08-22 2019-08-22 Emergency Jefferson Lynch [facility] 1.2.840.114 [id number] Univers 13:59:27 15:30:00 Kendra Marquez 350.1.13.10 i ty of [place] 4[place] [phone] [address] Results Test Description Test Time Test Comments Results Result Comments Source POCT TEST 2022-11-16 18:39:00 Test Item Value Reference Range Interpretation Comme nts POCT PREG (test code = 1605) Negative On board controls acceptable with C Line (test code = 3574) Yes POCT PREG LOT # (test code = 3575) POCT PREG TEST DATE (test code = 3576) [facility] [id number] 18:39:00 Test Item Value Reference Range Interpretation Comments POCT PREG (test code = 1605) Negative On board controls acceptable with C Yes Line (test code = 3574) POCT PREG LOT # (test code = 3575) POCT PREG TEST DATE (test code = 3576) [facility] [id number] 15:15:00 Test Item Value Reference Range Interpretation Comments POCT PREG (test code = 1605) Negative On board controls acceptable with C Yes Line (test code = 3574) POCT PREG LOT # (test code = 3575) POCT PREG TEST DATE (test code = 3576) [facility] [id number] 15:15:00 Test Item Value Reference Range Interpretation Comments POCT PREG (test code = 1605) Negative On board controls acceptable with C Yes Line (test code = 3574) POCT PREG LOT # (test code = 3575) POCT PREG TEST DATE (test code = 3576) [facility] [id number] 16:05:00 Test Item Value Reference Range Interpretation Comments POCT PREG (test code = 1605) Negative On board controls acceptable with C Yes Line (test code = 3574) POCT PREG LOT # (test code = 3575) POCT PREG TEST DATE (test code = 3576) [facility]
[2023-05-20] MEDS ORDERED: METHYLPREDNISOLONE 125 MG INJ ONE (06:50)
[2023-05-20] MEDS ORDERED: ALBUTEROL 2.5 MG/3 ML NEB SOL ONE (06:50)
[2023-05-20] MEDS ORDERED: IPRATROPIUM BROM 0.5MG/2.5ML ONE (06:51)
[2023-05-20 06:56] LABS: Absolute Lymphocytes (CBC) 1.9 K/uL (0.7-4.9); Hematocrit 40.2 % (36.0-45.0); Lymphocytes % 24.8 % (15.3-44.8); MCV 84.3 fL (80-100); MPV 6.5 fL (7.6-11.3); Platelets 319 thou/uL (152-406); RBC Red Blood Cell Count 4.76 M/uL (3.86-4.86)
[2023-05-20 07:12] LABS: Potassium 3.9 mEq/L (3.5-5.1); Troponin High Sensitivity 4.7 pg/mL (<58.9)
--- NOTE | 2023-05-20 07:46 | EDPHYS ---
Physician Documentation [facility] Name: Nette Quiles Age: 27 yrs Sex: Female : 1995 Arrival Date: 05/20/2023 Time: 06:11 Bed 17 Private MD: ED Physician Fabio Drake HPI: 05/20 07:50 This 27 yrs old Female presents to ER via Ambulatory with complaints of Anxiety, Chest ms3 Tightness. 07:50 27-year-old female with past medical history of bronchitis, depression, seizures, ms3 anxiety presents to the emergency department for chest tightness shortness of breath. Patient states he was seen yesterday in the emergency department for similar symptoms. Patient denies cough, nausea, vomiting. Patient states the pain is a 5/10 described as pressure. Historical: - Allergies: 06:40 No Known Allergies; pf1 - PMHx: 06:40 Bronchitis; Depression; Seizure; Anxiety; pf1 - PSHx: 06:40 section; pf1 - Immunization history:: Adult Immunizations not up to date, Client reports having NOT received the Covid vaccine. Last tetanus immunization: > 10 years ago Flu vaccine is not up to date. - Social history:: Smoking status: Patient reports the use of cigarette tobacco products, smokes one pack cigarettes per day. Patient/guardian denies using alcohol, street drugs. ROS: 07:50 Constitutional: Negative for fever, and chills. Neck: Negative for injury, pain, and ms3 swelling, Respiratory: Negative for shortness of breath, cough, wheezing, and pleuritic chest pain, Abdomen/GI: Negative for abdominal pain, nausea, vomiting, diarrhea, and constipation, MS/Extremity: Negative for injury and deformity, Skin: Negative for injury, rash, and discoloration, 07:50 Cardiovascular: Positive for chest pain, 07:50 All other systems are negative, Exam: 07:50 Constitutional: This is a well developed, well nourished patient who is awake, alert, ms3 and in no acute distress. Head/Face: Normocephalic, atraumatic. Neck: Trachea midline, no cervical lymphadenopathy. Supple, full range of motion without nuchal rigidity, or vertebral point tenderness. No Meningismus. Chest/axilla: Normal chest wall appearance and motion. Nontender with no deformity. Cardiovascular: Regular rate and rhythm with a normal S1 and S2. No gallops, murmurs, or rubs. Normal PMI, no JVD. No pulse deficits. Abdomen/GI: Soft, non-tender, with normal bowel sounds. No distension or tympany. No guarding or rebound. No evidence of tenderness throughout. Skin: Warm, dry with normal turgor. Normal color with no rashes, no lesions, and no evidence of cellulitis. MS/ Extremity: Pulses equal, no cyanosis. Neurovascular intact. Full, normal range of motion. 07:50 Respiratory: mild respiratory distress is noted, Respirations: no acute changes, Breath sounds: wheezing: expiratory that is mild, is heard diffusely, 08:30 ECG was reviewed by the Attending Physician. ms3 Vital Signs: 06:17 BP 117 / 71; Pulse 104; Resp 16; Temp 98.6; Pulse Ox 97% on R/A; Weight 97.52 kg; pf1 Height 5 ft. 4 in. ; Pain 5/10; 07:00 BP 120 / 83; Pulse 98; Pulse Ox 96% ; tm6 07:45 BP 127 / 72; Pulse 93; Pulse Ox 95% ; tm6 06:17 Body Mass Index 36.90 (97.52 kg, 162.56 cm) pf1 06:17 Pain Scale: Adult pf1 MDM: 06:52 Patient medically screened. ms3 07:50 Differential diagnosis: abnormal EKG, chest wall pain, Asthma. HEART Score: History: ms3 Slightly Suspicious (0), ECG: Normal (0), Age: < or = 45 years (0), Risk Factors: No Risk Factors Known (0), Troponin: < or = 1 x Normal Limit (0), Total Score = 0. Data reviewed: vital signs, nurses notes, lab test result(s), EKG, radiologic studies, and as a result, I will discharge patient. I considered the following discharge prescriptions or medication management in the emergency department Medications were administered in the Emergency Department. See MAR. Independent interpretation of the following test(s) in the Emergency Department EKG: See my EKG interpretation above. Independent interpretation of the following test(s) in the Emergency Department X-Ray: My interpretation is CXR image reviewed by me does not show PNA. Counseling: I had a detailed discussion with the patient and/or guardian regarding the historical points, exam findings, and any diagnostic results supporting the discharge/admit diagnosis, lab results, radiology results, the need for outpatient follow up, to return to the emergency department if symptoms worsen or persist or if there are any questions or concerns that arise at home. Special discussion: Based on the patient's history, exam, and Dx evaluation, there is no indication for emergent intervention or inpatient Tx. It is understood by the patient/guardian that if the Sx's persist or worsen they need to return immediately for re-evaluation. ED course: Discussed labs, EKG, my interpretation chest x-ray with patient and . Patient to follow-up with primary care physician 2 to 3 days. Patient understands agrees with plan. All questions were answered. Return precautions discussed include worsening symptoms, or any other concerns. 07:59 Historians other than the Patient: Spouse/Significant Other: . ms3 05/20 06:34 Order name: Basic Metabolic Panel; Complete Time: 07:31 ms3 05/20 06:34 Order name: CBC with Diff; Complete Time: 07:31 ms3 05/20 06:34 Order name: Troponin HS; Complete Time: 07:31 ms3 05/20 06:34 Order name: XRAY Chest (1 view); Complete Time: 07:57 ms3 05/20 06:34 Order name: EKG; Complete Time: 06:35 ms3 05/20 06:34 Order name: Cardiac monitoring; Complete Time: 06:47 ms3 05/20 06:34 Order name: EKG - Nurse/Tech; Complete Time: 06:35 ms3 05/20 06:34 Order name: IV Saline Lock; Complete Time: 06:47 ms3 05/20 06:34 Order name: Labs collected and sent; Complete Time: 06:47 ms3 05/20 06:34 Order name: O2 Per Protocol; Complete Time: 06:47 ms3 05/20 06:34 Order name: O2 Sat Monitoring; Complete Time: 06:47 ms3 EC:30 Rate is 97 beats/min. Rhythm is regular. QRS [place] is Normal. [place] interval is normal. QRS ms3 interval is normal. QT interval is normal. Clinical impression: Normal ECG. Interpreted by me. Reviewed by me. Administered Medications: 06:47 Drug: DuoNeb Nebulize (2.5 mg - 0.5 mg) 3 ml Nebulizer once Route: Nebulizer; bp 06:47 Drug: MethylPrednisoLONE IVP 125 mg IVP once Route: IVP; Site: right forearm; bp Disposition Summary: 05/20/23 07:46 Discharge Ordered Notes: Location: Home ms3 Condition: Stable ms3 Diagnosis - Wheezing ms3 - Chest pain, unspecified ms3 Followup: ms3 - With: Manpreet Luis DO - When: 2 - 3 days - Reason: Recheck today's complaints Discharge Instructions: - Discharge Summary Sheet ms3 - Nonspecific Chest Pain, Adult ms3 Forms: - Medication Reconciliation Form ms3 - Thank You Letter ms3 - Antibiotic Education ms3 - Prescription Opioid Use ms3 - Patient Portal Instructions ms3 - Leadership Thank You Letter ms3 Prescriptions: - Ventolin HFA 90 mcg/actuation Inhalation HFA Aerosol Inhaler - inhale 1 puff INHALATION route every 2-4 hours as needed for bronchospasm; ms3 administer via ventilator; 1 unit; Refills: 0, Product Selection Permitted - Prednisone 20 mg Oral Tablet - take 2 tablets ORAL route once daily for 5 days; 10 tablet; Refills: 0, Product ms3 Selection Permitted Signatures: Dispatcher [employer] Tiago Jarrett, RN RN Fabio Mae DO DO ms3 Yoli eHster, RN RN pf1
--- NOTE | 2023-05-20 07:46 | ER ---
Nurse's Notes [facility] Name: Nette Quiles Age: 27 yrs Sex: Female : 1995 Arrival Date: 05/20/2023 Time: 06:11 Bed 17 Private MD: Diagnosis: Wheezing;Chest pain, unspecified Presentation: 05/20 06:17 Chief complaint: Patient states: anxiety with bilateral chest pressure pain of 5 pf1 sensation,onset 0430. Patient stated was seen here yesterday for the same symptoms. Patient stated was prescribed hydroxyzine for her anxiety yesterday. Patient stated took 0.5 tablet of hydroxyzine at 0430 this AM. 06:17 Coronavirus screen: Vaccine status: Patient reports being unvaccinated. Client denies pf1 travel out of the [place] in the last 14 days. At this time, the client does not indicate any symptoms associated with coronavirus-19. Ebola Screen: Patient negative for fever greater than or equal to 101.5 degrees Fahrenheit, and additional compatible Ebola Virus Disease symptoms. Initial Sepsis Screen: Does the patient meet any 2 criteria? HR > 90 bpm. No. Patient's initial sepsis screen is negative. Does the patient have a suspected source of infection? No. Patient's initial sepsis screen is negative. Risk Assessment: Do you want to hurt yourself or someone else? Patient reports no desire to harm self or others. 06:17 Method Of Arrival: Ambulatory pf1 06:17 Acuity: ALEK 3 pf1 08:08 Onset of symptoms is unknown. tm6 Triage Assessment: 06:48 General: Appears in no apparent distress. comfortable, Behavior is cooperative, bp appropriate for age, anxious. Pain: Complains of pain in chest. Historical: - Allergies: 06:40 No Known Allergies; pf1 - PMHx: 06:40 Bronchitis; Depression; Seizure; Anxiety; pf1 - PSHx: 06:40 section; pf1 - Immunization history:: Adult Immunizations not up to date, Client reports having NOT received the Covid vaccine. Last tetanus immunization: > 10 years ago Flu vaccine is not up to date. - Social history:: Smoking status: Patient reports the use of cigarette tobacco products, smokes one pack cigarettes per day. Patient/guardian denies using alcohol, street drugs. Screenin:17 [facility] ED Fall Risk Assessment (Adult) History of falling in the last 3 months, pf1 including since admission No falls in past 3 months (0 pts) Confusion or Disorientation No (0 pts) Intoxicated or Sedated No (0 pts) Impaired Gait No (0 pts) Mobility Assist Device Used No (0 pt) Altered Elimination No (0 pt) Score/Fall Risk Level 0 - 2 = Low Risk Oriented to surroundings, Maintained a safe environment, Educated pt \T\ family on fall prevention, incl call for assistance when getting out of bed, Assessed \T\ reinforced patient's understanding of fall precautions, Provided non-skid footwear, Hourly rounding (assess needs \T\ fall precautionary measures) done, Used ambulatory aids as needed (educated on \T\ assisted with), Used gait belt as appropriate. 06:17 Abuse screen: Denies threats or abuse. Nutritional screening: No deficits noted. pf1 Tuberculosis screening: No symptoms or risk factors identified. Assessment: 06:17 General: Appears in no apparent distress. comfortable, obese, well groomed, well pf1 developed, Behavior is calm, cooperative, appropriate for age, quiet. Pain: Complains of pain in chest Pain currently is 5 out of 10 on a pain scale. 06:17 Neuro: No deficits noted. Level of Consciousness is awake, alert, obeys commands, pf1 Oriented to person, place, time, situation. Cardiovascular: No deficits noted. Capillary refill < 3 seconds Patient's skin is warm and dry. Cardiovascular: Cardiovascular: Reports chest pain. Respiratory: Airway is patent Respiratory effort is even, unlabored, Respiratory pattern is regular, symmetrical, Breath sounds with wheezes bilaterally. GI: No deficits noted. No signs and/or symptoms were reported involving the gastrointestinal system. : No deficits noted. No signs and/or symptoms were reported regarding the genitourinary system. 07:45 Reassessment: Patient appears in no apparent distress at this time. Pain: Denies pain. tm6 08:08 Pain: Pain does not radiate. Pain began unknown. tm6 Vital Signs: 06:17 BP 117 / 71; Pulse 104; Resp 16; Temp 98.6; Pulse Ox 97% on R/A; Weight 97.52 kg; pf1 Height 5 ft. 4 in. ; Pain 5/10; 07:00 BP 120 / 83; Pulse 98; Pulse Ox 96% ; tm6 07:45 BP 127 / 72; Pulse 93; Pulse Ox 95% ; tm6 06:17 Body Mass Index 36.90 (97.52 kg, 162.56 cm) pf1 06:17 Pain Scale: Adult pf1 ED Course: 06:14 Patient arrived in ED. gm2 06:20 Patient has correct armband on for positive identification. Bed in low position. Call pf1 light in reach. 06:23 Fabio Drake DO is Attending Physician. ms3 06:32 Tiago Alcantara, RN is Primary Nurse. bp 06:40 Triage completed. pf1 06:48 Inserted saline lock: 22 gauge in right forearm, using aseptic technique. Blood bp collected. 06:57 XRAY Chest (1 view) In Process Unspecified. EDMS 07:45 Manpreet Luis DO is Referral Physician. ms3 07:45 Provided Education on: on discharge medications. Client placed on continuous cardiac tm6 and pulse oximetry monitoring. NIBP monitoring applied. 07:45 No provider procedures requiring assistance completed. IV discontinued, intact, tm6 bleeding controlled, No redness/swelling at site. Patient maintains SpO2 saturation greater than 95% on room air. 08:09 Arm band placed on right wrist. EKG completed in triage. Results shown to MD. tm6 Administered Medications: 06:47 Drug: DuoNeb Nebulize (2.5 mg - 0.5 mg) 3 ml Nebulizer once Route: Nebulizer; bp 06:47 Drug: MethylPrednisoLONE IVP 125 mg IVP once Route: IVP; Site: right forearm; bp Medication: 07:45 VIS not applicable for this client. tm6 Outcome: 07:45 Discharged to home ambulatory, with family, tm6 07:45 Condition: stable 07:45 Discharge instructions given to patient, family, Instructed on discharge instructions, follow up and referral plans. medication usage, Demonstrated understanding of instructions, follow-up care, medications, Prescriptions given X 2, 07:46 Discharge ordered by MD. ms3 08:09 Patient left the ED. tm6 Signatures: Dispatcher [employer] EDMS Tiago Alcantara, RN RN bp Fabio Drake DO DO ms3 Yoli Hester RN RN pf1 Marla Jean gm2 Ta Flores RN RN tm6
--- NOTE | 2023-05-20 07:56 | RAD REPORT ---
EXAM DESCRIPTION: Francia Single View05/20/2023 6:55 am CLINICAL HISTORY: Chest pain COMPARISON: May 19, 2023 FINDINGS: The lungs appear clear of acute infiltrate. The heart is normal size IMPRESSION: No acute abnormalities displayed
[2023-05-20 08:21] VITALS: TEMP 98.6
[2023-05-20 08:41] VITALS: BP 127/72; O2SAT 95
--- NOTE | 2023-05-23 17:34 | EKG ---
Test Date: 2023-05-20 Test Time: 06:33:35 Tour Production Supervisor: MARCIE MEASUREMENT RESULTS: Intervals: Rate: 97 CT: 120 QRSD: 78 QT: 334 QTc: 424 [place]: P: 71 CT: 120 QRS: 76 T: 56 INTERPRETIVE STATEMENTS: Normal sinus rhythm Normal ECG Compared to ECG 05/19/2023 01:36:32 Sinus tachycardia no longer present Electronically Signed On 05-23-23 17:25:39 WASTE REDUCTION COORDINATOR by Oz Dye
== END 2023-05-20 08:09 | disposition home or self-care (01) ==
LOC: ER 06:11
DX: R06.2 Wheezing (principal); R07.9 Chest pain, unspecified
CPT/HCPCS: 36415; 71045; 80048; 84484; 85025; 93005; 94640; 96374; 99285; J2930; J7613; J7644

== ENCOUNTER 2024-09-29 20:29 | Emergency (ER) | payer SELFPAY ==
--- OUTSIDE RECORDS SUMMARY | 2024-09-29 20:35 | XMS REPORT | Continuity of Care Document ---
Author Name Unknown Address [address] [facility] [place] [address] [facility] [place] Address [address] [facility] [place] [address] Care Team Providers Care Bale Coverer Name Role Phone TIM LEYVA Primary Care Physician Unavailab ISABELLE Aguilar Attending Clinician Unavailable ISABELLE PATEL Attending Clinician Unavailable Jefferson WELLS Attending Clinician Unavailable Jefferson WELLS Attending Clinician Unavailable Jefferson Farley Attending Clinician [phone] MERLYN VIVAR Attending Clinician Unav ailable Tino Lucia DO Attending Clinician [phone] TINO LUCIA Attending Clinician Unavailable TINO LUCIA Attending Clinician Unavailable YIFAN HUERTA Attending Clinician Unavail able AMA MONTGOMERY Attending Clinician Unavailable Jasmyne Piña MA Attending Clinician Unavaila KIERRA Royal Attending Clinician Unavailable Kierra Gross MD Attending Clinician [phone] RUBY MCCULLOUGH Attending Clinician Unavailable YOLI AVILA Attending Clinician Unavailable Yoli Avila NP Attending Clinician [phone] ESTEFANY GRAYSON Attending Clinician Unavaila Estefany Garcia Attending Clinician [phone] CHRISTA NIELSEN Attending Clinician Unavailable Ruby Mccullough MD Attending Clinician [phone] Doctor Unassigned, [place] Attending Clinician U avni Nielsen PA-C, Christa Attending Clinician [phone] Jarod Martin MD Attending Clinician [phone] JAROD MARTIN Attending Clinician Unavail able JAROD MARTIN Attending Clinician Unavail able Brenda Johnson MD Attending Clinician [phone] BRENDA JOHNSON Attending Clinician Unavailable Only, Adc Test Attending Clinician Unavailable ED CONTRERAS Attending Clinician Unavailable Lab, Adc Fam Pob I Attending Clinician Unavailab adelita Asher SUPERVISOR DOG LICENSE OFFICER, Laurie Attending Clinician [phone] LAURIE ASHER Attending Clinician Unavailmaggi Kimball RN, Kaley Cooney Attending Clinician UnaVikram Peck MD Attending Clinician [phone] Ebjame SUPERVISOR DOG LICENSE OFFICER, Beni Attending Clinician [phone] EBBENI ZABALA Attending Clinician Unavailable Green SUPERVISOR DOG LICENSE OFFICER, Josefina Attending Clinician [phone] Provider, [facility] Attending Clinician Un available LaneTaylor Chen Attending Clinician [phone] Attending Clinician Unavailable ISABELLE PATEL Admitting Clinician Unavailable Jefferson WELLS Admitting Clinician Unavailable TINO LUCIA Admitting Clinician Unavailable KIERRA GROSS Admitting Clinician Unavailable YOLI AVILA Admitting Clinician Unavailable ESTEFANY GRAYSON Admitting Clinician UnavailBrenda Juarez MD Admitting Clinician [phone] BENI RIVERA Admitting Clinician Unavailable Payers Payer Name Policy Type Policy Number Effective Date Expirati on Date Source [facility] [id number] 2020 00:00:00 [facility] [place] [facility] [id number] 2023 00:00:00 MEDICAID PENDING PENDING 2023 00:00:00 Problems Condition Name Condition Details Condition Category Status Onset Date Resolution Date Last Treatment Date Treating Clinician Comments Source Seizure Seizure Disease Active 03-28 00:00: 00 [facility] Spells of decreased attentiven ess Spells of decreased attentiven ess Disease Active 2021-0 9-20 00:00: 00 [facility] Obesity (BMI 30-39.9) Obesity (BMI 30-39.9) Disease Active 4-28 00:00: 00 [facility] Nexplanon in place Nexplanon in place Disease Active 8 00:00: 00 [facility] Allergies, Adverse Reactions, Alerts Allergy Name Allergy Type Status Severity Reaction(s) Onset Date Inactive Date Treating Clinician Comments Source CITRIC ACID DRUG INGREDI Active Other-Cmnt 01-08 00:00: 00 [facility] Citric Acid Propensi ty to adverse reaction s Active Other - See comments 01-08 00:00: 00 Headaches [facility] Social History Social Habit Start Date Stop Date Quantity Comments Source [facility] use Cigarette Smoker [facility] History of Social function 2024-08-01 00:00:00 2024-08-01 00:00:00 [facility] Alcoholic beverage intake 2024-08-01 00:00:00 2024-08-01 00:00:00 Ex-drinker (finding) [facility] Alcohol intake 2023-10-10 00:00:00 2023-10-10 00:00:00 Ex-drinker (finding) [facility] Exposure to SARS-CoV-2 (event) 2022-11-06 00:00:00 2022-11-16 10:19:00 Not sure [facility] Cigarettes smoked current (pack per day) - Reported 2021-03-07 00:00:00 2021-03-07 00:00:00 [facility] Tobacco use and exposure 2021-03-07 00:00:00 2021-03-07 00:00:00 Smokeless tobacco non-user [facility] Sex assigned at 1995 00:00:00 1995 00:00:00 [facility] Smoking Status Start Date Stop Date Source Smokes tobacco daily 2021-03-07 00:00:00 [facility] Medications Ordered Medication Name Filled Medication Name Start Date Stop Date Current Medication? Ordering Clinician Indication Dosage Frequency Signature (SIG) Comments Components Source LORazepam (ATIVAN) injection 0.5 mg 08-01 17:45: 00 08-01 18:12 :00 No .5mg 0.5 mg, Slow IV Push, ONCE, 1 dose, On Sun08/01/24 at 1145, STAT [facility] iopamidol (ISOVUE 370-500 mL) injection 85 mL 2023-07 02:20: 00 07-06 02:21 :00 No [id number] 85mL 85 mL, Intravenou s, ONCE, 1 dose, On 07/05/24 at 2045, Routine [facility] pantoprazol e 40 mg EC tablet 2023-07 00:00: 00 Yes [id number] 40mg Take 1 tablet by mouth in the morning. [facility] dicyclomine 20 mg tablet 2023-07 00:00: 00 Yes [id number] 20mg Take 1 tablet by mouth 4 (four) times daily as needed for Abdominal pain. [facility] sucralfate 1 gram tablet 2023-07 00:00: 00 Yes [id number] 1g Take 1 tablet by mouth before meals and at bedtime. [facility] cephALEXin 500 mg capsule 2023-07 00:00: 00 07-11 05:59 :00 Yes [id number] 500mg Take 1 capsule by mouth 4 (four) times daily for 5 days. [facility] azithromyci n (ZITHROMAX Z-SB) 250 mg tablet 03-19 00:00: 00 Yes [id number] 250mg Take 1 tablet by mouth SEE-INSTRU CTIONS. Take 500 mg day 1, then 250 mg days 2 to 5. [facility] azithromyci n (ZITHROMAX) tablet 500 mg 03-18 16:52: 00 03-18 16:59 :00 No 500mg 500 mg, Oral, ONCE, 1 dose, On Sun03/18/24 at 1200, FREDI, Reason for Anti-Infec tive: Documented Infection, Documented Infection Site: Respirator y, Duration of Therapy: Once (ED) [facility] ondansetron (ZOFRAN-ODT ) disintegrat ing tablet 4 mg 03-18 16:15: 00 03-18 15:29 :00 No 4mg 4 mg, Oral, ONCE, 1 dose, On Sun03/18/24 at 1115, Routine [facility] ipratropium -albuteroL (DUONEB) 0.5 mg-3 mg(2.5 mg base)/3 mL nebulizer solution 3 mL 03-18 15:30: 00 03-18 14:29 :00 No 3mL 3 mL, Inhalation , ONCE, 1 dose, On Sun03/18/24 at 1030, Routine [facility] albuterol 90 mcg/actuati on inhaler 03-18 11:53: 17 Yes 2{puff} Inhale 2 Puffs every 6 (six) hours as needed for Wheezing or Shortness of Breath. [facility] albuterol 90 mcg/actuati on inhaler 03-18 00:00: 00 Yes [id number] 2{puff} Inhale 2 Puffs every 4 (four) hours as needed for Wheezing or Shortness of Breath. [facility] ALPRAZolam (XANAX) tablet 1 mg 10-09 03:45: 00 10-09 03:44 :00 No 1mg 1 mg, Oral, ONCE, 1 dose, On Sun10/09/23 at 2245, FREDI [facility] ipratropium -albuteroL (DUONEB) 0.5 mg-3 mg(2.5 mg base)/3 mL nebulizer solution 3 mL 10-09 03:15: 00 10-09 02:48 :00 No 3mL 3 mL, Inhalation , ONCE NOW, 1 dose, On Sun10/09/23 at 2215, Routine [facility] albuterol 90 mcg/actuati on inhaler 10-08 00:00: 00 Yes [id number] 2{puff} Inhale 2 Puffs every 4 (four) hours as needed for Wheezing or Shortness of Breath. [facility] ipratropium -albuteroL (DUONEB) 0.5 mg-3 mg(2.5 mg base)/3 mL nebulizer solution 6 mL 08-13 06:00: 00 08-13 05:09 :00 No 6mL 6 mL, Inhalation , ONCE NOW, 1 dose, On Sun08/13/23 at 0000, Routine [facility] metoclopram arturo HCl (REGLAN) tablet 5 mg 08-13 05:45: 00 08-13 04:56 :00 No 5mg 5 mg, Oral, ONCE, 1 dose, On 08/12/23 at 2345, Routine [facility] dexamethaso ne (DECADRON PHOSPHATE) injection 10 mg 08-13 05:00: 00 08-13 04:01 :00 No 10mg 10 mg, Intramuscu lar, ONCE, 1 dose, On 08/12/23 at 2300, Routine [facility] ipratropium -albuteroL (DUONEB) 0.5 mg-3 mg(2.5 mg base)/3 mL nebulizer solution 3 mL 08-13 04:45: 00 08-13 03:55 :00 No 3mL 3 mL, Inhalation , ONCE NOW, 1 dose, On 08/12/23 at 2245, Routine [facility] metroNIDAZO LE (FLAGYL) 500 mg tablet 08-12 23:46: 06 Yes 500mg Take 1 tablet by mouth every 12 (twelve) hours. [facility] levoFLOXaci n 750 mg tablet 08-12 23:46: 06 Yes 750mg Take 1 tablet by mouth every 24 (twenty-fo ur) hours. [facility] albuterol 90 mcg/actuati on inhaler 08-12 23:46: 06 Yes 2{puff} Inhale 2 Puffs every 6 (six) hours as needed for Wheezing or Shortness of Breath. [facility] benzonatate 100 mg capsule 2024-0 2-04 00:00: 00 Yes [id number] 200mg Take 2 capsules by mouth 3 (three) times daily as needed for Cough. [facility] predniSONE 20 mg tablet 2- 00:00: 00 08-18 05:59 :00 No [id number] 20mg Take 1 tablet by mouth in the morning and 1 tablet in the evening. Do all this for 5 days. [facility] LORazepam (ATIVAN) injection 1 mg 2022-07 03:15: 00 05-21 03:13 :00 No 1mg 1 mg, Slow IV Push, ONCE, 1 dose, On Sun05/20/23 at 2115, STAT [facility] ondansetron (ZOFRAN (PF)) injection 4 mg 2022-07 03:00: 00 05-21 03:13 :00 No 4mg 4 mg, Slow IV Push, ONCE, 1 dose, On Sun05/20/23 at 2100, FREDI [facility] NaCl 0.9% (NS) bolus infusion 1,000 mL 2022-07 02:15: 00 05-21 04:12 :00 No 1000mL at 999 mL/hr, 1,000 mL, IV Infusion, ONCE, 1 dose, On 05/20/23 at 2015, FREDI [facility] ondansetron 4 mg disintegrat ing tablet 2022-07 00:00: 00 Yes [id number] 4mg Take 1 tablet by mouth every 8 (eight) hours as needed for Nausea and Vomiting (N/V). [facility] etonogestre L (NEXPLANON) implant 68 mg 08-30 15:45: 00 08-30 15:28 :00 No [id number] 68mg [facility] etonogestre L (NEXPLANON) implant 68 mg 01-02 18:45: 00 01-02 17:40 :00 No [id number] 68mg [facility] metroNIDAZO LE 500 mg tablet 12-23 00:00: 00 06-22 00:00 :00 No [id number] 500mg Take 1 tablet by mouth every 12 (twelve) hours. [facility] fluconazole (DIFLUCAN) 150 mg tablet 6-17 00:00: 00 06-22 00:00 :00 No [id number] 150mg Take 1 tablet by mouth every 72 (seventy-t wo) hours. [facility] NORTRIPTYLI NE 25 mg capsule 3-31 00:00: 00 Yes [id number] TAKE TWO CAPSULES BY MOUTH DAILY [facility] QUEtiapine (SEROQUEL XR) 400 mg 24 hr tablet 920 21:07: 23 Yes 400mg Take 400 mg by mouth daily. [facility] Immunizations Ordered Immunization Name Filled Immunization Name Date Status Comments Source TDAP 2018-04-18 00:00:00 Completed Influenza Virus Vaccine Quad IM, Preserv and ABX Free 6 MO-64 YRS 2017-07-06 00:00:00 Completed [facility] Influenza Virus Vaccine Quad IM, Preserv and ABX Free 6 MO-64 YRS 2017-07-06 00:00:00 Completed [facility] Influenza Virus Vaccine Quad IM, Preserv and ABX Free 6 MO-64 YRS 2017-07-06 00:00:00 Completed [facility] Influenza Virus Vaccine Quad IM, Preserv and ABX Free 6 MO-64 YRS 2017-07-06 00:00:00 Completed [facility] Influenza Virus Vaccine Quad IM, Preserv and ABX Free 6 MO-64 YRS 2017-07-06 00:00:00 Completed [facility] Influenza Virus Vaccine Quad IM, Preserv and ABX Free 6 MO-64 YRS 2017-07-06 00:00:00 Completed [facility] Influenza Virus Vaccine Quad IM, Preserv and ABX Free 6 MO-64 YRS 2017-07-06 00:00:00 Completed [facility] Influenza Virus Vaccine Quad IM, Preserv and ABX Free 6 MO-64 YRS 2017-07-06 00:00:00 Completed [facility] Influenza Virus Vaccine Quad IM, Preserv and ABX Free 6 MO-64 YRS 2017-07-06 00:00:00 Completed [facility] Influenza Virus Vaccine Quad IM, Preserv and ABX Free 6 MO-64 YRS 2017-07-06 00:00:00 Completed [facility] Influenza Virus Vaccine Quad IM, Preserv and ABX Free 6 MO-64 YRS 2017-07-06 00:00:00 Completed [facility] Influenza Virus Vaccine Quad IM, Preserv and ABX Free 6 MO-64 YRS (FLUCELVAX) 2017-07-06 00:00:00 Completed Influenza Virus Vaccine Quad IM, Preserv and ABX Free 6 MO-64 YRS 2012-07-25 00:00:00 Completed [facility] Influenza Virus Vaccine Quad IM, Preserv and ABX Free 6 MO-64 YRS 2012-07-25 00:00:00 Completed [facility] Influenza Virus Vaccine Quad IM, Preserv and ABX Free 6 MO-64 YRS 2012-07-25 00:00:00 Completed [facility] Influenza Virus Vaccine Quad IM, Preserv and ABX Free 6 MO-64 YRS 2012-07-25 00:00:00 Completed [facility] Influenza Virus Vaccine Quad IM, Preserv and ABX Free 6 MO-64 YRS 2012-07-25 00:00:00 Completed [facility] Influenza Virus Vaccine Quad IM, Preserv and ABX Free 6 MO-64 YRS 2012-07-25 00:00:00 Completed [facility] Influenza Virus Vaccine Quad IM, Preserv and ABX Free 6 MO-64 YRS 2012-07-25 00:00:00 Completed [facility] Influenza Virus Vaccine Quad IM, Preserv and ABX Free 6 MO-64 YRS 2012-07-25 00:00:00 Completed [facility] Influenza Virus Vaccine Quad IM, Preserv and ABX Free 6 MO-64 YRS 2012-07-25 00:00:00 Completed [facility] Influenza Virus Vaccine Quad IM, Preserv and ABX Free 6 MO-64 YRS 2012-07-25 00:00:00 Completed [facility] Influenza Virus Vaccine Quad IM, Preserv and ABX Free 6 MO-64 YRS 2012-07-25 00:00:00 Completed [facility] Influenza Virus Vaccine Quad IM, Preserv and ABX Free 6 MO-64 YRS (FLUCELVAX) 2012-07-25 00:00:00 Completed Influenza Virus Vaccine - Whole 2012-07-25 00:00:00 Completed HEPATITIS A 2010-02-22 00:00:00 Completed [facility] Meningococcal Polysaccharide (groups A, C, Y and W-135) conjugate vaccine (MCV4P) 2010-02-22 00:00:00 Completed [facility] Varicella (varivax)(chicken pox) 2010-02-22 00:00:00 Completed [facility] HEPATITIS A 2010-02-22 00:00:00 Completed [facility] Meningococcal Polysaccharide (groups A, C, Y and W-135) conjugate vaccine (MCV4P) 2010-02-22 00:00:00 Completed [facility] Varicella (varivax)(chicken pox) 2010-02-22 00:00:00 Completed [facility] HEPATITIS A 2010-02-22 00:00:00 Completed [facility] Meningococcal Polysaccharide (groups A, C, Y and W-135) conjugate vaccine (MCV4P) 2010-02-22 00:00:00 Completed [facility] Varicella (varivax)(chicken pox) 2010-02-22 00:00:00 Completed [facility] HEPATITIS A 2010-02-22 00:00:00 Completed [facility] Meningococcal Polysaccharide (groups A, C, Y and W-135) conjugate vaccine (MCV4P) 2010-02-22 00:00:00 Completed [facility] Varicella (varivax)(chicken pox) 2010-02-22 00:00:00 Completed [facility] HEPATITIS A 2010-02-22 00:00:00 Completed [facility] Meningococcal Polysaccharide (groups A, C, Y and W-135) conjugate vaccine (MCV4P) 2010-02-22 00:00:00 Completed [facility] Varicella (varivax)(chicken pox) 2010-02-22 00:00:00 Completed [facility] HEPATITIS A 2010-02-22 00:00:00 Completed [facility] Meningococcal Polysaccharide (groups A, C, Y and W-135) conjugate vaccine (MCV4P) 2010-02-22 00:00:00 Completed [facility] Varicella (varivax)(chicken pox) 2010-02-22 00:00:00 Completed [facility] HEPATITIS A 2010-02-22 00:00:00 Completed [facility] Meningococcal Polysaccharide (groups A, C, Y and W-135) conjugate vaccine (MCV4P) 2010-02-22 00:00:00 Completed [facility] Varicella (varivax)(chicken pox) 2010-02-22 00:00:00 Completed [facility] HEPATITIS A 2010-02-22 00:00:00 Completed [facility] Meningococcal Polysaccharide (groups A, C, Y and W-135) conjugate vaccine (MCV4P) 2010-02-22 00:00:00 Completed [facility] Varicella (varivax)(chicken pox) 2010-02-22 00:00:00 Completed [facility] HEPATITIS A 2010-02-22 00:00:00 Completed [facility] Meningococcal Polysaccharide (groups A, C, Y and W-135) conjugate vaccine (MCV4P) 2010-02-22 00:00:00 Completed [facility] Varicella (varivax)(chicken pox) 2010-02-22 00:00:00 Completed [facility] HEPATITIS A 2010-02-22 00:00:00 Completed [facility] Meningococcal Polysaccharide (groups A, C, Y and W-135) conjugate vaccine (MCV4P) 2010-02-22 00:00:00 Completed [facility] Varicella (varivax)(chicken pox) 2010-02-22 00:00:00 Completed [facility] HEPATITIS A 2010-02-22 00:00:00 Completed [facility] Meningococcal Polysaccharide (groups A, C, Y and W-135) conjugate vaccine (MCV4P) 2010-02-22 00:00:00 Completed [facility] Varicella (varivax)(chicken pox) 2010-02-22 00:00:00 Completed [facility] HEPATITIS A 2010-02-22 00:00:00 Completed Meningococcal Polysaccharide (groups A, C, Y and W-135) conjugate vaccine (MCV4P) 2010-02-22 00:00:00 Completed Varicella (varivax)(chicken pox) 2010-02-22 00:00:00 Completed TDAP 2010-02-22 00:00:00 Completed HIB 4 Dose Schedule 1997 00:00:00 Completed [facility] Pediarix (dtap/hep B/ipv) 1997 00:00:00 Completed [facility] Polio (IPV/OPV) 1997 00:00:00 Completed [facility] HIB 4 Dose Schedule 1997 00:00:00 Completed [facility] Pediarix (dtap/hep B/ipv) 1997 00:00:00 Completed [facility] Polio (IPV/OPV) 1997 00:00:00 Completed [facility] HIB 4 Dose Schedule 1997 00:00:00 Completed [facility] Pediarix (dtap/hep B/ipv) 1997 00:00:00 Completed [facility] Polio (IPV/OPV) 1997 00:00:00 Completed [facility] HIB 4 Dose Schedule 1997 00:00:00 Completed [facility] Pediarix (dtap/hep B/ipv) 1997 00:00:00 Completed [facility] Polio (IPV/OPV) 1997 00:00:00 Completed [facility] HIB 4 Dose Schedule 1997 00:00:00 Completed [facility] Pediarix (dtap/hep B/ipv) 1997 00:00:00 Completed [facility] Polio (IPV/OPV) 1997 00:00:00 Completed [facility] HIB 4 Dose Schedule 1997 00:00:00 Completed [facility] Pediarix (dtap/hep B/ipv) 1997 00:00:00 Completed [facility] Polio (IPV/OPV) 1997 00:00:00 Completed [facility] HIB 4 Dose Schedule 1997 00:00:00 Completed [facility] Pediarix (dtap/hep B/ipv) 1997 00:00:00 Completed [facility] Polio (IPV/OPV) 1997 00:00:00 Completed [facility] HIB 4 Dose Schedule 1997 00:00:00 Completed [facility] Pediarix (dtap/hep B/ipv) 1997 00:00:00 Completed [facility] Polio (IPV/OPV) 1997 00:00:00 Completed [facility] HIB 4 Dose Schedule 1997 00:00:00 Completed [facility] Pediarix (dtap/hep B/ipv) 1997 00:00:00 Completed [facility] Polio (IPV/OPV) 1997 00:00:00 Completed [facility] HIB 4 Dose Schedule 1997 00:00:00 Completed [facility] Pediarix (dtap/hep B/ipv) 1997 00:00:00 Completed [facility] Polio (IPV/OPV) 1997 00:00:00 Completed [facility] HIB 4 Dose Schedule 1997 00:00:00 Completed [facility] Pediarix (dtap/hep B/ipv) 1997 00:00:00 Completed [facility] Polio (IPV/OPV) 1997 00:00:00 Completed [facility] HIB 4 Dose Schedule 1997 00:00:00 Completed Pediarix (dtap/hep B/ipv) 1997 00:00:00 Completed Polio (IPV/OPV) 1997 00:00:00 Completed DTaP, Unspecified Formulation 1997 00:00:00 Completed [facility] Haemophilus influenzae type b vaccine, conjugate unspecified formulation 1997 00:00:00 Completed HIB 4 Dose Schedule 1997 00:00:00 Completed [facility] Pediarix (dtap/hep B/ipv) 1997 00:00:00 Completed [facility] Polio (IPV/OPV) 1997 00:00:00 Completed [facility] HIB 4 Dose Schedule 1997 00:00:00 Completed [facility] Pediarix (dtap/hep B/ipv) 1997 00:00:00 Completed [facility] Polio (IPV/OPV) 1997 00:00:00 Completed [facility] HIB 4 Dose Schedule 1997 00:00:00 Completed [facility] Pediarix (dtap/hep B/ipv) 1997 00:00:00 Completed [facility] Polio (IPV/OPV) 1997 00:00:00 Completed [facility] HIB 4 Dose Schedule 1997 00:00:00 Completed [facility] Pediarix (dtap/hep B/ipv) 1997 00:00:00 Completed [facility] Polio (IPV/OPV) 1997 00:00:00 Completed [facility] HIB 4 Dose Schedule 1997 00:00:00 Completed [facility] Pediarix (dtap/hep B/ipv) 1997 00:00:00 Completed [facility] Polio (IPV/OPV) 1997 00:00:00 Completed [facility] HIB 4 Dose Schedule 1997 00:00:00 Completed [facility] Pediarix (dtap/hep B/ipv) 1997 00:00:00 Completed [facility] Polio (IPV/OPV) 1997 00:00:00 Completed [facility] HIB 4 Dose Schedule 1997 00:00:00 Completed [facility] Pediarix (dtap/hep B/ipv) 1997 00:00:00 Completed [facility] Polio (IPV/OPV) 1997 00:00:00 Completed [facility] HIB 4 Dose Schedule 1997 00:00:00 Completed [facility] Pediarix (dtap/hep B/ipv) 1997 00:00:00 Completed [facility] Polio (IPV/OPV) 1997 00:00:00 Completed [facility] HIB 4 Dose Schedule 1997 00:00:00 Completed [facility] Pediarix (dtap/hep B/ipv) 1997 00:00:00 Completed [facility] Polio (IPV/OPV) 1997 00:00:00 Completed [facility] HIB 4 Dose Schedule 1997 00:00:00 Completed [facility] Pediarix (dtap/hep B/ipv) 1997 00:00:00 Completed [facility] Polio (IPV/OPV) 1997 00:00:00 Completed [facility] HIB 4 Dose Schedule 1997 00:00:00 Completed [facility] Pediarix (dtap/hep B/ipv) 1997 00:00:00 Completed [facility] Polio (IPV/OPV) 1997 00:00:00 Completed [facility] HIB 4 Dose Schedule 1997 00:00:00 Completed [facility] Pediarix (dtap/hep B/ipv) 1997 00:00:00 Completed Polio (IPV/OPV) 1997 00:00:00 Completed Haemophilus influenzae type b vaccine, conjugate unspecified formulation 1997 00:00:00 Completed IPV 1997 00:00:00 Completed Hep B, Adol or Pedi Dosage 1997 00:00:00 Completed [facility] Hep B, Adol or Pedi Dosage 1997 00:00:00 Completed [facility] Hep B, Adol or Pedi Dosage 1997 00:00:00 Completed [facility] Hep B, Adol or Pedi Dosage 1997 00:00:00 Completed [facility] Hep B, Adol or Pedi Dosage 1997 00:00:00 Completed [facility] Hep B, Adol or Pedi Dosage 1997 00:00:00 Completed [facility] Hep B, Adol or Pedi Dosage 1997 00:00:00 Completed [facility] Hep B, Adol or Pedi Dosage 1997 00:00:00 Completed [facility] Hep B, Adol or Pedi Dosage 1997 00:00:00 Completed [facility] Hep B, Adol or Pedi Dosage 1997 00:00:00 Completed [facility] Hep B, Adol or Pedi Dosage 1997 00:00:00 Completed [facility] Hep B, Adol or Pedi Dosage 1997 00:00:00 Completed HIB 4 Dose Schedule Unknown Completed [facility] HEPATITIS A Unknown Completed [facility] Hep B, Adol or Pedi Dosage Unknown Completed [facility] Meningococcal Polysaccharide (groups A, C, Y and W-135) conjugate vaccine (MCV4P) Unknown Completed [facility] Pediarix (dtap/hep B/ipv) Unknown Completed [facility] Influenza Virus Vaccine Quad IM, Preserv and ABX Free 6 MO-64 YRS (FLUCELVAX) Unknown Completed [facility] Polio (IPV/OPV) Unknown Completed [facility] Varicella (varivax)(chicken pox) Unknown Completed [facility] HIB 4 Dose Schedule Unknown Completed [facility] HEPATITIS A Unknown Completed [facility] Hep B, Adol or Pedi Dosage Unknown Completed [facility] Meningococcal Polysaccharide (groups A, C, Y and W-135) conjugate vaccine (MCV4P) Unknown Completed [facility] Pediarix (dtap/hep B/ipv) Unknown Completed [facility] Influenza Virus Vaccine Quad IM, Preserv and ABX Free 6 MO-64 YRS (FLUCELVAX) Unknown Completed [facility] Polio (IPV/OPV) Unknown Completed [facility] Varicella (varivax)(chicken pox) Unknown Completed [facility] HIB 4 Dose Schedule Unknown Completed [facility] HEPATITIS A Unknown Completed [facility] Hep B, Adol or Pedi Dosage Unknown Completed [facility] Meningococcal Polysaccharide (groups A, C, Y and W-135) conjugate vaccine (MCV4P) Unknown Completed [facility] Pediarix (dtap/hep B/ipv) Unknown Completed [facility] Influenza Virus Vaccine Quad IM, Preserv and ABX Free 6 MO-64 YRS (FLUCELVAX) Unknown Completed [facility] Polio (IPV/OPV) Unknown Completed [facility] Varicella (varivax)(chicken pox) Unknown Completed [facility] HIB 4 Dose Schedule Unknown Completed [facility] HEPATITIS A Unknown Completed [facility] Hep B, Adol or Pedi Dosage Unknown Completed [facility] Meningococcal Polysaccharide (groups A, C, Y and W-135) conjugate vaccine (MCV4P) Unknown Completed [facility] Pediarix (dtap/hep B/ipv) Unknown Completed [facility] Influenza Virus Vaccine Quad IM, Preserv and ABX Free 6 MO-64 YRS (FLUCELVAX) Unknown Completed [facility] Polio (IPV/OPV) Unknown Completed [facility] Varicella (varivax)(chicken pox) Unknown Completed [facility] HIB 4 Dose Schedule Unknown Completed [facility] HEPATITIS A Unknown Completed [facility] Hep B, Adol or Pedi Dosage Unknown Completed [facility] Meningococcal Polysaccharide (groups A, C, Y and W-135) conjugate vaccine (MCV4P) Unknown Completed [facility] Pediarix (dtap/hep B/ipv) Unknown Completed [facility] Influenza Virus Vaccine Quad IM, Preserv and ABX Free 6 MO-64 YRS (FLUCELVAX) Unknown Completed [facility] Polio (IPV/OPV) Unknown Completed [facility] Varicella (varivax)(chicken pox) Unknown Completed [facility] DTaP, Unspecified Formulation Unknown Completed [facility] Influenza Virus Vaccine - Whole Unknown Completed [facility] Haemophilus influenzae type b vaccine, conjugate unspecified formulation Unknown Completed [facility] IPV Unknown Completed [facility] TDAP Unknown Completed [facility] HIB 4 Dose Schedule Unknown Completed [facility] HEPATITIS A Unknown Completed [facility] Hep B, Adol or Pedi Dosage Unknown Completed [facility] Meningococcal Polysaccharide (groups A, C, Y and W-135) conjugate vaccine (MCV4P) Unknown Completed [facility] Pediarix (dtap/hep B/ipv) Unknown Completed [facility] Influenza Virus Vaccine Quad IM, Preserv and ABX Free 6 MO-64 YRS (FLUCELVAX) Unknown Completed [facility] Polio (IPV/OPV) Unknown Completed [facility] Varicella (varivax)(chicken pox) Unknown Completed [facility] DTaP, Unspecified Formulation Unknown Completed [facility] Influenza Virus Vaccine - Whole Unknown Completed [facility] Haemophilus influenzae type b vaccine, conjugate unspecified formulation Unknown Completed [facility] IPV Unknown Completed [facility] TDAP Unknown Completed [facility] HIB 4 Dose Schedule Unknown Completed [facility] HEPATITIS A Unknown Completed [facility] Hep B, Adol or Pedi Dosage Unknown Completed [facility] Meningococcal Polysaccharide (groups A, C, Y and W-135) conjugate vaccine (MCV4P) Unknown Completed [facility] Pediarix (dtap/hep B/ipv) Unknown Completed [facility] Influenza Virus Vaccine Quad IM, Preserv and ABX Free 6 MO-64 YRS (FLUCELVAX) Unknown Completed [facility] Polio (IPV/OPV) Unknown Completed [facility] Varicella (varivax)(chicken pox) Unknown Completed [facility] DTaP, Unspecified Formulation Unknown Completed [facility] Influenza Virus Vaccine - Whole Unknown Completed [facility] Haemophilus influenzae type b vaccine, conjugate unspecified formulation Unknown Completed [facility] IPV Unknown Completed [facility] TDAP Unknown Completed [facility] Vital Signs Vital Name Observation Time Observation Value Comments S ource Systolic blood pressure 2024-08-01 19:30:00 126 mm[Hg] [facility] Diastolic blood pressure 2024-08-01 19:30:00 80 mm[Hg] [facility] Heart rate 2024-08-01 19:30:00 92 /min [facility] Respiratory rate 2024-08-01 19:30:00 15 /min [facility] Oxygen saturation in Arterial blood by Pulse oximetry 2024-08-01 19:30:00 96 /min [facility] Body temperature 2024-08-01 15:57:00 36.78 Ashly [facility] Body height 2024-08-01 15:57:00 165.1 cm [facility] Body weight 2024-08-01 15:57:00 113.399 kg [facility] BMI 2024-08-01 15:57:00 41.60 kg/m2 [facility] Systolic blood pressure 2024-07-06 03:59:00 134 mm[Hg] [facility] Diastolic blood pressure 2024-07-06 03:59:00 92 mm[Hg] [facility] Heart rate 2024-07-06 03:59:00 94 /min [facility] Body temperature 2024-07-06 03:59:00 36.61 Ashly [facility] Respiratory rate 2024-07-06 03:59:00 18 /min [facility] Oxygen saturation in Arterial blood by Pulse oximetry 2024-07-06 03:59:00 96 /min [facility] Body height 2024-07-06 01:58:00 162.6 cm [facility] Body weight 2024-07-06 01:58:00 104.327 kg [facility] BMI 2024-07-06 01:58:00 39.48 kg/m2 [facility] Systolic blood pressure 2024-03-18 17:00:00 110 mm[Hg] [facility] Diastolic blood pressure 2024-03-18 17:00:00 88 mm[Hg] [facility] Heart rate 2024-03-18 17:00:00 93 /min [facility] Body temperature 2024-03-18 17:00:00 36.72 Ashly [facility] Oxygen saturation in Arterial blood by Pulse oximetry 2024-03-18 17:00:00 97 /min [facility] Respiratory rate 2024-03-18 16:02:00 18 /min [facility] Body height 2024-03-18 13:06:00 162.6 cm [facility] Body weight 2024-03-18 13:06:00 108.863 kg [facility] BMI 2024-03-18 13:06:00 41.20 kg/m2 [facility] Heart rate 2023-10-10 03:51:00 102 /min [facility] Body temperature 2023-10-10 03:51:00 36.78 Ashly [facility] Oxygen saturation in Arterial blood by Pulse oximetry 2023-10-10 03:51:00 93 /min [facility] Systolic blood pressure 2023-10-10 03:30:00 115 mm[Hg] [facility] Diastolic blood pressure 2023-10-10 03:30:00 79 mm[Hg] [facility] Respiratory rate 2023-10-10 03:30:00 20 /min [facility] Body height 2023-10-10 01:12:00 165.1 cm [facility] Body weight 2023-10-10 01:12:00 105.371 kg [facility] BMI 2023-10-10 01:12:00 38.66 kg/m2 [facility] Heart rate 2023-08-13 05:30:00 111 /min [facility] Oxygen saturation in Arterial blood by Pulse oximetry 2023-08-13 05:30:00 92 /min ERP notifed. [facility] Systolic blood pressure 2023-08-13 05:01:00 126 mm[Hg] [facility] Diastolic blood pressure 2023-08-13 05:01:00 75 mm[Hg] [facility] Body temperature 2023-08-13 05:01:00 37 Ashly [facility] Respiratory rate 2023-08-13 05:01:00 15 /min [facility] Body height 2023-08-13 03:07:00 162.6 cm [facility] Body weight 2023-08-13 03:07:00 107.049 kg [facility] BMI 2023-08-13 03:07:00 40.51 kg/m2 [facility] Systolic blood pressure 2023-05-21 04:00:00 124 mm[Hg] [facility] Diastolic blood pressure 2023-05-21 04:00:00 73 mm[Hg] [facility] Heart rate 2023-05-21 04:00:00 100 /min [facility] Respiratory rate 2023-05-21 04:00:00 24 /min [facility] Oxygen saturation in Arterial blood by Pulse oximetry 2023-05-21 04:00:00 95 /min [facility] Body temperature 2023-05-21 01:08:00 37.28 Ashly [facility] Body height 2023-05-21 01:08:00 162.6 cm [facility] Body weight 2023-05-21 01:08:00 105.597 kg [facility] BMI 2023-05-21 01:08:00 39.96 kg/m2 [facility] Systolic blood pressure 2022-11-16 15:46:00 135 mm[Hg] [facility] Diastolic blood pressure 2022-11-16 15:46:00 87 mm[Hg] [facility] Heart rate 2022-11-16 15:46:00 98 /min [facility] Body temperature 2022-11-16 15:46:00 36.89 Ashly [facility] Respiratory rate 2022-11-16 15:46:00 18 /min [facility] Body height 2022-11-16 15:46:00 160 cm [facility] Body weight 2022-11-16 15:46:00 102.059 kg [facility] BMI 2022-11-16 15:46:00 39.86 kg/m2 [facility] Systolic blood pressure 2022-08-30 15:08:00 108 mm[Hg] [facility] Diastolic blood pressure 2022-08-30 15:08:00 70 mm[Hg] [facility] Heart rate 2022-08-30 15:08:00 106 /min [facility] Body temperature 2022-08-30 15:08:00 36.67 Ashly [facility] Body height 2022-08-30 15:08:00 160 cm [facility] Body weight 2022-08-30 15:08:00 97.614 kg [facility] BMI 2022-08-30 15:08:00 38.12 kg/m2 [facility] Systolic blood pressure 2022-06-22 14:43:00 128 mm[Hg] [facility] Diastolic blood pressure 2022-06-22 14:43:00 83 mm[Hg] [facility] Heart rate 2022-06-22 14:43:00 72 /min [facility] Body temperature 2022-06-22 14:43:00 36.78 Ashly [facility] Body height 2022-06-22 14:43:00 160 cm [facility] Body weight 2022-06-22 14:43:00 94.076 kg [facility] BMI 2022-06-22 14:43:00 36.74 kg/m2 [facility] Systolic blood pressure 2022-01-02 16:02:00 118 mm[Hg] [facility] Diastolic blood pressure 2022-01-02 16:02:00 74 mm[Hg] [facility] Heart rate 2022-01-02 16:02:00 102 /min [facility] Body temperature 2022-01-02 16:02:00 36.72 Ashly [facility] Body height 2022-01-02 16:02:00 160 cm [facility] Body weight 2022-01-02 16:02:00 100.971 kg [facility] BMI 2022-01-02 16:02:00 39.43 kg/m2 [facility] Procedures Procedure Date / Time Performed Performing Clinician Source XR CHEST 1 VW 2024-08-01 17:22:49 [place] [facility] URINALYSIS 2024-08-01 17:13:00 [place] Wells [facility] POCT TEST 2024-08-01 17:13:00 [place] Wells e [facility] MAGNESIUM 2024-08-01 17:05:00 [place] Wells [facility] TROPONIN I 2024-08-01 17:05:00 [place] Wells [facility] COMP. METABOLIC PANEL ([id number]) 2024-08-01 17:05:00 Jefferson Wells [facility] CBC WITH DIFF 2024-08-01 17:05:00 Jefferson Wells [facility] D-DIMER 2024-08-01 17:05:00 Jefferson Wells [facility] N-TERMINAL PRO-BNP 2024-08-01 17:05:00 Jefferson Wells [facility] CT ABDOMEN PELVIS W CONTRAST 2024-07-06 02:29:00 Tino Lucia [facility] LIPASE 2024-07-06 02:20:00 Tino Lucia [facility] COMP. METABOLIC PANEL ([id number]) 2024-07-06 02:20:00 Tino Lucia [facility] CBC WITH DIFF 2024-07-06 02:20:00 Tino Lucia [facility] URINALYSIS 2024-07-06 02:20:00 [facility] POCT TEST 2024-07-06 02:19:00 Zackery Lucia [facility] INFLUENZA A/B RSV COVID NAAT 2024-03-18 14:28:00 [place] Wells [facility] ACUTE CARE ARTERIAL BLOOD GAS 2023-10-10 02:02:00 Kierra Gross [facility] POCT TEST 2023-10-10 01:50:00 Kierra Gross [facility] TROPONIN I 2023-10-10 01:47:00 Kierra Gross [facility] COMP. METABOLIC PANEL ([id number]) 2023-10-10 01:47:00 Kierra Gross [facility] CBC WITH DIFF 2023-10-10 01:47:00 Kierra Gross [facility] D-DIMER 2023-10-10 01:47:00 Kierra Gross [facility] N-TERMINAL PRO-BNP 2023-10-10 01:47:00 Kierra Gross [facility] XR CHEST 1 VW 2023-08-13 03:44:10 Yoli Avila [facility] RAPID INFLUENZA A/B 2023-08-13 03:31:00 Yoli Avila [facility] POCT TEST 2023-08-13 03:31:00 Yoli Avila [facility] COVID-19 (ID NOW RAPID TESTING) 2023-08-13 03:31:00 Yoli Avila [facility] NOTICE OF PRIVACY PRACTICES 2023-08-13 02:45:44 Doctor Unassigned, [place] [facility] CONSENT/REFUSAL FOR DIAGNOSIS AND TREATMENT 2023-08-13 02:45:05 Doctor Unassigned, [place] [facility] POCT TEST 2023-05-21 02:35:00 Ayse Grayson [facility] URINALYSIS 2023-05-21 02:31:00 Estefany Grayson [facility] URINE DRUG (IMMUNOASSAY) - COMPREHENSIVE DRUG SCREEN W/O REFLEX 2023-05-21 02:31:00 Estefany Grayson [facility] LIPASE 2023-05-21 02:14:00 Estefany Grayson [facility] TROPONIN I 2023-05-21 02:14:00 Estefany Grayson [facility] COMP. METABOLIC PANEL ([id number]) 2023-05-21 02:14:00 Estefany Grayson [facility] CBC WITH DIFF 2023-05-21 02:14:00 Estefany Grayson [facility] D-DIMER 2023-05-21 02:14:00 Estefany Grayson [facility] XR CHEST 2 VW 2023-05-21 01:48:29 Estefany Grayson [facility] NOTICE OF PRIVACY PRACTICES 2023-05-21 01:00:18 Doctor Unassigned, [place] [facility] CONSENT/REFUSAL FOR DIAGNOSIS AND TREATMENT 2023-05-21 00:59:42 Doctor Unassigned, [place] [facility] PATIENT FINANCIAL POLICY 2022-11-16 15:21:31 Doctor Unassigned, [place] [facility] POCT TEST 2022-11-16 00:00:00 Ruby Mccullough [facility] CONSENT FOR CONTRACEPTION 2022-08-30 06:01:00 Doctor Unassigned, [place] [facility] POCT TEST 2022-08-30 00:00:00 Ruby Mccullough [facility] ASSIGNMENT OF BENEFITS 2022-06-22 13:52:27 Docto r Unassigned, [place] [facility] VACCINATIONS - CONSENTS, ELIGIBILITY, HISTORY 2022-02-13 05:01:00 Doctor Unassigned, [place] [facility] CONSENT FOR CONTRACEPTION 2022-01-02 05:01:00 Doctor Unassigned, [place] [facility] POCT TEST 2022-01-02 00:00:00 Ruby Mccullough [facility] Encounters Start Date/Time End Date/Time Encounter Type Admission Type [facility] Care Department Encounter ID Source 2021-05-09 18:08:31 Emergency [facility] [id number] [facility] 2021-05-08 18:31:57 Emergency [facility] [id number] [facility] 2024-09-23 18:30:00 2024-09-23 22:27:00 Emergency ISABELLE LAMA JOSHUA [facility] [id number] [facility] 2024-08-01 09:59:00 2024-08-01 14:00:00 Emergency Jefferson PATEL K [facility] [id number] [facility] 2024-08-01 09:59:00 2024-08-01 14:00:00 Emergency Jefferson Wells [facility] AT [facility] [id number] 350.1.13.10 4.2.7.2.686 [id number] [facility] 2024-07-11 15:00:00 2024-07-11 15:00:00 Outpatient MERLYN GALEAS [facility] [id number] [facility] 2024-07-05 20:13:00 2024-07-05 22:02:00 Emergency Tino Lucia [facility] .2.840.114 350.1.13.10 4.2.7.2.686 [id number] [facility] 2024-07-05 20:12:35 2024-07-05 20:12:35 Outpatient TINO HEREDIA PHILLIP [facility] [id number] [facility] 2024-03-18 08:08:00 2024-03-18 12:04:00 Emergency X Jefferson WELLS K [facility] [id number] [facility] 2024-03-18 08:08:00 2024-03-18 12:04:00 Emergency [place] Wells [facility] [id number] 350.1.13.10 4.2.7.2.686 [id number] [facility] 2023-12-12 14:30:00 2023-12-12 14:30:00 Outpatient AMA MARTIN [facility] [id number] [facility] 2023-10-24 00:00:00 2023-10-24 00:00:00 Telephone Piña, [facility] [id number] 350.1.13.10 4.2.7.2.686 [id number] [facility] 2023-10-23 00:00:00 2023-10-23 00:00:00 Telephone Piña, [facility] [id number] 350.1.13.10 4.2.7.2.686 [id number] [facility] 2023-10-09 20:16:00 2023-10-09 22:57:00 Emergency X RADHAJOHNCESAR MANUELANDRY [facility] [id number] [facility] 2023-10-09 20:16:00 2023-10-09 22:57:00 Emergency Jose Grossmark anthony Gonzalez [facility] [id number] 350.1.13.10 4.2.7.2.686 [id number] [facility] 2023-10-04 09:00:00 2023-10-04 09:00:00 Outpatient RUBY MONIQUE [facility] [id number] [facility] 2023-08-12 21:19:00 2023-08-12 23:46:00 Emergency X YOLI AVILA [facility] [id number] [facility] 2023-08-12 21:19:00 2023-08-12 23:46:00 Emergency Yoli Avila G [facility] 1.840.114 350.1.13.10 4.2.7.2.686 [id number] [facility] 2023-05-20 19:11:00 2023-05-20 22:17:00 Emergency X ESTEFANY GRAYSON [facility] [id number] [facility] 2023-05-20 19:11:00 2023-05-20 22:17:00 Emergency Estefany Grayson F [facility] 1.0.114 350.1.13.10 4.2.7.2.686 [id number] [facility] 2023-01-23 14:00:00 2023-01-23 14:00:00 Outpatient R RUBY MCCULLOUGH [facility] [id number] [facility] 2022-11-16 10:30:00 2022-11-16 11:48:37 Outpatient R RUBY MCCULLOUGH [facility] [id number] [facility] 2022-11-16 10:30:00 2022-11-16 11:48:37 Office Visit Ruby Mccullough [facility] 1..114 350.1.13.10 4.2.7.2.686 [id number] 134 [id number] [facility] 2022-11-16 00:00:00 2022-11-16 00:00:00 Orders Only Doctor Unassigned, [place] [facility] 1.840.114 350.1.13.10 4.2.7.2.686 [id number] [facility] 2022-11-14 00:00:00 2022-11-14 00:00:00 Telephone [facility] [id number] 350.1.13.10 4.2.7.2.686 [id number] [facility] 2022-08-30 09:00:00 2022-08-30 09:28:13 Outpatient R RUBY MCCULLOUGH [facility] [id number] [facility] 2022-08-30 09:00:00 2022-08-30 09:28:13 Office Visit Ruby Mccullough [facility] 1.2.840.114 350.1.13.10 4.2.7.2.686 [id number] [facility] 2022-08-30 00:00:00 2022-08-30 00:00:00 Orders Only Doctor Unassigned, [place] [facility] 1.2.840.114 350.1.13.10 4.2.7.2.686 [id number] [facility] 2022-07-05 16:00:00 2022-07-05 16:00:00 Outpatient CHRISTA LOO [facility] [id number] [facility] 2022-06-28 00:00:00 2022-06-28 00:00:00 Telephone Ruby Mccullough [facility] [id number] 350.1.13.10 4.2.7.2.686 [id number] [facility] 2022-06-22 08:00:00 2022-06-22 08:55:01 Outpatient R RUBY MCCULLOUGH [facility] [id number] [facility] 2022-06-22 08:00:00 2022-06-22 08:55:01 Office Visit Ruby Mccullough [facility] 1.2.840.114 350.1.13.10 4.2.7.2.686 [id number] [facility] 2022-06-22 00:00:00 2022-06-22 00:00:00 Orders Only Doctor Unassigned, [place] [facility] 1.2840.114 350.1.13.10 4.2.7.2.686 [id number] [facility] 2022-02-13 00:00:00 2022-02-13 00:00:00 Orders Only Doctor Unassigned, [place] [facility] 1.2840.114 350.1.13.10 4.2.7.2.686 [id number] [facility] 2022-01-02 10:45:00 2022-01-02 11:23:09 Out[facility] [facility] [id number] [facility] 2022-01-02 10:45:00 2022-01-02 11:23:09 Office [facility] 1.0.114 350.1.13.10 4.2.7.2.686 [id number] 134 [id number] [facility] 2022-01-02 10:45:00 2022-01-02 10:45:00 Outpatient R RUBY MCCULLOUGH [facility] [id number] [facility] 2022-01-02 00:00:00 2022-01-02 00:00:00 Orders Only Doctor Unassigned, [place] [facility] 1.20.114 350.1.13.10 4.2.7.2.686 [id number] [id number] [facility] 2021-12-26 00:00:00 2021-12-26 00:00:00 Telephone Christa Nielsen [facility] PROFESS[facility] NAL BUILDING 1.2840.114 350.1.13.10 4.2.7.2.686 [id number] 134 [id number] [facility] 2021-12-26 00:00:00 2021-12-26 00:00:00 Telephone Christa Nielsen [facility] 1.2.840.114 350.1.13.10 4.2.7.2.686 [id number] 134 [id number] [facility] 2021-12-24 00:00:00 2021-12-24 00:00:00 Telephone Christa Nielsen [facility] 1.2.840.114 350.1.13.10 4.2.7.2.686 [id number] [facility] [id number] [facility] 2021-12-23 00:00:00 2021-12-23 00:00:00 Case Management Gia Christajuliana [facility] 1.2.840.114 350.1.13.10 4.2.7.2.686 [id number] [facility] 2021-12-22 00:00:00 2021-12-22 00:00:00 Patient Secure Msg Doctor Unassigned, [place] [facility] 1.2.840.114 350.1.13.10 4.2.7.2.686 [id number] 134 [id number] [facility] 2021-12-22 00:00:00 2021-12-22 00:00:00 Case Management Christa Nielsen [facility] 1.2.840.114 350.1.13.10 4.2.7.2.686 [id number] 134 [id number] [facility] 2021-12-21 15:00:00 2021-12-21 15:37:44 Office Visit Christa Nielsen [facility] 1.2.840.114 350.1.13.10 4.2.7.2.686 [id number] 134 [id number] [facility] 2021-12-21 15:00:00 2021-12-21 15:37:44 Outpatient CHRISTA LOO [facility] [id number] [facility] 2021-12-21 15:00:00 2021-12-21 15:00:00 Outpatient Valeria NIELSEN [facility] [id number] [facility] 2021-12-21 15:00:00 2021-12-21 15:00:00 Outpatient Valeria NIELSEN CHRISTA [facility] [id number] [facility] 2021-10-26 13:30:00 2021-10-26 13:30:09 Outpatient RUBY MONIQUE [facility] [id number] [facility] 2021-10-26 13:30:00 2021-10-26 13:30:09 [facility] 1..840.114 350.1.13.10 4.2.7.2.686 [id number] 134 [id number] [facility] 2021-10-26 00:00:00 2021-10-26 00:00:00 Orders Only Doctor Unassigned, [place] [facility] 1.2.840.114 350.1.13.10 4.2.7.2.686 [id number] [id number] [facility] 2021-10-06 00:00:00 2021-10-06 00:00:00 Jarod Ledbetter [facility] 1.2.840.114 350.1.13.10 4.2.7.2.686 [id number] 092 [id number] [facility] 2021-05-23 15:00:00 2021-05-23 15:00:00 Outpatient RUBY MONIQUE [facility] [id number] [facility] 2021-04-18 00:00:00 2021-04-18 00:00:00 [facility] 1.840.114 350.1.13.10 4.2.7.2.686 [id number] 092 [id number] [facility] 2021-04-12 10:45:35 2021-04-12 11:35:06 Office Visit Jarod Martin [facility] Ne[facility]ito?[facility] 1.840.114 350.1.13.10 4.2.7.2.686 [id number] 092 [id number] [facility] 2021-04-12 11:00:00 2021-04-12 11:00:00 Outpatient R GABBIE JAROD GABBIEJAROD Chambers [facility] [id number] [facility] 2021-03-28 08:03:00 2021-03-28 20:45:00 Hospital Encounter Brenda Johnson [facility] 1.840.114 350.1.13.10 4.2.7.2.686 [id number] [id number] [facility] 2021-03-28 08:30:00 2021-03-28 08:30:00 Outpatient BRENDA MCCRAY [facility] [id number] [facility] 2021-03-25 15:17:12 2021-03-25 15:32:12 Laboratory Only Only, Adc Test Brenda Johnson [facility] 1.840.114 350.1.13.10 4.2.7.2.686 [id number] [facility] 2021-03-25 14:30:00 2021-03-25 14:30:00 Outpatient BRENDA MCCRAY [facility] [id number] [facility] 2021-03-16 00:00:00 2021-03-16 00:00:00 Telephone Jarod Martin [facility] Negrito?[facility] 1.84114 350.1.13.10 4.2.7.2.686 [id number] 092 [id number] [facility] 2021-03-07 15:13:45 2021-03-07 16:24:38 Office Visit Jarod Martin [facility] Negrito?[facility] 1..114 350.1.13.10 4.2.7.2.686 [id number] 092 [id number] [facility] 2021-03-07 15:00:00 2021-03-07 15:00:00 Outpatient R JAROD MARTIN HOWARD [facility] [id number] [facility] 2021-03-02 16:45:00 2021-03-02 20:11:00 Emergency Yoli Avila [facility] 1.114 350.1.13.10 4.2.7.2.686 [id number] 084 [id number] [facility] 2021-03-02 16:45:00 2021-03-02 20:11:00 Emergency Yoli Avila [facility] 1.114 350.1.13.10 4.2.7.2.686 [id number] [id number] [facility] 2021-03-01 15:00:00 2021-03-01 15:00:00 Outpatient R ED CONTRERAS [facility] [id number] [facility] 2021-02-17 13:40:00 2021-02-17 13:40:00 Outpatient R [facility] [id number] [facility] 2021-02-16 19:40:52 2021-02-16 20:00:52 Laboratory Only Lab, [facility] 1.84.114 350.1.13.10 4.2.7.2.686 [id number] [id number] [facility] 2021-02-16 20:00:00 2021-02-16 20:00:00 Outpatient R LAURIE ASHER [facility] [id number] [facility] 2021-02-08 14:30:00 2021-02-08 14:30:00 Outpatient R [facility] [id number] [facility] 2021-02-08 00:00:00 2021-02-08 00:00:00 [facility] 1.2.840.114 350.1.13.10 4.2.7.2.686 [id number] 134 [id number] [facility] 2021-02-04 10:30:00 2021-02-04 10:30:00 Outpatient R [facility] [id number] [facility] 2021-01-06 00:00:00 2021-01-06 00:00:00 Telephone Kaley Kimball 1.2.840.114 350.1.13.10 4.2.7.2.686 [id number] [facility] 2020-12-13 00:00:00 2020-12-13 00:00:00 Telephone Kingstonkelleychristi [facility] Building 1.2.840.114 350.1.13.10 4.2.7.2.686 [id number] 134 [id number] [facility] 2020-11-17 15:24:29 2020-11-17 16:11:59 Office Visit GiaChrista [facility] Building 1.2.840.114 350.1.13.10 4.2.7.2.686 [id number] [facility] 2020-11-17 15:30:00 2020-11-17 15:30:00 [id number] 2020-11-16 18:36:00 2020-11-16 20:44:00 Emergency Vikram Rios [facility] 1.2.840.114 350.1.13.10 4.2.7.2.686 [id number] [id number] [facility] 2020-11-08 00:00:00 2020-11-08 00:00:00 Case Management Gia [facility] 1.2.840.114 350.1.13.10 4.2.7.2.686 [id number] 134 [id number] [facility] 2020-11-04 00:00:00 2020-11-04 00:00:00 Case Management Christa Nielsen [facility] 1.2.840.114 350.1.13.10 4.2.7.2.686 [id number] 134 [id number] [facility] 2020-11-03 13:56:31 2020-11-03 14:26:31 Office Visit Christa Nielsen [facility] 1.2.840.114 350.1.13.10 4.2.7.2.686 [id number] 134 [id number] [facility] 2020-11-03 14:00:00 2020-11-03 14:00:00 [facility] [id number] 2020-07-20 12:55:00 2020-07-20 16:20:00 Emergency Beni Rivera [facility] 1.2.840.114 350.1.13.10 4.2.7.2.686 [id number] 084 [id number] [facility] 2020-07-20 12:55:00 2020-07-20 16:20:00 Emergency X BENI RIVERA [facility] [id number] [facility] 2020-06-02 14:45:00 2020-06-02 14:45:00 [facility] [id number] [facility] 2020-05-11 09:00:00 2020-05-11 09:00:00 Outpatient CHRISTA LOO [facility] [id number] [facility] 2020-05-08 00:00:00 2020-05-08 00:00:00 Telephone Cristi [facility] Office Building One 1.2840.114 350.1.13.10 4.2.7.2.686 [id number] 044 [id number] [facility] 2020-05-08 00:00:00 2020-05-08 00:00:00 Telephone Cristi [facility] nal Building 1.2.840.114 350.1.13.10 4.2.7.2.686 [id number] 044 [id number] [facility] 2020-05-08 00:00:00 2020-05-08 00:00:00 Telephone Cristi [facility] One 1.2.840.114 350.1.13.10 4.2.7.2.686 [id number] 044 [id number] 2020-05-08 00:00:00 2020-05-08 00:00:00 Telephone Cristi Josefina [facility] nal Building 1.2.840.114 350.1.13.10 4.2.7.2.686 [id number] [id number] 2020-05-04 19:20:00 2020-05-04 19:20:00 Outpatient R [facility] [id number] [facility] 2020-05-04 17:45:31 2020-05-04 18:05:31 Urgent Care Provider, [facility] Cristi [facility] Building One 1.2840.114 350.1.13.10 4.2.7.2.686 [id number] [id number] [facility] 2020-05-04 17:45:31 2020-05-04 18:05:31 [facility] One 1.2.840.114 350.1.13.10 4.2.7.2.686 [id number] [id number] 2020-04-19 14:00:00 2020-04-19 14:00:00 Outpatient Valeria NIELSEN CHRISTA [facility] [id number] [facility] 2020-04-09 10:00:00 2020-04-09 10:00:00 Outpatient R GIA [facility] [id number] [facility] 2020-03-12 14:00:00 2020-03-12 14:00:00 Outpatient Valeria RUBY MCCULLOUGH [facility] [id number] [facility] 2020-03-05 10:38:44 2020-03-05 11:39:54 Office Visit Ruby Mccullough [facility] Building 1.2.840.114 350.1.13.10 4.2.7.2.686 [id number] 134 [id number] [facility] 2020-03-05 10:38:44 2020-03-05 11:39:54 Office Visit Ruby Mccullough [facility] Building 1.2.840.114 350.1.13.10 4.2.7.2.686 [id number] 2020-03-05 10:45:00 2020-03-05 10:45:00 Outpatient R RUBY MCCULLOUGH [facility] [id number] [facility] 2020-03-05 10:00:00 2020-03-05 10:00:00 Outpatient R RUBY MCCULLOUGH [facility] [id number] [facility] 2020-02-27 10:58:54 2020-02-27 11:48:44 Office Visit Gia Christa [facility] Building 1.2.840.114 350.1.13.10 4.2.7.2.686 [id number] [facility] 2020-02-27 10:45:00 2020-02-27 10:45:00 Outpatient R CHRISTA NIELSEN [facility] [id number] [facility] 2020-02-27 00:00:00 2020-02-27 00:00:00 Orders Only Doctor Unassigned, [place] [facility] 1.2840.114 350.1.13.10 4.2.7.2.686 [id number] [facility] 2020-01-09 18:56:10 2020-01-09 20:39:[address] [facility] 1.2840.114 350.1.13.10 4.2.7.2.686 [id number] [facility] 2020-01-09 18:56:10 2020-01-09 18:56:[address] [facility] E[facility] [id number] [facility] 2019-08-22 13:59:27 2019-08-22 15:30:00 Emergency [place] [facility] 1.2840.114 350.1.13.10 4.2.7.2.686 [id number] 084 [id number] [facility] Results Test Description Test Time Test Comments Results Resul t Comments Source XR Chest 1 vw 2024-07-10 4 18:22:39 EXAM: XR CHEST 1 HISTORY: 29 years-old Female; chest pain COMPARISON: CXR dated 10/09/2023 FINDINGS: Lungs: The lung volumes are normal. No focal opacities are present. Nopleural abnormalities are detected. No pneumothorax. Heart/Mediastinum: The cardiomediastinal silhouette appears normal. Bones and soft tissues: No acute osseous findings are detected. [facility] [id number] 18:17:51* Test Item Value Reference Range Interpretation Comme nts TROPONIN I (test code = 7297619173) 0.004 ng/mL <=0.034 ANN (test code = NAN) Reference (Normal) Range (defined by the 99th percentile reference limit): <= 0.034 ng/mL Note: Cardiac troponin begins to rise 3-4 hours after the onset of ischemia. Repeat in 4-6 hours if the sample was drawn within 3-4 hours of the onset of the symptom and found normal. Diagnosis of myocardial injury is made with acute changes in cTn concentrations with at least one serial sample above the 99th percentile upper reference limit (URL), taken together with the patient's clinical presentation. Biotin has been reported to cause a negative bias, interpret results relative to patient's use of biotin. Lab Interpretation (test code = 97734-4) Normal [facility]. Metabolic Panel (53565)2024-08-01 18:02:50* Test Item Value Reference Range Interpretation Comme nts NA (test code = 7693213726) 139 mmol/L 135-145 K (test code = 3740092058) 4.6 mmol/L 3.5-5.0 Slight hemolysis CL (test code = 3353028997) 109 mmol/L 98-108 H CO2 TOTAL (test code = 3445257325) 25 mmol/L 23-31 AGAP (test code = 5447435020) 5 2-16 BUN (test code = 2569889524) 12 mg/dL 7-23 Slight hemolysis GLUCOSE (test code = 1363472767) 90 mg/dL 70-110 CREATININE (test code = 2160-0) 0.71 mg/dL 0.50-1.04 TOTAL BILI (test code = 3643370255) 0.7 mg/dL 0.1-1.1 CALCIUM (test code = 3224714806) 9.9 mg/dL 8.6-10.6 T PROTEIN (test code = 7030259746) 8.1 g/dL 6.3-8.2 ALBUMIN (test code = 8660149011) 4.9 g/dL 3.5-5.0 ALK PHOS (test code = 7425296749) 65 U/L 34-122 Slight hemolysis ALTv (test code = 1742-6) 17 U/L 5-35 AST(SGOT) (test code = 4263318343) 35 U/L 13-40 Slight hemolysis eGFR (test code = 67105-6) 119.7 mL/min/1.73m2 CKD-EPI eGFR (2020). Assuming creatinine has been stable day-to-day for at least three months, the eGFR indicates Category G1 (>= 90 mL/min/1.73 m2) Lab Interpretation (test code = 30452-6) Abnormal [facility] Center[facility] 17:51:07* Test Item Value Reference Range Interpretation Comme nts MAGNESIUM (test code = 7455706882) 2.0 mg/dL 1.7-2.4 Lab Interpretation (test cod e = 94080-3) Normal [facility] CenterD-Otzoh6862-05-66 17:47:03* Test Item Value Reference Range Interpretation Comments D-DIMER (test code = 7331010985) See_Comment [Automated message] The system which generated this result transmitted reference range: <0.50 ?g/mL (FEU). The reference range was not used to interpret this result as normal/abnormal. ANN (test code = ANN) This test may be used in conjunction with a clinical pretest probability (PTP) assessment model to exclude venous thromboembolism (VTE) in patients suspected of deep venous thrombosis (DVT) and pulmonary embolism (PE) A D-Dimer value less than 0.50 ?g/ml (FEU) has a negative predicative value of 96 to 100% (95% CI)and 97 to 100% (95% CI) as an aid in the diagnosis of deep vein thrombosis (DVT) and pulmonary embolism when there is low or moderate pretest probability of PE or DVT. D-Dimer values are expressed in initial fibrinogen equivalent units (FEU)" The assay results should be used with other information, including the clinical context, in forming a diagnosis. Lab Interpretation (test code = 61293-2) Normal [facility] CenterCbc with Yhip2439-85-26 17:31:20* Test Item Value Reference Range Interpretation Comme nts WBC (test code = 6690-2) 6.35 4.30-11.10 RBC (test code = 789-8) 4.85 3.93-5.25 HGB (test code = 718-7) 15.1 g/dL 11.6-15.0 H HCT (test code = 4544-3) 43.9 % 35.7-45.2 MCV (test code = 787-2) 90.5 fL 80.6-95.5 MCH (test code = 785-6) 31.1 pg 25.9-32.8 MCHC (test code = 786-4) 34.4 g/dL 31.6-35.1 RDW-SD (test code = 55173-4) 41.1 fL 39.0-49.9 RDW-CV (test code = 788-0) 12.3 % 12.0-15.5 PLT (test code = 777-3) 278 166-358 MPV (test code = 61508-9) 9.4 fL 9.5-12.9 L NRBC/100 WBC (test code = 5908108261) 0.0 0.0-10.0 NRBC x10^3 (test code = 7014548506) See_Comment [Automated messa ge] The system which generated this result transmitted reference range: 10*3/?L. The reference range was not used to interpret this result as normal/abnormal. GRAN MAT (NEUT) % (test code = 770-8) 61.2 % IMM GRAN % (test code = 1025013436) 0.20 % LYMPH % (test code = 736-9) 29.1 % MONO % (test code = 5905-5) 6.5 % EOS % (test code = 713-8) 2.4 % BASO % (test code = 706-2) 0.6 % GRAN MAT x10^3(ANC) (test code = 7299972655) 3.89 10*3/uL 1.88-7.09 IMM GRAN x10^3 (test code = 5752286764) 0.00-0.06 LYMPH x10^3 (test code = 731-0) 1.85 10*3/uL 1.32-3.29 MONO x10^3 (test code = 742-7) 0.41 10*3/uL 0.33-0.92 EOS x10^3 (test code = 711-2) 0.15 10*3/uL 0.03-0.39 BASO x10^3 (test code = 704-7) 0.04 10*3/uL 0.01-0.07 Lab Interpretation (test code = 01221-1) Abnormal [facility] CenterPOCT Wczc4495-79-79 17:13:00* Test Item Value Reference Range Interpretation Comme nts POCT PREG (test code = 1605) Negative On board controls acceptable with C Line (test code = 3574) Yes POCT PREG LOT # (test code = 3575) [id number] POCT PREG TEST DATE ( test code = 3576) 06-23-2025 Lab Interpretation (test cod e = 83580-6) Normal [facility]. Metabolic Panel (01464)2024-07-06 03:24:32* Test Item Value Reference Range Interpretation Comme nts NA (test code = 9443680304) 139 mmol/L 135-145 K (test code = 7383718872) 4.3 mmol/L 3.5-5.0 CL (test code = 8885888802) 108 mmol/L 98-108 CO2 TOTAL (test code = 1838699531) 25 mmol/L 23-31 AGAP (test code = 1538518131) 6 2-16 BUN (test code = 7281378518) 12 mg/dL 7-23 GLUCOSE (test code = 2424010312) 82 mg/dL 70-110 CREATININE (test code = 2160-0) 0.69 mg/dL 0.50-1.04 TOTAL BILI (test code = 8711376104) 0.5 mg/dL 0.1-1.1 CALCIUM (test code = 6223256061) 9.4 mg/dL 8.6-10.6 T PROTEIN (test code = 1941853517) 7.5 g/dL 6.3-8.2 ALBUMIN (test code = 3113072989) 4.5 g/dL 3.5-5.0 ALK PHOS (test code = 5154072871) 73 U/L 34-122 ALTv (test code = 1742-6) 18 U/L 5-35 AST(SGOT) (test code = 3273296825) 27 U/L 13-40 eGFR (test code = 55259-9) 122.2 mL/min/1.73m2 CKD-EPI eGFR (20 21). Assuming creatinine has been stable day-to-day for at least three months, the eGFR indicates Category G1 (>= 90 mL/min/1.73 m2) [facility] CenterLipase2024-12-29 03:23:52* Test Item Value Reference Range Interpretation Comme nts LIPASE (test code = 1508955073) 150 U/L 0-220 Lab Interpretation (test cod e = 36658-6) Normal [facility] CenterCT Abdomen pelvis w mkywnggq3910-47-06 03:12:21Exam: CT Abdomen and Pelvis with contrast, 07/05/2024 8:15 PM. Ordering Physician: TINO LUCIA. History: Epigastric pain . Comparison: None. Technique: CT abdomen and pelvis was obtained with intravenous contrast. CTwas performed according to ALARA (As Low As Reasonably Achievable). Technical Rey lity: Adequate. Findings: LOWER CHEST:Normal. ABDOMEN/PELVIS:Liver: Normal.Gallbladder/biliary: Normal gallbladder. No biliary ductal dilation.Pancreas: Normal.Spleen: Focal hypodensity within the spleen measures 1.4 cm, nonspecific. Adrenal glands: Normal.Kidneys and ureters: Normal.Bladder: Normal.Reproductive organs: Normal for age. Stomach/bowel: No bowel obstruction. No bowel wall thickening. Normalappendix. Lymph nodes: No lymphadenopathy.Peritoneum: No organized fluid collection or free air.Vessels: Atherosclerosis without aneurysm. MUSCULOSKELETAL:Soft tissues: Unremarkable.Bones: No acute osseous abnormality.[facility] CenterCbc with Upcw9712-47-37 03:07:34* Test Item Value Reference Range Interpretation Comme nts WBC (test code = 6690-2) 9.88 4.30-11.10 RBC (test code = 789-8) 4.68 3.93-5.25 HGB (test code = 718-7) 14.6 g/dL 11.6-15.0 HCT (test code = 4544-3) 42.8 % 35.7-45.2 MCV (test code = 787-2) 91.5 fL 80.6-95.5 MCH (test code = 785-6) 31.2 pg 25.9-32.8 MCHC (test code = 786-4) 34.1 g/dL 31.6-35.1 RDW-SD (test code = 37598-0) 42.5 fL 39.0-49.9 RDW-CV (test code = 788-0) 12.8 % 12.0-15.5 PLT (test code = 777-3) 292 166-358 MPV (test code = 23276-9) 9.5 fL 9.5-12.9 NRBC/100 WBC (test code = 7388600002) 0.0 0.0-10.0 NRBC x10^3 (test code = 2673912786) See_Comment [Automated me ssage] The system which generated this result transmitted reference range: 10*3/?L. The reference range was not used to interpret this result as normal/abnormal. GRAN MAT (NEUT) % (test code = 770-8) 60.3 % IMM GRAN % (test code = 0812610083) 0.40 % LYMPH % (test code = 736-9) 29.6 % MONO % (test code = 5905-5) 5.9 % EOS % (test code = 713-8) 3.1 % BASO % (test code = 706-2) 0.7 % GRAN MAT x10^3(ANC) (test code = 3484766831) 5.96 10*3/uL 1.88-7.09 IMM GRAN x10^3 (test code = 5705897935) 0.04 10*3/uL 0.00-0.06 LYMPH x10^3 (test code = 731-0) 2.92 10*3/uL 1.32-3.29 MONO x10^3 (test code = 742-7) 0.58 10*3/uL 0.33-0.92 EOS x10^3 (test code = 711-2) 0.31 10*3/uL 0.03-0.39 BASO x10^3 (test code = 704-7) 0.07 10*3/uL 0.01-0.07 [facility] CenterPOCT Cpug7283-90-04 02:19:00* Test Item Value Reference Range Interpretation Comme nts POCT PREG (test code = 1605) Negative On board controls acceptable with C Line (test code = 3574) Yes POCT PREG LOT # (test code = 3575) [id number] POCT PREG TEST DATE ( test code = 3576) 07-02-2025 Lab Interpretation (test cod e = 00164-1) Normal [facility] CenterN-Terminal Edz-Aln9421-27-03 02:37:04* Test Item Value Reference Range Interpretation Comme nts NT-proBNP (test code = 26648-0) <=125 Lab Interpretation (test cod e = 84811-6) Normal [facility] CenterTroponin B8034-77-53 02:33:02* Test Item Value Reference Range Interpretation Comme nts TROPONIN I (test code = 5772248760) 0.004 ng/mL <=0.034 ANN (test code = ANN) Reference (Normal) Range (defined by the 99th percentile reference limit): <= 0.034 ng/mL Note: Cardiac troponin begins to rise 3-4 hours after the onset of ischemia. Repeat in 4-6 hours if the sample was drawn within 3-4 hours of the onset of the symptom and found normal. Diagnosis of myocardial injury is made with acute changes in cTn concentrations with at least one serial sample above the 99th percentile upper reference limit (URL), taken together with the patient's clinical presentation. Biotin has been reported to cause a negative bias, interpret results relative to patient's use of biotin. Lab Interpretation (test code = 26158-6) Normal [facility]. Metabolic Panel (60305)2023-10-10 02:21:36* Test Item Value Reference Range Interpretation Comme nts NA (test code = 8974529934) 137 mmol/L 135-145 K (test code = 5358991433) 4.3 mmol/L 3.5-5.0 CL (test code = 3979072884) 107 mmol/L 98-108 CO2 TOTAL (test code = 1581670189) 24 mmol/L 23-31 AGAP (test code = 3682048092) 6 2-16 BUN (test code = 9605367332) 16 mg/dL 7-23 GLUCOSE (test code = 7081712238) 102 mg/dL 70-110 CREATININE (test code = 2160-0) 0.74 mg/dL 0.50-1.04 TOTAL BILI (test code = 5389152155) 0.4 mg/dL 0.1-1.1 CALCIUM (test code = 8998450874) 9.2 mg/dL 8.6-10.6 T PROTEIN (test code = 0498645952) 7.3 g/dL 6.3-8.2 ALBUMIN (test code = 5455345784) 4.1 g/dL 3.5-5.0 ALK PHOS (test code = 2597618877) 91 U/L 34-122 ALTv (test code = 1742-6) 15 U/L 5-35 AST(SGOT) (test code = 2403309035) 21 U/L 13-40 eGFR (test code = 46024-3) 114.6 mL/min/1.73m2 CKD-EPI eGFR (20 21). Assuming creatinine has been stable day-to-day for at least three months, the eGFR indicates Category G1 (>= 90 mL/min/1.73 m2) [id number] 02:17:59* Test Item Value Reference Range Interpretation Comments D-DIMER (test code = 0037378620) 0.47 See_Comment [Automated message] The system which generated this result transmitted reference range: <0.50 ?g/mL (FEU). The reference range was not used to interpret this result as normal/abnormal. ANN (test code = ANN) This test may be used in conjunction with a clinical pretest probability (PTP) assessment model to exclude venous thromboembolism (VTE) in patients suspected of deep venous thrombosis (DVT) and pulmonary embolism (PE) A D-Dimer value less than 0.50 ?g/ml (FEU) has a negative predicative value of 96 to 100% (95% CI)and 97 to 100% (95% CI) as an aid in the diagnosis of deep vein thrombosis (DVT) and pulmonary embolism when there is low or moderate pretest probability of PE or DVT. D-Dimer values are expressed in initial fibrinogen equivalent units (FEU)" The assay results should be used with other information, including the clinical context, in forming a diagnosis. Lab Interpretation (test code = 02772-1) Normal [facility] with [id number] 02:11:38* Test Item Value Reference Range Interpretation Comme nts WBC (test code = 6690-2) 9.36 4.30-11.10 RBC (test code = 789-8) 4.99 3.93-5.25 HGB (test code = 718-7) 15.0 g/dL 11.6-15.0 HCT (test code = 4544-3) 44.2 % 35.7-45.2 MCV (test code = 787-2) 88.6 fL 80.6-95.5 MCH (test code = 785-6) 30.1 pg 25.9-32.8 MCHC (test code = 786-4) 33.9 g/dL 31.6-35.1 RDW-SD (test code = 36421-1) 43.4 fL 39.0-49.9 RDW-CV (test code = 788-0) 13.4 % 12.0-15.5 PLT (test code = 777-3) 321 166-358 MPV (test code = 88148-3) 9.4 fL 9.5-12.9 L NRBC/100 WBC (test code = 1960687648) 0.0 0.0-10.0 NRBC x10^3 (test code = 5505809334) See_Comment [Automated messa ge] The system which generated this result transmitted reference range: 10*3/?L. The reference range was not used to interpret this result as normal/abnormal. GRAN MAT (NEUT) % (test code = 770-8) 63.6 % IMM GRAN % (test code = 6136826991) 0.30 % LYMPH % (test code = 736-9) 22.4 % MONO % (test code = 5905-5) 5.0 % EOS % (test code = 713-8) 8.4 % BASO % (test code = 706-2) 0.3 % GRAN MAT x10^3(ANC) (test code = 6014744718) 5.94 10*3/uL 1.88-7.09 IMM GRAN x10^3 (test code = 2470748373) 0.03 10*3/uL 0.00-0.06 LYMPH x10^3 (test code = 731-0) 2.10 10*3/uL 1.32-3.29 MONO x10^3 (test code = 742-7) 0.47 10*3/uL 0.33-0.92 EOS x10^3 (test code = 711-2) 0.79 10*3/uL 0.03-0.39 H BASO x10^3 (test code = 704-7) 0.03 10*3/uL 0.01-0.07 Lab Interpretation (test code = 91638-3) Abnormal [facility] Arterial Blood Gas.2023-10-10 02:04:03* Test Item Value Reference Range Interpretation Comme nts PH (test code = 2) 7.42 7.35-7.45 PCO2 (test code = 7225026851) 35 35-45 PO2 (test code = 5935132793) 71 80-100 L HCO3 (test code = 8963866198) 22 22-26 BE (test code = 0524281471) -1.8 -3.0-3.0 Lab Interpretation (test cod e = 63799-7) Abnormal [facility] [id number] 01:50:00* Test Item Value Reference Range Interpretation Comme nts POCT PREG (test code = 1605) Negative On board controls acceptable with C Line (test code = 3574) Yes POCT PREG LOT # (test code = 3575) [id number] POCT PREG TEST DATE ( test code = 3576) 10/14/2024 Lab Interpretation (test cod e = 07395-9) [facility] 1 [id number] 04:10:10Exam: Chest (1 View), 08/12/2023 9:30 PM. Ordering Physician: YOLI AVILA. History: cough . Technique: One view of the chest. Comparison: Chest radiograph 05/20/2023. Findings: No focal consolidation. No pneumothorax or effusion. Normal size of thecardiac silhouette. No acute osseous finding.[facility] [id number] 03:31:00* Test Item Value Reference Range Interpretation Comme nts POCT PREG (test code = 1605) Negative On board controls acceptable with C Line (test code = 3574) Yes POCT PREG LOT # (test code = 3575) [id number] POCT PREG TEST DATE ( test code = 3576) Lab Interpretation (test cod e = 08392-5) Normal [facility] CenterTR[facility] [id number] 02:58:24* Test Item Value Reference Range Interpretation Comme nts TROPONIN I (test code = 3427551541) 0.001 ng/mL <=0.034 ANN (test code = ANN) Reference (Normal) Range (defined by the 99th percentile reference limit): <= 0.034 ng/mL Note: Cardiac troponin begins to rise 3-4 hours after the onset of ischemia. Repeat in 4-6 hours if the sample was drawn within 3-4 hours of the onset of the symptom and found normal. Diagnosis of myocardial injury is made with acute changes in cTn concentrations with at least one serial sample above the 99th percentile upper reference limit (URL), taken together with the patient's clinical presentation. Biotin has been reported to cause a negative bias, interpret results relative to patient's use of biotin. Lab Interpretation (test code = 32120-1) Normal [facility]. METABOLIC PANEL (67592)2023-05-21 02:50:21* Test Item Value Reference Range Interpretation Comme nts NA (test code = 5345624956) 139 mmol/L 135-145 K (test code = 7591774502) 4.4 mmol/L 3.5-5.0 CL (test code = 6129209188) 109 mmol/L 98-108 H CO2 TOTAL (test code = 5130690842) 16 mmol/L 23-31 L AGAP (test code = 4784564508) 14 2-16 BUN (test code = 0566153256) 14 mg/dL 7-23 GLUCOSE (test code = 9067755331) 117 mg/dL 70-110 H CREATININE (test code = 2507990592) 0.65 mg/dL 0.50-1.04 TOTAL BILI (test code = 2501052050) 0.8 mg/dL 0.1-1.1 CALCIUM (test code = 2552894588) 10.5 mg/dL 8.6-10.6 T PROTEIN (test code = 5013481544) 8.9 g/dL 6.3-8.2 H ALBUMIN (test code = 8587517546) 4.9 g/dL 3.5-5.0 ALK PHOS (test code = 5058324643) 104 U/L 34-122 ALTv (test code = 1742-6) 29 U/L 5-35 AST(SGOT) (test code = 3416198497) 31 U/L 13-40 eGFR (test code = 23395-1) 125.5 mL/min/1.73m2 CKD-EPI eGFR (2020). Assuming creatinine has been stable day-to-day for at least three months, the eGFR indicates Category G1 (>= 90 mL/min/1.73 m2) Lab Interpretation (test code = 00438-4) [facility]normal [facility] 02:49:41* Test Item Value Reference Range Interpretation Comme nts LIPASE (test code = 3845193059) 119 U/L 0-220 Lab Interpretation (test cod e = 06940-5) Normal [facility]D-[id number] 02:47:00* Test Item Value Reference Range Interpretation Comments D-DIMER (test code = 3982255907) 0.33 See_Comment [Automated message] The system which generated this result transmitted reference range: <0.41 ?g/mL (FEU). The reference range was not used to interpret this result as normal/abnormal. ANN (test code = ANN) This test may be used in conjunction with a clinical pretest probability (PTP) assessment model to exclude venous thromboembolism (VTE) in patients suspected of deep venous thrombosis (DVT) and pulmonary embolism (PE) A D-Dimer value less than 0.50 ?g/ml (FEU) has a negative predicative value of 96 to 100% (95% CI)and 97 to 100% (95% CI) as an aid in the diagnosis of deep vein thrombosis (DVT) and pulmonary embolism when there is low or moderate pretest probability of PE or DVT. D-Dimer values are expressed in initial fibrinogen equivalent units (FEU)" The assay results should be used with other information, including the clinical context, in forming a diagnosis. Lab Interpretation (test code = 10159-2) Normal [facility] CenterPO[facility] [id number] 02:35:00* Test Item Value Reference Range Interpretation Comme nts POCT PREG (test code = 1605) Negative On board controls acceptable with C Line (test code = 3574) Yes POCT PREG LOT # (test code = 3575) [id number] POCT PREG TEST DATE ( test code = 3576) Lab Interpretation (test cod e = 08365-7) Normal [facility] WITH [id number] 02:34:16* Test Item Value Reference Range Interpretation Comme nts WBC (test code = 6690-2) 13.55 See_Comment H [Automated message] The system which generated this result transmitted reference range: 4.30 - 11.10 10*3/?L. The reference range was not used to interpret this result as normal/abnormal. RBC (test code = 789-8) 5.26 See_Comment H [Automated message] The system which generated this result transmitted reference range: 3.93 - 5.25 10*6/?L. The reference range was not used to interpret this result as normal/abnormal. HGB (test code = 718-7) 15.2 g/dL 11.6-15.0 H HCT (test code = 4544-3) 43.4 % 35.7-45.2 MCV (test code = 787-2) 82.5 fL 80.6-95.5 MCH (test code = 785-6) 28.9 pg 25.9-32.8 MCHC (test code = 786-4) 35.0 g/dL 31.6-35.1 RDW-SD (test code = 47351-5) 44.0 fL 39.0-49.9 RDW-CV (test code = 788-0) 14.6 % 12.0-15.5 PLT (test code = 777-3) 402 See_Comment H [Automated message] The system which generated this result transmitted reference range: 166 - 358 10*3/?L. The reference range was not used to interpret this result as normal/abnormal. MPV (test code = 10455-0) 8.5 fL 9.5-12.9 L NRBC/100 WBC (test code = 0191789241) 0.0 See_Comment [Automated message] The system which generated this result transmitted reference range: 0.0 - 10.0 /100 WBCs. The reference range was not used to interpret this result as normal/abnormal. NRBC x10^3 (test code = 1818136491) See_Comment [Automated message] The system which generated this result transmitted reference range: 10*3/?L. The reference range was not used to interpret this result as normal/abnormal. GRAN MAT (NEUT) % (test code = 770-8) 91.3 % IMM GRAN % (test code = 7301214210) 0.40 % LYMPH % (test code = 736-9) 6.9 % MONO % (test code = 5905-5) 1.2 % EOS % (test code = 713-8) 0.0 % BASO % (test code = 706-2) 0.2 % GRAN MAT x10^3(ANC) (test code = 0848636882) 12.37 10*3/uL 1.88-7.09 H IMM GRAN x10^3 (test code = 7512601407) 0.06 10*3/uL 0.00-0.06 LYMPH x10^3 (test code = 731-0) 0.93 10*3/uL 1.32-3.29 L MONO x10^3 (test code = 742-7) 0.16 10*3/uL 0.33-0.92 L EOS x10^3 (test code = 711-2) 0.03-0.39 L BASO x10^3 (test code = 704-7) 0.03 10*3/uL 0.01-0.07 Lab Interpretation (test code = 08909-6) Abnormal [facility] [id number] 18:39:00* Test Item Value Reference Range Interpretation Comme nts POCT PREG (test code = 1605) Negative On board controls acceptable with C Line (test code = 3574) Yes POCT PREG LOT # (test code = 3575) POCT PREG TEST DATE ( test code = 3576) [facility] [id number] 18:39:00* Test Item Value Reference Range Interpretation Comme nts POCT PREG (test code = 1605) Negative On board controls acceptable with C Line (test code = 3574) Yes POCT PREG LOT # (test code = 3575) POCT PREG TEST DATE ( test code = 3576) [facility] [id number] 15:15:00* Test Item Value Reference Range Interpretation Comme nts POCT PREG (test code = 1605) Negative On board controls acceptable with C Line (test code = 3574) Yes POCT PREG LOT # (test code = 3575) POCT PREG TEST DATE ( test code = 3576) [facility] [id number] 15:15:00* Test Item Value Reference Range Interpretation Comme nts POCT PREG (test code = 1605) Negative On board controls acceptable with C Line (test code = 3574) Yes POCT PREG LOT # (test code = 3575) POCT PREG TEST DATE ( test code = 3576) [facility] CenterPOID [id number] 16:05:00* Test Item Value Reference Range Interpretation Comme nts POCT PREG (test code = 1605) Negative On board controls acceptable with C Line (test code = 3574) Yes POCT PREG LOT # (test code = 3575) POCT PREG TEST DATE ( test code = 3576) [facility] Notes Date/Time Note Provider Source 2024-08-01 14:00:15 Patient is awake and alert, oriented x4, speech is clear and appropriate, ambulatory with a steady gait. Advised to seek medical attention for new/prolonged/worsening of symptoms. Respirations even and unlabored, no distress. Raymundo RN [facility] 2024-08-01 09:55:45 CC: patient presents to the ER with complaints of mid-sternal chest wall pain that worsens when lying down. Patient states her pain began a week ago. 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 Awake, alert, oriented, resp reg unlabored, skin warm and dry, color appropriate for race, moves all ext without difficulty, amb without assistance. Appears in no distress. Barnes RN [facility] 2024-07-05 22:00:57 Pt. Provided d/c instructions, rx drug use, & f/u instructions; pt. 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 2024-07-05 19:56:10 Pt. Reports abdominal pain for approx. 1 month to RUQ, LUQ; denies N/V/D; not triggered by food; denies vaginal bleeding [facility] Génesis Avalos RN [facility] 2024-07-05 19:33:00 [facility] [place] Emergency Department Note Patient Name: Nette Gordon Date of : 1995 29 year old female Treatment Room: Room/bed info not found Primary Care Physician: PATIENT DOES NOT HAVE A PCP Patient Escorted by: Family [5] Mode of Arrival: Personal means [1] EMS Treatment Prior to ED Arrival: Travel and Exposure Screening: Symptoms Does patient have any of these symptoms?: (not recorded) Exposure Screening Has patient had contact with someone with a communicable disease in the last month?: (not recorded) Diseases exposed to:: (not recorded) Is Patient ?: (not recorded) Exposure Date: (not recorded) Chief Complaint: Chief Complaint Patient presents with Abdominal Pain Approx. 1 month History of Present Illness: Nette Gordon is a 29 year old female with left upper quadrant / epigastric abdominal pain for a month. Patient states that she does not have any other symptoms related to her abdominal pain specifically no nausea vomiting diarrhea fever or vaginal bleeding. She states that she previously discussed this with her primary care provider however they required 100 other deposit in 300 all from ultrasound so she said that tonight that her pain was worse than previous and she came to the emergency department seeking evaluation. She is afebrile on arrival does not appear in acute distress. She reports drinking alcohol last night but does not attest to be recurrent drinker. Past Medical History/Immunizations: Past Medical History: Diagnosis Date Insomnia Seizures 03/28/2021 Allergies: Allergies Allergen Reactions Citric Acid Other - See comments Headaches Past Social History: Tobacco Use Every Day; 0.5 packs/day; Types: Cigarettes Smokeless Tobacco: Never used smokeless tobacco. Vaping Use Never used Alcohol Use Not Currently. Drug Use Yes; Marijuana. Sexual Activity Sexually active; Partners: Male; Control/Protection: Condom. Past Surgical History: Past Surgical History: Procedure Laterality Date SECTION Review of Systems: Review of Systems Constitutional: Negative for fatigue and fever. Respiratory: Negative for cough and shortness of breath. Cardiovascular: Negative for chest pain. Gastrointestinal: Negative for diarrhea, nausea and vomiting. Physical Exam: ED Triage Vitals [07/05/241957] Weight 104.3 kg (230 lb) Actual or estimated Height 1.626 m (5' 4") BP 126/75 Pulse 108 Resp 18 Temp 37 ?C (98.6 ?F) Temp src SpO2 96 % Measured on Room air Physical Exam Vitals and nursing note reviewed. Constitutional: General: She is not in acute distress. Appearance: She is well-developed. She is obese. She is not diaphoretic. HENT: Head: Normocephalic and atraumatic. Right Ear: External ear normal. Left Ear: External ear normal. Nose: Nose normal. Eyes: General: No scleral icterus. Conjunctiva/sclera: Conjunctivae normal. Pupils: Pupils are equal, round, and reactive to light. Cardiovascular: Rate and Rhythm: Normal rate and regular rhythm. Heart sounds: Normal heart sounds. Pulmonary: Effort: Pulmonary effort is normal. Breath sounds: Normal breath sounds. Abdominal: General: Bowel sounds are normal. Palpations: Abdomen is soft. Tenderness: There is no abdominal tenderness. There is no guarding or rebound. Musculoskeletal: General: Normal range of motion. Cervical back: Normal range of motion and neck supple. Skin: General: Skin is warm and dry. Neurological: Mental Status: She is alert and oriented to person, place, and time. Cranial Nerves: No cranial nerve deficit. Deep Tendon Reflexes: Reflexes are normal and symmetric. Psychiatric: Behavior: Behavior normal. Thought Content: Thought content normal. Radiology: CT Abdomen pelvis w contrast Final Result Exam: CT Abdomen and Pelvis with contrast, 07/05/2024 8:15 PM. Ordering Physician: TINO LUCIA. History: Epigastric pain . Comparison: None. Technique: CT abdomen and pelvis was obtained with intravenous contrast. CT was performed according to ALARA (As Low As Reasonably Achievable). Technical Quality: Adequate. Findings: LOWER CHEST: Normal. ABDOMEN/PELVIS: Liver: Normal. Gallbladder/biliary: Normal gallbladder. No biliary ductal dilation. Pancreas: Normal. Spleen: Focal hypodensity within the spleen measures 1.4 cm, nonspecific. Adrenal glands: Normal. Kidneys and ureters: Normal. Bladder: Normal. Reproductive organs: Normal for age. Stomach/bowel: No bowel obstruction. No bowel wall thickening. Normal appendix. Lymph nodes: No lymphadenopathy. Peritoneum: No organized fluid collection or free air. Vessels: Atherosclerosis without aneurysm. MUSCULOSKELETAL: Soft tissues: Unremarkable. Bones: No acute osseous abnormality. IMPRESSION Impression: No acute or inflammatory finding in the abdomen or pelvis. RL: [id number] End of Report Lab Results: Lab Results URINALYSIS - Abnormal Result Value Ref Range APPEARANCE Slightly Cloudy (*) Clear COLOR Yellow Yellow PH 7.0 4.8 - 8.0 SP GRAVITY 1.017 1.003 - 1.030 GLU U QUAL Normal Normal BLOOD Negative Negative KETONES Negative Negative PROTEIN Negative Negative UROBILIN Normal Normal BILIRUBIN Negative Negative NITRITE Negative Negative LEUK HANNAH 25/uL (*) Negative RBC/HPF 4 (*) 0 - 3 HPF WBC/HPF 17 (*) 0 - 5 HPF BACTERIA Few (*) Negative SQ EPITH 16 HPF LIPASE - Normal LIPASE 150 0 - 220 U/L POCT TEST - Normal POCT PREG Negative On board controls acceptable with C Line Yes POCT PREG LOT # [id number] POCT PREG TEST DATE 07-02-2025 CBC WITH DIFF WBC 9.88 4.30 - 11.10 10*3/?L RBC 4.68 3.93 - 5.25 10*6/?L HGB 14.6 11.6 - 15.0 g/dL HCT 42.8 35.7 - 45.2 % MCV 91.5 80.6 - 95.5 fL MCH 31.2 25.9 - 32.8 pg MCHC 34.1 31.6 - 35.1 g/dL RDW-SD 42.5 39.0 - 49.9 fL RDW-CV 12.8 12.0 - 15.5 % PLT 292 166 - 358 10*3/?L MPV 9.5 9.5 - 12.9 fL NRBC/100 WBC 0.0 0.0 - 10.0 /100 WBCs NRBC x10 3 <0.01 10*3/?L GRAN MAT (NEUT) % 60.3 % IMM GRAN % 0.40 % LYMPH % 29.6 % MONO % 5.9 % EOS % 3.1 % BASO % 0.7 % GRAN MAT x10 3 (ANC) 5.96 1.88 - 7.09 10*3/uL IMM GRAN x10 3 0.04 0.00 - 0.06 10*3/uL LYMPH x10 3 2.92 1.32 - 3.29 10*3/uL MONO x10 3 0.58 0.33 - 0.92 10*3/uL EOS x10 3 0.31 0.03 - 0.39 10*3/uL BASO x10 3 0.07 0.01 - 0.07 10*3/uL COMP. METABOLIC PANEL (80003) NA 139 135 - 145 mmol/L K 4.3 3.5 - 5.0 mmol/L CL 108 98 - 108 mmol/L CO2 TOTAL 25 23 - 31 mmol/L AGAP 6 2 - 16 BUN 12 7 - 23 mg/dL GLUCOSE 82 70 - 110 mg/dL CREATININE 0.69 0.50 - 1.04 mg/dL TOTAL BILI 0.5 0.1 - 1.1 mg/dL CALCIUM 9.4 8.6 - 10.6 mg/dL T PROTEIN 7.5 6.3 - 8.2 g/dL ALBUMIN 4.5 3.5 - 5.0 g/dL ALK PHOS 73 34 - 122 U/L ALTv 18 5 - 35 U/L AST(SGOT) 27 13 - 40 U/L eGFR 122.2 mL/min/1.73m2 EKG: If EKG completed, see Procedure Note. Orders and Treatments: Orders Placed This Encounter Procedures CT Abdomen pelvis w contrast Cbc with Diff Comp. Metabolic Panel (37428) Lipase POCT Test Urinalysis Orders Placed This Encounter Medications iopamidol (ISOVUE 370-500 mL) injection 85 mL pantoprazole 40 mg EC tablet dicyclomine 20 mg tablet sucralfate 1 gram tablet cephALEXin 500 mg capsule First Provider Eval: ED Events Date/Time Event User Comments 07/05/241946 Medical Screening Begins TINO LUCIA -- 07/05/241946 First Provider Evaluation TINO LUCIA -- ED COURSE ED Course as of 07/05/242139 Sat Jul 05, 20242132 WBC/HPF(!): 17 [PS] 2132 LEUK HANNAH(!): 25/uL [PS] ED Course User Index [PS] Tino Lucia, DO Diagnosis/Impression as of 07/05/242139 Epigastric pain UTI (urinary tract infection), uncomplicated Procedures: Procedures MDM: Medical Decision Making Problems Addressed: Epigastric pain: acute illness or injury Details: Lipase negative. Labs reviewed not consistent with acute emergent process. CT scan reviewed not consistent with acute emergent process Will treat with suspected peptic ulcer with Bentyl, Carafate, Protonix, diet modification. Endoscopy referral. Return precautions given if symptoms worsen as documented discharge instructions. UTI (urinary tract infection), uncomplicated: acute illness or injury Details: Treatment with Keflex. Amount and/or Complexity of Data Reviewed Labs: ordered. Decision-making details documented in ED Course. Radiology: ordered. Risk Prescription drug management. Flowsheet Documentation: Scoring Tools: No data recorded Disposition/Condition: ED Disposition ED Disposition Discharge Condition Stable Comment -- Discharge Medications: Patient's Medications START taking these medications CEPHALEXIN 500 MG CAPSULE Take 1 capsule by mouth 4 (four) times daily for 5 days. DICYCLOMINE 20 MG TABLET Take 1 tablet by mouth 4 (four) times daily as needed for Abdominal pain. PANTOPRAZOLE 40 MG EC TABLET Take 1 tablet by mouth in the morning. SUCRALFATE 1 GRAM TABLET Take 1 tablet by mouth before meals and at bedtime. CONTINUE taking these medications which have NOT CHANGED ALBUTEROL 90 MCG/ACTUATION INHALER Inhale 2 Puffs every 6 (six) hours as needed for Wheezing or Shortness of Breath. ALBUTEROL 90 MCG/ACTUATION INHALER Inhale 2 Puffs every 4 (four) hours as needed for Wheezing or Shortness of Breath. ALBUTEROL 90 MCG/ACTUATION INHALER Inhale 2 Puffs every 4 (four) hours as needed for Wheezing or Shortness of Breath. AZITHROMYCIN (ZITHROMAX Z-SB) 250 MG TABLET Take 1 tablet by mouth SEE-INSTRUCTIONS. Take 500 mg day 1, then 250 mg days 2 to 5. BENZONATATE 100 MG CAPSULE Take 2 capsules by mouth 3 (three) times daily as needed for Cough. LEVOFLOXACIN 750 MG TABLET Take 1 tablet by mouth every 24 (twenty-four) hours. METRONIDAZOLE (FLAGYL) 500 MG TABLET Take 1 tablet by mouth every 12 (twelve) hours. NORTRIPTYLINE 25 MG CAPSULE TAKE TWO CAPSULES BY MOUTH DAILY ONDANSETRON 4 MG DISINTEGRATING TABLET Take 1 tablet by mouth every 8 (eight) hours as needed for Nausea and Vomiting (N/V). QUETIAPINE (SEROQUEL XR) 400 MG 24 HR TABLET Take 400 mg by mouth daily. START taking Modified Medications as Prescribed No medications on file STOP taking these medications No medications on file Follow-up: Contact information for follow-up [facility], [facility] Specialty: Endoscopy [address] [facility] [address] Instructions: For follow up of the presenting symptoms. [facility] Specialty: Emergency Medicine [address] [address] Instructions: If symptoms worsen as documented in the discharge Electronically signed by: Tino Lucia DO 07/05/242139 GHT LOADER [facility] 2024-03-18 12:03:10 Pt given printed and verbal discharge instructions regarding acute bacterial bronchitis and acute cough, encouraged hydration, 2 Prescriptions sent. Discussed antibiotic therapy and to take until all completed unless adverse reaction occurs - if occurs, discontinue medication and follow up with pcp/seek medical attention Pt verbalized understanding of instructions, pt awake alert oriented, resp reg unlabored, skin w/d, color appropriate for race, moves all ext well,pt encouraged to follow up with pcp Advised to seek medical attention for new/prolonged/worsening of symptoms, Symptoms improved. No adverse reaction to meds given in ER noted upon discharge Awake, alert oriented, resp reg unlabored, skin w/d, pt leaving amb with steady gait, in no apparent distress, [facility] 2024-03-18 08:05:44 Patient arrived ambulatory c/o cough, congestion, chest tightness mid center of the chest. Denies any radiation of pain. Chest tightness is not reproducible. Jessi Monzon RN [facility] 2023-10-24 11:28:48 Patient called wanted to speak with the [facility] for her OB office. Call transferred. Patient stated she is aware that she is coming up due for her Pap Smear. Completed Chart review/Care everywhere/Immtrac. Immtrac2 immunizations on file are current. Care Everywhere no new medical records obtained at this time for Overdue HM. Did not send patient a message via [facility] of Overdue Health Maintenance. No futurre appointments at this time. Insurance: [employer] is current. Health Maintenance Due Topic Date Due SARS-CoV-2 (COVID-19) Vaccine (1) Never done PNEUMOCOCCAL 0-64 YEARS COMBINED SERIES (1 of 2 - PCV) Never done HPV VACCINES (1 - 2-dose series) Never done Depression Screening Never done VARICELLA VACCINES (2 of 2 - 2-dose childhood series) 05/17/2010 HIV Screening Never done SDOH Financial Resource Strain Never done SDOH Food Insecurity Never done SDOH Transportation Needs Never done HEPATITIS C (HCV) SCREEN Never done INFLUENZA VACCINE (1) 03/09/2023 Cervical Cancer Screening 11/18/2023 Schmitt, [facility] Community and Population Health [phone] [facility] 2023-10-23 11:05:18 Completed Chart review/Care everywhere/Immtrac. Immtrac2 immunizations were reconciled. Care Everywhere no new medical records obtained at this time for Overdue HM. Sent patient a message via [facility] of Overdue Health Maintenance with Varicella Questionnaire. No futurre appointments at this time. Currently has [employer]. 10/23/23 Health Maintenance team contacted patient to assist in completing Health Maintenance topics that are overdue. Nette Gordon [id number] Attempt Number: 1st Health Maintenance topics addressed: Health Maintenance Due Topic Date Due SARS-CoV-2 (COVID-19) Vaccine (1) Never done PNEUMOCOCCAL 0-64 YEARS COMBINED SERIES (1 of 2 - PCV) Never done HPV VACCINES (1 - 2-dose series) Never done Depression Screening Never done VARICELLA VACCINES (2 of 2 - 2-dose childhood series) 05/17/2010 HIV Screening Never done SDOH Financial Resource Strain Never done SDOH Food Insecurity Never done SDOH Transportation Needs Never done HEPATITIS C (HCV) SCREEN Never done INFLUENZA VACCINE (1) 03/09/2023 Cervical Cancer Screening 11/18/2023 Call outcome: Contacted patient to review overdue health maintenance. Per patient she currently does go through [email or web address] for assistance with Cervical Cancer Screening. Notified patient that she is coming up on the due for that test on 11/18/2023 to reach out to them so they may better assist you in the process of getting you authorized. Also, notified patient I sent her a [facility] message with everything that she is currently due for that she may discuss with them to see if there is additional assistance with those vaccines. Schmitt, [facility] and Population [facility] [phone] [facility] 2023-10-09 22:54:11 Pt given printed and verbal discharge instructions regarding chronic bronchitis, hypoxia. Encouraged hydration, Prescriptions provided:Albuterol Discussed ibuprofen and to take with food to avoid GI distress. Pt verbalized understanding of instructions, pt awake alert oriented, resp reg unlabored, skin w/d, color appropriate for race, moves all ext well,pt encouraged to follow up with pcp. Advised to seek medical attention for new/prolonged/worsening of symptoms, Symptoms improved No adverse reaction to meds given in ER noted upon discharge PIV d'cd, dressing to site, catheter in tact. Awake, alert oriented, resp reg unlabored, skin w/d, pt leaving amb with steady gait, in no apparent distress, accompanied by family. Jackie Sow RN [facility] 2023-10-09 20:09:50 CC: Pt reports having a physical on and was told to go to the ER for O2 sat 93%. Pt states that she could not come that day but wants to get it checked out now. PMHx: not diagnosed with asthma, but uses inhaler for 6-7 months (last used this morning), has nexplanon, anxiety (took xanax last at noon), smokes Awake, alert, oriented, resp reg unlabored, skin warm, color appropriate for race, moves all ext without difficulty, amb with steady gait Pt denies excessive caffeine, diet pills, long distance travel Tachycardic in triage Gail Mac RN [facility] 2023-08-12 23:45:06 Pt given printed and verbal discharge instructions regarding subacute cough, bacterial bronchitis, and mild intermittent Prescriptions provided Pt verbalized understanding of instructions, pt awake alert oriented, resp reg unlabored, skin w/d, color appropriate for race, moves all ext well,pt encouraged to follow up with pcp Advised to seek medical attention for new/prolonged/worsening of symptoms No adverse reaction to meds given in ER noted upon discharge Awake, alert oriented, resp reg unlabored, skin w/d, pt leaving amb with steady gait, in no apparent distress Figueroa RN [facility] 2023-08-12 22:59:34 Pt's SpO2 88%. ERP Notified [facility] 2023-08-12 21:05:50 Pt arrives ambulatory to ED c/o a cough x aprox 3 months and is coughing up yellowish mucous. She says she went to the Dr yesterday and was told she had a fever of over 102.f. Pt has a hx of asthma and does smoke marijuana occasionally, denies cigarettes, or any other drugs. 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 Yesterday noticed a fever > 102, new for her. Was seen by her PCP for prescription refills yesterday and prescribed flagyl for BV, levaquin and albuterol MDI for cough . History provided by: Patient Cough Cough characteristics: Productive Sputum characteristics: Yellow and clear Severity: Moderate Onset quality: Gradual Duration: 3 months. Timing: Constant Progression: Worsening Chronicity: Recurrent Smoker: yes Context: not sick contacts, not upper respiratory infection, not weather changes and not with activity Relieved by: cold medications OTC. Worsened by: Nothing Associated symptoms: fever and wheezing Associated symptoms: no chest pain, no chills, no ear fullness, no ear pain, no myalgias, no rash, no rhinorrhea, no shortness of breath, no sinus congestion and no sore throat Yarima Past Medical History/Immunizations: Past Medical History: Diagnosis Date Insomnia Seizures 03/28/2021 Tetanus received in last 5 years: No Allergies: Allergies Allergen Reactions Citric Acid Other - See comments Headaches Past Social History: Tobacco Use Every Day; 0.50 packs/day; Types: Cigarettes Smokeless Tobacco: Never used smokeless tobacco. Vaping Use Never used Alcohol Use Not Currently. Drug Use Yes; Marijuana. Sexual Activity Sexually active; Partners: Male; Control/Protection: Condom. Past Surgical History: Past Surgical History: Procedure Laterality Date SECTION Review of Systems: Review of Systems Constitutional: Positive for fever. Negative for chills. HENT: Negative. Negative for ear pain, rhinorrhea and sore throat. Respiratory: Positive for cough and wheezing. Negative for shortness of breath. Cardiovascular: Negative for chest pain. Genitourinary: Negative. Musculoskeletal: Negative. Negative for myalgias. Skin: Negative for rash. Neurological: Negative. Psychiatric/Behavioral: Negative. All other systems reviewed and are negative. Endocrine: Endocrine negative Physical Exam: ED Triage Vitals [08/12/232106] Weight 107 kg (236 lb) Actual or estimated Estimated by patient/family report Height 1.626 m (5' 4") BP 126/69 Pulse 110 Resp 18 Temp 37 ?C (98.6 ?F) Temp source Oral SpO2 94 % Measured on Room air Physical Exam Vitals and nursing note reviewed. Constitutional: General: She is not in acute distress. Appearance: She is well-developed. She is obese. She is not ill-appearing, toxic-appearing or diaphoretic. HENT: Head: Normocephalic. Right Ear: External ear normal. Left Ear: External ear normal. Nose: Nose normal. No congestion or rhinorrhea. Mouth/Throat: Mouth: Mucous membranes are moist. Pharynx: Oropharynx is clear. No oropharyngeal exudate or posterior oropharyngeal erythema. Eyes: General: No scleral icterus. Right eye: No discharge. Left eye: No discharge. Extraocular Movements: Extraocular movements intact. Conjunctiva/sclera: Conjunctivae normal. Pupils: Pupils are equal, round, and reactive to light. Neck: Vascular: No carotid bruit. Cardiovascular: Rate and Rhythm: Normal rate and regular rhythm. Pulses: Normal pulses. Heart sounds: Normal heart sounds. No murmur heard. No friction rub. No gallop. Pulmonary: Effort: Pulmonary effort is normal. No respiratory distress. Breath sounds: No stridor. Wheezing present. No rhonchi or rales. Chest: Chest wall: No tenderness. Musculoskeletal: General: No swelling, tenderness, deformity or signs of injury. Normal range of motion. Cervical back: Normal range of motion and neck supple. No rigidity or tenderness. Right lower leg: No edema. Left lower leg: No edema. Lymphadenopathy: Cervical: No cervical adenopathy. Skin: General: Skin is warm and dry. Capillary Refill: Capillary refill takes less than 2 seconds. Coloration: Skin is not jaundiced or pale. Findings: No bruising, erythema, lesion or rash. Neurological: General: No focal deficit present. Mental Status: She is alert and oriented to person, place, and time. Cranial Nerves: No cranial nerve deficit. Sensory: No sensory deficit. Motor: No weakness. Coordination: Coordination normal. Gait: Gait normal. Psychiatric: Mood and Affect: Mood normal. Behavior: Behavior normal. Thought Content: Thought content normal. Judgment: Judgment normal. Radiology: reviewed by me XR CHEST 1 VW Final Result Exam: Chest (1 View), 08/12/2023 9:30 PM. Ordering Physician: YOLI AVILA. History: cough . Technique: One view of the chest. Comparison: Chest radiograph 05/20/2023. Findings: No focal consolidation. No pneumothorax or effusion. Normal size of the cardiac silhouette. No acute osseous finding. IMPRESSION Impression: No acute cardiopulmonary finding. RL: [id number] End of Report Lab Results: reviewed by il Lab Results COVID-19 (ID NOW RAPID TESTING) - Normal Result Value Ref Range SARS-CoV-2 Rapid ID NOW Not Detected Not Detected RAPID INFLUENZA A/B - Normal Rapid Influenza A Negative Negative Rapid Influenza B Negative Negative POCT TEST - Normal POCT PREG Negative On board controls acceptable with C Line Yes POCT PREG LOT # [id number] POCT PREG TEST DATE EKG: If EKG completed, see Procedure Note. Orders and Treatments: Orders Placed This Encounter Procedures XR CHEST 1 VW COVID-19 (ID NOW TESTING) RAPID INFLUENZA A/B POCT TEST Lab Only COVID Interpretation Orders Placed This Encounter Medications ipratropium-albuteroL (DUONEB) 0.5 mg-3 mg(2.5 mg base)/3 mL nebulizer solution 3 mL dexamethasone (DECADRON PHOSPHATE) injection 10 mg benzonatate 100 mg capsule predniSONE 20 mg tablet metroNIDAZOLE (FLAGYL) 500 mg tablet levoFLOXacin 750 mg tablet albuterol 90 mcg/actuation inhaler First Provider Eval: ED Events Date/Time Event User Comments 08/12/232109 Medical Screening Begins MARCIE AVILA -- 08/12/232109 First Provider Evaluation MARCIE AVILA -- ED COURSE ED Course as of 08/12/23 2247 Sun Aug 12, [id number] Improved aeration, labs and xray normal will discharge [PD] 2238 SARS-CoV-2 Rapid ID NOW: Not Detected Influenza and covid negative, CXR negative for pneumonia or other findings, will add steroids and tessalon perle for cough as she started today Levaquin and albuterol MDI [PD] 2238 Rapid Influenza A: Negative [PD] ED Course User Index [PD] Yoli Avila, DIE SIZER Diagnosis/Impression as of 08/12/232246 Subacute cough Acute bacterial bronchitis Mild intermittent reactive airway disease without complication Procedures: Procedures MDM: Medical Decision Making Nette Gordon is a 28 year old female who presents to the ED with complaint of productive cough ongoing for past 2 months. Yesterday noticed a fever > 102, new for her. Was seen by her PCP for prescription refills yesterday and prescribed flagyl for BV, levaquin and albuterol MDI for cough . Differentials include covid, influenza, RAD, Bacterial bronchitis, pneumonia Plan: XR CHEST 1 VW COVID-19 (ID NOW TESTING) RAPID INFLUENZA A/B POCT TEST Problems Addressed: Acute bacterial bronchitis: acute illness or injury Details: Influenza and covid negative, CXR negative for pneumonia or other findings, will add steroids and tessalon perle for cough as she started today Levaquin and albuterol MDI Mild intermittent reactive airway disease without complication: acute illness or injury Details: Influenza and covid negative, CXR negative for pneumonia or other findings, will add steroids and tessalon perle for cough as she started today Levaquin and albuterol MDI Subacute cough: acute illness or injury Details: Influenza and covid negative, CXR negative for pneumonia or other findings, will add steroids and tessalon perle for cough as she started today Levaquin and albuterol MDI Amount and/or Complexity of Data Reviewed Labs: ordered. Decision-making details documented in ED Course. Details: Negative for covid and influenza Radiology: ordered. Decision-making details documented in ED Course. Details: No acute cardiopulmonary finding Risk Prescription drug management. Flowsheet Documentation: Patient Vitals for the past 24 hrs: BP Temp Temp src Pulse Resp SpO2 Height Weight 08/12/23 2107 126/69 37 ?C (98.6 ?F) Oral 110 18 94 % 1.626 m (5' 4") 107 kg (236 lb) Disposition/Condition: ED Disposition ED Disposition Disch - Home Condition Stable Comment -- Discharge Medications: Patient's Medications START taking these medications BENZONATATE 100 MG CAPSULE Take 2 capsules by mouth 3 (three) times daily as needed for Cough. PREDNISONE 20 MG TABLET Take 1 tablet by mouth in the morning and 1 tablet in the evening. Do all this for 5 days. CONTINUE taking these medications which have NOT CHANGED ALBUTEROL 90 MCG/ACTUATION INHALER Inhale 2 Puffs every 6 (six) hours as needed for Wheezing or Shortness of Breath. LEVOFLOXACIN 750 MG TABLET Take 1 tablet by mouth every 24 (twenty-four) hours. METRONIDAZOLE (FLAGYL) 500 MG TABLET Take 1 tablet by mouth every 12 (twelve) hours. NORTRIPTYLINE 25 MG CAPSULE TAKE TWO CAPSULES BY MOUTH DAILY ONDANSETRON 4 MG DISINTEGRATING TABLET Take 1 tablet by mouth every 8 (eight) hours as needed for Nausea and Vomiting (N/V). QUETIAPINE (SEROQUEL XR) 400 MG 24 HR TABLET Take 400 mg by mouth daily. START taking Modified Medications as Prescribed No medications on file STOP taking these medications No medications on file Follow-up: Your PCP as needed Electronically signed by: Yoli Avila NP 08/12/23 1764 GHT LOADER Associated attestation - Kierra Gross MD - 08/12/2023 10:50 PM FREIGHT LOADER Addendum I was personally available for consultation in the Emergency Department during this encounter and patient evaluation by ALLAN Avila. [facility]
[2024-09-29 21:29] LABS: Specific Gravity 1.021 (1.005-1.030)
[2024-09-29 21:30] LABS: Specific Gravity 1.021 (1.005-1.030); Urine Bacteria <20 /HPF (<20); Urine Bilirubin NEGATIVE (Negative); Urine Blood Negative (Negative); Urine Clarity Extremely Turbid (Clear); Urine Color Light-Yellow (Yellow); Urine Crystals Unidentified Few /HPF (None Seen); Urine Culture Reflex Order NOT NEEDED; Urine Glucose NEGATIVE (Negative); Urine Ketones NEGATIVE (Negative); Urine Micro Reflex YN NO BILL MICROSCOPIC; Urine Nitrite NEGATIVE (Negative); Urine Protein NEGATIVE (Negative); Urine RBC <5 /HPF (None Seen); Urine Urobilinogen Normal (Normal); Urine WBC <5 /HPF (<5); Urine WBC Clump Rare /HPF (None Seen); Urine Yeast (Budding) Occasional /HPF (None Seen)
[2024-09-29 21:31] LABS: Absolute Basophils 0.1 K/uL (0-0.5); Absolute Eosinophils 0.2 K/uL (0-0.5); Absolute Lymphocytes (CBC) 2.7 K/uL (0.7-4.9); Absolute Monocytes 0.6 K/uL (0.1-1.3); Absolute Neutrophil 5.9 K/uL (1.8-8.0); Basophils % 0.6 % (0-1.3); Eosinophils % 2.2 % (0-4.4); Hematocrit 42.5 % (36.0-45.0); Hemoglobin 14.7 g/dL (12.0-15.0); Lymphocytes % 29.1 % (15.3-44.8); MCH 30.7 pg (27.0-35.0); MCHC 34.6 g/dL (32.0-36.0); MCV 88.8 fL (80-100); MPV 7.1 fL (7.6-11.3); Neutrophils % 62.1 % (41.7-73.7); Nucleated Red Blood Cells % 0.1 % (0-0); Platelets 341 thou/uL (152-406); RBC Red Blood Cell Count 4.79 M/uL (3.86-4.86); Red Cell Distribution Width 13.5 % (12.1-15.2)
[2024-09-29 21:43] LABS: Albumin 3.6 g/dL (3.4-5.0); Anion Gap 9.1 mEq/L (5.0-15.0); Bilirubin Total 0.2 mg/dL (0.2-1.0); Globulin 3.7 g/dL (2.3-3.5); Potassium 4.1 mEq/L (3.5-5.1); Protein, Total 7.3 g/dL (6.4-8.2)
[2024-09-29 21:52] LABS: Thyroid Stimulating Hormone 4.01 uIU/mL (0.358-3.740)
[2024-09-29] MEDS ORDERED: LORAZEPAM 1 MG TABLET ONE (22:08)
[2024-09-29] MEDS ORDERED: KETOROLAC 30 MG/ML INJ ONE (22:08)
[2024-09-29] MEDS ORDERED: METOCLOPRAMIDE 10 MG/2mL INJ ONE (22:08)
--- NOTE | 2024-09-29 23:25 | EDPHYS ---
Physician Documentation [facility] Name: Nette Quiles Age: 29 yrs Sex: Female : 1995 Arrival Date: 09/29/2024 Time: 20:29 Bed 6 Private MD: ED Physician Behzad Rodrigues HPI: 09/29 20:35 This 29 yrs old Female presents to ER via Unassigned with complaints of Chest sp4 Pain. 23:26 29-year-old female presents for 3 weeks of persistent chest pains associated with sp4 anxiety. Patient takes Xanax 1.5 mg twice a day, also Seroquel before bedtime.. Historical: - Allergies: 20:55 No Known Allergies; br2 - PMHx: 20:55 Anxiety; Bronchitis; Depression; Seizure; br2 - PSHx: 20:55 section; br2 - Immunization history:: Adult Immunizations up to date. - Infectious Disease History:: Denies. - Social history:: Smoking status: Patient reports the use of cigarette tobacco products, smokes one pack cigarettes per day. Patient/guardian denies using alcohol, street drugs. - Family history:: not pertinent. ROS: 23:26 Constitutional: Negative for fever, chills, and weight loss, positive chest pain sp4 positive anxiety. 23:26 All other systems are negative, Exam: 23:22 Constitutional: This is a well developed, well nourished patient who is awake, alert, sp4 and in no acute distress. Head/Face: Normocephalic, atraumatic. Eyes: Pupils equal round and reactive to light, extra-ocular motions intact. Lids and lashes normal. Conjunctiva and sclera are not injected. Cornea within normal limits. Periorbital areas with no swelling, redness, or edema. ENT: Nares patent. No nasal discharge, no septal abnormalities noted. Tympanic membranes are normal and external auditory canals are clear. Oropharynx with no redness, swelling, or masses, exudates, or evidence of obstruction, uvula midline. Mucous membranes moist. Neck: Trachea midline, no thyromegaly or masses palpated, and no cervical lymphadenopathy. Supple, full range of motion without nuchal rigidity, or vertebral point tenderness. Chest/axilla: Normal chest wall appearance and motion. Nontender with no deformity. No lesions are appreciated. Cardiovascular: Regular rate and rhythm with a normal S1 and S2. No gallops, murmurs, or rubs. Normal PMI, no JVD. No pulse deficits. Respiratory: Lungs have equal breath sounds bilaterally, clear to auscultation and percussion. No rales, rhonchi or wheezes noted. No increased work of breathing, no retractions or nasal flaring. Abdomen/GI: Soft, with normal bowel sounds. No distension or tympany. No guarding or rebound. No evidence of tenderness throughout. Back: No spinal tenderness. No costovertebral tenderness. Skin: Warm, dry with normal turgor. Normal color with no rashes, no lesions, and no evidence of cellulitis. MS/ Extremity: Pulses equal, no cyanosis. Neurovascular intact. Full, normal range of motion. Neuro: Awake and alert, GCS 15, oriented to person, place, time, and situation. Cranial nerves II-XII grossly intact. Motor strength 5/5 in all extremities. Sensory grossly intact. Psych: Awake, alert, with orientation to person, place and time. Behavior, mood, and affect are within normal limits 23:22 ECG was reviewed by the Attending Physician. EKG 2051 sinus tachycardia rate 107 otherwise normal. Vital Signs: 20:52 BP 129 / 83; Pulse 109; Resp 18 S; Temp 98.4(O); Pulse Ox 97% on R/A; Weight 113.4 kg; br2 Height 5 ft. 4 in. ; Pain 5/10; 21:30 BP 125 / 82; Pulse 94; Resp 15; Pulse Ox 99% ; cm10 22:00 BP 128 / 89; Pulse 95; Resp 18; Pulse Ox 99% ; cm10 09/30 00:07 BP 118 / 79; Pulse 87; Resp 16; Temp 98.3; Pulse Ox 99% on R/A; dd2 09/29 20:52 Body Mass Index 42.91 (113.40 kg, 162.56 cm) br2 09/29 20:52 Pain Scale: Adult br2 [place] Coma Score: 09/29 23:22 Eye Response: spontaneous(4). Motor Response: obeys commands(6). Verbal Response: sp4 oriented(5). Total: 15. MDM: 22:47 Medical Screening Exam initiated sp4 23:21 Differential diagnosis: acute pericarditis, chest wall pain, esophagitis, gastritis, sp4 hiatal hernia. HEART Score: History: Slightly Suspicious (0), ECG: Normal (0), Age: < or = 45 years (0), Risk Factors: No Risk Factors Known (0), Troponin: < or = 1 x Normal Limit (0), Total Score = 0. Data reviewed: vital signs, nurses notes, lab test result(s), EKG. 23:26 ED course: Patient improved after medications. Patient has signs of subclinical sp4 hypothyroidism. Patient was referred to beef pusher in [place]. Otherwise stable for discharge home. Advised to continue all home medications.. 09/29 20:36 Order name: CBC with Diff; Complete Time: 23:17 sp4 09/29 20:36 Order name: CMP; Complete Time: 23: sp4 09/29 20:36 Order name: Test, Urine; Complete Time: 23: sp4 09/29 20:55 Order name: Troponin High Sensitivity; Complete Time: 23: sp4 09/29 21:18 Order name: TSH; Complete Time: 23: sp4 09/29 21:18 Order name: T4 Free; Complete Time: 23: sp4 09/29 21:19 Order name: Urinalysis W/Microscopic; Complete Time: 23:17 sp4 09/29 20:36 Order name: EKG; Complete Time: 20:36 4 09/29 20:36 Order name: IV Saline Lock; Complete Time: 20:56 4 09/29 20:36 Order name: Labs collected and sent; Complete Time: 20:56 4 09/29 20:36 Order name: EKG - Nurse/Tech; Complete Time: 20:56 EC:51 Rate is 107 beats/min. Rhythm is regular, Sinus tachycardia. QRS [place] is Normal. [place] sp4 interval is normal. QRS interval is normal. QT interval is normal. No Q waves. T waves are Normal. No ST changes noted. Clinical impression: No evidence of ischemia. Interpreted by me. Reviewed by me. Administered Medications: 22:14 Drug: LORazepam PO 2 mg PO once Route: PO; cm10 09/30 00:08 Follow up: Response: No adverse reaction dd2 09/29 22:14 Drug: Ketorolac IVP 30 mg IVP once Route: IVP; Site: right antecubital; cm10 09/30 00:08 Follow up: Response: No adverse reaction dd2 09/29 22:14 Drug: metoCLOPramide IVP 10 mg IVP once; over 1 to 2 minutes Route: IVP; Site: right cm10 antecubital; 09/30 00:08 Follow up: Response: No adverse reaction dd2 Disposition Summary: 09/29/24 23:24 Discharge Ordered Notes: We can refer you to
- Yani Mcneal MD Endocrinology Problem: new sp4 Symptoms: have improved sp4 Condition: Stable sp4 Diagnosis - Subclinical hypothyroidism, acute anxiety attack, noncardiac chest pain sp4 Followup: sp4 - With: Private Physician - When: 7 - 10 days - Reason: Recheck today's complaints Discharge Instructions: - Discharge Summary Sheet sp4 - Hypothyroidism sp4 Forms: - Patient Portal Instructions sp4 - Family Work Release dd2 Signatures: Dispatcher [employer] EDMS Behzad Rodrigues MD MD sp4 Anabela Mejía RN RN cm10 Garima Tatum RN RN br2 ROSE DUBOIS RN dd2 Corrections: (The following items were deleted from the chart) 09/29 20:36 20:36 CBC+H.LAB.BRZ ordered. EDMS EDMS 20:36 20:36 COMPREHENSIVE METABOLIC PANEL+C.LAB.BRZ ordered. EDMS EDMS 20:36 20:36 Test, Urine+UC.LAB.BRZ ordered. EDMS EDMS 21:19 21:19 Urinalysis W/Microscopic+U.LAB.BRZ ordered. EDMS EDMS
--- NOTE | 2024-09-29 23:25 | ER ---
Nurse's Notes [facility] Name: Nette Quiles Age: 29 yrs Sex: Female : 1995 Arrival Date: 09/29/2024 Time: 20:29 Bed 6 Private MD: Diagnosis: Subclinical hypothyroidism, acute anxiety attack, noncardiac chest pain Presentation: 09/29 20:52 Chief complaint: Patient states: PT C/O LEFT CW PAIN X3 WEEKS, PRESSURE, SOB. br2 Coronavirus screen: Client denies travel out of the [place] in the last 14 days. Ebola Screen: Patient denies exposure to infectious person. Initial Sepsis Screen: Does the patient meet any 2 criteria? No. Patient's initial sepsis screen is negative. Does the patient have a suspected source of infection? No. Patient's initial sepsis screen is negative. Risk Assessment: Do you want to hurt yourself or someone else? Patient reports no desire to harm self or others. Onset of symptoms was September 08, 2024. 20:52 Method Of Arrival: Ambulatory br2 20:52 Acuity: ALEK 3 br2 Triage Assessment: 20:55 General: Appears in no apparent distress. comfortable, Behavior is calm, cooperative. br2 Pain: Complains of pain in anterior aspect of left upper chest and left breast. Cardiovascular: Reports chest pain, shortness of breath, Capillary refill < 3 seconds. Historical: - Allergies: 20:55 No Known Allergies; br2 - PMHx: 20:55 Anxiety; Bronchitis; Depression; Seizure; br2 - PSHx: 20:55 section; br2 - Immunization history:: Adult Immunizations up to date. - Infectious Disease History:: Denies. - Social history:: Smoking status: Patient reports the use of cigarette tobacco products, smokes one pack cigarettes per day. Patient/guardian denies using alcohol, street drugs. - Family history:: not pertinent. Screenin:57 [facility] ED Fall Risk Assessment (Adult) History of falling in the last 3 months, cm10 including since admission No falls in past 3 months (0 pts) Confusion or Disorientation No (0 pts) Intoxicated or Sedated No (0 pts) Impaired Gait No (0 pts) Mobility Assist Device Used No (0 pt) Altered Elimination No (0 pt) Score/Fall Risk Level 0 - 2 = Low Risk Oriented to surroundings, Maintained a safe environment, Hourly rounding (assess needs \T\ fall precautionary measures) done. Abuse screen: Denies threats or abuse. Denies injuries from another. Nutritional screening: No deficits noted. Tuberculosis screening: No symptoms or risk factors identified. Assessment: 20:58 General: Appears in no apparent distress. uncomfortable, Behavior is anxious. Pain: cm10 Complains of pain in chest Pain does not radiate. Pain began 3 weeks ago. Neuro: No deficits noted. Level of Consciousness is awake, alert, obeys commands, Oriented to person, place, time, situation, Appropriate for age. Cardiovascular: Rhythm is sinus tachycardia Chest pain is described as Pain is 5 out of 10 on a pain scale. began 3 weeks ago. Respiratory: No deficits noted. Airway is patent Respiratory effort is even, unlabored, Respiratory pattern is regular, symmetrical. Musculoskeletal: No deficits noted. Range of motion: intact in all extremities. 22:14 Reassessment: Patient appears in no apparent distress at this time. Patient and/or cm10 family updated on plan of care and expected duration. Pain level reassessed. Patient is alert, oriented x 3, equal unlabored respirations, skin warm/dry/pink. Vital Signs: 20:52 BP 129 / 83; Pulse 109; Resp 18 S; Temp 98.4(O); Pulse Ox 97% on R/A; Weight 113.4 kg; br2 Height 5 ft. 4 in. ; Pain 5/10; 21:30 BP 125 / 82; Pulse 94; Resp 15; Pulse Ox 99% ; cm10 22:00 BP 128 / 89; Pulse 95; Resp 18; Pulse Ox 99% ; cm10 09/30 00:07 BP 118 / 79; Pulse 87; Resp 16; Temp 98.3; Pulse Ox 99% on R/A; dd2 09/29 20:52 Body Mass Index 42.91 (113.40 kg, 162.56 cm) br2 09/29 20:52 Pain Scale: Adult br2 Tamra Coma Score: 09/29 23:22 Eye Response: spontaneous(4). Motor Response: obeys commands(6). Verbal Response: sp4 oriented(5). Total: 15. ED Course: 20:31 Patient arrived in ED. gm2 20:35 Behzad Rodrigues MD is Attending Physician. sp4 20:55 Triage completed. br2 20:55 Arm band placed on. br2 20:56 Anabela Mejía, RN is Primary Nurse. cm10 20:57 Patient has correct armband on for positive identification. Placed in gown. Bed in low cm10 position. Call light in reach. Side rails up X2. Client placed on continuous cardiac and pulse oximetry monitoring. NIBP monitoring applied. entrepreneur on. 20:57 EKG done, by ED staff, reviewed by Behzad Rodrigues MD. Patient maintains SpO2 cm10 saturation greater than 95% on room air. 21:01 Inserted saline lock: 20 gauge in right antecubital area, using aseptic technique. mm11 Blood collected. Flushed with 10 mL NS. 21:02 CBC with Diff Sent. mm11 21:02 CMP Sent. mm11 21:02 Troponin High Sensitivity Sent. mm11 21:16 Test, Urine Sent. mm11 09/30 00:06 Provided Education on: D/C EDUCATION. dd2 00:06 No provider procedures requiring assistance completed. IV discontinued, intact, dd2 bleeding controlled, No redness/swelling at site. Pressure dressing applied. Administered Medications: 09/29 22:14 Drug: LORazepam PO 2 mg PO once Route: PO; cm10 09/30 00:08 Follow up: Response: No adverse reaction dd2 09/29 22:14 Drug: Ketorolac IVP 30 mg IVP once Route: IVP; Site: right antecubital; cm10 09/30 00:08 Follow up: Response: No adverse reaction dd2 09/29 22:14 Drug: metoCLOPramide IVP 10 mg IVP once; over 1 to 2 minutes Route: IVP; Site: right cm10 antecubital; 09/30 00:08 Follow up: Response: No adverse reaction dd2 Medication: 09/29 20:57 VIS not applicable for this client. cm10 Outcome: 23:24 Discharge ordered by . sp4 09/30 00:06 Discharged to home ambulatory, dd2 Condition: stable Discharge instructions given to patient, Instructed on discharge instructions, follow up and referral plans. Demonstrated understanding of instructions, follow-up care, 00:08 Patient left the ED. dd2 Signatures: Behzad Rodrigues MD MD sp4 Anabela Mejía, RN RN cm10 Marla Jean gm2 Garima Tatum, RN RN br2 ROSE DUBOIS RN RN dd2 ebenezer celeste mm11
[2024-09-30 00:50] VITALS: O2SAT 99
[2024-09-30 00:57] VITALS: BP 118/79; TEMP 98.3
== END 2024-09-30 00:08 | disposition home or self-care (01) ==
LOC: ER 20:29
DX: F41.0 Panic disorder [episodic paroxysmal anxiety] (principal); E03.8 Other specified hypothyroidism; F17.210 Nicotine dependence, cigarettes, uncomplicated
CPT/HCPCS: 36415; 80053; 81001; 81025; 84439; 84443; 84484; 85025; 93005; 96374; 96375; 99285; J2765

== ENCOUNTER 2024-10-13 08:36 | Emergency (ER) | payer SELFPAY ==
--- OUTSIDE RECORDS SUMMARY | 2024-10-13 08:45 | XMS REPORT | Continuity of Care Document ---
Author Name Unknown Address [address] [facility] [place] [address] [facility] [place] Address [address] [facility] [place] [address] Care Team Providers Care Bosom Presser Name Role Phone TIM LEYVA Primary Care Physician Unavailab ISABELLE Aguilar Attending Clinician Unavailable ISABELLE PATEL Attending Clinician Unavailable Jefferson WELLS Attending Clinician Unavailable Jefferson WELLS Attending Clinician Unavailable Jefferson Farley Attending Clinician [phone] MERLYN VIVAR Attending Clinician Unav ailable Tino Lucia DO Attending Clinician [phone] TINO LUCIA Attending Clinician Unavailable TINO LUCIA Attending Clinician Unavailable YIFAN HUERTA Attending Clinician Unavail able AMA MONTGOMERY Attending Clinician Unavailable Jasmyne Piña MA Attending Clinician Unavaila KIERRA Royal Attending Clinician Unavailable Kierra Gross MD Attending Clinician [phone] RUBY MCCULLOUGH Attending Clinician Unavailable YOLI AVILA Attending Clinician Unavailable Yoli Avila NP Attending Clinician [phone] ESTEFANY GRAYSON Attending Clinician Unavaila Estefany Garcia Attending Clinician [phone] CHRISTA NIELSEN Attending Clinician Unavailable Ruby Mccullough MD Attending Clinician [phone] Doctor Unassigned, [place] Attending Clinician U avni Nielsen PA-C, Christa Attending Clinician [phone] Jarod Martin MD Attending Clinician [phone] JAROD MARTIN Attending Clinician Unavail able JAROD MARTIN Attending Clinician Unavail able Brenda Johnson MD Attending Clinician [phone] BRENDA JOHNSON Attending Clinician Unavailable Only, Adc Test Attending Clinician Unavailable ED CONTRERAS Attending Clinician Unavailable Lab, Adc Fam Pob I Attending Clinician Unavailab adelita Asher REGISTERED REPRESENTATIVE, Laurie Attending Clinician [phone] LAURIE ASHER Attending Clinician Unavailmaggi Kimball RN, Kaley Cooney Attending Clinician UnaVikram Peck MD Attending Clinician [phone] Ebjame REGISTERED REPRESENTATIVE, Beni Attending Clinician [phone] EBBENI ZABALA Attending Clinician Unavailable Green REGISTERED REPRESENTATIVE, Josefina Attending Clinician [phone] Provider, [facility] Attending Clinician Un available LaneTaylor Chen Attending Clinician [phone] Attending Clinician Unavailable ISABELLE PATEL Admitting Clinician Unavailable Jefferson WELLS Admitting Clinician Unavailable TINO LUCIA Admitting Clinician Unavailable KIERRA GROSS Admitting Clinician Unavailable YOLI AVILA Admitting Clinician Unavailable ESTEFANY GRAYSON Admitting Clinician UnavailBrenda Juarez MD Admitting Clinician [phone] BENI RIVERA Admitting Clinician Unavailable Payers Payer Name Policy Type Policy Number Effective Date Expirati on Date Source [facility] [id number] 2020 00:00:00 [facility] [place] [facility] [id number] 2023 00:00:00 MEDICAID PENDING PENDING 2023 00:00:00 Problems Condition Name Condition Details Condition Category Status Onset Date Resolution Date Last Treatment Date Treating Clinician Comments Source Seizure Seizure Disease Active 03-28 00:00: 00 [facility] Spells of decreased attentiven ess Spells of decreased attentiven ess Disease Active 2021-0 9-20 00:00: 00 [facility] Obesity (BMI 30-39.9) Obesity (BMI 30-39.9) Disease Active 4-28 00:00: 00 [facility] Nexplanon in place Nexplanon in place Disease Active 8 00:00: 00 [facility] Allergies, Adverse Reactions, Alerts Allergy Name Allergy Type Status Severity Reaction(s) Onset Date Inactive Date Treating Clinician Comments Source CITRIC ACID DRUG INGREDI Active Other-Cmnt 01-08 00:00: 00 [facility] Citric Acid Propensi ty to adverse reaction s Active Other - See comments 01-08 00:00: 00 Headaches [facility] Social History Social Habit Start Date Stop Date Quantity Comments Source [facility] of [facility] use Cigarette Smoker [facility] History of Social function 2024-08-01 00:00:00 2024-08-01 00:00:00 [facility] Alcoholic beverage intake 2024-08-01 00:00:00 2024-08-01 00:00:00 Ex-drinker (finding) [facility] Alcohol intake 2023-10-10 00:00:00 2023-10-10 00:00:00 Ex-drinker (finding) [facility] Exposure to SARS-CoV-2 (event) 2022-11-06 00:00:00 2022-11-16 10:19:00 Not sure [facility] Cigarettes smoked current (pack per day) - Reported 2021-03-07 00:00:00 2021-03-07 00:00:00 [facility] Tobacco use and exposure 2021-03-07 00:00:00 2021-03-07 00:00:00 Smokeless tobacco non-user [facility] Sex assigned at 1995 00:00:00 1995 00:00:00 [facility] Smoking Status Start Date Stop Date Source Smokes tobacco daily 2021-03-07 00:00:00 [facility] Medications Ordered Medication Name Filled Medication Name Start Date Stop Date Current Medication? Ordering Clinician Indication Dosage Frequency Signature (SIG) Comments Components Source LORazepam (ATIVAN) injection 0.5 mg 08-01 17:45: 00 08-01 18:12 :00 No .5mg 0.5 mg, Slow IV Push, ONCE, 1 dose, On Sun08/01/24 at 1145, STAT [facility] iopamidol (ISOVUE 370-500 mL) injection 85 mL 2023-07 02:20: 00 07-06 02:21 :00 No [id number] 85mL 85 mL, Intravenou s, ONCE, 1 dose, On 07/05/24 at 2045, Routine [facility] pantoprazol e 40 mg EC tablet 2023-07 00:00: 00 Yes [id number] 40mg Take 1 tablet by mouth in the morning. [facility] dicyclomine 20 mg tablet 2023-07 00:00: 00 Yes [id number] 20mg Take 1 tablet by mouth 4 (four) times daily as needed for Abdominal pain. [facility] sucralfate 1 gram tablet 2023-07 00:00: 00 Yes [id number] 1g Take 1 tablet by mouth before meals and at bedtime. [facility] cephALEXin 500 mg capsule 2023-07 00:00: 00 07-11 05:59 :00 No [id number] 500mg Take 1 capsule by mouth 4 (four) times daily for 5 days. [facility] azithromyci n (ZITHROMAX Z-SB) 250 mg tablet 03-19 00:00: 00 Yes [id number] 250mg Take 1 tablet by mouth SEE-INSTRU CTIONS. Take 500 mg day 1, then 250 mg days 2 to 5. [facility] azithromyci n (ZITHROMAX) tablet 500 mg 03-18 16:52: 00 03-18 16:59 :00 No 500mg 500 mg, Oral, ONCE, 1 dose, On Sun03/18/24 at 1200, FREDI, Reason for Anti-Infec tive: Documented Infection, Documented Infection Site: Respirator y, Duration of Therapy: Once (ED) [facility] ondansetron (ZOFRAN-ODT ) disintegrat ing tablet 4 mg 03-18 16:15: 00 03-18 15:29 :00 No 4mg 4 mg, Oral, ONCE, 1 dose, On Sun03/18/24 at 1115, Routine [facility] ipratropium -albuteroL (DUONEB) 0.5 mg-3 mg(2.5 mg base)/3 mL nebulizer solution 3 mL 03-18 15:30: 00 03-18 14:29 :00 No 3mL 3 mL, Inhalation , ONCE, 1 dose, On Sun03/18/24 at 1030, Routine [facility] albuterol 90 mcg/actuati on inhaler 03-18 11:53: 17 Yes 2{puff} Inhale 2 Puffs every 6 (six) hours as needed for Wheezing or Shortness of Breath. [facility] albuterol 90 mcg/actuati on inhaler 03-18 00:00: 00 Yes [id number] 2{puff} Inhale 2 Puffs every 4 (four) hours as needed for Wheezing or Shortness of Breath. [facility] ALPRAZolam (XANAX) tablet 1 mg 10-09 03:45: 00 10-09 03:44 :00 No 1mg 1 mg, Oral, ONCE, 1 dose, On Sun10/09/23 at 2245, FREDI [facility] ipratropium -albuteroL (DUONEB) 0.5 mg-3 mg(2.5 mg base)/3 mL nebulizer solution 3 mL 10-09 03:15: 00 10-09 02:48 :00 No 3mL 3 mL, Inhalation , ONCE NOW, 1 dose, On Sun10/09/23 at 2215, Routine [facility] albuterol 90 mcg/actuati on inhaler 10-08 00:00: 00 Yes [id number] 2{puff} Inhale 2 Puffs every 4 (four) hours as needed for Wheezing or Shortness of Breath. [facility] ipratropium -albuteroL (DUONEB) 0.5 mg-3 mg(2.5 mg base)/3 mL nebulizer solution 6 mL 08-13 06:00: 00 08-13 05:09 :00 No 6mL 6 mL, Inhalation , ONCE NOW, 1 dose, On Sun08/13/23 at 0000, Routine [facility] metoclopram arturo HCl (REGLAN) tablet 5 mg 08-13 05:45: 00 08-13 04:56 :00 No 5mg 5 mg, Oral, ONCE, 1 dose, On 08/12/23 at 2345, Routine [facility] dexamethaso ne (DECADRON PHOSPHATE) injection 10 mg 08-13 05:00: 00 08-13 04:01 :00 No 10mg 10 mg, Intramuscu lar, ONCE, 1 dose, On 08/12/23 at 2300, Routine [facility] ipratropium -albuteroL (DUONEB) 0.5 mg-3 mg(2.5 mg base)/3 mL nebulizer solution 3 mL 08-13 04:45: 00 08-13 03:55 :00 No 3mL 3 mL, Inhalation , ONCE NOW, 1 dose, On 08/12/23 at 2245, Routine [facility] metroNIDAZO LE (FLAGYL) 500 mg tablet 08-12 23:46: 06 Yes 500mg Take 1 tablet by mouth every 12 (twelve) hours. [facility] levoFLOXaci n 750 mg tablet 08-12 23:46: 06 Yes 750mg Take 1 tablet by mouth every 24 (twenty-fo ur) hours. [facility] albuterol 90 mcg/actuati on inhaler 08-12 23:46: 06 Yes 2{puff} Inhale 2 Puffs every 6 (six) hours as needed for Wheezing or Shortness of Breath. [facility] benzonatate 100 mg capsule 2024-0 2-04 00:00: 00 Yes [id number] 200mg Take 2 capsules by mouth 3 (three) times daily as needed for Cough. [facility] predniSONE 20 mg tablet 2- 00:00: 00 08-18 05:59 :00 No [id number] 20mg Take 1 tablet by mouth in the morning and 1 tablet in the evening. Do all this for 5 days. [facility] LORazepam (ATIVAN) injection 1 mg 2022-07 03:15: 00 05-21 03:13 :00 No 1mg 1 mg, Slow IV Push, ONCE, 1 dose, On Sun05/20/23 at 2115, STAT [facility] ondansetron (ZOFRAN (PF)) injection 4 mg 2022-07 03:00: 00 05-21 03:13 :00 No 4mg 4 mg, Slow IV Push, ONCE, 1 dose, On Sun05/20/23 at 2100, FREDI [facility] NaCl 0.9% (NS) bolus infusion 1,000 mL 2022-07 02:15: 00 05-21 04:12 :00 No 1000mL at 999 mL/hr, 1,000 mL, IV Infusion, ONCE, 1 dose, On 05/20/23 at 2015, FREDI [facility] ondansetron 4 mg disintegrat ing tablet 2022-07 00:00: 00 Yes [id number] 4mg Take 1 tablet by mouth every 8 (eight) hours as needed for Nausea and Vomiting (N/V). [facility] etonogestre L (NEXPLANON) implant 68 mg 08-30 15:45: 00 08-30 15:28 :00 No [id number] 68mg [facility] etonogestre L (NEXPLANON) implant 68 mg 01-02 18:45: 00 01-02 17:40 :00 No [id number] 68mg [facility] metroNIDAZO LE 500 mg tablet 12-23 00:00: 00 06-22 00:00 :00 No [id number] 500mg Take 1 tablet by mouth every 12 (twelve) hours. [facility] fluconazole (DIFLUCAN) 150 mg tablet 6-17 00:00: 00 06-22 00:00 :00 No [id number] 150mg Take 1 tablet by mouth every 72 (seventy-t wo) hours. [facility] NORTRIPTYLI NE 25 mg capsule 3-31 00:00: 00 Yes [id number] TAKE TWO CAPSULES BY MOUTH DAILY [facility] QUEtiapine (SEROQUEL XR) 400 mg 24 hr tablet 920 21:07: 23 Yes 400mg Take 400 mg by mouth daily. [facility] Immunizations Ordered Immunization Name Filled Immunization Name Date Status Comments Source TDAP 2018-04-18 00:00:00 Completed Influenza Virus Vaccine Quad IM, Preserv and ABX Free 6 MO-64 YRS 2017-07-06 00:00:00 Completed [facility] Influenza Virus Vaccine Quad IM, Preserv and ABX Free 6 MO-64 YRS 2017-07-06 00:00:00 Completed [facility] Influenza Virus Vaccine Quad IM, Preserv and ABX Free 6 MO-64 YRS 2017-07-06 00:00:00 Completed [facility] Influenza Virus Vaccine Quad IM, Preserv and ABX Free 6 MO-64 YRS 2017-07-06 00:00:00 Completed [facility] Influenza Virus Vaccine Quad IM, Preserv and ABX Free 6 MO-64 YRS 2017-07-06 00:00:00 Completed [facility] Influenza Virus Vaccine Quad IM, Preserv and ABX Free 6 MO-64 YRS 2017-07-06 00:00:00 Completed [facility] Influenza Virus Vaccine Quad IM, Preserv and ABX Free 6 MO-64 YRS 2017-07-06 00:00:00 Completed [facility] Influenza Virus Vaccine Quad IM, Preserv and ABX Free 6 MO-64 YRS 2017-07-06 00:00:00 Completed [facility] Influenza Virus Vaccine Quad IM, Preserv and ABX Free 6 MO-64 YRS 2017-07-06 00:00:00 Completed [facility] Influenza Virus Vaccine Quad IM, Preserv and ABX Free 6 MO-64 YRS 2017-07-06 00:00:00 Completed [facility] Influenza Virus Vaccine Quad IM, Preserv and ABX Free 6 MO-64 YRS 2017-07-06 00:00:00 Completed [facility] Influenza Virus Vaccine Quad IM, Preserv and ABX Free 6 MO-64 YRS (FLUCELVAX) 2017-07-06 00:00:00 Completed Influenza Virus Vaccine Quad IM, Preserv and ABX Free 6 MO-64 YRS 2012-07-25 00:00:00 Completed [facility] Influenza Virus Vaccine Quad IM, Preserv and ABX Free 6 MO-64 YRS 2012-07-25 00:00:00 Completed [facility] Influenza Virus Vaccine Quad IM, Preserv and ABX Free 6 MO-64 YRS 2012-07-25 00:00:00 Completed [facility] Influenza Virus Vaccine Quad IM, Preserv and ABX Free 6 MO-64 YRS 2012-07-25 00:00:00 Completed [facility] Influenza Virus Vaccine Quad IM, Preserv and ABX Free 6 MO-64 YRS 2012-07-25 00:00:00 Completed [facility] Influenza Virus Vaccine Quad IM, Preserv and ABX Free 6 MO-64 YRS 2012-07-25 00:00:00 Completed [facility] Influenza Virus Vaccine Quad IM, Preserv and ABX Free 6 MO-64 YRS 2012-07-25 00:00:00 Completed [facility] Influenza Virus Vaccine Quad IM, Preserv and ABX Free 6 MO-64 YRS 2012-07-25 00:00:00 Completed [facility] Influenza Virus Vaccine Quad IM, Preserv and ABX Free 6 MO-64 YRS 2012-07-25 00:00:00 Completed [facility] Influenza Virus Vaccine Quad IM, Preserv and ABX Free 6 MO-64 YRS 2012-07-25 00:00:00 Completed [facility] Influenza Virus Vaccine Quad IM, Preserv and ABX Free 6 MO-64 YRS 2012-07-25 00:00:00 Completed [facility] Influenza Virus Vaccine Quad IM, Preserv and ABX Free 6 MO-64 YRS (FLUCELVAX) 2012-07-25 00:00:00 Completed Influenza Virus Vaccine - Whole 2012-07-25 00:00:00 Completed HEPATITIS A 2010-02-22 00:00:00 Completed [facility] Meningococcal Polysaccharide (groups A, C, Y and W-135) conjugate vaccine (MCV4P) 2010-02-22 00:00:00 Completed [facility] Varicella (varivax)(chicken pox) 2010-02-22 00:00:00 Completed [facility] HEPATITIS A 2010-02-22 00:00:00 Completed [facility] Meningococcal Polysaccharide (groups A, C, Y and W-135) conjugate vaccine (MCV4P) 2010-02-22 00:00:00 Completed [facility] Varicella (varivax)(chicken pox) 2010-02-22 00:00:00 Completed [facility] HEPATITIS A 2010-02-22 00:00:00 Completed [facility] Meningococcal Polysaccharide (groups A, C, Y and W-135) conjugate vaccine (MCV4P) 2010-02-22 00:00:00 Completed [facility] Varicella (varivax)(chicken pox) 2010-02-22 00:00:00 Completed [facility] HEPATITIS A 2010-02-22 00:00:00 Completed [facility] Meningococcal Polysaccharide (groups A, C, Y and W-135) conjugate vaccine (MCV4P) 2010-02-22 00:00:00 Completed [facility] Varicella (varivax)(chicken pox) 2010-02-22 00:00:00 Completed [facility] HEPATITIS A 2010-02-22 00:00:00 Completed [facility] Meningococcal Polysaccharide (groups A, C, Y and W-135) conjugate vaccine (MCV4P) 2010-02-22 00:00:00 Completed [facility] Varicella (varivax)(chicken pox) 2010-02-22 00:00:00 Completed [facility] HEPATITIS A 2010-02-22 00:00:00 Completed [facility] Meningococcal Polysaccharide (groups A, C, Y and W-135) conjugate vaccine (MCV4P) 2010-02-22 00:00:00 Completed [facility] Varicella (varivax)(chicken pox) 2010-02-22 00:00:00 Completed [facility] HEPATITIS A 2010-02-22 00:00:00 Completed [facility] Meningococcal Polysaccharide (groups A, C, Y and W-135) conjugate vaccine (MCV4P) 2010-02-22 00:00:00 Completed [facility] Varicella (varivax)(chicken pox) 2010-02-22 00:00:00 Completed [facility] HEPATITIS A 2010-02-22 00:00:00 Completed [facility] Meningococcal Polysaccharide (groups A, C, Y and W-135) conjugate vaccine (MCV4P) 2010-02-22 00:00:00 Completed [facility] Varicella (varivax)(chicken pox) 2010-02-22 00:00:00 Completed [facility] HEPATITIS A 2010-02-22 00:00:00 Completed [facility] Meningococcal Polysaccharide (groups A, C, Y and W-135) conjugate vaccine (MCV4P) 2010-02-22 00:00:00 Completed [facility] Varicella (varivax)(chicken pox) 2010-02-22 00:00:00 Completed [facility] HEPATITIS A 2010-02-22 00:00:00 Completed [facility] Meningococcal Polysaccharide (groups A, C, Y and W-135) conjugate vaccine (MCV4P) 2010-02-22 00:00:00 Completed [facility] Varicella (varivax)(chicken pox) 2010-02-22 00:00:00 Completed [facility] HEPATITIS A 2010-02-22 00:00:00 Completed [facility] Meningococcal Polysaccharide (groups A, C, Y and W-135) conjugate vaccine (MCV4P) 2010-02-22 00:00:00 Completed [facility] Varicella (varivax)(chicken pox) 2010-02-22 00:00:00 Completed [facility] HEPATITIS A 2010-02-22 00:00:00 Completed Meningococcal Polysaccharide (groups A, C, Y and W-135) conjugate vaccine (MCV4P) 2010-02-22 00:00:00 Completed Varicella (varivax)(chicken pox) 2010-02-22 00:00:00 Completed TDAP 2010-02-22 00:00:00 Completed HIB 4 Dose Schedule 1997 00:00:00 Completed [facility] Pediarix (dtap/hep B/ipv) 1997 00:00:00 Completed [facility] Polio (IPV/OPV) 1997 00:00:00 Completed [facility] HIB 4 Dose Schedule 1997 00:00:00 Completed [facility] Pediarix (dtap/hep B/ipv) 1997 00:00:00 Completed [facility] Polio (IPV/OPV) 1997 00:00:00 Completed [facility] HIB 4 Dose Schedule 1997 00:00:00 Completed [facility] Pediarix (dtap/hep B/ipv) 1997 00:00:00 Completed [facility] Polio (IPV/OPV) 1997 00:00:00 Completed [facility] HIB 4 Dose Schedule 1997 00:00:00 Completed [facility] Pediarix (dtap/hep B/ipv) 1997 00:00:00 Completed [facility] Polio (IPV/OPV) 1997 00:00:00 Completed [facility] HIB 4 Dose Schedule 1997 00:00:00 Completed [facility] Pediarix (dtap/hep B/ipv) 1997 00:00:00 Completed [facility] Polio (IPV/OPV) 1997 00:00:00 Completed [facility] HIB 4 Dose Schedule 1997 00:00:00 Completed [facility] Pediarix (dtap/hep B/ipv) 1997 00:00:00 Completed [facility] Polio (IPV/OPV) 1997 00:00:00 Completed [facility] HIB 4 Dose Schedule 1997 00:00:00 Completed [facility] Pediarix (dtap/hep B/ipv) 1997 00:00:00 Completed [facility] Polio (IPV/OPV) 1997 00:00:00 Completed [facility] HIB 4 Dose Schedule 1997 00:00:00 Completed [facility] Pediarix (dtap/hep B/ipv) 1997 00:00:00 Completed [facility] Polio (IPV/OPV) 1997 00:00:00 Completed [facility] HIB 4 Dose Schedule 1997 00:00:00 Completed [facility] Pediarix (dtap/hep B/ipv) 1997 00:00:00 Completed [facility] Polio (IPV/OPV) 1997 00:00:00 Completed [facility] HIB 4 Dose Schedule 1997 00:00:00 Completed [facility] Pediarix (dtap/hep B/ipv) 1997 00:00:00 Completed [facility] Polio (IPV/OPV) 1997 00:00:00 Completed [facility] HIB 4 Dose Schedule 1997 00:00:00 Completed [facility] Pediarix (dtap/hep B/ipv) 1997 00:00:00 Completed [facility] Polio (IPV/OPV) 1997 00:00:00 Completed [facility] HIB 4 Dose Schedule 1997 00:00:00 Completed Pediarix (dtap/hep B/ipv) 1997 00:00:00 Completed Polio (IPV/OPV) 1997 00:00:00 Completed DTaP, Unspecified Formulation 1997 00:00:00 Completed [facility] Haemophilus influenzae type b vaccine, conjugate unspecified formulation 1997 00:00:00 Completed HIB 4 Dose Schedule 1997 00:00:00 Completed [facility] Pediarix (dtap/hep B/ipv) 1997 00:00:00 Completed [facility] Polio (IPV/OPV) 1997 00:00:00 Completed [facility] HIB 4 Dose Schedule 1997 00:00:00 Completed [facility] Pediarix (dtap/hep B/ipv) 1997 00:00:00 Completed [facility] Polio (IPV/OPV) 1997 00:00:00 Completed [facility] HIB 4 Dose Schedule 1997 00:00:00 Completed [facility] Pediarix (dtap/hep B/ipv) 1997 00:00:00 Completed [facility] Polio (IPV/OPV) 1997 00:00:00 Completed [facility] HIB 4 Dose Schedule 1997 00:00:00 Completed [facility] Pediarix (dtap/hep B/ipv) 1997 00:00:00 Completed [facility] Polio (IPV/OPV) 1997 00:00:00 Completed [facility] HIB 4 Dose Schedule 1997 00:00:00 Completed [facility] Pediarix (dtap/hep B/ipv) 1997 00:00:00 Completed [facility] Polio (IPV/OPV) 1997 00:00:00 Completed [facility] HIB 4 Dose Schedule 1997 00:00:00 Completed [facility] Pediarix (dtap/hep B/ipv) 1997 00:00:00 Completed [facility] Polio (IPV/OPV) 1997 00:00:00 Completed [facility] HIB 4 Dose Schedule 1997 00:00:00 Completed [facility] Pediarix (dtap/hep B/ipv) 1997 00:00:00 Completed [facility] Polio (IPV/OPV) 1997 00:00:00 Completed [facility] HIB 4 Dose Schedule 1997 00:00:00 Completed [facility] Pediarix (dtap/hep B/ipv) 1997 00:00:00 Completed [facility] Polio (IPV/OPV) 1997 00:00:00 Completed [facility] HIB 4 Dose Schedule 1997 00:00:00 Completed [facility] Pediarix (dtap/hep B/ipv) 1997 00:00:00 Completed [facility] Polio (IPV/OPV) 1997 00:00:00 Completed [facility] HIB 4 Dose Schedule 1997 00:00:00 Completed [facility] Pediarix (dtap/hep B/ipv) 1997 00:00:00 Completed [facility] Polio (IPV/OPV) 1997 00:00:00 Completed [facility] HIB 4 Dose Schedule 1997 00:00:00 Completed [facility] Pediarix (dtap/hep B/ipv) 1997 00:00:00 Completed [facility] Polio (IPV/OPV) 1997 00:00:00 Completed [facility] HIB 4 Dose Schedule 1997 00:00:00 Completed [facility] Pediarix (dtap/hep B/ipv) 1997 00:00:00 Completed Polio (IPV/OPV) 1997 00:00:00 Completed Haemophilus influenzae type b vaccine, conjugate unspecified formulation 1997 00:00:00 Completed IPV 1997 00:00:00 Completed Hep B, Adol or Pedi Dosage 1997 00:00:00 Completed [facility] Hep B, Adol or Pedi Dosage 1997 00:00:00 Completed [facility] Hep B, Adol or Pedi Dosage 1997 00:00:00 Completed [facility] Hep B, Adol or Pedi Dosage 1997 00:00:00 Completed [facility] Hep B, Adol or Pedi Dosage 1997 00:00:00 Completed [facility] Hep B, Adol or Pedi Dosage 1997 00:00:00 Completed [facility] Hep B, Adol or Pedi Dosage 1997 00:00:00 Completed [facility] Hep B, Adol or Pedi Dosage 1997 00:00:00 [facility]pleted [facility] [facility] Hep B, Adol or Pedi Dosage 1997 00:00:00 Completed [facility] Hep B, Adol or Pedi Dosage 1997 00:00:00 Completed [facility] Hep B, Adol or Pedi Dosage 1997 00:00:00 Completed [facility] Hep B, Adol or Pedi Dosage 1997 00:00:00 Completed HIB 4 Dose Schedule Unknown Completed [facility] HEPATITIS A Unknown Completed [facility] Hep B, Adol or Pedi Dosage Unknown Completed [facility] Meningococcal Polysaccharide (groups A, C, Y and W-135) conjugate vaccine (MCV4P) Unknown Completed [facility] Pediarix (dtap/hep B/ipv) Unknown Completed [facility] Influenza Virus Vaccine Quad IM, Preserv and ABX Free 6 MO-64 YRS (FLUCELVAX) Unknown Completed [facility] Polio (IPV/OPV) Unknown Completed [facility] Varicella (varivax)(chicken pox) Unknown Completed [facility] HIB 4 Dose Schedule Unknown Completed [facility] HEPATITIS A Unknown Completed [facility] Hep B, Adol or Pedi Dosage Unknown Completed [facility] Meningococcal Polysaccharide (groups A, C, Y and W-135) conjugate vaccine (MCV4P) Unknown Completed [facility] Pediarix (dtap/hep B/ipv) Unknown Completed [facility] Influenza Virus Vaccine Quad IM, Preserv and ABX Free 6 MO-64 YRS (FLUCELVAX) Unknown Completed [facility] Polio (IPV/OPV) Unknown Completed [facility] Varicella (varivax)(chicken pox) Unknown Completed [facility] HIB 4 Dose Schedule Unknown Completed [facility] HEPATITIS A Unknown Completed [facility] Hep B, Adol or Pedi Dosage Unknown Completed [facility] Meningococcal Polysaccharide (groups A, C, Y and W-135) conjugate vaccine (MCV4P) Unknown Completed [facility] Pediarix (dtap/hep B/ipv) Unknown Completed [facility] Influenza Virus Vaccine Quad IM, Preserv and ABX Free 6 MO-64 YRS (FLUCELVAX) Unknown Completed [facility] Polio (IPV/OPV) Unknown Completed [facility] Varicella (varivax)(chicken pox) Unknown Completed [facility] HIB 4 Dose Schedule Unknown Completed [facility] HEPATITIS A Unknown Completed [facility] Hep B, Adol or Pedi Dosage Unknown Completed [facility] Meningococcal Polysaccharide (groups A, C, Y and W-135) conjugate vaccine (MCV4P) Unknown Completed [facility] Pediarix (dtap/hep B/ipv) Unknown Completed [facility] Influenza Virus Vaccine Quad IM, Preserv and ABX Free 6 MO-64 YRS (FLUCELVAX) Unknown Completed [facility] Polio (IPV/OPV) Unknown Completed [facility] Varicella (varivax)(chicken pox) Unknown Completed [facility] HIB 4 Dose Schedule Unknown Completed [facility] HEPATITIS A Unknown Completed [facility] Hep B, Adol or Pedi Dosage Unknown Completed [facility] Meningococcal Polysaccharide (groups A, C, Y and W-135) conjugate vaccine (MCV4P) Unknown Completed [facility] Pediarix (dtap/hep B/ipv) Unknown Completed [facility] Influenza Virus Vaccine Quad IM, Preserv and ABX Free 6 MO-64 YRS (FLUCELVAX) Unknown Completed [facility] Polio (IPV/OPV) Unknown Completed [facility] Varicella (varivax)(chicken pox) Unknown Completed [facility] DTaP, Unspecified Formulation Unknown Completed [facility] Influenza Virus Vaccine - Whole Unknown Completed [facility] Haemophilus influenzae type b vaccine, conjugate unspecified formulation Unknown Completed [facility] IPV Unknown Completed [facility] TDAP Unknown Completed [facility] HIB 4 Dose Schedule Unknown Completed [facility] HEPATITIS A Unknown Completed [facility] Hep B, Adol or Pedi Dosage Unknown Completed [facility] Meningococcal Polysaccharide (groups A, C, Y and W-135) conjugate vaccine (MCV4P) Unknown Completed [facility] Pediarix (dtap/hep B/ipv) Unknown Completed [facility] Influenza Virus Vaccine Quad IM, Preserv and ABX Free 6 MO-64 YRS (FLUCELVAX) Unknown Completed [facility] Polio (IPV/OPV) Unknown Completed [facility] Varicella (varivax)(chicken pox) Unknown Completed [facility] DTaP, Unspecified Formulation Unknown Completed [facility] Influenza Virus Vaccine - Whole Unknown Completed [facility] Haemophilus influenzae type b vaccine, conjugate unspecified formulation Unknown Completed [facility] IPV Unknown Completed [facility] TDAP Unknown Completed [facility] HIB 4 Dose Schedule Unknown Completed [facility] HEPATITIS A Unknown Completed [facility] Hep B, Adol or Pedi Dosage Unknown Completed [facility] Meningococcal Polysaccharide (groups A, C, Y and W-135) conjugate vaccine (MCV4P) Unknown Completed [facility] Pediarix (dtap/hep B/ipv) Unknown Completed [facility] Influenza Virus Vaccine Quad IM, Preserv and ABX Free 6 MO-64 YRS (FLUCELVAX) Unknown Completed [facility] Polio (IPV/OPV) Unknown Completed [facility] Varicella (varivax)(chicken pox) Unknown Completed [facility] DTaP, Unspecified Formulation Unknown Completed [facility] Influenza Virus Vaccine - Whole Unknown Completed [facility] Haemophilus influenzae type b vaccine, conjugate unspecified formulation Unknown Completed [facility] IPV Unknown Completed [facility] TDAP Unknown Completed [facility] Vital Signs Vital Name Observation Time Observation Value Comments S ource Systolic blood pressure 2024-08-01 19:30:00 126 mm[Hg] [facility] Diastolic blood pressure 2024-08-01 19:30:00 80 mm[Hg] [facility] Heart rate 2024-08-01 19:30:00 92 /min [facility] Respiratory rate 2024-08-01 19:30:00 15 /min [facility] Oxygen saturation in Arterial blood by Pulse oximetry 2024-08-01 19:30:00 96 /min [facility] Body temperature 2024-08-01 15:57:00 36.78 Ashly [facility] Body height 2024-08-01 15:57:00 165.1 cm [facility] Body weight 2024-08-01 15:57:00 113.399 kg [facility] BMI 2024-08-01 15:57:00 41.60 kg/m2 [facility] Systolic blood pressure 2024-07-06 03:59:00 134 mm[Hg] [facility] Diastolic blood pressure 2024-07-06 03:59:00 92 mm[Hg] [facility] Heart rate 2024-07-06 03:59:00 94 /min [facility] Body temperature 2024-07-06 03:59:00 36.61 Ashly [facility] Respiratory rate 2024-07-06 03:59:00 18 /min [facility] Oxygen saturation in Arterial blood by Pulse oximetry 2024-07-06 03:59:00 96 /min [facility] Body height 2024-07-06 01:58:00 162.6 cm [facility] Body weight 2024-07-06 01:58:00 104.327 kg [facility] BMI 2024-07-06 01:58:00 39.48 kg/m2 [facility] Systolic blood pressure 2024-03-18 17:00:00 110 mm[Hg] [facility] Diastolic blood pressure 2024-03-18 17:00:00 88 mm[Hg] [facility] Heart rate 2024-03-18 17:00:00 93 /min [facility] Body temperature 2024-03-18 17:00:00 36.72 Ashly [facility] Oxygen saturation in Arterial blood by Pulse oximetry 2024-03-18 17:00:00 97 /min [facility] Respiratory rate 2024-03-18 16:02:00 18 /min [facility] Body height 2024-03-18 13:06:00 162.6 cm [facility] Body weight 2024-03-18 13:06:00 108.863 kg [facility] BMI 2024-03-18 13:06:00 41.20 kg/m2 [facility] Heart rate 2023-10-10 03:51:00 102 /min [facility] Body temperature 2023-10-10 03:51:00 36.78 Ashly [facility] Oxygen saturation in Arterial blood by Pulse oximetry 2023-10-10 03:51:00 93 /min [facility] Systolic blood pressure 2023-10-10 03:30:00 115 mm[Hg] [facility] Diastolic blood pressure 2023-10-10 03:30:00 79 mm[Hg] [facility] Respiratory rate 2023-10-10 03:30:00 20 /min [facility] Body height 2023-10-10 01:12:00 165.1 cm [facility] Body weight 2023-10-10 01:12:00 105.371 kg [facility] BMI 2023-10-10 01:12:00 38.66 kg/m2 [facility] Heart rate 2023-08-13 05:30:00 111 /min [facility] Oxygen saturation in Arterial blood by Pulse oximetry 2023-08-13 05:30:00 92 /min ERP notifed. [facility] Systolic blood pressure 2023-08-13 05:01:00 126 mm[Hg] [facility] Diastolic blood pressure 2023-08-13 05:01:00 75 mm[Hg] [facility] Body temperature 2023-08-13 05:01:00 37 Ashly [facility] Respiratory rate 2023-08-13 05:01:00 15 /min [facility] Body height 2023-08-13 03:07:00 162.6 cm [facility] Body weight 2023-08-13 03:07:00 107.049 kg [facility] BMI 2023-08-13 03:07:00 40.51 kg/m2 [facility] Systolic blood pressure 2023-05-21 04:00:00 124 mm[Hg] [facility] Diastolic blood pressure 2023-05-21 04:00:00 73 mm[Hg] [facility] Heart rate 2023-05-21 04:00:00 100 /min [facility] Respiratory rate 2023-05-21 04:00:00 24 /min [facility] Oxygen saturation in Arterial blood by Pulse oximetry 2023-05-21 04:00:00 95 /min [facility] Body temperature 2023-05-21 01:08:00 37.28 Ashly [facility] Body height 2023-05-21 01:08:00 162.6 cm [facility] Body weight 2023-05-21 01:08:00 105.597 kg [facility] BMI 2023-05-21 01:08:00 39.96 kg/m2 [facility] Systolic blood pressure 2022-11-16 15:46:00 135 mm[Hg] [facility] Diastolic blood pressure 2022-11-16 15:46:00 87 mm[Hg] [facility] Heart rate 2022-11-16 15:46:00 98 /min [facility] Body temperature 2022-11-16 15:46:00 36.89 Ashly [facility] Respiratory rate 2022-11-16 15:46:00 18 /min [facility] Body height 2022-11-16 15:46:00 160 cm [facility] Body weight 2022-11-16 15:46:00 102.059 kg [facility] BMI 2022-11-16 15:46:00 39.86 kg/m2 [facility] Systolic blood pressure 2022-08-30 15:08:00 108 mm[Hg] [facility] Diastolic blood pressure 2022-08-30 15:08:00 70 mm[Hg] [facility] Heart rate 2022-08-30 15:08:00 106 /min [facility] Body temperature 2022-08-30 15:08:00 36.67 Ashly [facility] Body height 2022-08-30 15:08:00 160 cm [facility] Body weight 2022-08-30 15:08:00 97.614 kg [facility] BMI 2022-08-30 15:08:00 38.12 kg/m2 [facility] Systolic blood pressure 2022-06-22 14:43:00 128 mm[Hg] [facility] Diastolic blood pressure 2022-06-22 14:43:00 83 mm[Hg] [facility] Heart rate 2022-06-22 14:43:00 72 /min [facility] Body temperature 2022-06-22 14:43:00 36.78 Ashly [facility] Body height 2022-06-22 14:43:00 160 cm [facility] Body weight 2022-06-22 14:43:00 94.076 kg [facility] BMI 2022-06-22 14:43:00 36.74 kg/m2 [facility] Systolic blood pressure 2022-01-02 16:02:00 118 mm[Hg] [facility] Diastolic blood pressure 2022-01-02 16:02:00 74 mm[Hg] [facility] Heart rate 2022-01-02 16:02:00 102 /min [facility] Body temperature 2022-01-02 16:02:00 36.72 Ashly [facility] Body height 2022-01-02 16:02:00 160 cm [facility] Body weight 2022-01-02 16:02:00 100.971 kg [facility] BMI 2022-01-02 16:02:00 39.43 kg/m2 [facility] Procedures Procedure Date / Time Performed Performing Clinician Source XR CHEST 1 VW 2024-08-01 17:22:49 [place] [facility] URINALYSIS 2024-08-01 17:13:00 [place] [facility] POCT TEST 2024-08-01 17:13:00 [place] e [facility] MAGNESIUM 2024-08-01 17:05:00 [place] [facility] TROPONIN I 2024-08-01 17:05:00 [place] [facility] COMP. METABOLIC PANEL (04057) 2024-08-01 17:05:00 [place] [facility] CBC WITH DIFF 2024-08-01 17:05:00 [place] [facility] D-DIMER 2024-08-01 17:05:00 [place] [facility] N-TERMINAL PRO-BNP 2024-08-01 17:05:00 [place] [facility] CT ABDOMEN PELVIS W CONTRAST 2024-07-06 02:29:00 Tino Lucia [facility] LIPASE 2024-07-06 02:20:00 Tino Lucia [facility] COMP. METABOLIC PANEL ([id number]) 2024-07-06 02:20:00 Tino Lucia [facility] CBC WITH DIFF 2024-07-06 02:20:00 Tino Lucia [facility] URINALYSIS 2024-07-06 02:20:00 [facility] POCT TEST 2024-07-06 02:19:00 Zackery Lucia [facility] INFLUENZA A/B RSV COVID NAAT 2024-03-18 14:28:00 [place] [facility] ACUTE CARE ARTERIAL BLOOD GAS 2023-10-10 02:02:00 Kierra Gross [facility] POCT TEST 2023-10-10 01:50:00 Kierra Gross [facility] TROPONIN I 2023-10-10 01:47:00 Kierra Gross [facility] COMP. METABOLIC PANEL ([id number]) 2023-10-10 01:47:00 Kierra Gross [facility] CBC WITH DIFF 2023-10-10 01:47:00 Kierra Gross [facility] D-DIMER 2023-10-10 01:47:00 Kierra Gross [facility] N-TERMINAL PRO-BNP 2023-10-10 01:47:00 Kierra Gross [facility] XR CHEST 1 VW 2023-08-13 03:44:10 Yoli Avila [facility] RAPID INFLUENZA A/B 2023-08-13 03:31:00 Yoli Avila [facility] POCT TEST 2023-08-13 03:31:00 Yoli Avila [facility] COVID-19 (ID NOW RAPID TESTING) 2023-08-13 03:31:00 Yoli Avila [facility] NOTICE OF PRIVACY PRACTICES 2023-08-13 02:45:44 Doctor Unassigned, [place] [facility] CONSENT/REFUSAL FOR DIAGNOSIS AND TREATMENT 2023-08-13 02:45:05 Doctor Unassigned, [place] [facility] POCT TEST 2023-05-21 02:35:00 Ayse Grayson [facility] URINALYSIS 2023-05-21 02:31:00 Estefany Grayson [facility] URINE DRUG (IMMUNOASSAY) - COMPREHENSIVE DRUG SCREEN W/O REFLEX 2023-05-21 02:31:00 Estefany Grayson [facility] LIPASE 2023-05-21 02:14:00 Estefany Garyson [facility] TROPONIN I 2023-05-21 02:14:00 Estefany Grayson [facility] COMP. METABOLIC PANEL ([id number]) 2023-05-21 02:14:00 Estefany Grayson [facility] CBC WITH DIFF 2023-05-21 02:14:00 Estefany Grayson [facility] D-DIMER 2023-05-21 02:14:00 Estefany Grayson [facility] XR CHEST 2 VW 2023-05-21 01:48:29 Estefany Grayson [facility] NOTICE OF PRIVACY PRACTICES 2023-05-21 01:00:18 Doctor Unassigned, [place] [facility] CONSENT/REFUSAL FOR DIAGNOSIS AND TREATMENT 2023-05-21 00:59:42 Doctor Unassigned, [place] [facility] PATIENT FINANCIAL POLICY 2022-11-16 15:21:31 Doctor Unassigned, [place] [facility] POCT TEST 2022-11-16 00:00:00 Ruby Mccullough [facility] CONSENT FOR CONTRACEPTION 2022-08-30 06:01:00 Doctor Unassigned, [place] [facility] POCT TEST 2022-08-30 00:00:00 Ruby Mccullough [facility] ASSIGNMENT OF BENEFITS 2022-06-22 13:52:27 Docto r Unassigned, [place] [facility] VACCINATIONS - CONSENTS, ELIGIBILITY, HISTORY 2022-02-13 05:01:00 Doctor Unassigned, [place] [facility] CONSENT FOR CONTRACEPTION 2022-01-02 05:01:00 Doctor Unassigned, [place] [facility] POCT TEST 2022-01-02 00:00:00 Ruby Mccullough [facility] Encounters Start Date/Time End Date/Time Encounter Type Admission Type Attending [facility] Care Facility Care Department Encounter ID Source 2021-05-09 18:08:[address] [facility] [id number] [facility] 2021-05-08 18:31:[address] [facility] [id number] [facility] 2024-09-23 18:30:00 2024-09-23 22:27:00 Emergency ISABELLE LAMA JOSHUA [facility] E[facility] [id number] [facility] 2024-08-01 09:59:00 2024-08-01 14:00:00 Emergency [place] PATEL K [facility] ERT [id number] [facility] 2024-08-01 09:59:00 2024-08-01 14:00:00 Emergency [place] [facility] 1.2.840.114 350.1.13.10 4.2.7.2.686 [id number] [facility] 2024-07-11 15:00:00 2024-07-11 15:00:00 Outpatient MERLYN GALEAS [facility] [id number] [facility] 2024-07-05 20:13:00 2024-07-05 22:02:00 Emergency Tino Lucia [facility] .2.840.114 350.1.13.10 4.2.7.2.686 [id number] [facility] 2024-07-05 20:12:35 2024-07-05 20:12:35 Outpatient TINO HEREDIA PHILLIP [facility] ERT [id number] [facility] 2024-03-18 08:08:00 2024-03-18 12:04:00 Emergency X Jefferson WELLS K [facility] ERT [id number] [facility] 2024-03-18 08:08:00 2024-03-18 12:04:00 Emergency [place] [facility] 1.2.840.114 350.1.13.10 4.2.7.2.686 [id number] [facility] 2023-12-12 14:30:00 2023-12-12 14:30:00 Outpatient AMA MARTIN [facility] [id number] [facility] 2023-10-24 00:00:00 2023-10-24 00:00:00 Telephone Piña, [facility] 1.2.840.114 350.1.13.10 4.2.7.2.686 [id number] [facility] 2023-10-23 00:00:00 2023-10-23 00:00:00 Telephone Piña, [facility] 1.2.840.114 350.1.13.10 4.2.7.2.686 [id number] [facility] 2023-10-09 20:16:00 2023-10-09 22:57:00 Emergency X RADHAJOHNCESAR MANUELANDRY [facility] ERT [id number] [facility] 2023-10-09 20:16:00 2023-10-09 22:57:00 Emergency Jose Grossmark anthony Gonzalez [facility] 1.2.840.114 350.1.13.10 4.2.7.2.686 [id number] [facility] 2023-10-04 09:00:00 2023-10-04 09:00:00 Outpatient RUBY MONIQUE [facility] [id number] [facility] 2023-08-12 21:19:00 2023-08-12 23:46:00 Emergency X YOLI AVILA [facility] ERT [id number] [facility] 2023-08-12 21:19:00 2023-08-12 23:46:00 Emergency Yoli Avila G [facility] 1.840.114 350.1.13.10 4.2.7.2.686 [id number] [facility] 2023-05-20 19:11:00 2023-05-20 22:17:00 Emergency X ESTEFANY GRAYSON [facility] ERT [id number] [facility] 2023-05-20 19:11:00 2023-05-20 22:17:00 Emergency Estefany Grayson F [facility] 1.0.114 350.1.13.10 4.2.7.2.686 [id number] [facility] 2023-01-23 14:00:00 2023-01-23 14:00:00 Outpatient R RUBY MCCULLOUGH [facility] [id number] [facility] 2022-11-16 10:30:00 2022-11-16 11:48:37 Outpatient R RUBY MCCULLOUGH [facility] [id number] [facility] 2022-11-16 10:30:00 2022-11-16 11:48:37 Office Visit Ruby Mccullough [facility] 1..114 350.1.13.10 4.2.7.2.686 [id number] [facility] 2022-11-16 00:00:00 2022-11-16 00:00:00 Orders Only Doctor Unassigned, [place] [facility] 1.840.114 350.1.13.10 4.2.7.2.686 [id number] [facility] 2022-11-14 00:00:00 2022-11-14 00:00:00 [facility]phone [facility] 1.2.840.114 350.1.13.10 4.2.7.2.686 [id number] [facility] 2022-08-30 09:00:00 2022-08-30 09:28:13 Outpatient R RUBY MCCULLOUGH [facility] [id number] [facility] 2022-08-30 09:00:00 2022-08-30 09:28:13 Office Visit Ruby Mccullough [facility] 1.2.840.114 350.1.13.10 4.2.7.2.686 [id number] [facility] 2022-08-30 00:00:00 2022-08-30 00:00:00 Orders Only Doctor Unassigned, [place] [facility] 1.2.840.114 350.1.13.10 4.2.7.2.686 [id number] [facility] 2022-07-05 16:00:00 2022-07-05 16:00:00 Outpatient CHRISTA LOO [facility] [id number] [facility] 2022-06-28 00:00:00 2022-06-28 00:00:00 Telephone Ruby Mccullough [facility] 1.2.840.114 350.1.13.10 4.2.7.2.686 [id number] [facility] 2022-06-22 08:00:00 2022-06-22 08:55:01 Outpatient R RUBY MCCULLOUGH [facility] [id number] [facility] 2022-06-22 08:00:00 2022-06-22 08:55:01 Office Visit Ruby Mccullough [facility] 1.2.840.114 350.1.13.10 4.2.7.2.686 [id number] [facility] 2022-06-22 00:00:00 2022-06-22 00:00:00 Orders Only Doctor Unassigned, [place] [facility] 1.2840.114 350.1.13.10 4.2.7.2.686 [id number] [facility] 2022-02-13 00:00:00 2022-02-13 00:00:00 Orders Only Doctor Unassigned, [place] [facility] 1.2840.114 350.1.13.10 4.2.7.2.686 [id number] [facility] 2022-01-02 10:45:00 2022-01-02 11:23:09 Outpatient R RUBY MCCULLOUGH [facility] [id number] [facility] 2022-01-02 10:45:00 2022-01-02 11:23:09 Office Visit [facility] 1.0.114 350.1.13.10 4.2.7.2.686 [id number] [facility] 2022-01-02 10:45:00 2022-01-02 10:45:00 Outpatient R RUBY MCCULLOUGH [facility] [id number] [facility] 2022-01-02 00:00:00 2022-01-02 00:00:00 Orders Only Doctor Unassigned, [place] [facility] 1.20.114 350.1.13.10 4.2.7.2.686 [id number] [facility] 2021-12-26 00:00:00 2021-12-26 00:00:00 Telephone Christa Nielsen [facility] 1.2840.114 350.1.13.10 4.2.7.2.686 [id number] [facility] 2021-12-26 00:00:00 2021-12-26 00:00:00 Telephone Christa Nielsen [facility] 1.2.840.114 350.1.13.10 4.2.7.2.686 [id number] [facility] 2021-12-24 00:00:00 2021-12-24 00:00:00 Telephone Christa Nielsen [facility] 1.2.840.114 350.1.13.10 4.2.7.2.686 [id number] [facility] [id number] [facility] 2021-12-23 00:00:00 2021-12-23 00:00:00 Case Management Gia [facility] 1.2.840.114 350.1.13.10 4.2.7.2.686 [id number] [facility] 2021-12-22 00:00:00 2021-12-22 00:00:00 Patient Secure Msg Doctor Unassigned, Mangham [facility] 1.2.840.114 350.1.13.10 4.2.7.2.686 [id number] [facility] 2021-12-22 00:00:00 2021-12-22 00:00:00 Case Management Christa Nielsen [facility] 1.2.840.114 350.1.13.10 4.2.7.2.686 [id number] [facility] 2021-12-21 15:00:00 2021-12-21 15:37:44 Office Visit Christa Nielsen [facility] 1.2.840.114 350.1.13.10 4.2.7.2.686 [id number] 134 [id number] [facility] 2021-12-21 15:00:00 2021-12-21 15:37:44 Outpatient CHRISTA LOO [facility] [id number] [facility] 2021-12-21 15:00:00 2021-12-21 15:00:00 Outpatient Valeria NIELSEN [facility] [id number] [facility] 2021-12-21 15:00:00 2021-12-21 15:00:00 Outpatient Valeria NIELSEN CHRISTA [facility] [id number] [facility] 2021-10-26 13:30:00 2021-10-26 13:30:09 Outpatient RUBY MONIQUE [facility] [id number] [facility] 2021-10-26 13:30:00 2021-10-26 13:30:09 Office Visit [facility] 1..840.114 350.1.13.10 4.2.7.2.686 [id number] 134 [id number] [facility] 2021-10-26 00:00:00 2021-10-26 00:00:00 Orders Only Doctor Unassigned, Mangham [facility] 1.2.840.114 350.1.13.10 4.2.7.2.686 [id number] [facility] 2021-10-06 00:00:00 2021-10-06 00:00:00 Jarod Ledbetter [facility] 1.2.840.114 350.1.13.10 4.2.7.2.686 [id number] [facility] 2021-05-23 15:00:00 2021-05-23 15:00:00 Outpatient RUBY MONIQUE [facility] [id number] [facility] 2021-04-18 00:00:00 2021-04-18 00:00:00 [facility] 1.840.114 350.1.13.10 4.2.7.2.686 [id number] [facility] 2021-04-12 10:45:35 2021-04-12 11:35:06 Office Visit Jarod Martin [facility] 1.840.114 350.1.13.10 4.2.7.2.686 [id number] [id number] [facility] 2021-04-12 11:00:00 2021-04-12 11:00:00 Outpatient R GABBIE JAROD GABBIEJAROD Chambers [facility] [id number] [facility] 2021-03-28 08:03:00 2021-03-28 20:45:00 Hospital Encounter Brenda Johnson [facility] 1.840.114 350.1.13.10 4.2.7.2.686 [id number] [facility] 2021-03-28 08:30:00 2021-03-28 08:30:00 Outpatient BRENDA MCCRAY [facility] [id number] [facility] 2021-03-25 15:17:12 2021-03-25 15:32:12 Laboratory Only Only, Adc Test Brenda Johnson [facility] 1.840.114 350.1.13.10 4.2.7.2.686 [id number] [facility] 2021-03-25 14:30:00 2021-03-25 14:30:00 Outpatient BRENDA MCCRAY [facility] [id number] [facility] 2021-03-16 00:00:00 2021-03-16 00:00:00 Telephone Jarod Martin [facility]grito?Blea [facility] 1.84114 350.1.13.10 4.2.7.2.686 [id number] [facility] 2021-03-07 15:13:45 2021-03-07 16:24:38 Office Visit Jarod Martin [facility]gr[facility] 1..114 350.1.13.10 4.2.7.2.686 [id number] [facility] 2021-03-07 15:00:00 2021-03-07 15:00:00 Outpatient R JAROD MARTIN HOWARD [facility] [id number] [facility] 2021-03-02 16:45:00 2021-03-02 20:11:00 Emergency Yoli Avila [facility] 1.114 350.1.13.10 4.2.7.2.686 [id number] [facility] 2021-03-02 16:45:00 2021-03-02 20:11:00 Emergency Yoli Avila [facility] 1.114 350.1.13.10 4.2.7.2.686 [id number] [facility] 2021-03-01 15:00:00 2021-03-01 15:00:00 Outpatient R ED CONTRERAS [facility] [id number] [facility] 2021-02-17 13:40:00 2021-02-17 13:40:00 Outpatient R [facility] [id number] [facility] 2021-02-16 19:40:52 2021-02-16 20:00:52 Laboratory Only Lab, Adc [facility] One 1.84.114 350.1.13.10 4.2.7.2.686 [id number] [facility] 2021-02-16 20:00:00 2021-02-16 20:00:00 Outpatient R LAURIE ASHER [facility] [id number] [facility] 2021-02-08 14:30:00 2021-02-08 14:30:00 Outpatient R [facility] [id number] [facility] 2021-02-08 00:00:00 2021-02-08 00:00:00 [facility] 1.2.840.114 350.1.13.10 4.2.7.2.686 [id number] [facility] 2021-02-04 10:30:00 2021-02-04 10:30:00 Outpatient R [facility] [id number] [facility] 2021-01-06 00:00:00 2021-01-06 00:00:00 Telephone Kaley Kimball 1.2.840.114 350.1.13.10 4.2.7.2.686 [id number] [facility] 2020-12-13 00:00:00 2020-12-13 00:00:00 Telephone Kingstonkelleychristi [facility] Building 1.2.840.114 350.1.13.10 4.2.7.2.686 [id number] [facility] 2020-11-17 15:24:29 2020-11-17 16:11:59 Office Visit GiaChrista [facility] Building 1.2.840.114 350.1.13.10 4.2.7.2.686 [id number] 134 [id number] [facility] 2020-11-17 15:30:00 2020-11-17 15:30:00 [facility] [id number] [facility] 2020-11-16 18:36:00 2020-11-16 20:44:00 Emergency Vikram Rios [facility] 1.2.840.114 350.1.13.10 4.2.7.2.686 [id number] [facility] 2020-11-08 00:00:00 2020-11-08 00:00:00 [facility] 1.2.840.114 350.1.13.10 4.2.7.2.686 [id number] [facility] 2020-11-04 00:00:00 2020-11-04 00:00:00 Case Management Christa Nielsen [facility] 1.2.840.114 350.1.13.10 4.2.7.2.686 [id number] 134 [id number] [facility] 2020-11-03 13:56:31 2020-11-03 14:26:31 Office Visit Christa Nielsen [facility] 1.2.840.114 350.1.13.10 4.2.7.2.686 [id number] [facility] 2020-11-03 14:00:00 2020-11-03 14:00:00 [facility] [id number] [facility] 2020-07-20 12:55:00 2020-07-20 16:20:00 Emergency Beni Rivera [facility] 1.2.840.114 350.1.13.10 4.2.7.2.686 [id number] [facility] 2020-07-20 12:55:00 2020-07-20 16:20:00 Emergency X BENI RIVERA [facility] [id number] [facility] 2020-06-02 14:45:00 2020-06-02 14:45:00 [facility] [id number] [facility] 2020-05-11 09:00:00 2020-05-11 09:00:00 Outpatient CHRISTA LOO [facility] [id number] [facility] 2020-05-08 00:00:00 2020-05-08 00:00:00 Telephone Cristi [facility] Office Building One 1.2840.114 350.1.13.10 4.2.7.2.686 [id number] [facility] 2020-05-08 00:00:00 2020-05-08 00:00:00 Telephone Cristi [facility] nal Building 1.2.840.114 350.1.13.10 4.2.7.2.686 [id number] [facility] 2020-05-08 00:00:00 2020-05-08 00:00:00 Telephone Cristi [facility] Office Building One 1.2.840.114 350.1.13.10 4.2.7.2.686 [id number] 2020-05-08 00:00:00 2020-05-08 00:00:00 Telephone Cristi Josefina [facility] nal Building 1.2.840.114 350.1.13.10 4.2.7.2.686 [id number] [id number] 2020-05-04 19:20:00 2020-05-04 19:20:00 Outpatient R [facility] [id number] [facility] 2020-05-04 17:45:31 2020-05-04 18:05:31 Urgent Care Provider, [facility] Cristi [facility] Office Building One 1.2840.114 350.1.13.10 4.2.7.2.686 [id number] [facility] 2020-05-04 17:45:31 2020-05-04 18:05:31 Urgent Care Provider, [facility] Office [facility] One 1.2.840.114 350.1.13.10 4.2.7.2.686 [id number] 2020-04-19 14:00:00 2020-04-19 14:00:00 Outpatient Valeria NIELSEN CHRISTA [facility] [id number] [facility] 2020-04-09 10:00:00 2020-04-09 10:00:00 Outpatient R GIA [facility] [id number] [facility] 2020-03-12 14:00:00 2020-03-12 14:00:00 Outpatient Valeria RUBY MCCULLOUGH [facility] [id number] [facility] 2020-03-05 10:38:44 2020-03-05 11:39:54 Office Visit Ruby Mccullough [facility] Building 1.2.840.114 350.1.13.10 4.2.7.2.686 [id number] [facility] 2020-03-05 10:38:44 2020-03-05 11:39:54 Office Visit Ruby Mccullough [facility] Building 1.2.840.114 350.1.13.10 4.2.7.2.686 [id number] 2020-03-05 10:45:00 2020-03-05 10:45:00 Outpatient R RUBY MCCULLOUGH [facility] [id number] [facility] 2020-03-05 10:00:00 2020-03-05 10:00:00 Outpatient R RUBY MCCULLOUGH [facility] [id number] [facility] 2020-02-27 10:58:54 2020-02-27 11:48:44 Office Visit Gia Christa [facility] Building 1.2.840.114 350.1.13.10 4.2.7.2.686 [id number] [facility] 2020-02-27 10:45:00 2020-02-27 10:45:00 Outpatient R CHRISTA NIELSEN [facility] [id number] [facility] 2020-02-27 00:00:00 2020-02-27 00:00:00 Orders Only Doctor Unassigned, Mangham [facility] 1.2840.114 350.1.13.10 4.2.7.2.686 [id number] [facility] 2020-01-09 18:56:10 2020-01-09 20:39:[address] [facility] 1.2840.114 350.1.13.10 4.2.7.2.686 [id number] [id number] [facility] 2020-01-09 18:56:10 2020-01-09 18:56:[address] [facility] ERT [id number] [facility] 2019-08-22 13:59:27 2019-08-22 15:30:00 Emergency [place] [facility] 1.2840.114 350.1.13.10 4.2.7.2.686 [id number] [facility] Results Test Description Test Time Test Comments [...] tissues: No acute osseous findings are detected. [id number] 18:17:51* Test Item Value Reference Range Interpretation Comme nts TROPONIN I (test code = 1734694297) 0.004 ng/mL <=0.034 ANN (test code = [...] of biotin. Lab Interpretation (test code = 45677-8) Normal [facility]. Metabolic Panel (42814)2024-08-01 18:02:50* Test Item Value Reference Range Interpretation Comme nts NA (test code = 9006803050) 139 mmol/L 135-145 K (test code = 9622219598) 4.6 mmol/L 3.5-5.0 Slight hemolysis CL (test code = 1290042370) 109 mmol/L 98-108 H CO2 TOTAL (test code = 0654453502) 25 mmol/L 23-31 AGAP (test code = 6703744494) 5 2-16 BUN (test code = 9066789886) 12 mg/dL 7-23 Slight hemolysis GLUCOSE (test code = 1817366232) 90 mg/dL 70-110 CREATININE (test code = 2160-0) 0.71 mg/dL 0.50-1.04 TOTAL BILI (test code = 4283264050) 0.7 mg/dL 0.1-1.1 CALCIUM (test code = 1607244114) 9.9 mg/dL 8.6-10.6 T PROTEIN (test code = 4223845255) 8.1 g/dL 6.3-8.2 ALBUMIN (test code = 0216076150) 4.9 g/dL 3.5-5.0 ALK PHOS (test code = 0314791469) 65 U/L 34-122 Slight hemolysis ALTv (test code = 1742-6) 17 U/L 5-35 AST(SGOT) (test code = 3884057766) 35 U/L 13-40 Slight hemolysis eGFR (test code = 08363-7) 119.7 mL/min/1.73m2 CKD-EPI eGFR (2020). Assuming creatinine has been stable day-to-day for at least three months, the eGFR indicates Category G1 (>= 90 mL/min/1.73 m2) Lab Interpretation (test code = 47421-4) [facility] 17:51:07* Test Item Value Reference Range Interpretation Comme nts MAGNESIUM (test code = 5724733955) 2.0 mg/dL 1.7-2.4 Lab Interpretation (test cod e = 12861-3) Normal [facility]Gcuwr6830-14-70 17:47:03* Test Item Value Reference Range Interpretation Comments D-DIMER (test code = 0232645225) See_Comment [Automated message] The system which generated [...] a diagnosis. Lab Interpretation (test code = 26832-4) Normal [facility] with Bcpv3949-52-12 17:31:20* Test Item Value Reference Range Interpretation [...] 34.4 g/dL 31.6-35.1 RDW-SD (test code = 22745-6) 41.1 fL 39.0-49.9 RDW-CV (test code = 788-0) 12.3 % 12.0-15.5 PLT (test code = 777-3) 278 166-358 MPV (test code = 13793-9) 9.4 fL 9.5-12.9 L NRBC/100 WBC (test code = 8155991633) 0.0 0.0-10.0 NRBC x10^3 (test code = 3451357912) See_Comment [Automated messa ge] The system which generated this result transmitted reference range: 10*3/?L. The reference range was not used to interpret this result as normal/abnormal. GRAN MAT (NEUT) % (test code = 770-8) 61.2 % IMM GRAN % (test code = 6123976739) 0.20 % LYMPH % (test code = 736-9) 29.1 % MONO % (test code = 5905-5) 6.5 % EOS % (test code = 713-8) 2.4 % BASO % (test code = 706-2) 0.6 % GRAN MAT x10^3(ANC) (test code = 7020546583) 3.89 10*3/uL 1.88-7.09 IMM GRAN x10^3 (test code = 1287748684) 0.00-0.06 LYMPH x10^3 (test code = 731-0) 1.85 10*3/uL 1.32-3.29 MONO x10^3 (test code = 742-7) 0.41 10*3/uL 0.33-0.92 EOS x10^3 (test code = 711-2) 0.15 10*3/uL 0.03-0.39 BASO x10^3 (test code = 704-7) 0.04 10*3/uL 0.01-0.07 Lab Interpretation (test code = 70093-4) Abnormal [facility] [id number] 17:13:00* Test Item Value Reference Range Interpretation Comme nts POCT PREG (test code = 1605) Negative On board controls acceptable with C Line (test code = 3574) Yes POCT PREG LOT # (test code = 3575) [id number] POCT PREG TEST DATE ( test code = 3576) 06-23-2025 Lab Interpretation (test cod e = 54386-4) Normal [facility]. Metabolic Panel (35199)2024-07-06 03:24:32* Test Item Value Reference Range Interpretation Comme nts NA (test code = 7048872516) 139 mmol/L 135-145 K (test code = 7510379145) 4.3 mmol/L 3.5-5.0 CL (test code = 5390491127) 108 mmol/L 98-108 CO2 TOTAL (test code = 4076255497) 25 mmol/L 23-31 AGAP (test code = 4498020216) 6 2-16 BUN (test code = 2520421496) 12 mg/dL 7-23 GLUCOSE (test code = 7465229773) 82 mg/dL 70-110 CREATININE (test code = 2160-0) 0.69 mg/dL 0.50-1.04 TOTAL BILI (test code = 0711024333) 0.5 mg/dL 0.1-1.1 CALCIUM (test code = 8830255722) 9.4 mg/dL 8.6-10.6 T PROTEIN (test code = 4385800549) 7.5 g/dL 6.3-8.2 ALBUMIN (test code = 2432820689) 4.5 g/dL 3.5-5.0 ALK PHOS (test code = 1095325711) 73 U/L 34-122 ALTv (test code = 1742-6) 18 U/L 5-35 AST(SGOT) (test code = 1763134809) 27 U/L 13-40 eGFR (test code = 14569-7) 122.2 mL/min/1.73m2 CKD-EPI eGFR (20 21). Assuming creatinine has been stable day-to-day for at least three months, the eGFR indicates Category G1 (>= 90 mL/min/1.73 m2) [facility]24-[facility] 03:23:52* Test Item Value Reference Range Interpretation Comme nts LIPASE (test code = 1304845633) 150 U/L 0-220 Lab Interpretation (test cod e = 00100-8) Normal [facility] w bzmfmjen6580-98-82 03:12:21Exam: CT Abdomen and Pelvis with contrast, [...] aneurysm. MUSCULOSKELETAL:Soft tissues: Unremarkable.Bones: No acute osseous abnormality.[facility] Hospital[facility]bc with Gown7775-71-84 03:07:34* Test Item Value Reference Range Interpretation [...] 34.1 g/dL 31.6-35.1 RDW-SD (test code = 54935-1) 42.5 fL 39.0-49.9 RDW-CV (test code = 788-0) 12.8 % 12.0-15.5 PLT (test code = 777-3) 292 166-358 MPV (test code = 53763-1) 9.5 fL 9.5-12.9 NRBC/100 WBC (test code = 7936706603) 0.0 0.0-10.0 NRBC x10^3 (test code = 0264471364) See_Comment [Automated me ssage] The system which generated this result transmitted reference range: 10*3/?L. The reference range was not used to interpret this result as normal/abnormal. GRAN MAT (NEUT) % (test code = 770-8) 60.3 % IMM GRAN % (test code = 3122721407) 0.40 % LYMPH % (test code = 736-9) 29.6 % MONO % (test code = 5905-5) 5.9 % EOS % (test code = 713-8) 3.1 % BASO % (test code = 706-2) 0.7 % GRAN MAT x10^3(ANC) (test code = 0053596862) 5.96 10*3/uL 1.88-7.09 IMM GRAN x10^3 (test code = 0917502188) 0.04 10*3/uL 0.00-0.06 LYMPH x10^3 (test code = 731-0) 2.92 10*3/uL 1.32-3.29 MONO x10^3 (test code = 742-7) 0.58 10*3/uL 0.33-0.92 EOS x10^3 (test code = 711-2) 0.31 10*3/uL 0.03-0.39 BASO x10^3 (test code = 704-7) 0.07 10*3/uL 0.01-0.07 [facility] Wbch3809-53-06 02:19:00* Test Item Value Reference Range Interpretation Comme nts POCT PREG (test code = 1605) Negative On board controls acceptable with C Line (test code = 3574) Yes POCT PREG LOT # (test code = 3575) [id number] POCT PREG TEST DATE ( test code = 3576) 07-02-2025 Lab Interpretation (test cod e = 09726-6) Normal [facility]-Terminal Jur-Qvu0981-24-03 02:37:04* Test Item Value Reference Range Interpretation Comme nts NT-proBNP (test code = 66173-5) <=125 Lab Interpretation (test cod e = 07658-8) Normal [facility] HospitalTroponin [id number] 02:33:02* Test Item Value Reference Range Interpretation Comme nts TROPONIN I (test code = 2185208043) 0.004 ng/mL <=0.034 ANN (test code = [...] of biotin. Lab Interpretation (test code = 57406-2) Normal [facility]. Metabolic Panel (21859)2023-10-10 02:21:36* Test Item Value Reference Range Interpretation Comme nts NA (test code = 5648137775) 137 mmol/L 135-145 K (test code = 0948620292) 4.3 mmol/L 3.5-5.0 CL (test code = 0009163984) 107 mmol/L 98-108 CO2 TOTAL (test code = 7338359930) 24 mmol/L 23-31 AGAP (test code = 3297944400) 6 2-16 BUN (test code = 3398931645) 16 mg/dL 7-23 GLUCOSE (test code = 4767830431) 102 mg/dL 70-110 CREATININE (test code = 2160-0) 0.74 mg/dL 0.50-1.04 TOTAL BILI (test code = 3483371771) 0.4 mg/dL 0.1-1.1 CALCIUM (test code = 3869911335) 9.2 mg/dL 8.6-10.6 T PROTEIN (test code = 3721479912) 7.3 g/dL 6.3-8.2 ALBUMIN (test code = 3694151034) 4.1 g/dL 3.5-5.0 ALK PHOS (test code = 4969749112) 91 U/L 34-122 ALTv (test code = 1742-6) 15 U/L 5-35 AST(SGOT) (test code = 2924297074) 21 U/L 13-40 eGFR (test code = 37628-1) 114.6 mL/min/1.73m2 CKD-EPI eGFR (20 21). Assuming creatinine has been stable day-to-day for at least three months, the eGFR indicates Category G1 (>= 90 mL/min/1.73 m2) [facility]-Pnhbu9130-65-25 02:17:59* Test Item Value Reference Range Interpretation Comments D-DIMER (test code = 0205186249) 0.47 See_Comment [Automated message] The system which [...] a diagnosis. Lab Interpretation (test code = 67685-1) Normal [facility] HospitalCb with Xulc3084-79-34 02:11:38* Test Item Value Reference Range Interpretation [...] 33.9 g/dL 31.6-35.1 RDW-SD (test code = 44321-8) 43.4 fL 39.0-49.9 RDW-CV (test code = 788-0) 13.4 % 12.0-15.5 PLT (test code = 777-3) 321 166-358 MPV (test code = 45454-3) 9.4 fL 9.5-12.9 L NRBC/100 WBC (test code = 9920384853) 0.0 0.0-10.0 NRBC x10^3 (test code = 1107255518) See_Comment [Automated messa ge] The system which generated this result transmitted reference range: 10*3/?L. The reference range was not used to interpret this result as normal/abnormal. GRAN MAT (NEUT) % (test code = 770-8) 63.6 % IMM GRAN % (test code = 7940255997) 0.30 % LYMPH % (test code = 736-9) 22.4 % MONO % (test code = 5905-5) 5.0 % EOS % (test code = 713-8) 8.4 % BASO % (test code = 706-2) 0.3 % GRAN MAT x10^3(ANC) (test code = 1723100407) 5.94 10*3/uL 1.88-7.09 IMM GRAN x10^3 (test code = 1601132312) 0.03 10*3/uL 0.00-0.06 LYMPH x10^3 (test code = 731-0) 2.10 10*3/uL 1.32-3.29 MONO x10^3 (test code = 742-7) 0.47 10*3/uL 0.33-0.92 EOS x10^3 (test code = 711-2) 0.79 10*3/uL 0.03-0.39 H BASO x10^3 (test code = 704-7) 0.03 10*3/uL 0.01-0.07 Lab Interpretation (test code = 08364-9) Abnormal [facility] Arterial Blood Gas.2023-10-10 02:04:03* Test Item Value Reference Range Interpretation Comme nts PH (test code = 2) 7.42 7.35-7.45 PCO2 (test code = 8986010385) 35 35-45 PO2 (test code = 0221888365) 71 80-100 L HCO3 (test code = 7064519442) 22 22-26 BE (test code = 0975701128) -1.8 -3.0-3.0 Lab Interpretation (test cod e = 01425-2) Abnormal [facility] [id number] 01:50:00* Test Item Value Reference Range Interpretation Comme nts POCT PREG (test code = 1605) Negative On board controls acceptable with C Line (test code = 3574) Yes POCT PREG LOT # (test code = 3575) [id number] POCT PREG TEST DATE ( test code = 3576) 10/14/2024 Lab Interpretation (test cod e = 67944-8) [facility] [id number] 04:10:10Exam: Chest (1 View), 08/12/2023 9:30 PM. Ordering Physician: YOLI AVILA. History: cough . Technique: One view of the chest. Comparison: Chest radiograph 05/20/2023. Findings: No focal consolidation. No pneumothorax or effusion. Normal size of thecardiac silhouette. No acute osseous finding.[facility] [id number] 03:31:00* Test Item Value Reference Range Interpretation Comme nts POCT PREG (test code = 1605) Negative On board controls acceptable with C Line (test code = 3574) Yes POCT PREG LOT # (test code = 3575) 344362 POCT PREG TEST DATE ( test code = 3576) Lab Interpretation (test cod e = 89758-9) [id number] 02:58:24* Test Item Value Reference Range Interpretation Comme nts TROPONIN I (test code = 2483196578) 0.001 ng/mL <=0.034 ANN (test code = [...] of biotin. Lab Interpretation (test code = 95441-6) Normal [facility]. METABOLIC PANEL (41180)2023-05-21 02:50:21* Test Item Value Reference Range Interpretation Comme nts NA (test code = 3234531742) 139 mmol/L 135-145 K (test code = 3731177938) 4.4 mmol/L 3.5-5.0 CL (test code = 1581828034) 109 mmol/L 98-108 H CO2 TOTAL (test code = 6099857516) 16 mmol/L 23-31 L AGAP (test code = 5583688984) 14 2-16 BUN (test code = 3638562646) 14 mg/dL 7-23 GLUCOSE (test code = 8947733808) 117 mg/dL 70-110 H CREATININE (test code = 1856253964) 0.65 mg/dL 0.50-1.04 TOTAL BILI (test code = 8022505767) 0.8 mg/dL 0.1-1.1 CALCIUM (test code = 7660950336) 10.5 mg/dL 8.6-10.6 T PROTEIN (test code = 9974805476) 8.9 g/dL 6.3-8.2 H ALBUMIN (test code = 5711365341) 4.9 g/dL 3.5-5.0 ALK PHOS (test code = 7070190414) 104 U/L 34-122 ALTv (test code = 1742-6) 29 U/L 5-35 AST(SGOT) (test code = 8922339244) 31 U/L 13-40 eGFR (test code = 22347-0) 125.5 mL/min/1.73m2 CKD-EPI eGFR (2020). Assuming creatinine has been stable day-to-day for at least three months, the eGFR indicates Category G1 (>= 90 mL/min/1.73 m2) Lab Interpretation (test code = 50432-7) [facility] Test Item Value Reference Range Interpretation Comme nts LIPASE (test code = 2968418350) 119 U/L 0-220 Lab Interpretation (test cod e = 52619-6) Normal [id number] 02:47:00* Test Item Value Reference Range Interpretation Comments D-DIMER (test code = 8868146583) 0.33 See_Comment [Automated message] The system which [...] a diagnosis. Lab Interpretation (test code = 43805-5) [facility] [id number] 02:35:00* Test Item Value Reference Range Interpretation Comme nts POCT PREG (test code = 1605) Negative On board controls acceptable with C Line (test code = 3574) Yes POCT PREG LOT # (test code = 3575) [id number] POCT PREG TEST DATE ( test code = 3576) Lab Interpretation (test cod e = 30227-8) Normal [facility] WITH [id number] 02:34:16* Test Item Value Reference Range Interpretation [...] 35.0 g/dL 31.6-35.1 RDW-SD (test code = 00692-9) 44.0 fL 39.0-49.9 RDW-CV (test code = 788-0) 14.6 % 12.0-15.5 PLT (test code = 777-3) 402 See_Comment H [Automated message] The system which generated this result transmitted reference range: 166 - 358 10*3/?L. The reference range was not used to interpret this result as normal/abnormal. MPV (test code = 13762-4) 8.5 fL 9.5-12.9 L NRBC/100 WBC (test code = 6121510853) 0.0 See_Comment [Automated message] The system which generated this result transmitted reference range: 0.0 - 10.0 /100 WBCs. The reference range was not used to interpret this result as normal/abnormal. NRBC x10^3 (test code = 2224447792) See_Comment [Automated message] The system which generated this result transmitted reference range: 10*3/?L. The reference range was not used to interpret this result as normal/abnormal. GRAN MAT (NEUT) % (test code = 770-8) 91.3 % IMM GRAN % (test code = 4115288575) 0.40 % LYMPH % (test code = 736-9) 6.9 % MONO % (test code = 5905-5) 1.2 % EOS % (test code = 713-8) 0.0 % BASO % (test code = 706-2) 0.2 % GRAN MAT x10^3(ANC) (test code = 5024933894) 12.37 10*3/uL 1.88-7.09 H IMM GRAN x10^3 (test code = 1119698453) 0.06 10*3/uL 0.00-0.06 LYMPH x10^3 (test code = 731-0) 0.93 10*3/uL 1.32-3.29 L MONO x10^3 (test code = 742-7) 0.16 10*3/uL 0.33-0.92 L EOS x10^3 (test code = 711-2) 0.03-0.39 L BASO x10^3 (test code = 704-7) 0.03 10*3/uL 0.01-0.07 Lab Interpretation (test code = 65401-3) Abnormal [facility] [id number] 18:39:00* Test Item Value Reference Range Interpretation Comme nts POCT PREG (test code = 1605) Negative On board controls acceptable with C Line (test code = 3574) Yes POCT PREG LOT # (test code = 3575) POCT PREG TEST DATE ( test code = 3576) [facility] [id number] 18:39:00* Test Item Value Reference Range Interpretation Comme nts POCT PREG (test code = 1605) Negative On board controls acceptable with C Line (test code = 3574) Yes POCT PREG LOT # (test code = 3575) POCT PREG TEST DATE ( test code = 3576) [facility] [id number] 15:15:00* Test Item Value Reference Range Interpretation Comme nts POCT PREG (test code = 1605) Negative On board controls acceptable with C Line (test code = 3574) Yes POCT PREG LOT # (test code = 3575) POCT PREG TEST DATE ( test code = 3576) [facility] [id number] 15:15:00* Test Item Value Reference Range Interpretation Comme nts POCT PREG (test code = 1605) Negative On board controls acceptable with C Line (test code = 3574) Yes POCT PREG LOT # (test code = 3575) POCT PREG TEST DATE ( test code = 3576) [facility] [id number] 16:05:00* Test Item Value Reference Range Interpretation Comme nts POCT PREG (test code = 1605) Negative On board controls acceptable with C Line (test code = 3574) Yes POCT PREG LOT # (test code = 3575) POCT PREG TEST DATE ( test code = 3576) [facility] Notes Date/Time Note Provider Source 2024-08-01 14:00:15 Patient is awake and alert, oriented x4, speech is clear and appropriate, ambulatory with a steady gait. Advised to seek medical attention for new/prolonged/worsening of symptoms. Respirations even and unlabored, no distress. Raymundo RN [facility] 2024-08-01 09:55:45 CC: patient presents to the ER with complaints of mid-sternal chest wall pain that worsens when lying down. Patient states her pain began a week ago. No medications taken PIANO REGULATOR. Awake, alert, oriented, resp reg unlabored, skin warm and dry, color appropriate for race, moves all ext without difficulty, amb without assistance. Appears in no distress. Barnes RN [facility] 2024-07-05 22:00:57 Pt. Provided d/c instructions, rx drug use, & f/u instructions; pt. 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 Reports abdominal pain for approx. 1 month to RUQ, LUQ; denies N/V/D; not triggered by food; denies vaginal bleeding [facility] Génesis Avalos RN [facility] 2024-07-05 19:33:00 [facility] Emergency Department Note Patient Name: Nette Gordon [...] finding in the abdomen or pelvis. RL: [id number] End of Report Lab Results: Lab Results [...] 0.01 - 0.07 10*3/uL COMP. METABOLIC PANEL (81222) NA 139 135 - 145 mmol/L K [...] contrast Cbc with Diff Comp. Metabolic Panel (79391) Lipase POCT Test Urinalysis Orders Placed This Encounter Medications iopamidol (ISOVUE 370-500 mL) injection 85 mL pantoprazole 40 mg EC tablet dicyclomine 20 mg tablet sucralfate 1 gram tablet cephALEXin 500 mg capsule First Provider Eval: ED Events Date/Time Event User Comments 07/05/241946 Medical Screening Begins TINO LCUIA -- 07/05/241946 First Provider Evaluation TINO LUCIA [...] on file Follow-up: Contact information for follow-up [facility] Endoscopy, [facility] Specialty: Endoscopy [address] [facility] [address] Instructions: For follow up of the presenting symptoms. [facility]-Emergency Department Specialty: Emergency Medicine [address] [address] Instructions: If symptoms worsen as documented in the discharge Electronically signed by: Tino Lucia DO 07/05/242139 IDE MAINTENANCE WORKER [facility] 2024-03-18 12:03:10 Pt given printed and [...] with steady gait, in no apparent distress, [facility] 2024-03-18 08:05:44 Patient arrived ambulatory c/o cough, congestion, chest tightness mid center of the chest. Denies any radiation of pain. Chest tightness is not reproducible. Jessi Monzon RN [facility] 2023-10-24 11:28:48 Patient called wanted to speak with the [facility] for her OB office. Call transferred. Patient stated she is aware that she is coming up due for her Pap Smear. Completed Chart review/Care everywhere/Immtrac. Immtrac2 immunizations on file are current. Care Everywhere no new medical records obtained at this time for Overdue HM. Did not send patient a message via [employer] of Overdue Health Maintenance. No futurre appointments at this time. Insurance: [employer] is current. Health Maintenance Due Topic Date [...] (1) 03/09/2023 Cervical Cancer Screening 11/18/2023 Schmitt, [facility] [phone] [facility] 2023-10-23 11:05:18 Completed Chart review/Care everywhere/Immtrac. Immtrac2 immunizations were reconciled. Care Everywhere no new medical records obtained at this time for Overdue HM. Sent patient a message via [employer] of Overdue Health Maintenance with Varicella Questionnaire. No futurre appointments at this time. Currently has [employer]. 10/23/23 Health Maintenance team contacted patient to assist in completing Health Maintenance topics that are overdue. Nette Gordon [id number] Attempt Number: 1st Health Maintenance topics addressed: [...] Per patient she currently does go through [employer] for assistance with Cervical Cancer Screening. Notified patient that she is coming up on the due for that test on 11/18/2023 to reach out to them so they may better assist you in the process of getting you authorized. Also, notified patient I sent her a [employer] message with everything that she is currently due for that she may discuss with them to see if there is additional assistance with those vaccines. Schmitt, [facility] [phone] [facility] 2023-10-09 22:54:11 Pt given printed and [...] distress, accompanied by family. Jackie Sow RN [facility] 2023-10-09 20:09:50 CC: Pt reports having [...] travel Tachycardic in triage Gail Mac RN [facility] 2023-08-12 23:45:06 Pt given printed and [...] gait, in no apparent distress Figueroa RN [facility] 2023-08-12 22:59:34 Pt's SpO2 88%. ERP Notified [facility] 2023-08-12 21:05:50 Pt arrives ambulatory to ED c/o a cough x aprox 3 months and is coughing up yellowish mucous. She says she went to the Dr yesterday and was told she had a fever of over 102.f. Pt has a hx of asthma and does smoke marijuana occasionally, denies cigarettes, or any other drugs. Davis RN [facility] Health 2023-08-12 20:44:00 [facility] Emergency Department Note Patient Name: Nette Gordon Date of : 1995 28 year old female Treatment Room: Room/bed info not found Primary Care Physician: David Lowe Patient Escorted by: Self [9] Mode of Arrival: Personal means [1] EMS Treatment Prior to ED Arrival: PIANO REGULATOR treatment: None Chief Complaint: Chief Complaint Patient [...] End of Report Lab Results: reviewed by nd Lab Results COVID-19 (ID NOW RAPID TESTING) [...] ED Course User Index [PD] Yoli Avila, SCOUT EXECUTIVE Diagnosis/Impression as of 08/12/232246 Subacute cough Acute [...] Electronically signed by: Yoli Avila NP 08/12/23 [id number] IDE MAINTENANCE WORKER Associated attestation - Kierra Gross MD - 08/12/2023 10:50 PM OUTSIDE MAINTENANCE WORKER Addendum I was personally available for consultation in the Emergency Department during this encounter and patient evaluation by ALLAN Avila. [facility]
[2024-10-13] MEDS ORDERED: ONDANSETRON 4 MG/2 ML VIAL ONE (09:10)
[2024-10-13] MEDS ORDERED: LORazepam 2 MG/ML VIAL ONE (09:10)
[2024-10-13] MEDS ORDERED: NA CHLORIDE 0.9% 1,000 ML ONE (09:11)
[2024-10-13 09:42] LABS: Absolute Eosinophils 0.1 K/uL (0-0.5); Absolute Lymphocytes (CBC) 1.4 K/uL (0.7-4.9); Absolute Monocytes 0.4 K/uL (0.1-1.3); Absolute Neutrophil 9.1 K/uL (1.8-8.0); Basophils % 0.4 % (0-1.3); Eosinophils % 0.5 % (0-4.4); Hematocrit 47.3 % (36.0-45.0); Lymphocytes % 12.4 % (15.3-44.8); MCHC 35.9 g/dL (32.0-36.0); MCV 86.3 fL (80-100); MPV 7.2 fL (7.6-11.3); Monocytes % 3.3 % (3.3-12.3); Neutrophils % 83.4 % (41.7-73.7); Nucleated Red Blood Cells % 0.1 % (0-0); Platelets 382 thou/uL (152-406); RBC Red Blood Cell Count 5.49 M/uL (3.86-4.86); Red Cell Distribution Width 13.5 % (12.1-15.2)
--- NOTE | 2024-10-13 09:52 | RAD REPORT ---
Procedure: Chest Single View HISTORY: Chest pain COMPARISON: 2022 FINDINGS: The lungs appear clear of acute infiltrate. No significant pleural effusion noted. The heart is normal size. IMPRESSION: No acute abnormality is displayed.
[2024-10-13 09:56] LABS: Specific Gravity > 1.030 (1.005-1.030); Urine Bacteria <20 /HPF (<20); Urine Bilirubin NEGATIVE (Negative); Urine Blood Negative (Negative); Urine Clarity Extremely Turbid (Clear); Urine Color Yellow (Yellow); Urine Culture Reflex Order NOT NEEDED; Urine Glucose NEGATIVE (Negative); Urine Ketones 2+ (Negative); Urine Micro Reflex YN NO BILL MICROSCOPIC; Urine Mucus Slight /HPF (None Seen); Urine Nitrite NEGATIVE (Negative); Urine Protein 1+ (Negative); Urine RBC None Seen /HPF (None Seen); Urine Urobilinogen 1+ (Normal); Urine WBC <5 /HPF (<5); Urine pH 6.5 (5.0-7.0)
[2024-10-13 10:00] LABS: Anion Gap 10.2 mEq/L (5.0-15.0); BUN Blood Urea Nitrogen 15 mg/dL (7-18); Bicarbonate 25 mEq/L (21-32); Glomerular Filtration Rate 83 ml/min (=/>90); Glucose Level 108 mg/dL (74-106); Potassium 4.2 mEq/L (3.5-5.1); Sodium Level 136 mEq/L (136-145)
[2024-10-13 10:01] LABS: Troponin High Sensitivity < 3.0 pg/mL (<58.9)
[2024-10-13 10:10] LABS: Barbiturates NEGATIVE (NEGATIVE); Benzodiazepines POSITIVE (NEGATIVE); Cocaine NEGATIVE (NEGATIVE); METHAMPHETAM NEGATIVE (NEGATIVE); Methadone NEGATIVE (NEGATIVE); Opiates NEGATIVE (NEGATIVE); Phencyclidine NEGATIVE (NEGATIVE); THC Cannibis POSITIVE (NEGATIVE)
--- NOTE | 2024-10-13 10:15 | ER ---
Nurse's Notes [facility] Name: Nette Quiles Age: 29 yrs Sex: Female : 1995 Arrival Date: 10/13/2024 Time: 08:36 Bed 5 Private MD: Diagnosis: Chest pain, unspecified;Anxiety disorder, unspecified Presentation: 10/13 08:47 Chief complaint: Patient states: Chest pressure and anxiety that began this morning ss around 3782-3486. Coronavirus screen: Client denies travel out of the [place] in the last 14 days. Ebola Screen: Patient denies exposure to infectious person. Patient denies travel to an Ebola-affected area in the 21 days before illness onset. Initial Sepsis Screen: Does the patient meet any 2 criteria? No. Patient's initial sepsis screen is negative. Does the patient have a suspected source of infection? No. Patient's initial sepsis screen is negative. Risk Assessment: Do you want to hurt yourself or someone else? Patient reports no desire to harm self or others. Onset of symptoms was October 13, 2024. 08:47 Method Of Arrival: Ambulatory ss 08:47 Acuity: ALEK 3 ss Historical: - Allergies: 08:48 No Known Allergies; ss - PMHx: 08:48 Anxiety; Bronchitis; Depression; Seizure; ss - PSHx: 08:48 section; ss - Immunization history:: Adult Immunizations unknown. - Infectious Disease History:: Denies. - Social history:: Smoking status: Patient reports the use of cigarette tobacco products, denies chronic smoking, but will smoke occasionally. Screenin:31 [facility] ED Fall Risk Assessment (Adult) History of falling in the last 3 months, db including since admission No falls in past 3 months (0 pts) Confusion or Disorientation No (0 pts) Intoxicated or Sedated No (0 pts) Impaired Gait No (0 pts) Mobility Assist Device Used No (0 pt) Altered Elimination No (0 pt) Score/Fall Risk Level 0 - 2 = Low Risk Oriented to surroundings, Maintained a safe environment. Abuse screen: Denies threats or abuse. Denies injuries from another. Nutritional screening: No deficits noted. Tuberculosis screening: No symptoms or risk factors identified. Assessment: 09:31 Reassessment: Patient appears in no apparent distress at this time. Patient and/or db family updated on plan of care and expected duration. Pain level reassessed. Patient is alert, oriented x 3, equal unlabored respirations, skin warm/dry/pink. General: Appears in no apparent distress. comfortable, Behavior is calm, cooperative, anxious. Pain: Complains of pain in chest Pain does not radiate. Pain began gradually. Neuro: Level of Consciousness is awake, alert, obeys commands, Oriented to person, place, time, situation. Cardiovascular:. 10:16 Reassessment: Patient appears in no apparent distress at this time. Patient and/or db family updated on plan of care and expected duration. Pain level reassessed. Patient is alert, oriented x 3, equal unlabored respirations, skin warm/dry/pink. 10:27 Reassessment: PATIENT DISCHARGE PENDING FLUIDS FINISH. db Vital Signs: 08:47 BP 109 / 68; Pulse 67; Resp 22; Temp 97.6(TE); Pulse Ox 98% on R/A; Weight 113.4 kg; ss Height 5 ft. 5 in. ; Pain 7/10; 09:30 BP 127 / 50; Pulse 74; Resp 16; Pulse Ox 97% on R/A; db 10:00 BP 124 / 59; Pulse 72; Resp 18; Pulse Ox 96% on R/A; db 08:47 Body Mass Index 41.60 (113.40 kg, 165.1 cm) ss 08:47 Pain Scale: Adult ss Vitals: 09:30 Cardiac Rhythm Assessment Regular Sinus rhythm. db ED Course: 08:38 Patient arrived in ED. im 08:39 Maren Santos PA-C is PHCP. sb4 08:39 Otis Hallman MD is Attending Physician. sb4 08:48 Triage completed. ss 08:48 Arm band placed on right wrist. ss 08:52 Sandor Morrison RN is Primary Nurse. jl7 09:25 No provider procedures requiring assistance completed. Initial lab(s) drawn, by me, db sent to lab. Inserted saline lock: 20 gauge in right antecubital area, using aseptic technique. Blood collected. Flushed with 10 mL NS. Patient maintains SpO2 saturation greater than 95% on room air. 09:31 XRAY Chest (1 view) In Process Unspecified. EDMS 09:31 Patient has correct armband on for positive identification. Bed in low position. Call db light in reach. Side rails up X 1. Client placed on continuous cardiac and pulse oximetry monitoring. NIBP monitoring applied. bus driver/monitor on. Pulse ox on. NIBP on. Warm blanket given. Pillow given. 10:53 IV discontinued, intact, bleeding controlled, No redness/swelling at site. Pressure jl7 dressing applied. Administered Medications: 09:25 Drug: NS 0.9% IV 1000 ml IV at 1 bolus Per protocol; to be given as a bolus over 60 db minutes Route: IV; Rate: 1 bolus; Site: right antecubital; 10:30 Follow up: Response: No adverse reaction; IV Status: Completed infusion jl7 :25 Drug: Ativan IVP 1 mg IVP once Route: IVP; Site: right antecubital; db 10:53 Follow up: Response: No adverse reaction 7 09:25 Drug: Ondansetron IVP 4 mg IVP once; over 2 minutes Route: IVP; Site: right antecubital;db 10:53 Follow up: Response: No adverse reaction jl Medication: 09:31 VIS not applicable for this client. db Outcome: 10:14 Discharge ordered by . ant 10:53 Discharged to home ambulatory, jl7 10:53 Condition: stable 10:53 Discharge instructions given to patient, family, Instructed on discharge instructions, follow up and referral plans. Demonstrated understanding of instructions, follow-up care, 10:54 Patient left the ED. jl7 Signatures: Dispatcher [employer] EDMS Tanya Soria RN RN ss Leal, Jahala, RN RN jl7 Arlen Claire RN RN db Brown, Sophia, PA-C PA-C sb4 Mendoza, Itzel im
--- NOTE | 2024-10-13 10:15 | EDPHYS ---
Physician Documentation [facility] Name: Nette Quiles Age: 29 yrs Sex: Female : 1995 Arrival Date: 10/13/2024 Time: 08:36 Bed 5 Private MD: ED Physician Otis Hallman HPI: 10/13 08:47 This 29 yrs old Female presents to ER via Unassigned with complaints of Chest Pain, sb4 Nausea. 08:48 Chest pain since 530 this morning. Reports a history of anxiety. States that her sb4 thyroid levels have been mildly off, but her PCP is just monitoring it for now. States that she takes Seroquel and Xanax for her sleep and anxiety but has not taken it for the past day. States she feels tightness in her chest and nauseated. Also feels like she is dehydrated. Denies any cardiac or pulmonary medical history. Historical: - Allergies: 08:48 No Known Allergies; ss - PMHx: 08:48 Anxiety; Bronchitis; Depression; Seizure; ss - PSHx: 08:48 section; ss - Immunization history:: Adult Immunizations unknown. - Infectious Disease History:: Denies. - Social history:: Smoking status: Patient reports the use of cigarette tobacco products, denies chronic smoking, but will smoke occasionally. ROS: 08:48 Constitutional: Negative for fever, chills, and weight loss, sb4 08:48 Cardiovascular: Positive for chest pain, 08:48 Abdomen/GI: Positive for nausea, 08:48 Psych: Positive for anxiety, 08:48 All other systems are negative, Exam: 08:48 Head/Face: Normocephalic, atraumatic. Eyes: Extra-ocular motions intact. Periorbital sb4 areas with no swelling, redness, or edema. ENT: Mucous membranes moist. Cardiovascular: Regular rate and rhythm with a normal S1 and S2. Respiratory: No increased work of breathing, no retractions or nasal flaring. Abdomen/GI: Soft, non-tender, no distension. Skin: Warm, dry with normal turgor. Normal color with no rashes, no lesions, and no evidence of cellulitis. 08:48 Constitutional: The patient appears alert, awake, anxious, Vital Signs: 08:47 BP 109 / 68; Pulse 67; Resp 22; Temp 97.6(TE); Pulse Ox 98% on R/A; Weight 113.4 kg; ss Height 5 ft. 5 in. ; Pain 7/10; 09:30 BP 127 / 50; Pulse 74; Resp 16; Pulse Ox 97% on R/A; db 10:00 BP 124 / 59; Pulse 72; Resp 18; Pulse Ox 96% on R/A; db 08:47 Body Mass Index 41.60 (113.40 kg, 165.1 cm) ss 08:47 Pain Scale: Adult ss MDM: 08:39 Medical Screening Exam initiated sb4 10:15 Data reviewed: vital signs, nurses notes, lab test result(s), EKG, radiologic studies, sb4 and as a result, I will discharge patient. Counseling: I had a detailed discussion with the patient and/or guardian regarding the historical points, exam findings, and any diagnostic results supporting the discharge/admit diagnosis, lab results, radiology results, the need for outpatient follow up, for definitive care, to return to the emergency department if symptoms worsen or persist or if there are any questions or concerns that arise at home. 10/13 08:46 Order name: Basic Metabolic Panel; Complete Time: 10:04 sb4 10/13 08:46 Order name: CBC with Diff; Complete Time: 10:29 sb4 10/13 08:46 Order name: Troponin HS; Complete Time: 10:04 sb4 10/13 08:46 Order name: UDS; Complete Time: 10:12 sb4 10/13 08:46 Order name: UAM; Complete Time: 09:57 sb4 10/13 08:46 Order name: Test, Urine; Complete Time: 09:57 sb4 10/13 08:46 Order name: TSH; Complete Time: 10:04 sb4 10/13 10:28 Order name: CBC Smear Scan; Complete Time: 10:29 EDMS 10/13 08:46 Order name: XRAY Chest (1 view); Complete Time: 09:52 sb4 10/13 08:46 Order name: Cardiac monitoring; Complete Time: 08:52 sb4 10/13 08:46 Order name: EKG - Nurse/Tech; Complete Time: 09:30 sb4 10/13 08:46 Order name: IV Saline Lock; Complete Time: 09:30 sb4 10/13 08:46 Order name: Labs collected and sent; Complete Time: 09:30 sb4 10/13 08:46 Order name: O2 Per Protocol; Complete Time: :52 sb4 10/13 08:46 Order name: O2 Sat Monitoring; Complete Time: : sb4 EC:34 Rate is 57 beats/min. Rhythm is regular, Sinus bradycardia. IA interval is normal at sb4 114 msec. QRS interval is normal at 86 msec. QT interval is normal at 388 msec. No Q waves. T waves are Normal. No ST changes noted. Clinical impression: No evidence of ischemia. Interpreted by me. Reviewed by me. Administered Medications: : Drug: NS 0.9% IV 1000 ml IV at 1 bolus Per protocol; to be given as a bolus over 60 db minutes Route: IV; Rate: 1 bolus; Site: right antecubital; 10:30 Follow up: Response: No adverse reaction; IV Status: Completed infusion jl7 : Drug: Ativan IVP 1 mg IVP once Route: IVP; Site: right antecubital; db 10:53 Follow up: Response: No adverse reaction jl7 :25 Drug: Ondansetron IVP 4 mg IVP once; over 2 minutes Route: IVP; Site: right antecubital;db 10:53 Follow up: Response: No adverse reaction jl7 Disposition: 11:05 Co-signature as Attending Physician, Otis Hallman MD I reviewed the patient's care rn provided by the Advanced Practice Provider and agree with the diagnosis and treatment plan. Disposition Summary: 10/13/24 10:14 Discharge Ordered Notes: Location: Home sb4 Problem: new sb4 Symptoms: have improved sb4 Condition: Stable sb4 Diagnosis - Chest pain, unspecified sb4 - Anxiety disorder, unspecified sb4 Followup: sb4 - With: Emergency Department - When: As needed - Reason: Trouble breathing, Worsening of condition Discharge Instructions: - Discharge Summary Sheet sb4 - Nonspecific Chest Pain, Adult, Hdbn-op-Jslc sb4 - Managing Anxiety, Adult sb4 Forms: - Patient Portal Instructions sb4 - Leadership Thank You Letter sb4 Signatures: Dispatcher [employer] EDOtis Carson MD MD rn Blanchard, Shelby, RN RN ss Benton, Danielle, RN RN db Brown, Sophia, PA-C PAFabrizio sb4 Sandor Morrison RN jl7 Corrections: (The following items were deleted from the chart) 08:47 08:47 BASIC METABOLIC PANEL+C.LAB.BRZ ordered. EDMS EDMS 08:47 08:47 CBC+H.LAB.BRZ ordered. EDMS EDMS 08:47 08:47 Troponin High Sensitivity+C.LAB.BRZ ordered. EDMS EDMS 08:47 08:47 URINE DRUG SCREEN+UC.LAB.BRZ ordered. EDMS EDMS 08:47 08:47 Urinalysis W/Microscopic+U.LAB.BRZ ordered. EDMS EDMS 08:47 08:47 Test, Urine+UC.LAB.BRZ ordered. EDMS EDMS 08:47 08:47 THYROID STIMULAT HORMONE+C.LAB.BRZ ordered. EDMS EDMS 08:47 08:47 Chest Single View+RAD.RAD.BRZ ordered. EDMS EDMS
[2024-10-13 10:27] LABS: Blood Morphology Comment NOTED (NOT SEEN); Platelet Estimate ADEQ; Rouleau SLIGHT; White Blood Cell Scan OK (OK)
[2024-10-13 11:21] VITALS: TEMP 97.6
[2024-10-13 11:28] VITALS: BP 124/59; O2SAT 96
--- NOTE | 2024-10-13 11:29 | EKG ---
Test Date: 2024-10-13 Test Time: 09:26:45 [employer] Lieutenant: HIGINIO MEASUREMENT RESULTS: Intervals: Rate: 57 AL: 114 QRSD: 86 QT: 388 QTc: 377 [place]: P: 47 AL: 114 QRS: 58 T: 47 INTERPRETIVE STATEMENTS: Sinus bradycardia with sinus arrhythmia Otherwise normal ECG Compared to ECG 09/29/2024 20:51:59 Sinus tachycardia no longer present Electronically Signed On 10-13-24 11:28:08 CDT by Franklin Jacobsen
== END 2024-10-13 10:54 | disposition home or self-care (01) ==
LOC: ER 08:36
DX: R07.9 Chest pain, unspecified (principal); F41.9 Anxiety disorder, unspecified; F17.210 Nicotine dependence, cigarettes, uncomplicated
CPT/HCPCS: 36415; 71045; 80048; 80307; 81001; 81025; 84443; 84484; 85025; 93005; 96361; 96374; 96375; 99285; J2405; J7030

== ENCOUNTER 2024-11-21 17:30 | Emergency (ER) | payer SELFPAY ==
--- OUTSIDE RECORDS SUMMARY | 2024-11-21 17:36 | XMS REPORT | Continuity of Care Document ---
Author Name Unknown Address [address] [facility] [place] [address] [facility] [place] Address [address] [facility] [place] [address] Care Team Providers Care Pickle Solution Maker Name Role Phone TIM LEYVA Primary Care Physician Unavailab ISABELLE Aguilar Attending Clinician Unavailable ISABELLE PATEL Attending Clinician Unavailable Jefferson WELLS Attending Clinician Unavailable Jefferson WELLS Attending Clinician Unavailable Jefferson Farley Attending Clinician [phone] MERLYN VIVAR Attending Clinician Unav ailable Tino Lucia DO Attending Clinician [phone] TINO LUCIA Attending Clinician Unavailable TINO LUCIA Attending Clinician Unavailable YIFAN HUERTA Attending Clinician Unavail able AMA MONTGOMERY Attending Clinician Unavailable Jasmyne Piña MA Attending Clinician Unavaila KIERRA Royal Attending Clinician Unavailable Kierra Gross MD Attending Clinician [phone] RUBY MCCULLOUGH Attending Clinician Unavailable YOLI AVILA Attending Clinician Unavailable Yoli Avila NP Attending Clinician [phone] ESTEFANY GRAYSON Attending Clinician Unavaila Estefany Garcia Attending Clinician [phone] CHRISTA NIELSEN Attending Clinician Unavailable Ruby Mccullough MD Attending Clinician [phone] Doctor Unassigned, [place] Attending Clinician U navailable Gia CABRAL, Christa Attending Clinician [phone] Jarod Martin MD Attending Clinician [phone] JAROD MARTIN Attending Clinician Unavail able JAROD MARTIN Attending Clinician Unavail able Brenda Johnson MD Attending Clinician [phone] BRENDA JOHNSON Attending Clinician Unavailable Only, Adc Test Attending Clinician Unavailable ED CONTRERAS Attending Clinician Unavailable Lab, Adc Fam Pob I Attending Clinician Unavailab adelita Asher EDUCATIONAL PARAPROFESSIONAL, Laurie Attending Clinician [phone] LAURIE ASHER Attending Clinician Unavailmaggi Kimball RN, Kaley Cooney Attending Clinician UnaVikram Peck MD Attending Clinician [phone] Ebjame EDUCATIONAL PARAPROFESSIONAL, Beni Attending Clinician [phone] EBBENI ZABALA Attending Clinician Unavailable Green EDUCATIONAL PARAPROFESSIONAL, Josefina Attending Clinician [phone] Provider, [facility] Attending Clinician Un available LaneTaylor Chen Attending Clinician [phone] Attending Clinician Unavailable ISABELLE PATEL Admitting Clinician Unavailable Jefferson WELLS Admitting Clinician Unavailable TINO LUCIA Admitting Clinician Unavailable KIERRA GROSS Admitting Clinician Unavailable YOLI AVILA Admitting Clinician Unavailable ESTEFANY GRAYSON Admitting Clinician UnavailBrenda Juarez MD Admitting Clinician [phone] BENI RIVERA Admitting Clinician Unavailable Payers Payer Name Policy Type Policy Number Effective Date Expirati on Date Source [facility] [id number] 2020 00:00:00 [facility] [place] [facility] [id number] 2023 00:00:00 MEDICAID PENDING PENDING 2023 00:00:00 Problems Condition Name Condition Details Condition Category Status Onset Date Resolution Date Last Treatment Date Treating Clinician Comments Source Seizure Seizure Disease Active 03-28 00:00: 00 [facility] Spells of decreased attentiven ess Spells of decreased attentiven ess Disease Active 2021-0 9-20 00:00: 00 [facility] Obesity (BMI 30-39.9) Obesity (BMI 30-39.9) Disease Active 4-28 00:00: 00 [facility] Nexplanon in place Nexplanon in place Disease Active 8 00:00: 00 [facility] Allergies, Adverse Reactions, Alerts Allergy Name Allergy Type Status Severity Reaction(s) Onset Date Inactive Date Treating Clinician Comments Source CITRIC ACID DRUG INGREDI Active Other-Cmnt 01-08 00:00: 00 [facility] Citric Acid Propensi ty to adverse reaction s Active Other - See comments 01-08 00:00: 00 Headaches [facility] Social History Social Habit Start Date Stop Date Quantity Comments [facility] of tobacco use Cigarette Smoker [facility] History of Social function 2024-08-01 00:00:00 2024-08-01 00:00:00 [facility] Alcoholic beverage intake 2024-08-01 00:00:00 2024-08-01 00:00:00 Ex-drinker (finding) [facility] Alcohol intake 2023-10-10 00:00:00 2023-10-10 00:00:00 Ex-drinker (finding) [facility] Exposure to SARS-CoV-2 (event) 2022-11-06 00:00:00 2022-11-16 10:19:00 Not sure [facility] Cigarettes smoked current (pack per day) - Reported 2021-03-07 00:00:00 2021-03-07 00:00:00 [facility] Tobacco use and exposure 2021-03-07 00:00:00 2021-03-07 00:00:00 Smokeless tobacco non-user [facility] Sex assigned at 1995 00:00:00 1995 00:00:00 [facility] Smoking Status Start Date Stop Date Source Smokes tobacco daily 2021-03-07 00:00:00 [facility] Medications Ordered Medication Name Filled Medication Name Start Date Stop Date Current Medication? Ordering Clinician Indication Dosage Frequency Signature (SIG) Comments Components Source LORazepam (ATIVAN) injection 0.5 mg 08-01 17:45: 00 08-01 18:12 :00 No .5mg 0.5 mg, Slow IV Push, ONCE, 1 dose, On Sun08/01/24 at 1145, STAT [facility] iopamidol (ISOVUE 370-500 mL) injection 85 mL 2023-07 02:20: 00 07-06 02:21 :00 No [id number] 85mL 85 mL, Intravenou s, ONCE, 1 dose, On 07/05/24 at 2045, Routine [facility] pantoprazol e 40 mg EC tablet 2023-07 00:00: 00 Yes [id number] 40mg Take 1 tablet by mouth in the morning. [facility] dicyclomine 20 mg tablet 2023-07 00:00: 00 Yes [id number] 20mg Take 1 tablet by mouth 4 (four) times daily as needed for Abdominal pain. [facility] sucralfate 1 gram tablet 2023-07 00:00: 00 Yes [id number] 1g Take 1 tablet by mouth before meals and at bedtime. [facility] cephALEXin 500 mg capsule 2023-07 00:00: 00 07-11 05:59 :00 No [id number] 500mg Take 1 capsule by mouth 4 (four) times daily for 5 days. [facility] azithromyci n (ZITHROMAX Z-SB) 250 mg tablet 03-19 00:00: 00 Yes [id number] 250mg Take 1 tablet by mouth SEE-INSTRU CTIONS. Take 500 mg day 1, then 250 mg days 2 to 5. [facility] azithromyci n (ZITHROMAX) tablet 500 mg 03-18 16:52: 00 03-18 16:59 :00 No 500mg 500 mg, Oral, ONCE, 1 dose, On Sun03/18/24 at 1200, FREDI, Reason for Anti-Infec tive: Documented Infection, Documented Infection Site: Respirator y, Duration of Therapy: Once (ED) [facility] ondansetron (ZOFRAN-ODT ) disintegrat ing tablet 4 mg 03-18 16:15: 00 03-18 15:29 :00 No 4mg 4 mg, Oral, ONCE, 1 dose, On Sun03/18/24 at 1115, Routine [facility] ipratropium -albuteroL (DUONEB) 0.5 mg-3 mg(2.5 mg base)/3 mL nebulizer solution 3 mL 03-18 15:30: 00 03-18 14:29 :00 No 3mL 3 mL, Inhalation , ONCE, 1 dose, On Sun03/18/24 at 1030, Routine [facility] albuterol 90 mcg/actuati on inhaler 03-18 11:53: 17 Yes 2{puff} Inhale 2 Puffs every 6 (six) hours as needed for Wheezing or Shortness of Breath. [facility] albuterol 90 mcg/actuati on inhaler 03-18 00:00: 00 Yes [id number] 2{puff} Inhale 2 Puffs every 4 (four) hours as needed for Wheezing or Shortness of Breath. [facility] ALPRAZolam (XANAX) tablet 1 mg 10-09 03:45: 00 10-09 03:44 :00 No 1mg 1 mg, Oral, ONCE, 1 dose, On Sun10/09/23 at 2245, FREDI [facility] ipratropium -albuteroL (DUONEB) 0.5 mg-3 mg(2.5 mg base)/3 mL nebulizer solution 3 mL 10-09 03:15: 00 10-09 02:48 :00 No 3mL 3 mL, Inhalation , ONCE NOW, 1 dose, On Sun10/09/23 at 2215, Routine [facility] albuterol 90 mcg/actuati on inhaler 10-08 00:00: 00 Yes [id number] 2{puff} Inhale 2 Puffs every 4 (four) hours as needed for Wheezing or Shortness of Breath. [facility] ipratropium -albuteroL (DUONEB) 0.5 mg-3 mg(2.5 mg base)/3 mL nebulizer solution 6 mL 08-13 06:00: 00 08-13 05:09 :00 No 6mL 6 mL, Inhalation , ONCE NOW, 1 dose, On Sun08/13/23 at 0000, Routine [facility] metoclopram arturo HCl (REGLAN) tablet 5 mg 08-13 05:45: 00 08-13 04:56 :00 No 5mg 5 mg, Oral, ONCE, 1 dose, On 08/12/23 at 2345, Routine [facility] dexamethaso ne (DECADRON PHOSPHATE) injection 10 mg 08-13 05:00: 00 08-13 04:01 :00 No 10mg 10 mg, Intramuscu lar, ONCE, 1 dose, On 08/12/23 at 2300, Routine [facility] ipratropium -albuteroL (DUONEB) 0.5 mg-3 mg(2.5 mg base)/3 mL nebulizer solution 3 mL 08-13 04:45: 00 08-13 03:55 :00 No 3mL 3 mL, Inhalation , ONCE NOW, 1 dose, On 08/12/23 at 2245, Routine [facility] metroNIDAZO LE (FLAGYL) 500 mg tablet 08-12 23:46: 06 Yes 500mg Take 1 tablet by mouth every 12 (twelve) hours. [facility] levoFLOXaci n 750 mg tablet 08-12 23:46: 06 Yes 750mg Take 1 tablet by mouth every 24 (twenty-fo ur) hours. [facility] albuterol 90 mcg/actuati on inhaler 08-12 23:46: 06 Yes 2{puff} Inhale 2 Puffs every 6 (six) hours as needed for Wheezing or Shortness of Breath. [facility] benzonatate 100 mg capsule 2024-0 2-04 00:00: 00 Yes [id number] 200mg Take 2 capsules by mouth 3 (three) times daily as needed for Cough. [facility] predniSONE 20 mg tablet 2-04 00:00: 00 08-18 05:59 :00 No [id number] 20mg Take 1 tablet by mouth in the morning and 1 tablet in the evening. Do all this for 5 days. [facility] LORazepam (ATIVAN) injection 1 mg 2022-07 03:15: 00 05-21 03:13 :00 No 1mg 1 mg, Slow IV Push, ONCE, 1 dose, On Sun05/20/23 at 2115, STAT [facility] ondansetron (ZOFRAN (PF)) injection 4 mg 2022-07 03:00: 00 05-21 03:13 :00 No 4mg 4 mg, Slow IV Push, ONCE, 1 dose, [facility]/20/23 [facility] 2100[facility] 0.9% (NS) bolus infusion 1,000 mL 2022-07 02:15: 00 05-21 04:12 :00 No 1000mL at 999 mL/hr, 1,000 mL, IV Infusion, ONCE, 1 dose, On 05/20/23 at 2015, FREDI [facility] ondansetron 4 mg disintegrat ing tablet 2022-07 00:00: 00 Yes [id number] 4mg Take 1 tablet by mouth every 8 (eight) hours as needed for Nausea and Vomiting (N/V). [facility] etonogestre L (NEXPLANON) implant 68 mg 08-30 15:45: 00 08-30 15:28 :00 No [id number] 68mg [facility] etonogestre L (NEXPLANON) implant 68 mg 01-02 18:45: 00 01-02 17:40 :00 No [id number] 68mg [facility] metroNIDAZO LE 500 mg tablet 12-23 00:00: 06-22 00:00 :00 No [id number] 500mg Take 1 tablet by mouth every 12 (twelve) hours. [facility] fluconazole (DIFLUCAN) 150 mg tablet 6-17 00:00: 00 06-22 00:00 :00 No [id number] 150mg Take 1 tablet by mouth every 72 (seventy-t wo) hours. [facility] NORTRIPTYLI NE 25 mg capsule 3-31 00:00: 00 Yes [id number] TAKE TWO CAPSULES BY MOUTH DAILY [facility] QUEtiapine (SEROQUEL XR) 400 mg 24 hr tablet 9 21:07: 23 Yes 400mg Take 400 mg by mouth daily. [facility] Immunizations Ordered Immunization Name Filled Immunization Name Date Status Comments Source TDAP 2018-04-18 00:00:00 Completed Influenza Virus Vaccine Quad IM, Preserv and ABX Free 6 MO-64 YRS 2017-07-06 00:00:00 Completed [facility] Influenza Virus Vaccine Quad IM, Preserv and ABX Free 6 MO-64 YRS 2017-07-06 00:00:00 Completed [facility] Influenza Virus Vaccine Quad IM, Preserv and ABX Free 6 MO-64 YRS 2017-07-06 00:00:00 Completed [facility] Influenza Virus Vaccine Quad IM, Preserv and ABX Free 6 MO-64 YRS 2017-07-06 00:00:00 Completed [facility] Influenza Virus Vaccine Quad IM, Preserv and ABX Free 6 MO-64 YRS 2017-07-06 00:00:00 Completed [facility] Influenza Virus Vaccine Quad IM, Preserv and ABX Free 6 MO-64 YRS 2017-07-06 00:00:00 Completed [facility] Influenza Virus Vaccine Quad IM, Preserv and ABX Free 6 MO-64 YRS 2017-07-06 00:00:00 Completed [facility] Influenza Virus Vaccine Quad IM, Preserv and ABX Free 6 MO-64 YRS 2017-07-06 00:00:00 Completed [facility] Influenza Virus Vaccine Quad IM, Preserv and ABX Free 6 MO-64 YRS 2017-07-06 00:00:00 Completed [facility] Influenza Virus Vaccine Quad IM, Preserv and ABX Free 6 MO-64 YRS 2017-07-06 00:00:00 Completed [facility] Influenza Virus Vaccine Quad IM, Preserv and ABX Free 6 MO-64 YRS 2017-07-06 00:00:00 Completed [facility] Influenza Virus Vaccine Quad IM, Preserv and ABX Free 6 MO-64 YRS (FLUCELVAX) 2017-07-06 00:00:00 Completed Influenza Virus Vaccine Quad IM, Preserv and ABX Free 6 MO-64 YRS 2012-07-25 00:00:00 Completed [facility] Influenza Virus Vaccine Quad IM, Preserv and ABX Free 6 MO-64 YRS 2012-07-25 00:00:00 Completed [facility] Influenza Virus Vaccine Quad IM, Preserv and ABX Free 6 MO-64 YRS 2012-07-25 00:00:00 Completed [facility] Influenza Virus Vaccine Quad IM, Preserv and ABX Free 6 MO-64 YRS 2012-07-25 00:00:00 Completed [facility] Influenza Virus Vaccine Quad IM, Preserv and ABX Free 6 MO-64 YRS 2012-07-25 00:00:00 Completed [facility] Influenza Virus Vaccine Quad IM, Preserv and ABX Free 6 MO-64 YRS 2012-07-25 00:00:00 Completed [facility] Influenza Virus Vaccine Quad IM, Preserv and ABX Free 6 MO-64 YRS 2012-07-25 00:00:00 Completed [facility] Influenza Virus Vaccine Quad IM, Preserv and ABX Free 6 MO-64 YRS 2012-07-25 00:00:00 Completed [facility] Influenza Virus Vaccine Quad IM, Preserv and ABX Free 6 MO-64 YRS 2012-07-25 00:00:00 Completed [facility] Influenza Virus Vaccine Quad IM, Preserv and ABX Free 6 MO-64 YRS 2012-07-25 00:00:00 Completed [facility] Influenza Virus Vaccine Quad IM, Preserv and ABX Free 6 MO-64 YRS 2012-07-25 00:00:00 Completed [facility] Influenza Virus Vaccine Quad IM, Preserv and ABX Free 6 MO-64 YRS (FLUCELVAX) 2012-07-25 00:00:00 Completed Influenza Virus Vaccine - Whole 2012-07-25 00:00:00 Completed HEPATITIS A 2010-02-22 00:00:00 Completed [facility] Meningococcal Polysaccharide (groups A, C, Y and W-135) conjugate vaccine (MCV4P) 2010-02-22 00:00:00 Completed [facility] Varicella (varivax)(chicken pox) 2010-02-22 00:00:00 Completed [facility] HEPATITIS A 2010-02-22 00:00:00 Completed [facility] Meningococcal Polysaccharide (groups A, C, Y and W-135) conjugate vaccine (MCV4P) 2010-02-22 00:00:00 Completed [facility] Varicella (varivax)(chicken pox) 2010-02-22 00:00:00 Completed [facility] HEPATITIS A 2010-02-22 00:00:00 Completed [facility] Meningococcal Polysaccharide (groups A, C, Y and W-135) conjugate vaccine (MCV4P) 2010-02-22 00:00:00 Completed [facility] Varicella (varivax)(chicken pox) 2010-02-22 00:00:00 Completed [facility] HEPATITIS A 2010-02-22 00:00:00 Completed [facility] Meningococcal Polysaccharide (groups A, C, Y and W-135) conjugate vaccine (MCV4P) 2010-02-22 00:00:00 Completed [facility] Varicella (varivax)(chicken pox) 2010-02-22 00:00:00 Completed [facility] HEPATITIS A 2010-02-22 00:00:00 Completed [facility] Meningococcal Polysaccharide (groups A, C, Y and W-135) conjugate vaccine (MCV4P) 2010-02-22 00:00:00 Completed [facility] Varicella (varivax)(chicken pox) 2010-02-22 00:00:00 Completed [facility] HEPATITIS A 2010-02-22 00:00:00 Completed [facility] Meningococcal Polysaccharide (groups A, C, Y and W-135) conjugate vaccine (MCV4P) 2010-02-22 00:00:00 Completed [facility] Varicella (varivax)(chicken pox) 2010-02-22 00:00:00 Completed [facility] HEPATITIS A 2010-02-22 00:00:00 Completed [facility] Meningococcal Polysaccharide (groups A, C, Y and W-135) conjugate vaccine (MCV4P) 2010-02-22 00:00:00 Completed [facility] Varicella (varivax)(chicken pox) 2010-02-22 00:00:00 Completed [facility] HEPATITIS A 2010-02-22 00:00:00 Completed [facility] Meningococcal Polysaccharide (groups A, C, Y and W-135) conjugate vaccine (MCV4P) 2010-02-22 00:00:00 Completed [facility] Varicella (varivax)(chicken pox) 2010-02-22 00:00:00 Completed [facility] HEPATITIS A 2010-02-22 00:00:00 Completed [facility] Meningococcal Polysaccharide (groups A, C, Y and W-135) conjugate vaccine (MCV4P) 2010-02-22 00:00:00 Completed [facility] Varicella (varivax)(chicken pox) 2010-02-22 00:00:00 Completed [facility] HEPATITIS A 2010-02-22 00:00:00 Completed [facility] Meningococcal Polysaccharide (groups A, C, Y and W-135) conjugate vaccine (MCV4P) 2010-02-22 00:00:00 Completed [facility] Varicella (varivax)(chicken pox) 2010-02-22 00:00:00 Completed [facility] HEPATITIS A 2010-02-22 00:00:00 Completed [facility] Meningococcal Polysaccharide (groups A, C, Y and W-135) conjugate vaccine (MCV4P) 2010-02-22 00:00:00 Completed [facility] Varicella (varivax)(chicken pox) 2010-02-22 00:00:00 Completed [facility] HEPATITIS A 2010-02-22 00:00:00 Completed Meningococcal Polysaccharide (groups A, C, Y and W-135) conjugate vaccine (MCV4P) 2010-02-22 00:00:00 Completed Varicella (varivax)(chicken pox) 2010-02-22 00:00:00 Completed TDAP 2010-02-22 00:00:00 Completed HIB 4 Dose Schedule 1997 00:00:00 Completed [facility] Pediarix (dtap/hep B/ipv) 1997 00:00:00 Completed [facility] Polio (IPV/OPV) 1997 00:00:00 Completed [facility] HIB 4 Dose Schedule 1997 00:00:00 Completed [facility] Pediarix (dtap/hep B/ipv) 1997 00:00:00 Completed [facility] Polio (IPV/OPV) 1997 00:00:00 Completed [facility] HIB 4 Dose Schedule 1997 00:00:00 Completed [facility] Pediarix (dtap/hep B/ipv) 1997 00:00:00 Completed [facility] Polio (IPV/OPV) 1997 00:00:00 Completed [facility] HIB 4 Dose Schedule 1997 00:00:00 Completed [facility] Pediarix (dtap/hep B/ipv) 1997 00:00:00 Completed [facility] Polio (IPV/OPV) 1997 00:00:00 Completed [facility] HIB 4 Dose Schedule 1997 00:00:00 Completed [facility] Pediarix (dtap/hep B/ipv) 1997 00:00:00 Completed [facility] Polio (IPV/OPV) 1997 00:00:00 Completed [facility] HIB 4 Dose Schedule 1997 00:00:00 Completed [facility] Pediarix (dtap/hep B/ipv) 1997 00:00:00 Completed [facility] Polio (IPV/OPV) 1997 00:00:00 Completed [facility] HIB 4 Dose Schedule 1997 00:00:00 Completed [facility] Pediarix (dtap/hep B/ipv) 1997 00:00:00 Completed [facility] Polio (IPV/OPV) 1997 00:00:00 Completed [facility] HIB 4 Dose Schedule 1997 00:00:00 Completed [facility] Pediarix (dtap/hep B/ipv) 1997 00:00:00 Completed [facility] Polio (IPV/OPV) 1997 00:00:00 Completed [facility] HIB 4 Dose Schedule 1997 00:00:00 Completed [facility] Pediarix (dtap/hep B/ipv) 1997 00:00:00 Completed [facility] Polio (IPV/OPV) 1997 00:00:00 Completed [facility] HIB 4 Dose Schedule 1997 00:00:00 Completed [facility] Pediarix (dtap/hep B/ipv) 1997 00:00:00 Completed [facility] Polio (IPV/OPV) 1997 00:00:00 Completed [facility] HIB 4 Dose Schedule 1997 00:00:00 Completed [facility] Pediarix (dtap/hep B/ipv) 1997 00:00:00 Completed [facility] Polio (IPV/OPV) 1997 00:00:00 Completed [facility] HIB 4 Dose Schedule 1997 00:00:00 Completed Pediarix (dtap/hep B/ipv) 1997 00:00:00 Completed Polio (IPV/OPV) 1997 00:00:00 Completed DTaP, Unspecified Formulation 1997 00:00:00 Completed [facility] Haemophilus influenzae type b vaccine, conjugate unspecified formulation 1997 00:00:00 Completed HIB 4 Dose Schedule 1997 00:00:00 Completed [facility] Pediarix (dtap/hep B/ipv) 1997 00:00:00 Completed [facility] Polio (IPV/OPV) 1997 00:00:00 Completed [facility] HIB 4 Dose Schedule 1997 00:00:00 Completed [facility] Pediarix (dtap/hep B/ipv) 1997 00:00:00 Completed [facility] Polio (IPV/OPV) 1997 00:00:00 Completed [facility] HIB 4 Dose Schedule 1997 00:00:00 Completed [facility] Pediarix (dtap/hep B/ipv) 1997 00:00:00 Completed [facility] Polio (IPV/OPV) 1997 00:00:00 Completed [facility] HIB 4 Dose Schedule 1997 00:00:00 Completed [facility] Pediarix (dtap/hep B/ipv) 1997 00:00:00 Completed [facility] Polio (IPV/OPV) 1997 00:00:00 Completed [facility] HIB 4 Dose Schedule 1997 00:00:00 Completed [facility] Pediarix (dtap/hep B/ipv) 1997 00:00:00 Completed [facility] Polio (IPV/OPV) 1997 00:00:00 Completed [facility] HIB 4 Dose Schedule 1997 00:00:00 Completed [facility] Pediarix (dtap/hep B/ipv) 1997 00:00:00 Completed [facility] Polio (IPV/OPV) 1997 00:00:00 Completed [facility] HIB 4 Dose Schedule 1997 00:00:00 Completed [facility] Pediarix (dtap/hep B/ipv) 1997 00:00:00 Completed [facility] Polio (IPV/OPV) 1997 00:00:00 Completed [facility] HIB 4 Dose Schedule 1997 00:00:00 Completed [facility] Pediarix (dtap/hep B/ipv) 1997 00:00:00 Completed [facility] Polio (IPV/OPV) 1997 00:00:00 Completed [facility] HIB 4 Dose Schedule 1997 00:00:00 Completed [facility] Pediarix (dtap/hep B/ipv) 1997 00:00:00 Completed [facility] Polio (IPV/OPV) 1997 00:00:00 Completed [facility] HIB 4 Dose Schedule 1997 00:00:00 Completed [facility] Pediarix (dtap/hep B/ipv) 1997 00:00:00 Completed [facility] Polio (IPV/OPV) 1997 00:00:00 Completed [facility] HIB 4 Dose Schedule 1997 00:00:00 Completed [facility] Pediarix (dtap/hep B/ipv) 1997 00:00:00 Completed [facility] Polio (IPV/OPV) 1997 00:00:00 Completed [facility] HIB 4 Dose Schedule 1997 00:00:00 Completed [facility] Pediarix (dtap/hep B/ipv) 1997 00:00:00 Completed Polio (IPV/OPV) 1997 00:00:00 Completed Haemophilus influenzae type b vaccine, conjugate unspecified formulation 1997 00:00:00 Completed IPV 1997 00:00:00 Completed Hep B, Adol or Pedi Dosage 1997 00:00:00 Completed [facility] Hep B, Adol or Pedi Dosage 1997 00:00:00 Completed [facility] Hep B, Adol or Pedi Dosage 1997 00:00:00 Completed [facility] Hep B, Adol or Pedi Dosage 1997 00:00:00 Completed [facility] Hep B, Adol or Pedi Dosage 1997 00:00:00 Completed [facility] Hep B, Adol or Pedi Dosage 1997 00:00:00 Completed [facility] Hep B, Adol or Pedi Dosage 1997 00:00:00 Completed [facility] Hep B, Adol or Pedi Dosage 1997 00:00:00 Completed [facility] Hep B, Adol or Pedi Dosage 1997 00:00:00 Completed [facility] Hep B, Adol or Pedi Dosage 1997 00:00:00 Completed [facility] Hep B, Adol or Pedi Dosage 1997 00:00:00 Completed [facility] Hep B, Adol or Pedi Dosage 1997 00:00:00 Completed HIB 4 Dose Schedule Unknown Completed [facility] HEPATITIS A Unknown Com[facility] Hep B, Adol or Pedi Dosage Unknown Completed [facility] Meningococcal Polysaccharide (groups A, C, Y and W-135) conjugate vaccine (MCV4P) Unknown Completed [facility] Pediarix (dtap/hep B/ipv) Unknown Completed [facility] Influenza Virus Vaccine Quad IM, Preserv and ABX Free 6 MO-64 YRS (FLUCELVAX) Unknown Completed [facility] Polio (IPV/OPV) Unknown Completed [facility] Varicella (varivax)(chicken pox) Unknown Completed [facility] HIB 4 Dose Schedule Unknown Completed [facility] HEPATITIS A Unknown Completed [facility] Hep B, Adol or Pedi Dosage Unknown Completed [facility] Meningococcal Polysaccharide (groups A, C, Y and W-135) conjugate vaccine (MCV4P) Unknown Completed [facility] Pediarix (dtap/hep B/ipv) Unknown Completed [facility] Influenza Virus Vaccine Quad IM, Preserv and ABX Free 6 MO-64 YRS (FLUCELVAX) Unknown Completed [facility] Polio (IPV/OPV) Unknown Completed [facility] Varicella (varivax)(chicken pox) Unknown Completed [facility] HIB 4 Dose Schedule Unknown Completed [facility] HEPATITIS A Unknown Completed [facility] Hep B, Adol or Pedi Dosage Unknown Completed [facility] Meningococcal Polysaccharide (groups A, C, Y and W-135) conjugate vaccine (MCV4P) Unknown Completed [facility] Pediarix (dtap/hep B/ipv) Unknown Completed [facility] Influenza Virus Vaccine Quad IM, Preserv and ABX Free 6 MO-64 YRS (FLUCELVAX) Unknown Completed [facility] Polio (IPV/OPV) Unknown Completed [facility] Varicella (varivax)(chicken pox) Unknown Completed [facility] HIB 4 Dose Schedule Unknown Completed [facility] HEPATITIS A Unknown Completed [facility] Hep B, Adol or Pedi Dosage Unknown Completed [facility] Meningococcal Polysaccharide (groups A, C, Y and W-135) conjugate vaccine (MCV4P) Unknown Completed [facility] Pediarix (dtap/hep B/ipv) Unknown Completed [facility] Influenza Virus Vaccine Quad IM, Preserv and ABX Free 6 MO-64 YRS (FLUCELVAX) Unknown Completed [facility] Polio (IPV/OPV) Unknown Completed [facility] Varicella (varivax)(chicken pox) Unknown Completed [facility] HIB 4 Dose Schedule Unknown Completed [facility] HEPATITIS A Unknown Completed [facility] Hep B, Adol or Pedi Dosage Unknown Completed [facility] Meningococcal Polysaccharide (groups A, C, Y and W-135) conjugate vaccine (MCV4P) Unknown Completed [facility] Pediarix (dtap/hep B/ipv) Unknown Completed [facility] Influenza Virus Vaccine Quad IM, Preserv and ABX Free 6 MO-64 YRS (FLUCELVAX) Unknown Completed [facility] Polio (IPV/OPV) Unknown Completed [facility] Varicella (varivax)(chicken pox) Unknown Completed [facility] DTaP, Unspecified Formulation Unknown Completed [facility] Influenza Virus Vaccine - Whole Unknown Completed [facility] Haemophilus influenzae type b vaccine, conjugate unspecified formulation Unknown Completed [facility] IPV Unknown Completed [facility] TDAP Unknown Completed [facility] HIB 4 Dose Schedule Unknown Completed [facility] HEPATITIS A Unknown Completed [facility] Hep B, Adol or Pedi Dosage Unknown Completed [facility] Meningococcal Polysaccharide (groups A, C, Y and W-135) conjugate vaccine (MCV4P) Unknown Completed [facility] Pediarix (dtap/hep B/ipv) Unknown Completed [facility] Influenza Virus Vaccine Quad IM, Preserv and ABX Free 6 MO-64 YRS (FLUCELVAX) Unknown Completed [facility] Polio (IPV/OPV) Unknown Completed [facility] Varicella (varivax)(chicken pox) Unknown Completed [facility] DTaP, Unspecified Formulation Unknown Completed [facility] Influenza Virus Vaccine - Whole Unknown Completed [facility] Haemophilus influenzae type b vaccine, conjugate unspecified formulation Unknown Completed [facility] IPV Unknown Completed [facility] TDAP Unknown Completed [facility] HIB 4 Dose Schedule Unknown Completed [facility] HEPATITIS A Unknown Completed [facility] Hep B, Adol or Pedi Dosage Unknown Completed [facility] Meningococcal Polysaccharide (groups A, C, Y and W-135) conjugate vaccine (MCV4P) Unknown Completed [facility] Pediarix (dtap/hep B/ipv) Unknown Completed [facility] Influenza Virus Vaccine Quad IM, Preserv and ABX Free 6 MO-64 YRS (FLUCELVAX) Unknown Completed [facility] Polio (IPV/OPV) Unknown Completed [facility] Varicella (varivax)(chicken pox) Unknown Completed [facility] DTaP, Unspecified Formulation Unknown Completed [facility] Influenza Virus Vaccine - Whole Unknown Completed [facility] Haemophilus influenzae type b vaccine, conjugate unspecified formulation Unknown Completed [facility] IPV Unknown Completed [facility] TDAP Unknown Completed [facility] Vital Signs Vital Name Observation Time Observation Value Comments S ource Systolic blood pressure 2024-08-01 19:30:00 126 mm[Hg] [facility] Diastolic blood pressure 2024-08-01 19:30:00 80 mm[Hg] [facility] Heart rate 2024-08-01 19:30:00 92 /min [facility] Respiratory rate 2024-08-01 19:30:00 15 /min [facility] Oxygen saturation in Arterial blood by Pulse oximetry 2024-08-01 19:30:00 96 /min [facility] Body temperature 2024-08-01 15:57:00 36.78 Ashly [facility] Body height 2024-08-01 15:57:00 165.1 cm [facility] Body weight 2024-08-01 15:57:00 113.399 kg [facility] BMI 2024-08-01 15:57:00 41.60 kg/m2 [facility] Systolic blood pressure 2024-07-06 03:59:00 134 mm[Hg] [facility] Diastolic blood pressure 2024-07-06 03:59:00 92 mm[Hg] [facility] Heart rate 2024-07-06 03:59:00 94 /min [facility] Body temperature 2024-07-06 03:59:00 36.61 Ashly [facility] Respiratory rate 2024-07-06 03:59:00 18 /min [facility] Oxygen saturation in Arterial blood by Pulse oximetry 2024-07-06 03:59:00 96 /min [facility] Body height 2024-07-06 01:58:00 162.6 cm [facility] Body weight 2024-07-06 01:58:00 104.327 kg [facility] BMI 2024-07-06 01:58:00 39.48 kg/m2 [facility] Systolic blood pressure 2024-03-18 17:00:00 110 mm[Hg] [facility] Diastolic blood pressure 2024-03-18 17:00:00 88 mm[Hg] [facility] Heart rate 2024-03-18 17:00:00 93 /min [facility] Body temperature 2024-03-18 17:00:00 36.72 Ashly [facility] Oxygen saturation in Arterial blood by Pulse oximetry 2024-03-18 17:00:00 97 /min [facility] Respiratory rate 2024-03-18 16:02:00 18 /min [facility] Body height 2024-03-18 13:06:00 162.6 cm [facility] Body weight 2024-03-18 13:06:00 108.863 kg [facility] BMI 2024-03-18 13:06:00 41.20 kg/m2 [facility] Heart rate 2023-10-10 03:51:00 102 /min [facility] Body temperature 2023-10-10 03:51:00 36.78 Ashly [facility] Oxygen saturation in Arterial blood by Pulse oximetry 2023-10-10 03:51:00 93 /min [facility] Systolic blood pressure 2023-10-10 03:30:00 115 mm[Hg] [facility] Diastolic blood pressure 2023-10-10 03:30:00 79 mm[Hg] [facility] Respiratory rate 2023-10-10 03:30:00 20 /min [facility] Body height 2023-10-10 01:12:00 165.1 cm [facility] Body weight 2023-10-10 01:12:00 105.371 kg [facility] BMI 2023-10-10 01:12:00 38.66 kg/m2 [facility] Heart rate 2023-08-13 05:30:00 111 /min [facility] Oxygen saturation in Arterial blood by Pulse oximetry 2023-08-13 05:30:00 92 /min ERP notifed. [facility] Systolic blood pressure 2023-08-13 05:01:00 126 mm[Hg] [facility] Diastolic blood pressure 2023-08-13 05:01:00 75 mm[Hg] [facility] Body temperature 2023-08-13 05:01:00 37 Ashly [facility] Respiratory rate 2023-08-13 05:01:00 15 /min [facility] Body height 2023-08-13 03:07:00 162.6 cm [facility] Body weight 2023-08-13 03:07:00 107.049 kg [facility] BMI 2023-08-13 03:07:00 40.51 kg/m2 [facility] Systolic blood pressure 2023-05-21 04:00:00 124 mm[Hg] [facility] Diastolic blood pressure 2023-05-21 04:00:00 73 mm[Hg] [facility] Heart rate 2023-05-21 04:00:00 100 /min [facility] Respiratory rate 2023-05-21 04:00:00 24 /min [facility] Oxygen saturation in Arterial blood by Pulse oximetry 2023-05-21 04:00:00 95 /min [facility] Body temperature 2023-05-21 01:08:00 37.28 Ashly [facility] Body height 2023-05-21 01:08:00 162.6 cm [facility] Body weight 2023-05-21 01:08:00 105.597 kg [facility] BMI 2023-05-21 01:08:00 39.96 kg/m2 [facility] Systolic blood pressure 2022-11-16 15:46:00 135 mm[Hg] [facility] Diastolic blood pressure 2022-11-16 15:46:00 87 mm[Hg] [facility] Heart rate 2022-11-16 15:46:00 98 /min [facility] Body temperature 2022-11-16 15:46:00 36.89 Ashly [facility] Respiratory rate 2022-11-16 15:46:00 18 /min [facility] Body height 2022-11-16 15:46:00 160 cm [facility] Body weight 2022-11-16 15:46:00 102.059 kg [facility] BMI 2022-11-16 15:46:00 39.86 kg/m2 [facility] Systolic blood pressure 2022-08-30 15:08:00 108 mm[Hg] [facility] Diastolic blood pressure 2022-08-30 15:08:00 70 mm[Hg] [facility] Heart rate 2022-08-30 15:08:00 106 /min [facility] Body temperature 2022-08-30 15:08:00 36.67 Ashly [facility] Body height 2022-08-30 15:08:00 160 cm [facility] Body weight 2022-08-30 15:08:00 97.614 kg [facility] BMI 2022-08-30 15:08:00 38.12 kg/m2 [facility] Systolic blood pressure 2022-06-22 14:43:00 128 mm[Hg] [facility] Diastolic blood pressure 2022-06-22 14:43:00 83 mm[Hg] [facility] Heart rate 2022-06-22 14:43:00 72 /min [facility] Body temperature 2022-06-22 14:43:00 36.78 Ashly [facility] Body height 2022-06-22 14:43:00 160 cm [facility] Body weight 2022-06-22 14:43:00 94.076 kg [facility] BMI 2022-06-22 14:43:00 36.74 kg/m2 [facility] Systolic blood pressure 2022-01-02 16:02:00 118 mm[Hg] [facility] Diastolic blood pressure 2022-01-02 16:02:00 74 mm[Hg] [facility] Heart rate 2022-01-02 16:02:00 102 /min [facility] Body temperature 2022-01-02 16:02:00 36.72 Ashly [facility] Body height 2022-01-02 16:02:00 160 cm [facility] Body weight 2022-01-02 16:02:00 100.971 kg [facility] BMI 2022-01-02 16:02:00 39.43 kg/m2 [facility] Procedures Procedure Date / Time Performed Performing Clinician Source XR CHEST 1 VW 2024-08-01 17:22:49 [place] Wells [facility] URINALYSIS 2024-08-01 17:13:00 Jefferson Wells [facility] POCT TEST 2024-08-01 17:13:00 [place] Wells e [facility] MAGNESIUM 2024-08-01 17:05:00 [place] Wells [facility] TROPONIN I 2024-08-01 17:05:00 [place] Wells [facility] COMP. METABOLIC PANEL ([id number]) 2024-08-01 17:05:00 [place] Wells [facility] CBC WITH DIFF 2024-08-01 17:05:00 [place] Wells [facility] D-DIMER 2024-08-01 17:05:00 Jefferson Wells [facility] N-TERMINAL PRO-BNP 2024-08-01 17:05:00 [place] Wells [facility] CT ABDOMEN PELVIS W CONTRAST 2024-07-06 02:29:00 Tino Lucia [facility] LIPASE 2024-07-06 02:20:00 Tino Lucia [facility] COMP. METABOLIC PANEL ([id number]) 2024-07-06 02:20:00 Tino Lucia [facility] CBC WITH DIFF 2024-07-06 02:20:00 Tino Lucia [facility] URINALYSIS 2024-07-06 02:20:00 [facility] POCT TEST 2024-07-06 02:19:00 Zackery Lucia [facility] INFLUENZA A/B RSV COVID NAAT 2024-03-18 14:28:00 [place] [facility] ACUTE CARE ARTERIAL BLOOD GAS 2023-10-10 02:02:00 Kierra Gross [facility] POCT TEST 2023-10-10 01:50:00 Kierra Gross [facility] TROPONIN I 2023-10-10 01:47:00 Kierra Gross [facility] COMP. METABOLIC PANEL ([id number]) 2023-10-10 01:47:00 Kierra Gross [facility] CBC WITH DIFF 2023-10-10 01:47:00 Kierra Gross [facility] D-DIMER 2023-10-10 01:47:00 Kierra Gross [facility] N-TERMINAL PRO-BNP 2023-10-10 01:47:00 Kierra Gross [facility] XR CHEST 1 VW 2023-08-13 03:44:10 Yoli Avila [facility] RAPID INFLUENZA A/B 2023-08-13 03:31:00 Yoli Avila [facility] POCT TEST 2023-08-13 03:31:00 Yoli Avila [facility] COVID-19 (ID NOW RAPID TESTING) 2023-08-13 03:31:00 Yoli Avila [facility] NOTICE OF PRIVACY PRACTICES 2023-08-13 02:45:44 Doctor Unassigned, [place] [facility] CONSENT/REFUSAL FOR DIAGNOSIS AND TREATMENT 2023-08-13 02:45:05 Doctor Unassigned, [place] [facility] POCT TEST 2023-05-21 02:35:00 yAse Grayson [facility] URINALYSIS 2023-05-21 02:31:00 Estefany Grayson [facility] URINE DRUG (IMMUNOASSAY) - COMPREHENSIVE DRUG SCREEN W/O REFLEX 2023-05-21 02:31:00 Estefany Grayson [facility] LIPASE 2023-05-21 02:14:00 Estefany Grayson [facility] TROPONIN I 2023-05-21 02:14:00 Estefany Grayson [facility] COMP. METABOLIC PANEL ([id number]) 2023-05-21 02:14:00 Estefany Grayson [facility] CBC WITH DIFF 2023-05-21 02:14:00 Estefany Garyson [facility] D-DIMER 2023-05-21 02:14:00 Estefany Grayson [facility] XR CHEST 2 VW 2023-05-21 01:48:29 Estefany Gryason [facility] NOTICE OF PRIVACY PRACTICES 2023-05-21 01:00:18 Doctor Unassigned, [place] [facility] CONSENT/REFUSAL FOR DIAGNOSIS AND TREATMENT 2023-05-21 00:59:42 Doctor Unassigned, [place] [facility] PATIENT FINANCIAL POLICY 2022-11-16 15:21:31 Doctor Unassigned, [place] [facility] POCT TEST 2022-11-16 00:00:00 Ruby Mccullough [facility] CONSENT FOR CONTRACEPTION 2022-08-30 06:01:00 Doctor Unassigned, [place] [facility] POCT TEST 2022-08-30 00:00:00 Ruby Mccullough [facility] ASSIGNMENT OF BENEFITS 2022-06-22 13:52:27 Docto r Unassigned, [place] [facility] VACCINATIONS - CONSENTS, ELIGIBILITY, HISTORY 2022-02-13 05:01:00 Doctor Unassigned, [place] [facility] CONSENT FOR CONTRACEPTION 2022-01-02 05:01:00 Doctor Unassigned, [place] [facility] POCT TEST 2022-01-02 00:00:00 Ruby Mccullough [facility] Encounters Start Date/Time End Date/Time Encounter Type Admission Type Attending [facility] Care Department Encounter ID Source 2021-05-09 18:08:31 Emergency [facility] [id number] [facility] 2021-05-08 18:31:57 Emergency [facility] [id number] [facility] 2024-09-23 18:30:00 2024-09-23 22:27:00 Emergency ISABELLE LAMA JOSHUA [facility] [id number] [facility] 2024-08-01 09:59:00 2024-08-01 14:00:00 Emergency Jefferson PATEL K [facility] [id number] [facility] 2024-08-01 09:59:00 2024-08-01 14:00:00 Emergency [place] Wells [facility] AT [facility] [id number] 350.1.13.10 4.2.7.2.686 [id number] [facility] 2024-07-11 15:00:00 2024-07-11 15:00:00 Outpatient MERLYN GALEAS [facility] [id number] [facility] 2024-07-05 20:13:00 2024-07-05 22:02:00 Emergency Tino Lucia [facility] AT [facility] [id number] 350.1.13.10 4.2.7.2.686 [id number] [facility] 2024-07-05 20:12:35 2024-07-05 20:12:35 Outpatient TINO HEREDIA PHILLIP [facility] [id number] [facility] 2024-03-18 08:08:00 2024-03-18 12:04:00 Emergency X Jefferson WELLS K [facility] [id number] [facility] 2024-03-18 08:08:00 2024-03-18 12:04:00 Emergency [place] Wells [facility] [id number] 350.1.13.10 4.2.7.2.686 [id number] [facility] 2023-12-12 14:30:00 2023-12-12 14:30:00 Outpatient AMA MARTIN [facility] [id number] [facility] 2023-10-24 00:00:00 2023-10-24 00:00:00 Telephone Piña, [facility] [id number] 350.1.13.10 4.2.7.2.686 [id number] [facility] 2023-10-23 00:00:00 2023-10-23 00:00:00 Telephone Piña, [facility] [id number] 350.1.13.10 4.2.7.2.686 [id number] [facility] 2023-10-09 20:16:00 2023-10-09 22:57:00 Emergency X RADHAJOHNMANUEL GUERREROANDRY [facility] [id number] [facility] 2023-10-09 20:16:00 2023-10-09 22:57:00 Emergency Jose Grossmark anthony [facility] [id number] 350.1.13.10 4.2.7.2.686 [id number] [facility] 2023-10-04 09:00:00 2023-10-04 09:00:00 Outpatient RUBY MONIQUE [facility] [id number] [facility] 2023-08-12 21:19:00 2023-08-12 23:46:00 Emergency X YOLI AVILA [facility] [id number] [facility] 2023-08-12 21:19:00 2023-08-12 23:46:00 Emergency Yoli [facility]ila [facility] 1.840.114 350.1.13.10 4.2.7.2.686 [id number] [facility] 2023-05-20 19:11:00 2023-05-20 22:17:00 Emergency X ESTEFANY GRAYSON [facility] [id number] [facility] 2023-05-20 19:11:00 2023-05-20 22:17:00 Emergency Estefany [facility] 1.0.114 350.1.13.10 4.2.7.2.686 [id number] [facility] 2023-01-23 14:00:00 2023-01-23 14:00:00 Outpatient R RUBY MCCULLOUGH [facility] [id number] [facility] 2022-11-16 10:30:00 2022-11-16 11:48:37 Outpatient R RUBY MCCULLOUGH [facility] [id number] [facility] 2022-11-16 10:30:00 2022-11-16 11:48:37 Office Visit Ruby Mccullough [facility] 1..114 350.1.13.10 4.2.7.2.686 [id number] [facility] 2022-11-16 00:00:00 2022-11-16 00:00:00 Orders Only Doctor Unassigned, [place] [facility] 1.840.114 350.1.13.10 4.2.7.2.686 [id number] [facility] 2022-11-14 00:00:00 2022-11-14 00:00:00 Telephone Ruby Mccullough [facility] [id number] 350.1.13.10 4.2.7.2.686 [id number] [facility] 2022-08-30 09:00:00 2022-08-30 09:28:13 Outpatient R RUBY MCCULLOUGH [facility] [id number] [facility] 2022-08-30 09:00:00 2022-08-30 09:28:13 Office Visit Ruby Mccullough [facility] [id number] 350.1.13.10 4.2.7.2.686 [id number] [facility] 2022-08-30 00:00:00 2022-08-30 00:00:00 Orders Only Doctor Unassigned, [place] [facility] [id number] 350.1.13.10 4.2.7.2.686 [id number] [facility] 2022-07-05 16:00:00 2022-07-05 16:00:00 Outpatient CHRISTA LOO [facility] [id number] [facility] 2022-06-28 00:00:00 2022-06-28 00:00:00 Telephone Ruby Mccullough [facility] BUILDING 1.2.840.114 350.1.13.10 4.2.7.2.686 [id number] 134 [id number] [facility] 2022-06-22 08:00:00 2022-06-22 08:55:01 Outpatient R RUBY MCCULLOUGH [facility] [id number] [facility] 2022-06-22 08:00:00 2022-06-22 08:55:01 Office Visit Ruby Mccullough [facility] 1.2.840.114 350.1.13.10 4.2.7.2.686 [id number] 134 [id number] [facility] 2022-06-22 00:00:00 2022-06-22 00:00:00 Orders Only Doctor Unassigned, [place] [facility] 1.2.840.114 350.1.13.10 4.2.7.2.686 [id number] [id number] [facility] 2022-02-13 00:00:00 2022-02-13 00:00:00 Orders Only Doctor Unassigned, [place] [facility] 1.2840.114 350.1.13.10 4.2.7.2.686 [id number] 009 [id number] [facility] 2022-01-02 10:45:00 2022-01-02 11:23:09 Outpatient R RUBY MCCULLOUGH [facility] [id number] [facility] 2022-01-02 10:45:00 2022-01-02 11:23:09 Office Visit Ruby Mccullough [facility] BUILDING 1.840.114 350.1.13.10 4.2.7.2.686 [id number] 134 [id number] [facility] 2022-01-02 10:45:00 2022-01-02 10:45:00 Outpatient R RUBY MCCULLOUGH [facility] [id number] [facility] 2022-01-02 00:00:00 2022-01-02 00:00:00 Orders Only Doctor Unassigned, [place] [facility] 1.2840.114 350.1.13.10 4.2.7.2.686 [id number] 009 [id number] [facility] 2021-12-26 00:00:00 2021-12-26 00:00:00 [facility]phone [facility] 1.2840.114 350.1.13.10 4.2.7.2.686 [id number] 134 [id number] [facility] 2021-12-26 00:00:00 2021-12-26 00:00:00 Telephone Christa Nielsen [facility] 1.2.840.114 350.1.13.10 4.2.7.2.686 [id number] 134 [id number] [facility] 2021-12-24 00:00:00 2021-12-24 00:00:00 Telephone Christa Nielsen [facility] 1.2.840.114 350.1.13.10 4.2.7.2.686 [id number] [facility] [id number] [facility] 2021-12-23 00:00:00 2021-12-23 00:00:00 Case Management Abiliochristi Christajuliana [facility] 1.2840.114 350.1.13.10 4.2.7.2.686 [id number] [facility] 2021-12-22 00:00:00 2021-12-22 00:00:00 Patient Secure Msg Doctor Unassigned, [place] [facility] 1.2.840.114 350.1.13.10 4.2.7.2.686 [id number] 134 [id number] [facility] 2021-12-22 00:00:00 2021-12-22 00:00:00 Case Management Christa Nielsen [facility] 1.2.840.114 350.1.13.10 4.2.7.2.686 [id number] 134 [id number] [facility] 2021-12-21 15:00:00 2021-12-21 15:37:44 Office Visit Christa Nielsen [facility] 1.2.840.114 350.1.13.10 4.2.7.2.686 [id number] 134 [id number] [facility] 2021-12-21 15:00:00 2021-12-21 15:37:44 Outpatient CHRISTA OLO [facility] [id number] [facility] 2021-12-21 15:00:00 2021-12-21 15:00:00 [facility] [id number] 2021-12-21 15:00:00 2021-12-21 15:00:00 Outpatient CHRISTA LOO [facility] [id number] [facility] 2021-10-26 13:30:00 2021-10-26 13:30:09 Outpatient RUBY MONIQUE [facility] [id number] [facility] 2021-10-26 13:30:00 2021-10-26 13:30:09 [facility] 1.2.840.114 350.1.13.10 4.2.7.2.686 [id number] 134 [id number] [facility] 2021-10-26 00:00:00 2021-10-26 00:00:00 Orders Only Doctor Unassigned, [place] [facility] 1.2.840.114 350.1.13.10 4.2.7.2.686 [id number] [id number] [facility] 2021-10-06 00:00:00 2021-10-06 00:00:00 [facility]od [facility] 1.2.840.114 350.1.13.10 4.2.7.2.686 [id number] [facility] 2021-05-23 15:00:00 2021-05-23 15:00:00 Outpatient RUBY MONIQUE [facility] [id number] [facility] 2021-04-18 00:00:00 2021-04-18 00:00:[address] [facility] 1..840.114 350.1.13.10 4.2.7.2.686 [id number] 092 [id number] [facility] 2021-04-12 10:45:35 2021-04-12 11:35:06 Office [facility] 1.840.114 350.1.13.10 4.2.7.2.686 [id number] 092 [id number] [facility] 2021-04-12 11:00:00 2021-04-12 11:00:00 Outpatient R GABBIE JAROD MARTINAJROD [facility] [id number] [facility] 2021-03-28 08:03:00 2021-03-28 20:45:00 Hospital Encounter Brenda Johnson [facility] 1..840.114 350.1.13.10 4.2.7.2.686 [id number] [facility] 2021-03-28 08:30:00 2021-03-28 08:30:00 Outpatient BRENDA MCCRAY [facility] [id number] [facility] 2021-03-25 15:17:12 2021-03-25 15:32:12 Laboratory Only Only, Adc Test Brenda Johnson [facility] 1..840.114 350.1.13.10 4.2.7.2.686 [id number] [facility] 2021-03-25 14:30:00 2021-03-25 14:30:00 Outpatient BRENDA MCCRAY [facility] [id number] [facility] 2021-03-16 00:00:00 2021-03-16 00:00:[address] [facility] 1.114 350.1.13.10 4.2.7.2.686 [id number] 092 [id number] [facility] 2021-03-07 15:13:45 2021-03-07 16:24:38 Office Visit Jarod Martin [facility] 1.114 350.1.13.10 4.2.7.2.686 [id number] [id number] [facility] 2021-03-07 15:00:00 2021-03-07 15:00:00 Outpatient R JAROD MARTIN [facility] [id number] [facility] 2021-03-02 16:45:00 2021-03-02 20:11:00 Emergency Yoli Avila [facility] 1.114 350.1.13.10 4.2.7.2.686 [id number] [facility] 2021-03-02 16:45:00 2021-03-02 20:11:00 Emergency Yoli Avila [facility] 1..114 350.1.13.10 4.2.7.2.686 [id number] [facility] 2021-03-01 15:00:00 2021-03-01 15:00:00 Outpatient R ED CONTRERAS [facility] [id number] [facility] 2021-02-17 13:40:00 2021-02-17 13:40:00 Outpatient R [facility] [id number] [facility] 2021-02-16 19:40:52 2021-02-16 20:00:52 Laboratory Only Lab, Adc Fam Pob Bree Greenbergtany [facility] Office Building One 1..114 350.1.13.10 4.2.7.2.686 [id number] [id number] [facility] 2021-02-16 20:00:00 2021-02-16 20:00:00 Outpatient R LAURIE ASHER [facility] [id number] [facility] 2021-02-08 14:30:00 2021-02-08 14:30:00 Outpatient R [facility] [id number] [facility] 2021-02-08 00:00:00 2021-02-08 00:00:00 [facility] 1.2.840.114 350.1.13.10 4.2.7.2.686 [id number] [facility] 2021-02-04 10:30:00 2021-02-04 10:30:00 Outpatient R [facility] [id number] [facility] 2021-01-06 00:00:00 2021-01-06 00:00:00 Telephone Kaley Kimball 1.2.840.114 350.1.13.10 4.2.7.2.686 [id number] [facility] 2020-12-13 00:00:00 2020-12-13 00:00:00 [facility] 1.2.840.114 350.1.13.10 4.2.7.2.686 [id number] 134 [id number] [facility] 2020-11-17 15:24:29 2020-11-17 16:11:59 Office Visit GiaChrista [facility] Building 1.2.840.114 350.1.13.10 4.2.7.2.686 [id number] 134 [id number] [facility] 2020-11-17 15:30:00 2020-11-17 15:30:00 [facility] [id number] 2020-11-16 18:36:00 2020-11-16 20:44:00 Emergency Vikram Rios [facility] 1.2.840.114 350.1.13.10 4.2.7.2.686 [id number] [facility] 2020-11-08 00:00:00 2020-11-08 00:00:00 Case Management [facility] 1.2.840.114 350.1.13.10 4.2.7.2.686 [id number] 134 [id number] [facility] 2020-11-04 00:00:00 2020-11-04 00:00:00 Case Management Gia Christa [facility] 1.2.840.114 350.1.13.10 4.2.7.2.686 [id number] 134 [id number] [facility] 2020-11-03 13:56:31 2020-11-03 14:26:31 Office Visit Christa Nielsen [facility] 1.2.840.114 350.1.13.10 4.2.7.2.686 [id number] 134 [id number] [facility] 2020-11-03 14:00:00 2020-11-03 14:00:00 [facility] [id number] [facility] 2020-07-20 12:55:00 2020-07-20 16:20:00 Emergency Beni Rivera [facility] 1.2.840.114 350.1.13.10 4.2.7.2.686 [id number] [facility] 2020-07-20 12:55:00 2020-07-20 16:20:00 Emergency X BENI RIVERA [facility] ERT [id number] [facility] 2020-06-02 14:45:00 2020-06-02 14:45:00 [facility] [id number] [facility] 2020-05-11 09:00:00 2020-05-11 09:00:00 Outpatient CHRISTA LOO [facility] [id number] [facility] 2020-05-08 00:00:00 2020-05-08 00:00:00 Telephone Cristi [facility] Office Building One 1.2840.114 350.1.13.10 4.2.7.2.686 [id number] [facility] 2020-05-08 00:00:00 2020-05-08 00:00:00 Telephone Cristi Josefina [facility] nal Building 1.2840.114 350.1.13.10 4.2.7.2.686 [id number] [facility] 2020-05-08 00:00:00 2020-05-08 00:00:00 Telephone Cristi [facility] Office Building One 1.2840.114 350.1.13.10 4.2.7.2.686 [id number] 044 [id number] 2020-05-08 00:00:00 2020-05-08 00:00:00 Telephone Cristi Josefina [facility] Building 1.2.840.114 350.1.13.10 4.2.7.2.686 [id number] 044 [id number] 2020-05-04 19:20:00 2020-05-04 19:20:00 Outpatient R [facility] [id number] [facility] 2020-05-04 17:45:31 2020-05-04 18:05:31 Urgent Care Provider, [facility] Cristi [facility] Office Building One 1.2840.114 350.1.13.10 4.2.7.2.686 [id number] 044 [id number] [facility] 2020-05-04 17:45:31 2020-05-04 18:05:31 [facility] Office Building One 1.2.840.114 350.1.13.10 4.2.7.2.686 [id number] 044 [id number] 2020-04-19 14:00:00 2020-04-19 14:00:00 Outpatient R GIA CHRISTA [facility] [id number] [facility] 2020-04-09 10:00:00 2020-04-09 10:00:00 Outpatient R GIA [facility] [id number] [facility] 2020-03-12 14:00:00 2020-03-12 14:00:00 Outpatient R RUBY MCCULLOUGH [facility] [id number] [facility] 2020-03-05 10:38:44 2020-03-05 11:39:54 Office Visit Ruby Mccullough [facility] Building 1.2.840.114 350.1.13.10 4.2.7.2.686 [id number] 134 [id number] [facility] 2020-03-05 10:38:44 2020-03-05 11:39:54 Office Visit Ruby Mccullough [facility] Building 1.2.840.114 350.1.13.10 4.2.7.2.686 [id number] 134 [id number] 2020-03-05 10:45:00 2020-03-05 10:45:00 Outpatient R RUBY MCCULLOUGH [facility] [id number] [facility] 2020-03-05 10:00:00 2020-03-05 10:00:00 Outpatient R RUBY MCCULLOUGH [facility] [id number] [facility] 2020-02-27 10:58:54 2020-02-27 11:48:44 Office Visit Christa Nielsen [facility] Building 1.2.840.114 350.1.13.10 4.2.7.2.686 [id number] [facility] 2020-02-27 10:45:00 2020-02-27 10:45:00 Outpatient R CHRISTA NIELSEN [facility] [id number] [facility] 2020-02-27 00:00:00 2020-02-27 00:00:00 Orders Only Doctor Unassigned, [place] [facility] 1.2840.114 350.1.13.10 4.2.7.2.686 [id number] [facility] 2020-01-09 18:56:10 2020-01-09 20:39:[address] [facility] 1.2.840.114 350.1.13.10 4.2.7.2.686 [id number] [facility] 2020-01-09 18:56:10 2020-01-09 18:56:[address] [facility]RT [id number] [facility] 2019-08-22 13:59:27 2019-08-22 15:30:00 Emergency [place] [facility] 1.2.840.114 350.1.13.10 4.2.7.2.686 [id number] 084 [id number] [facility] Results Test Description Test Time Test Comments Results Resul t Comments Source XR Chest 1 vw 2024-07-10 4 18:22:39 EXAM: XR CHEST 1 VW HISTORY: 29 years-old Female; chest pain COMPARISON: CXR dated 10/09/2023 FINDINGS: Lungs: The lung volumes are normal. No focal opacities are present. Nopleural abnormalities are detected. No pneumothorax. Heart/Mediastinum: The cardiomediastinal silhouette appears normal. Bones and soft tissues: No acute osseous findings are detected. [facility] [id number] 18:17:51* Test Item Value Reference Range Interpretation Comme nts TROPONIN I (test code = 0414379134) 0.004 ng/mL <=0.034 ANN (test code = [...] of biotin. Lab Interpretation (test code = 06657-4) Normal [facility]. Metabolic Panel (00242)2024-08-01 18:02:50* Test Item Value Reference Range Interpretation Comme nts NA (test code = 4140548871) 139 mmol/L 135-145 K (test code = 3525997947) 4.6 mmol/L 3.5-5.0 Slight hemolysis CL (test code = 7172944413) 109 mmol/L 98-108 H CO2 TOTAL (test code = 5085049794) 25 mmol/L 23-31 AGAP (test code = 5155570116) 5 2-16 BUN (test code = 1551539208) 12 mg/dL 7-23 Slight hemolysis GLUCOSE (test code = 5859136979) 90 mg/dL 70-110 CREATININE (test code = 2160-0) 0.71 mg/dL 0.50-1.04 TOTAL BILI (test code = 9317425993) 0.7 mg/dL 0.1-1.1 CALCIUM (test code = 1709986261) 9.9 mg/dL 8.6-10.6 T PROTEIN (test code = 8607010747) 8.1 g/dL 6.3-8.2 ALBUMIN (test code = 7525061740) 4.9 g/dL 3.5-5.0 ALK PHOS (test code = 5844436767) 65 U/L 34-122 Slight hemolysis ALTv (test code = 1742-6) 17 U/L 5-35 AST(SGOT) (test code = 0302782221) 35 U/L 13-40 Slight hemolysis eGFR (test code = 80731-1) 119.7 mL/min/1.73m2 CKD-EPI eGFR (2020). Assuming creatinine has been stable day-to-day for at least three months, the eGFR indicates Category G1 (>= 90 mL/min/1.73 m2) Lab Interpretation (test code = 77375-5) [facility]normal [facility] 17:51:07* Test Item Value Reference Range Interpretation Comme nts MAGNESIUM (test code = 8117008302) 2.0 mg/dL 1.7-2.4 Lab Interpretation (test cod e = 94316-8) Normal [facility]D-Mbjia3334-56-28 17:47:03* Test Item Value Reference Range Interpretation Comments D-DIMER (test code = 4644289720) See_Comment [Automated message] The system which generated [...] a diagnosis. Lab Interpretation (test code = 12234-3) Normal [facility] HospitalCbc with [id number] 17:31:20* Test Item Value Reference Range Interpretation [...] 34.4 g/dL 31.6-35.1 RDW-SD (test code = 96911-3) 41.1 fL 39.0-49.9 RDW-CV (test code = 788-0) 12.3 % 12.0-15.5 PLT (test code = 777-3) 278 166-358 MPV (test code = 07231-3) 9.4 fL 9.5-12.9 L NRBC/100 WBC (test code = 9097777490) 0.0 0.0-10.0 NRBC x10^3 (test code = 4132068227) See_Comment [Automated messa ge] The system which generated this result transmitted reference range: 10*3/?L. The reference range was not used to interpret this result as normal/abnormal. GRAN MAT (NEUT) % (test code = 770-8) 61.2 % IMM GRAN % (test code = 4362354268) 0.20 % LYMPH % (test code = 736-9) 29.1 % MONO % (test code = 5905-5) 6.5 % EOS % (test code = 713-8) 2.4 % BASO % (test code = 706-2) 0.6 % GRAN MAT x10^3(ANC) (test code = 4546796421) 3.89 10*3/uL 1.88-7.09 IMM GRAN x10^3 (test code = 6829300821) 0.00-0.06 LYMPH x10^3 (test code = 731-0) 1.85 10*3/uL 1.32-3.29 MONO x10^3 (test code = 742-7) 0.41 10*3/uL 0.33-0.92 EOS x10^3 (test code = 711-2) 0.15 10*3/uL 0.03-0.39 BASO x10^3 (test code = 704-7) 0.04 10*3/uL 0.01-0.07 Lab Interpretation (test code = 57832-7) Abnormal [facility] HospitalPOCT [id number] 17:13:00* Test Item Value Reference Range Interpretation Comme nts POCT PREG (test code = 1605) Negative On board controls acceptable with C Line (test code = 3574) Yes POCT PREG LOT # (test code = 3575) [id number] POCT PREG TEST DATE ( test code = 3576) 06-23-2025 Lab Interpretation (test cod e = 90738-2) Normal [facility]. Metabolic Panel (53735)2024-07-06 03:24:32* Test Item Value Reference Range Interpretation Comme nts NA (test code = 6503770226) 139 mmol/L 135-145 K (test code = 1255057920) 4.3 mmol/L 3.5-5.0 CL (test code = 2230881122) 108 mmol/L 98-108 CO2 TOTAL (test code = 7679092776) 25 mmol/L 23-31 AGAP (test code = 4548560556) 6 2-16 BUN (test code = 1494834016) 12 mg/dL 7-23 GLUCOSE (test code = 4163118997) 82 mg/dL 70-110 CREATININE (test code = 2160-0) 0.69 mg/dL 0.50-1.04 TOTAL BILI (test code = 5435355604) 0.5 mg/dL 0.1-1.1 CALCIUM (test code = 4428083479) 9.4 mg/dL 8.6-10.6 T PROTEIN (test code = 3038885756) 7.5 g/dL 6.3-8.2 ALBUMIN (test code = 4025006897) 4.5 g/dL 3.5-5.0 ALK PHOS (test code = 0980395849) 73 U/L 34-122 ALTv (test code = 1742-6) 18 U/L 5-35 AST(SGOT) (test code = 8868375574) 27 U/L 13-40 eGFR (test code = 88768-4) 122.2 mL/min/1.73m2 CKD-EPI eGFR (20 21). Assuming creatinine has been stable day-to-day for at least three months, the eGFR indicates Category G1 (>= 90 mL/min/1.73 m2) [facility]ase2024-12-29 03:23:52* Test Item Value Reference Range Interpretation Comme nts LIPASE (test code = 9967973228) 150 U/L 0-220 Lab Interpretation (test cod e = 37187-5) Normal [facility] HospitalCT Abdomen pelvis w ichyrufi4589-75-49 03:12:21Exam: CT Abdomen and Pelvis with contrast, [...] aneurysm. MUSCULOSKELETAL:Soft tissues: Unremarkable.Bones: No acute osseous abnormality.[facility] HospitalCbc with Byms6998-61-33 03:07:34* Test Item Value Reference Range Interpretation [...] 34.1 g/dL 31.6-35.1 RDW-SD (test code = 96435-8) 42.5 fL 39.0-49.9 RDW-CV (test code = 788-0) 12.8 % 12.0-15.5 PLT (test code = 777-3) 292 166-358 MPV (test code = 65146-5) 9.5 fL 9.5-12.9 NRBC/100 WBC (test code = 8744418015) 0.0 0.0-10.0 NRBC x10^3 (test code = 8235267297) See_Comment [Automated me ssage] The system which generated this result transmitted reference range: 10*3/?L. The reference range was not used to interpret this result as normal/abnormal. GRAN MAT (NEUT) % (test code = 770-8) 60.3 % IMM GRAN % (test code = 1221728130) 0.40 % LYMPH % (test code = 736-9) 29.6 % MONO % (test code = 5905-5) 5.9 % EOS % (test code = 713-8) 3.1 % BASO % (test code = 706-2) 0.7 % GRAN MAT x10^3(ANC) (test code = 1189708007) 5.96 10*3/uL 1.88-7.09 IMM GRAN x10^3 (test code = 9087309569) 0.04 10*3/uL 0.00-0.06 LYMPH x10^3 (test code = 731-0) 2.92 10*3/uL 1.32-3.29 MONO x10^3 (test code = 742-7) 0.58 10*3/uL 0.33-0.92 EOS x10^3 (test code = 711-2) 0.31 10*3/uL 0.03-0.39 BASO x10^3 (test code = 704-7) 0.07 10*3/uL 0.01-0.07 [facility]PO[facility] [id number] 02:19:00* Test Item Value Reference Range Interpretation Comme nts POCT PREG (test code = 1605) Negative On board controls acceptable with C Line (test code = 3574) Yes POCT PREG LOT # (test code = 3575) [id number] POCT PREG TEST DATE ( test code = 3576) 07-02-2025 Lab Interpretation (test cod e = 34047-0) Normal [facility] HospitalN-Terminal Nfi-Wek0378-92-03 02:37:04* Test Item Value Reference Range Interpretation Comme nts NT-proBNP (test code = 12698-8) <=125 Lab Interpretation (test cod e = 94835-1) Normal [facility] HospitalTroponin [id number] 02:33:02* Test Item Value Reference Range Interpretation Comme nts TROPONIN I (test code = 3255694845) 0.004 ng/mL <=0.034 ANN (test code = [...] of biotin. Lab Interpretation (test code = 25406-4) Normal [facility]. Metabolic Panel (87905)2023-10-10 02:21:36* Test Item Value Reference Range Interpretation Comme nts NA (test code = 1970425968) 137 mmol/L 135-145 K (test code = 5681718452) 4.3 mmol/L 3.5-5.0 CL (test code = 4281577066) 107 mmol/L 98-108 CO2 TOTAL (test code = 5362127729) 24 mmol/L 23-31 AGAP (test code = 6030945071) 6 2-16 BUN (test code = 4082251580) 16 mg/dL 7-23 GLUCOSE (test code = 7613529836) 102 mg/dL 70-110 CREATININE (test code = 2160-0) 0.74 mg/dL 0.50-1.04 TOTAL BILI (test code = 7587454241) 0.4 mg/dL 0.1-1.1 CALCIUM (test code = 6853589310) 9.2 mg/dL 8.6-10.6 T PROTEIN (test code = 7213318032) 7.3 g/dL 6.3-8.2 ALBUMIN (test code = 5398154856) 4.1 g/dL 3.5-5.0 ALK PHOS (test code = 4771290004) 91 U/L 34-122 ALTv (test code = 1742-6) 15 U/L 5-35 AST(SGOT) (test code = 4611585346) 21 U/L 13-40 eGFR (test code = 84998-2) 114.6 mL/min/1.73m2 CKD-EPI eGFR (20 21). Assuming creatinine has been stable day-to-day for at least three months, the eGFR indicates Category G1 (>= 90 mL/min/1.73 m2) [facility]* Test Item Value Reference Range Interpretation Comments D-DIMER (test code = 8081751030) 0.47 See_Comment [Automated message] The system which [...] a diagnosis. Lab Interpretation (test code = 96270-0) [id number] 02:11:38* Test Item Value Reference Range Interpretation [...] 33.9 g/dL 31.6-35.1 RDW-SD (test code = 95803-3) 43.4 fL 39.0-49.9 RDW-CV (test code = 788-0) 13.4 % 12.0-15.5 PLT (test code = 777-3) 321 166-358 MPV (test code = 83161-1) 9.4 fL 9.5-12.9 L NRBC/100 WBC (test code = 2059430130) 0.0 0.0-10.0 NRBC x10^3 (test code = 1345819016) See_Comment [Automated messa ge] The system which generated this result transmitted reference range: 10*3/?L. The reference range was not used to interpret this result as normal/abnormal. GRAN MAT (NEUT) % (test code = 770-8) 63.6 % IMM GRAN % (test code = 2892288626) 0.30 % LYMPH % (test code = 736-9) 22.4 % MONO % (test code = 5905-5) 5.0 % EOS % (test code = 713-8) 8.4 % BASO % (test code = 706-2) 0.3 % GRAN MAT x10^3(ANC) (test code = 6797978392) 5.94 10*3/uL 1.88-7.09 IMM GRAN x10^3 (test code = 0539446613) 0.03 10*3/uL 0.00-0.06 LYMPH x10^3 (test code = 731-0) 2.10 10*3/uL 1.32-3.29 MONO x10^3 (test code = 742-7) 0.47 10*3/uL 0.33-0.92 EOS x10^3 (test code = 711-2) 0.79 10*3/uL 0.03-0.39 H BASO x10^3 (test code = 704-7) 0.03 10*3/uL 0.01-0.07 Lab Interpretation (test code = 98021-9) Abnormal [facility] Care Arterial Blood Gas.2023-10-10 02:04:03* Test Item Value Reference Range Interpretation Comme nts PH (test code = 2) 7.42 7.35-7.45 PCO2 (test code = 9990359534) 35 35-45 PO2 (test code = 0839163301) 71 80-100 L HCO3 (test code = 6731809009) 22 22-26 BE (test code = 8207239702) -1.8 -3.0-3.0 Lab Interpretation (test cod e = 39761-5) Abnormal [facility] FQBM2621-17-67 01:50:00* Test Item Value Reference Range Interpretation Comme nts POCT PREG (test code = 1605) Negative On board controls acceptable with C Line (test code = 3574) Yes POCT PREG LOT # (test code = 3575) [id number] POCT PREG TEST DATE ( test code = 3576) 10/14/2024 Lab Interpretation (test cod e = 04818-3) [facility] [id number] 04:10:10Exam: Chest (1 View), 08/12/2023 9:30 PM. Ordering Physician: YOLI AVILA. History: cough . Technique: One view of the chest. Comparison: Chest radiograph 05/20/2023. Findings: No focal consolidation. No pneumothorax or effusion. Normal size of thecardiac silhouette. No acute osseous finding.[facility] [id number] 03:31:00* Test Item Value Reference Range Interpretation Comme nts POCT PREG (test code = 1605) Negative On board controls acceptable with C Line (test code = 3574) Yes POCT PREG LOT # (test code = 3575) [id number] POCT PREG TEST DATE ( test code = 3576) Lab Interpretation (test cod e = 44831-1) [id number]:58:24* Test Item Value Reference Range Interpretation Comme nts TROPONIN I (test code = 3428522391) 0.001 ng/mL <=0.034 ANN (test code = [...] of biotin. Lab Interpretation (test code = 10026-1) [facility]OLIC PAN[facility] (36598)2023-05-21 02:50:21* Test Item Value Reference Range Interpretation Comme nts NA (test code = 0975612702) 139 mmol/L 135-145 K (test code = 9151036655) 4.4 mmol/L 3.5-5.0 CL (test code = 6241617025) 109 mmol/L 98-108 H CO2 TOTAL (test code = 2283869842) 16 mmol/L 23-31 L AGAP (test code = 6961375730) 14 2-16 BUN (test code = 6178853230) 14 mg/dL 7-23 GLUCOSE (test code = 9471920385) 117 mg/dL 70-110 H CREATININE (test code = 4468947225) 0.65 mg/dL 0.50-1.04 TOTAL BILI (test code = 7377154182) 0.8 mg/dL 0.1-1.1 CALCIUM (test code = 4650424049) 10.5 mg/dL 8.6-10.6 T PROTEIN (test code = 4398097295) 8.9 g/dL 6.3-8.2 H ALBUMIN (test code = 7016980779) 4.9 g/dL 3.5-5.0 ALK PHOS (test code = 3949868246) 104 U/L 34-122 ALTv (test code = 1742-6) 29 U/L 5-35 AST(SGOT) (test code = 2148887089) 31 U/L 13-40 eGFR (test code = 89760-4) 125.5 mL/min/1.73m2 CKD-EPI eGFR (2020). Assuming creatinine has been stable day-to-day for at least three months, the eGFR indicates Category G1 (>= 90 mL/min/1.73 m2) Lab Interpretation (test code = 50995-5) [facility]normal [facility] 02:49:41* Test Item Value Reference Range Interpretation Comme [facility] LIPASE (test code = 5638735074) 119 U/L 0-220 Lab Interpretation (test cod e = 08082-7) Normal [facility][id number] 02:47:00* Test Item Value Reference Range Interpretation Comments D-DIMER (test code = 2259609139) 0.33 See_Comment [Automated message] The system which [...] a diagnosis. Lab Interpretation (test code = 02596-8) Normal [facility] [id number] 02:35:00* Test Item Value Reference Range Interpretation Comme nts POCT PREG (test code = 1605) Negative On board controls acceptable with C Line (test code = 3574) Yes POCT PREG LOT # (test code = 3575) 930284 POCT PREG TEST DATE ( test code = 3576) Lab Interpretation (test cod e = 29841-5) Normal [facility] WITH [id number] 02:34:16* Test Item Value Reference Range Interpretation [...] 35.0 g/dL 31.6-35.1 RDW-SD (test code = 11293-2) 44.0 fL 39.0-49.9 RDW-CV (test code = 788-0) 14.6 % 12.0-15.5 PLT (test code = 777-3) 402 See_Comment H [Automated message] The system which generated this result transmitted reference range: 166 - 358 10*3/?L. The reference range was not used to interpret this result as normal/abnormal. MPV (test code = 12844-5) 8.5 fL 9.5-12.9 L NRBC/100 WBC (test code = 7503268959) 0.0 See_Comment [Automated message] The system which generated this result transmitted reference range: 0.0 - 10.0 /100 WBCs. The reference range was not used to interpret this result as normal/abnormal. NRBC x10^3 (test code = 0834107235) See_Comment [Automated message] The system which generated this result transmitted reference range: 10*3/?L. The reference range was not used to interpret this result as normal/abnormal. GRAN MAT (NEUT) % (test code = 770-8) 91.3 % IMM GRAN % (test code = 5602619981) 0.40 % LYMPH % (test code = 736-9) 6.9 % MONO % (test code = 5905-5) 1.2 % EOS % (test code = 713-8) 0.0 % BASO % (test code = 706-2) 0.2 % GRAN MAT x10^3(ANC) (test code = 5007418038) 12.37 10*3/uL 1.88-7.09 H IMM GRAN x10^3 (test code = 2593300311) 0.06 10*3/uL 0.00-0.06 LYMPH x10^3 (test code = 731-0) 0.93 10*3/uL 1.32-3.29 L MONO x10^3 (test code = 742-7) 0.16 10*3/uL 0.33-0.92 L EOS x10^3 (test code = 711-2) 0.03-0.39 L BASO x10^3 (test code = 704-7) 0.03 10*3/uL 0.01-0.07 Lab Interpretation (test code = 27456-2) Abnormal [facility] [id number] 18:39:00* Test Item Value Reference Range Interpretation Comme nts POCT PREG (test code = 1605) Negative On board controls acceptable with C Line (test code = 3574) Yes POCT PREG LOT # (test code = 3575) POCT PREG TEST DATE ( test code = 3576) [facility] [id number] 18:39:00* Test Item Value Reference Range Interpretation Comme nts POCT PREG (test code = 1605) Negative On board controls acceptable with C Line (test code = 3574) Yes POCT PREG LOT # (test code = 3575) POCT PREG TEST DATE ( test code = 3576) [facility] [id number] 15:15:00* Test Item Value Reference Range Interpretation Comme nts POCT PREG (test code = 1605) Negative On board controls acceptable with C Line (test code = 3574) Yes POCT PREG LOT # (test code = 3575) POCT PREG TEST DATE ( test code = 3576) [facility] [id number] 15:15:00* Test Item Value Reference Range Interpretation Comme nts POCT PREG (test code = 1605) Negative On board controls acceptable with C Line (test code = 3574) Yes POCT PREG LOT # (test code = 3575) POCT PREG TEST DATE ( test code = 3576) [facility] [id number] 16:05:00* Test Item Value Reference Range Interpretation Comme nts POCT PREG (test code = 1605) Negative On board controls acceptable with C Line (test code = 3574) Yes POCT PREG LOT # (test code = 3575) POCT PREG TEST DATE ( test code = 3576) [facility] Notes Date/Time Note Provider Source 2024-08-01 14:00:15 Patient is awake and alert, oriented x4, speech is clear and appropriate, ambulatory with a steady gait. Advised to seek medical attention for new/prolonged/worsening of symptoms. Respirations even and unlabored, no distress. Raymundo RN [facility] 2024-08-01 09:55:45 CC: patient presents to the ER with complaints of mid-sternal chest wall pain that worsens when lying down. Patient states her pain began a week ago. 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 Awake, alert, oriented, resp reg unlabored, skin warm and dry, color appropriate for race, moves all ext without difficulty, amb without assistance. Appears in no distress. Barnes RN [facility] 2024-07-05 22:00:57 Pt. Provided d/c instructions, rx drug use, & f/u instructions; pt. 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 Reports abdominal pain for approx. 1 month to RUQ, LUQ; denies N/V/D; not triggered by food; denies vaginal bleeding [facility] Génesis Avalos RN [facility] 2024-07-05 19:33:00 [facility] Emergency [...] finding in the abdomen or pelvis. RL: 3457 End of Report Lab Results: Lab Results [...] 0.01 - 0.07 10*3/uL COMP. METABOLIC PANEL (25975) NA 139 135 - 145 mmol/L K [...] contrast Cbc with Diff Comp. Metabolic Panel (41852) Lipase POCT Test Urinalysis Orders Placed This [...] ED Course User Index [PS] Tino Lucia, Diagnosis/Impression as of 07/05/242139 Epigastric pain UTI [...] on file Follow-up: Contact information for follow-up [facility] Endoscopy, [facility] Specialty: Endoscopy [address] [facility] [address] Instructions: For follow up of the presenting symptoms. 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 Denies any radiation of pain. Chest tightness is not reproducible. Jessi Monzon RN [facility] 2023-10-24 11:28:48 Patient called wanted to speak with the [facility] for her OB office. Call transferred. Patient stated she is aware that she is coming up due for her Pap Smear. Completed Chart review/Care everywhere/Immtrac. Immtrac2 immunizations on file are current. Care Everywhere no new medical records obtained at this time for Overdue HM. Did not send patient a message via [employer] of Overdue Health Maintenance. No futurre appointments at this time. Insurance: [employer] is current. Health Maintenance Due Topic Date [...] (1) 03/09/2023 Cervical Cancer Screening 11/18/2023 [facility] [phone] [facility] 2023-10-23 11:05:18 Completed Chart review/Care everywhere/Immtrac. Immtrac2 immunizations were reconciled. Care Everywhere no new medical records obtained at this time for Overdue HM. Sent patient a message via [employer] of Overdue Health Maintenance with Varicella Questionnaire. No futurre appointments at this time. Currently has [employer]. 10/23/23 Health Maintenance team contacted patient to assist in completing Health Maintenance topics that are overdue. Nette Gordon [id number] Attempt Number: 1st Health Maintenance topics addressed: [...] Per patient she currently does go through [employer] for assistance with Cervical Cancer Screening. Notified patient that she is coming up on the due for that test on 11/18/2023 to reach out to them so they may better assist you in the process of getting you authorized. Also, notified patient I sent her a [employer] message with everything that she is currently due for that she may discuss with them to see if there is additional assistance with those vaccines. [facility] [phone] [facility] 2023-10-09 22:54:11 Pt given printed and verbal [...] distress, accompanied by family. Jackie Sow RN [facility] 2023-10-09 20:09:50 CC: Pt reports having a [...] travel Tachycardic in triage Gail Mac RN [facility] 2023-08-12 23:45:06 Pt given printed and verbal [...] gait, in no apparent distress Figueroa RN [facility] 2023-08-12 22:59:34 Pt's SpO2 88%. ERP Notified [facility] 2023-08-12 21:05:50 Pt arrives ambulatory to ED c/o a cough x aprox 3 months and is coughing up yellowish mucous. She says she went to the Dr yesterday and was told she had a fever of over 102.f. Pt has a hx of asthma and does smoke marijuana occasionally, denies cigarettes, or any other drugs. 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 treatment: None Chief Complaint: Chief Complaint Patient [...] Endocrine negative Physical Exam: ED Triage Vitals [08/12/237] Weight 107 kg (236 lb) Actual or [...] End of Report Lab Results: reviewed by me Lab Results COVID-19 (ID NOW RAPID TESTING) [...] ED Course User Index [PD] Yoli Avila, PEST LOCATOR Diagnosis/Impression as of 08/12/232246 Subacute cough Acute [...] Electronically signed by: Yoli Avila NP 08/12/23 1050 EGE BASKETBALL COACH Associated attestation - Kierra Gross MD - 08/12/2023 10:50 PM COLLEGE BASKETBALL COACH Addendum I was personally available for consultation in the Emergency Department during this encounter and patient evaluation by ALLAN Avila. [facility]
--- NOTE | 2024-11-21 19:06 | RAD REPORT ---
EXAM: Chest Single View HISTORY: 29 years Female CHEST PAIN COMPARISON: 10/13/2024 FINDINGS: LUNGS/PLEURA: The lungs are clear. No pleural effusions or pneumothorax. No pulmonary edema. CARDIAC/MEDIASTINUM: The cardiac silhouette is within normal limits. UPPER ABDOMEN: No significant abnormality. BONES: No acute abnormality. Mild thoracolumbar curvature. LINES/TUBES/OTHER: N/A IMPRESSION: No evidence of acute cardiopulmonary disease.
[2024-11-21 20:19] LABS: Specific Gravity 1.012 (1.005-1.030); Urine Bilirubin NEGATIVE (Negative); Urine Blood Negative (Negative); Urine Clarity Clear (Clear); Urine Color Light-Yellow (Yellow); Urine Glucose NEGATIVE (Negative); Urine Ketones NEGATIVE (Negative); Urine Microscopic Reflex YN NO UMIC; Urine Nitrite NEGATIVE (Negative); Urine Protein NEGATIVE (Negative); Urine Urobilinogen Normal (Normal)
[2024-11-21 20:40] LABS: ALT/SGPT 22 U/L (13-56); AST/SGOT 12 U/L (15-37); Albumin 3.7 g/dL (3.4-5.0); Albumin/Globulin Ratio 0.9 (1.1-1.8); Alkaline Phosphatase 108 U/L (45-117); Anion Gap 8.7 mEq/L (5.0-15.0); BUN Blood Urea Nitrogen 9 mg/dL (7-18); Bicarbonate 27 mEq/L (21-32); Bilirubin Total 0.4 mg/dL (0.2-1.0); Globulin 3.9 g/dL (2.3-3.5); Glomerular Filtration Rate 73 ml/min (=/>90); Glucose Level 90 mg/dL (74-106); NT PRO-BNP 9 pg/mL (<125); Potassium 3.7 mEq/L (3.5-5.1); Protein, Total 7.6 g/dL (6.4-8.2); Sodium Level 137 mEq/L (136-145)
[2024-11-21 21:18] LABS: Bilirubin Direct < 0.2 mg/dL (0-0.2); Bilirubin Indirect, Calculated 0.2 mg/dL (0.2-0.8); Troponin High Sensitivity < 3.0 pg/mL (<58.9)
[2024-11-21] MEDS ORDERED: KETOROLAC 30 MG/ML INJ ONE (21:20)
[2024-11-21] MEDS ORDERED: ALBUTEROL 2.5 MG/3 ML NEB SOL ONE (21:20)
[2024-11-21] MEDS ORDERED: LORazepam 2 MG/ML VIAL ONE (21:20)
[2024-11-21] MEDS ORDERED: IPRATROPIUM BROM 0.5MG/2.5ML ONE (21:20)
[2024-11-21 21:21] LABS: Absolute Basophils 0.1 K/uL (0-0.5); Absolute Eosinophils 0.2 K/uL (0-0.5); Absolute Monocytes 0.5 K/uL (0.1-1.3); Absolute Neutrophil 8.5 K/uL (1.8-8.0); Basophils % 0.7 % (0-1.3); Eosinophils % 2.1 % (0-4.4); Hematocrit 41.6 % (36.0-45.0); Hemoglobin 14.4 g/dL (12.0-15.0); Lymphocytes % 17.5 % (15.3-44.8); MCH 30.2 pg (27.0-35.0); MCHC 34.6 g/dL (32.0-36.0); MCV 87.3 fL (80-100); MPV 7.2 fL (7.6-11.3); Monocytes % 4.1 % (3.3-12.3); Neutrophils % 75.6 % (41.7-73.7); Nucleated Red Blood Cells % 0.1 % (0-0); Platelets 348 thou/uL (152-406); RBC Red Blood Cell Count 4.77 M/uL (3.86-4.86); Red Cell Distribution Width 13.8 % (12.1-15.2)
[2024-11-21] MEDS ORDERED: NA CHLORIDE 0.9% 500 ML ONE (21:52)
[2024-11-21] MEDS ORDERED: METHYLPREDNISOLONE 125 MG INJ ONE (22:32)
--- NOTE | 2024-11-21 22:33 | ER ---
Nurse's Notes [facility] Name: Nette Quiles Age: 29 yrs Sex: Female : 1995 Arrival Date: 11/21/2024 Time: 17:30 Bed 9 Private MD: Diagnosis: Anxiety disorder, unspecified;Shortness of breath;Chest pain, unspecified Presentation: 11/21 17:47 Chief complaint: Patient states: Left side chest pressure since yesterday, worse at jl7 night. Coronavirus screen: At this time, the client does not indicate any symptoms associated with coronavirus-19. Ebola Screen: No symptoms or risks identified at this time. Initial Sepsis Screen: Does the patient meet any 2 criteria? No. Patient's initial sepsis screen is negative. Does the patient have a suspected source of infection? No. Patient's initial sepsis screen is negative. Risk Assessment: Do you want to hurt yourself or someone else? Patient reports no desire to harm self or others. Onset of symptoms was November 20, 2024. 17:47 Method Of Arrival: Ambulatory [facility] 17:47 Acuity: ALEK 3 jl7 Triage Assessment: 17:49 General: Appears in no apparent distress. uncomfortable, Behavior is calm, cooperative, jl7 appropriate for age. Pain: Complains of pain in chest Pain currently is 6 out of 10 on a pain scale. Cardiovascular: Patient's skin is warm and dry. 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 - Infectious Disease History:: Denies. - Social history:: Smoking status: Patient reports the use of cigarette tobacco products. Screenin:35 [facility] ED Fall Risk Assessment (Adult) History of falling in the last 3 months, cp4 including since admission No falls in past 3 months (0 pts) Confusion or Disorientation No (0 pts) Intoxicated or Sedated No (0 pts) Impaired Gait No (0 pts) Mobility Assist Device Used No (0 pt) Altered Elimination No (0 pt) Score/Fall Risk Level 0 - 2 = Low Risk Oriented to surroundings, Maintained a safe environment, Assessed \T\ reinforced patient's understanding of fall precautions, Hourly rounding (assess needs \T\ fall precautionary measures) done. Abuse screen: Denies threats or abuse. Denies injuries from another. Nutritional screening: No deficits noted. Tuberculosis screening: No symptoms or risk factors identified. Assessment: 21:35 General: Appears in no apparent distress. comfortable, Behavior is calm, cooperative, cp4 appropriate for age. Pain: Complains of pain in chest Pain does not radiate. Pain currently is 6 out of 10 on a pain scale. Pain began 1 day ago. Neuro: Level of Consciousness is awake, alert, obeys commands, Oriented to person, place, time, situation. Cardiovascular: Patient's skin is warm and dry. Rhythm is sinus rhythm. Respiratory: Airway is patent Respiratory effort is even, unlabored. GI: No signs and/or symptoms were reported involving the gastrointestinal system. : No signs and/or symptoms were reported regarding the genitourinary system. EENT: No signs and/or symptoms were reported regarding the EENT system. Derm: No signs and/or symptoms reported regarding the dermatologic system. Musculoskeletal: No signs and/or symptoms reported regarding the musculoskeletal system. 22:45 Reassessment: No changes from previously documented assessment. Patient and/or family br2 updated on plan of care and expected duration. Pain level reassessed. Patient states feeling better. Patient states symptoms have improved. Vital Signs: 17:47 BP 116 / 75; Pulse 104; Resp 17; Temp 98.5; Pulse Ox 96% ; Weight 101.6 kg; Height 5 jl7 ft. 4 in. ; Pain 6/10; 21:39 BP 111 / 89; Pulse 103; Resp 18; Pulse Ox 100% ; cp4 22:44 BP 130 / 90; Pulse 102; Resp 16; Pulse Ox 95% ; br2 17:47 Body Mass Index 38.45 (101.60 kg, 162.56 cm) jl7 17:47 Pain Scale: Adult [facility] ED Course: 17:32 Patient arrived in ED. im 17:46 Chalo Recinos PA is PHCP. jl7 17:49 Triage completed. jl7 17:49 Arm band placed on right wrist. EKG completed in triage. Results shown to MD. 7 17:51 Marco Elias MD is Attending Physician. cp 18:57 XRAY Chest (1 view) In Process Unspecified. EDMS 20:14 Initial lab(s) drawn, by me, sent to lab. Inserted saline lock: 20 gauge in right iw antecubital area, using aseptic technique. Blood collected. Flushed with 10 mL NS. 20:50 Grecia Pelayo is Primary Nurse. cp4 21:35 Bed in low position. Call light in reach. Side rails up X2. Client placed on continuous cp4 cardiac and pulse oximetry monitoring. NIBP monitoring applied. supervisor heat treating on. Pulse ox on. NIBP on. 21:35 No provider procedures requiring assistance completed. Patient maintains SpO2 cp4 saturation greater than 95% on room air. 22:44 IV discontinued, intact, bleeding controlled, No redness/swelling at site. Pressure br2 dressing applied. Administered Medications: 21:27 Drug: DuoNeb Nebulize (2.5 mg - 0.5 mg) 3 ml Nebulizer once Route: Nebulizer; cp4 21:41 Follow up: Response: No adverse reaction cp4 21:27 Drug: Ativan IVP 1 mg IVP once Route: IVP; Site: right antecubital; cp4 21:41 Follow up: Response: No adverse reaction cp4 21:27 Drug: Ketorolac IVP 15 mg IVP once Route: IVP; Site: right antecubital; cp4 21:41 Follow up: Response: No adverse reaction cp4 21:55 Drug: NS 0.9% IV 500 ml 500 ml IV at 1 bolus once; to be given as a bolus over 30 cp4 minutes Volume: 500 ml; Route: IV; Rate: 1 bolus; Site: right antecubital; 22:30 Follow up: Response: No adverse reaction; IV Status: Completed infusion; IV Intake: br2 500ml 22:35 Drug: MethylPrednisoLONE IVP 125 mg IVP once Route: IVP; Site: right antecubital; kl 22:46 Follow up: Response: No adverse reaction br2 Medication: 21:35 VIS not applicable for this client. cp4 Intake: 22:30 IV: 500ml; Total: 500ml. br2 Outcome: 22:33 Discharge ordered by . cp 22:44 Discharged to home ambulatory, br2 22:44 Condition: stable 22:44 Discharge instructions given to patient, Instructed on discharge instructions, follow up and referral plans. Demonstrated understanding of instructions, follow-up care, medications, Prescriptions given X 3, 22:47 Patient left the ED. br2 Signatures: Dispatcher [employer] EDJessi Chen, Nelida Lin RN RN RN Chalo Khalil PA PA cp Leal, Jahala, RN RN jl7 Sarah Coelho Christina cp4 Garima Tatum RN RN br2
--- NOTE | 2024-11-21 22:33 | EDPHYS ---
Physician Documentation [facility] Name: Nette Quiles Age: 29 yrs Sex: Female : 1995 Arrival Date: 11/21/2024 Time: 17:30 Bed 9 Private MD: ED Physician Marco Elias HPI: 11/21 18:00 This 29 yrs old Female presents to ER via Ambulatory with complaints of Chest Pain, cp Shortness Of Breath. 18:00 The patient or guardian reports chest pain that is located primarily in the anterior cp chest wall. Associated signs and symptoms: Pertinent positives: shortness of breath. The chest pain is described as sharp. [employer]: 17:49 LMP N/A - Depo-provera, Not jl7 Historical: - Allergies: 17:49 No Known Allergies; jl7 - PMHx: 17:49 Anxiety; Bronchitis; Depression; Seizure; jl7 - PSHx: 17:49 section; jl7 - Immunization history:: Adult Immunizations unknown. - Infectious Disease History:: Denies. - Social history:: Smoking status: Patient reports the use of cigarette tobacco products. ROS: 18:00 Constitutional: Negative for body aches, chills, fever, poor PO intake, cp 18:00 Cardiovascular: Positive for chest pain, 18:00 Respiratory: Positive for shortness of breath, Exam: 17:50 ECG was reviewed by the Attending Physician. Vital Signs: 17:47 BP 116 / 75; Pulse 104; Resp 17; Temp 98.5; Pulse Ox 96% ; Weight 101.6 kg; Height 5 jl7 ft. 4 in. ; Pain 6/10; 21:39 BP 111 / 89; Pulse 103; Resp 18; Pulse Ox 100% ; cp4 22:44 BP 130 / 90; Pulse 102; Resp 16; Pulse Ox 95% ; br2 17:47 Body Mass Index 38.45 (101.60 kg, 162.56 cm) jl7 17:47 Pain Scale: Adult jl7 MDM: 17:48 Medical Screening Exam initiated cp 11/21 17:52 Order name: Basic Metabolic Panel; Complete Time: 21:38 11/21 21:39 Interpretation: Normal except: CRE 1.07; GFR 73. 11/21 17:52 Order name: CBC with Diff; Complete Time: 21:38 11/21 17:52 Order name: LFT's; Complete Time: 21:38 cp 11/21 17:52 Order name: Magnesium; Complete Time: 21:38 cp 11/21 17:52 Order name: NT PRO-BNP; Complete Time: 21:38 cp 11/21 17:52 Order name: PT-INR cp 11/21 17:52 Order name: Troponin HS; Complete Time: 21:38 cp 11/21 17:52 Order name: UA Rfx Govind Cult if indicated; Complete Time: 21:38 cp 11/21 17:52 Order name: Test, Urine; Complete Time: 21:38 cp 11/21 20:20 Order name: D-Dimer; Complete Time: 21:59 EDMS 11/21 17:52 Order name: XRAY Chest (1 view); Complete Time: 20:01 cp 11/21 20:01 Interpretation: Report review. 11/21 17:52 Order name: Cardiac monitoring; Complete Time: 21:27 cp 11/21 17:52 Order name: EKG - Nurse/Tech; Complete Time: 21:27 cp 11/21 17:52 Order name: IV Saline Lock; Complete Time: 20:14 cp 11/21 17:52 Order name: Labs collected and sent; Complete Time: 20:14 cp 11/21 17:52 Order name: O2 Per Protocol; Complete Time: 21:27 cp 11/21 17:52 Order name: O2 Sat Monitoring; Complete Time: 21:27 cp 11/21 20:25 Order name: Misc. Order: RECOLLECT BLUE TOP; Complete Time: 21:16 rv1 EC:50 Rate is 109 beats/min. Rhythm is regular. WV interval is normal. QRS interval is cp normal. QT interval is normal. T waves are Inverted in leads III, aVR. Interpreted by me. Reviewed by me. Administered Medications: 21:27 Drug: DuoNeb Nebulize (2.5 mg - 0.5 mg) 3 ml Nebulizer once Route: Nebulizer; cp4 21:41 Follow up: Response: No adverse reaction cp4 21:27 Drug: Ativan IVP 1 mg IVP once Route: IVP; Site: right antecubital; cp4 21:41 Follow up: Response: No adverse reaction cp4 21:27 Drug: Ketorolac IVP 15 mg IVP once Route: IVP; Site: right antecubital; cp4 21:41 Follow up: Response: No adverse reaction cp4 21:55 Drug: NS 0.9% IV 500 ml 500 ml IV at 1 bolus once; to be given as a bolus over 30 cp4 minutes Volume: 500 ml; Route: IV; Rate: 1 bolus; Site: right antecubital; 22:30 Follow up: Response: No adverse reaction; IV Status: Completed infusion; IV Intake: br2 500ml 22:35 Drug: MethylPrednisoLONE IVP 125 mg IVP once Route: IVP; Site: right antecubital; kl 22:46 Follow up: Response: No adverse reaction br2 Disposition: 11/22 19:03 Co-signature as Attending Physician, Marco Elias MD I reviewed the patient's care rt provided by the Advanced Practice Provider and agree with the diagnosis and treatment plan. Disposition Summary: 11/21/24 22:33 Discharge Ordered Notes: Location: Home cp Problem: new cp Symptoms: have improved cp Condition: Stable cp Diagnosis - Anxiety disorder, unspecified cp - Shortness of breath cp - Chest pain, unspecified cp Followup: cp - With: Private Physician - When: 2 - 3 days - Reason: Worsening of condition Discharge Instructions: - Discharge Summary Sheet cp - Nonspecific Chest Pain, Adult cp - Shortness of Breath, Adult cp - Managing Anxiety, Adult cp Forms: - Medication Reconciliation Form cp - Antibiotic Education cp - Prescription Opioid Use cp - Patient Portal Instructions cp - Leadership Thank You Letter cp Prescriptions: - albuterol sulfate 90 mcg/actuation Inhalation HFA Aerosol Inhaler - inhale 1 puff INHALATION route every 4 to 6 hours as needed for shortness of cp breath or wheezing; 1 unit; Refills: 0, Product Selection Permitted - Zyrtec 10 mg Oral Tablet - take 1 tablet ORAL route once daily As needed; 20 tablet; Refills: 0, Product cp Selection Permitted - Prednisone 20 mg Oral Tablet - take 2 tablets ORAL route once daily for 5 days; 10 tablet; Refills: 0, Product cp Selection Permitted Signatures: Dispatcher [employer] Jessi Aguilar RN RN Chalo Gaston PA PA cp Sandor Morrison RN RN jl7 Marco Elias MD MD rt Mariana Macias rv1 Grecia Pelayo cp4 [place], Garima RN br2 Corrections: (The following items were deleted from the chart) 11/21 17:53 17:52 BASIC METABOLIC PANEL+C.LAB.BRZ ordered. EDMS EDMS 17:53 17:52 CBC+H.LAB.BRZ ordered. EDMS EDMS 17:53 17:52 HEPATIC FUNCTION+C.LAB.BRZ ordered. EDMS EDMS 17:53 17:52 MAGNESIUM+C.LAB.BRZ ordered. EDMS EDMS 17:53 17:52 PROBNP+C.LAB.BRZ ordered. EDMS EDMS 17:53 17:52 PROTIME (+INR)+COAG.LAB.BRZ ordered. EDMS EDMS 17:53 17:52 Troponin High Sensitivity+C.LAB.BRZ ordered. EDMS EDMS 17:53 17:52 UA Rfx Govind Cult if indicated+U.LAB.BRZ ordered. EDMS EDMS 17:53 17:52 Test, Urine+UC.LAB.BRZ ordered. EDMS EDMS 17:53 17:53 Chest Single View+RAD.RAD.BRZ ordered. EDMS EDMS 20:20 17:52 D-DIMER+COAG.LAB.BRZ ordered. EDMS EDMS
[2024-11-21 23:07] VITALS: TEMP 98.5
[2024-11-21 23:10] VITALS: BP 130/90; O2SAT 95
--- NOTE | 2024-11-24 16:50 | EKG ---
Test Date: 2024-11-21 Test Time: 17:43:58 Director Client: VERNA MEASUREMENT RESULTS: Intervals: Rate: 109 MD: 86 QRSD: 72 QT: 326 QTc: 439 [place]: P: 55 MD: 86 QRS: 55 T: 20 INTERPRETIVE STATEMENTS: Sinus tachycardia with short MD Otherwise normal ECG Compared to ECG 10/13/2024 09:26:45 Short MD interval now present Sinus bradycardia no longer present Sinus arrhythmia no longer present Electronically Signed On 11-24-24 16:46:42 CDT by Franklin Jacobsen
== END 2024-11-21 22:47 | disposition home or self-care (01) ==
LOC: ER 17:30
DX: F41.9 Anxiety disorder, unspecified (principal); R06.02 Shortness of breath
CPT/HCPCS: 36415; 71045; 80048; 80076; 81003; 81025; 83735; 83880; 84484; 85025; 85379; 85610; 93005; 96361; 96374; 96375; 99285; J2919; J7040; J7613; J7644